=== PATIENT | female | born 1965 | race Caucasian/White ===

== ENCOUNTER 2016-07-10 08:43 | Outpatient (CLI) | payer MEDICARE, MEDICAID ==
[~2016-07-10] VITALS: Ht 162.6 cm; Wt 149.7 kg
[~2016-07-10 08:43] MED LIST: ALB.5NB20 HHN; ATEN100T45 PO; BACL20TA PO; CYCL10TA9 PO; DULO60CA6 PO; EST.625T PO; ESTR1TAB24 PO; FLT11013 IH; FRSM40T PO; FURO20TA4 PO; HYDR12.570 GT; LIRA0.6P SQ; LISI10TA PO; LISI1TAB6 PO; LPRM1B120 PO; MECL-124 PO; MTF500T PO; NAPR-248 PO; NITR-65 PO; OMEG1CAP51 PO; ONDAN4ODT PO; OXYC-197 PO; PNT40TEC PO; POTA10TA10 PO; PRAV40TA2 PO; PREG200C PO; PREG225C PO; PRV20T PO; SCOP1PAT TD; TRAM50TA2 PO
[2016-07-10 09:02] VITALS: BP 125/76
[2016-07-10] MEDS ORDERED: LIDOCAINE 2% 20 ML (XYLOCAINE) VIAL ONE (09:03)
[2016-07-10 09:47] VITALS: BP 149/79
--- NOTE | 2016-07-10 13:25 | Pain Medicine-Procedure ---
Procedure Pre-Op/Post-Op Diagnosis Diagnosis: spondylosis without myelopathy, lumbar Indications for Operation Low back pain Attending Surgeon Enedelia Procedure Date of Service: Jul 10, 2016 PROCEDURE: Radiofrequency Ablation (RFA) of left L3, L4, L5 and sacral ala (S1 ) Medial Branches NOTE: After obtaining written informed consent patient was taken to the procedure room. Pre-procedure blood pressure and pulse were stable and recorded in patients clinic chart. Patient was placed in a prone position and left lumbar area was prepped with chloraprep and draped in the usual sterile fashion. The skin over the sacral ala on the left was injected with 2% Lidocaine for local anesthesia. A 20-gauge RFA 100 mm needle with 10 mm active was inserted and advanced until it was touching the sacral ala in the area of the medial branch from S1. Next, in the oblique view, the left L3,L4 and L5 levels were identified. The skin over L3, L4 and L5 was then injected with 1% Lidocaine for local anesthesia. Next a 20-gauge RFA 100 mm needle with 10 mm active tip was inserted and advanced until it was touching the L3, L4 and L5 levels in the distrubution of the medial branches at each level making sure to not enter the neuroforamina. Following the placement of the needles sensory stimulation at 50 Hz and motor stimulation at 2 Hz was carried out. After confirming reproduction of the pain/sensation in the area of symptoms and the patient denying any motor movement, 0.5 mL's of 2% preservative free Lidocaine was injected at each level after negative aspiration. The RFA was then carried out in lesion mode. The settings were 80 C, and 90 seconds for lesion mode at each level. During the procedure no pain was reported in the extremities by the patient. After the procedure the needles were removed. Skin was cleaned and a sterile dressing was applied. Following the procedure the patient's vital signs were stable. The patient was discharged. RFA DATA: In chart Complications None MAURA AGUILERA MD Jul 10, 2016 1:25 pm
== END 2016-07-10 09:48 | disposition home or self-care (01) ==
LOC: CARD 08:43
PROVIDERS: ATTEND Pain Medicine Pain Medicine
DX: M47.816 Spondylosis without myelopathy or radiculopathy, lumbar region (principal)
CPT/HCPCS: 64635; 64636

== ENCOUNTER 2016-12-16 10:39 | Outpatient (CLI) | payer MEDICARE, MEDICAID ==
[~2016-12-16] VITALS: Ht 162.6 cm; Wt 143.8 kg
[2016-12-16 10:47] VITALS: BP 132/72
[2016-12-16] MEDS ORDERED: TRAM50TA2 PO (10:59)
[2016-12-16] MEDS ORDERED: DULA0.75 SQ (10:59)
[2016-12-16 12:02] LABS: ANION GAP 12 MMOL/L (5-14); BLOOD UREA NITROGEN 10 MG/DL (7-18); BUN/CREATININE RATIO 14 (0-20); CALCIUM 9.2 MG/DL (8.5-10.1); CARBON DIOXIDE 27 MMOL/L (21-32); CHLORIDE 103 MMOL/L (98-107); GFR ESTIMATED > 60; GLUCOSE 131 MG/DL (70-105); HEMOLYSIS 7 (0-29); ICTERUS 0.3 (0-1.9); LIPEMIA -1 (0-49); POTASSIUM 3.9 MMOL/L (3.6-5.0); SODIUM 142 MMOL/L (135-145)
== END 2016-12-16 11:07 | disposition home or self-care (01) ==
LOC: PREOP 10:39
PROVIDERS: ATTEND Orthopaedic Surgery
DX: Z01.812 Encounter for preprocedural laboratory examination (principal); Z11.2 Encounter for screening for other bacterial diseases; M77.11 Lateral epicondylitis, right elbow
CPT/HCPCS: 36415; 80048; 87081

== ENCOUNTER 2016-12-23 09:32 | Day surgery (SDC) | payer MEDICARE, MEDICAID ==
--- NOTE | 2016-12-15 13:03 | HISTORY AND PHYSICAL ---
DATE OF SERVICE: PROCEDURE: Right elbow lateral epicondyle debridement and repair. HISTORY: The patient is a 51-year-old right hand dominant female with complaints of right elbow pain radiating laterally. She reports pain with lifting activities. She reports that this has been progressive in nature. She denies paresthesias. She reports difficulty with any lifting away from her body. Due to functional impairment, the patient has elected to proceed with surgical intervention. REVIEW OF SYSTEMS: No chest pain. No shortness of breath. No dysuria. PAST MEDICAL HISTORY: Diabetes, spinal stenosis, lumbar arthropathy, peripheral neuropathy, edema, hypertension, hyperlipidemia, asthma, reflux, nephrolithiasis, depression, cervical cancer. PAST SURGICAL HISTORY: Right shoulder, colonoscopy, right knee arthroscopy, cataract excision, hysterectomy. FAMILY HISTORY: Alzheimer's, diabetes. PRIMARY CARE PROVIDER: [facility]. MEDICATIONS: Albuterol, lisinopril, transderm, estradiol, pravastatin, potassium, Lyrica, Lasix, Cymbalta, Flovent, triamcinolone, metformin, cyclobenzaprine, meclizine, tramadol, Proventil, Naprosyn, atenolol, pantoprazole, baclofen, Percocet. ALLERGIES: KEFLEX, MORPHINE, TRAVATAN. SOCIAL HISTORY: The patient denies alcohol and tobacco use. PHYSICAL EXAMINATION: GENERAL: The patient is well-developed, well-nourished, in no acute distress. HEENT: Normocephalic, atraumatic. Pupils are equal, round and reactive to light. Oropharynx is clear. NECK: Supple with no lymphadenopathy. LUNGS: Clear to auscultation bilaterally. HEART: Regular rate and rhythm. ABDOMEN: Soft, nontender, nondistended. EXTREMITIES: The right upper limb demonstrates marked tenderness in her lateral epicondyle. She has pain with resistant wrist extension and finger extension. Sensation is intact in her radial, ulnar and median distribution. She is nontender over her radial tunnel. She has full elbow flexion and extension and full pronation and supination of the forearm. IMPRESSION: Right elbow lateral epicondylitis, unresponsive to conservative treatment. PLAN: Right elbow lateral epicondyle debridement and repair. The risks, benefits, options, ramifications and recovery have been discussed at length with the patient and she understands and wishes to proceed. Job ID: [id number] DocumentID: [id number] Dictated Date: 12/15/2016 09:30:17 Sales Agent [employer] Date: 12/15/2016 11:41:57 Dictated By: ARELI MOYA MD
[~2016-12-23] VITALS: Ht 162.6 cm; Wt 143.8 kg
[2016-12-23 09:30] VITALS: BP 134/72
[~2016-12-23 09:32] MED LIST changes: +DULA0.75 SQ
--- NOTE | 2016-12-23 09:33 | Progress Note-Pre Operative ---
Pre-Operative Progress Note H&P Reviewed The H&P was reviewed, patient examined and no changes noted. Date Seen by Provider: Dec 23, 2016 Time Seen by Provider: :33 Date H&P Reviewed: Dec 23, 2016 Time H&P Reviewed: :33 Pre-Operative Diagnosis: right elbow lateral epicondylitis ARELI MOYA MD Dec 23, 2016 09:33
--- NOTE | 2016-12-23 09:35 | Progress Note-Post Operative ---
Post-Operative Progess Note Surgeon (s)/Sales And Service Engineer (s) Surgeon ARELI MOYA MD Sales And Service Engineer: [employer] Pre-Operative Diagnosis right elbow lateral epicondylitis Post-Operative Diagnosis right elbow lateral epicondylitis Procedure & Operative Findings Date of Procedure 12/23/16 Procedure Performed/Findings right elbow lateral epicondyle debridement and repair Anesthesia Type GETA Estimated Blood Loss Estimated blood loss (mL): minimal Specimens/Packing Specimens Removed none Packing: none ARELI MOYA MD Dec 23, 2016 09:34
[2016-12-23] MEDS ORDERED: HYDROcodone/APAP 7.5 MG/325 MG (LORTAB, LORCET PLUS) TABLET PO PRN (09:45)
[2016-12-23] MEDS ORDERED: BUPIVACAINE 0.5% 30 ML (SENSORCAINE) VIAL ONE (09:47)
[2016-12-23] MEDS ORDERED: ceFAZolin 1,000 MG (ANCEF) VIAL ONE (09:50)
[2016-12-23] MEDS ORDERED: NS (IVPB) 0 ML ONE (09:50)
[2016-12-23] MEDS: LACTATED RINGERS 1,000 ML IV PRN ×2 (09:55→10:47)
[2016-12-23] MEDS ORDERED: FAMOTIDINE 20MG/2ML IV (PEPCID) ONE (10:07)
[2016-12-23] MEDS ORDERED: LIDOCAINE PF 2% 5 ML (XYLOCAINE) VIAL ONE (10:09)
[2016-12-23] MEDS ORDERED: DEXAMETHASONE PF 10 MG/ML (DECADRON) VIAL ONE (10:09)
[2016-12-23] MEDS ORDERED: proPOfol 200 MG/20 ML (DIPRIVAN) VIAL IV ONE (10:09)
[2016-12-23] MEDS ORDERED: CLINDAMYCIN 600 MG/4ML (CLEOCIN) VIAL ONE (10:09)
[2016-12-23] MEDS ORDERED: NS (IVPB) 50 ML ONE (10:09)
[2016-12-23] MEDS ORDERED: ONDANSETRON 4 MG/2 ML (SDV) Z0FRAN ONE (10:09)
[2016-12-23] MEDS ORDERED: fentaNYL INJECTION 100 MCG/2 ML AMP ONE (10:10)
[2016-12-23] MEDS ORDERED: MIDAZOLAM 2 MG/2 ML (VERSED) VIAL ONE (10:10)
[2016-12-23] MEDS ORDERED: FAMOTIDINE 20MG/2ML IV (PEPCID) IV ONE (10:15)
[2016-12-23] MEDS ORDERED: CLINDAMYCIN INJECTION 600 MG in NS (IVPB) 50 ML IV ONE (10:30)
[2016-12-23] MEDS ORDERED: PHENYLEPHRINE 100 MCG/ML 10 ML (ANESTHESIA) SYR ONE (10:53)
[2016-12-23] MEDS ORDERED: LACTATED RINGERS 2,000 ML IV ONE (10:53)
[2016-12-23] MEDS ORDERED: SEVOFLURANE (ULTANE) 15 ML INHAL SOLN ONE (10:53)
[2016-12-23] MEDS ORDERED: KETOROLAC 30 MG/ML VIAL ONE (11:23)
[2016-12-23] MEDS ORDERED: ONDANSETRON 4 MG/2 ML (SDV) Z0FRAN IVP PRN (11:30)
[2016-12-23] MEDS ORDERED: morphine INJ 10 MG/ML 1ML (SYR OR VIAL) IVP PRN (11:30)
[2016-12-23] MEDS ORDERED: KETOROLAC 30 MG/ML VIAL IVP ONE (11:30)
[2016-12-23 12:07] VITALS: BP 101/58
[2016-12-23 12:40] VITALS: BP 114/62
[2016-12-23 13:30] VITALS: BP 114/60
[2016-12-23] MEDS ORDERED: HYDR-3816 PO (13:41)
[2016-12-23 14:00] VITALS: BP 114/60
--- NOTE | 2016-12-23 15:03 | OPERATIVE REPORT ---
DATE OF SERVICE: 12/23/2016 PREOPERATIVE DIAGNOSIS: Right elbow lateral epicondylitis. POSTOPERATIVE DIAGNOSIS: Right elbow lateral epicondylitis. PROCEDURE: Right elbow lateral epicondyle debridement and repair. SURGEON: Tigre Frausto MD HEALTH CARE CONSULTANT: JONAS Pacheco, who assisted throughout the procedure and closed the incision. ANESTHESIA: General endotracheal by Honorio Stokes CRNA. TOURNIQUET TIME: 13 minutes at 250 mmHg. ESTIMATED BLOOD LOSS: Minimal. DRAINS: None. COMPLICATIONS: None. POSTOPERATIVE PLAN: Protected activities for 4-6 weeks. The patient was transported to the recovery room, awake and in stable condition. STATEMENT OF MEDICAL NECESSITY: The patient is a 51-year-old right-hand dominant female with complaints of right elbow lateral pain worse with lifting and repetitive activities. She is markedly tender along her lateral epicondyle and had pain with resistant MCP extension. Due to functional impairment and failure to improve with conservative measures, the patient elected to proceed with surgical intervention. DESCRIPTION OF PROCEDURE: After risks and benefits of procedure were discussed and questions were answered, an informed consent was signed, placed on chart. The operative site was confirmed in the preoperative holding area and initialed by the surgeon. The patient was then transported to the operating room. After adequate levels of general endotracheal anesthetic were obtained, a timeout was called confirming the operative site. The upper extremity was prepped and draped in the usual sterile fashion. A longitudinal incision was made from the lateral epicondyle extending distally with extensor/supinator mass. The underlying soft tissues were carefully dissected. A portion of the tendon was excised being careful to not to zahra the lateral collateral ligament. A portion of the lateral epicondyle was debrided with a rongeur. The tendon edges were then trephinated and closed with a 4-0 Vicryl in a running fashion. The wound was copiously irrigated after deflating the tourniquet. Pressure was used for hemostasis. Skin was closed with 4-0 nylon in a running alternating horizontal mattress fashion. A soft dressing was applied after infiltrating the incision with plain Marcaine, and the patient was transported to the recovery room, awake and in stable condition. Job ID: [id number] DocumentID: [id number] Dictated Date: 12/23/2016 11:05:59 Electric Needle Specialist Date: 12/23/2016 14:21:23 Dictated By: TIGRE FRAUSTO MD
--- OUTSIDE RECORDS SUMMARY | 2016-12-24 18:19 | XMS REPORT ---
Author Author ELIZA GO Organization [employer] Address Unknown Phone Unavailable Care Team Providers Care Ballpoint Pen Assembly Machine Operator Name Role Phone ELIZA GO CP Unavailable Allergies No Known Allergies Problems Problem Type Condition ICD-9 Code Onset Dates Condition Status Problem Herpes simplex without mention of complication 054.9 Active Problem Morbid obesity 278.01 Active Problem Lumbago 724.2 Active Problem Diabetes 250.00 Active Problem Asthma, unspecified, unspecified status 493.90 Active Problem Abnormal mammogram of left breast 793.80 Active Problem Pain in joint, shoulder region 719.41 Active Problem Depressive disorder, not elsewhere classified 311 Active Problem Actinic keratosis 702.0 Active Problem Other and unspecified noninfectious gastroenteritis and colitis 558.9 Active Problem Benign paroxysmal positional vertigo 386.11 Active Problem Unspecified hemorrhoids without mention of complication 455.6 Active Problem Sciatica 724.3 Active Problem Unspecified abnormal mammogram 793.80 Active Medications Medication Code System Code Instructions Start Date End Date Status Dosage Lyrica [facility] 98176503634 225 Appt needed for additional reflls TAKE ONE CAPSULE BY MOUTH TWICE A DAY Results No Known Results Summary Purpose [employer]Clinical[employer] Submission
--- OUTSIDE RECORDS SUMMARY | 2016-12-24 18:19 | XMS REPORT ---
Author Author ELIZA GO Organization [employer] Address Unknown Phone Unavailable Care Team Providers Care Management Development Specialist Name Role Phone ELIZA GO CP Unavailable Allergies No Known Allergies Problems Problem Type Condition Code Onset Dates Condition Status Problem Lumbago 724.2 Active Problem Depressive disorder, not elsewhere classified 311 Active Problem Morbid obesity 278.01 Active Problem Benign paroxysmal positional vertigo 386.11 Active Problem Sciatica 724.3 Active Problem Hyperlipidemia 272.4 Active Problem Abnormal mammogram of left breast 793.80 Active Problem Hypertension 401.9 Active Problem Actinic keratosis 702.0 Active Problem Pain in joint, shoulder region 719.41 Active Problem Diabetes 250.00 Active Problem Asthma, unspecified, unspecified status 493.90 Active Medications Medication Code System Code Instructions Start Date End Date Status Dosage Tramadol HCl [facility] [address]-07 50 MG Orally 2 times a day prn Mar 29, 2015 1 tablet as needed Results No Known Results Summary Purpose [employer] Submission
--- OUTSIDE RECORDS SUMMARY | 2016-12-24 18:19 | XMS REPORT ---
Author Author ELIZA GO [facility] e[employer] Address Unknown Phone Unavailable Care Team Providers Care Administrator Health Care Facility Name Role Phone ELIZA GO CP Unavailable Allergies No Known Allergies Problems Problem Type Condition ICD-9 Code Onset Dates Condition Status Problem Morbid obesity 278.01 Active Problem Pain in joint, shoulder region 719.41 Active Problem Depressive disorder, not elsewhere classified 311 Active Problem Hyperlipidemia 272.4 Active Problem Abnormal mammogram of left breast 793.80 Active Problem Hypertension 401.9 Active Problem Actinic keratosis 702.0 Active Problem Other and unspecified noninfectious gastroenteritis and colitis 558.9 Active Problem Diabetes 250.00 Active Problem Asthma, unspecified, unspecified status 493.90 Active Problem Sciatica 724.3 Active Problem Unspecified abnormal mammogram 793.80 Active Problem Benign paroxysmal positional vertigo 386.11 Active Problem Herpes simplex without mention of complication 054.9 Active Problem Unspecified hemorrhoids without mention of complication 455.6 Active Problem Lumbago 724.2 Active Medications Medication Code System Code Instructions Start Date End Date Status Dosage Fish Oil [facility] [address]-25 1000 MG Orally Once a day 1 capsule Results No Known Results Summary Purpose [employer]ClinicalWorks Submission
--- OUTSIDE RECORDS SUMMARY | 2016-12-24 18:19 | XMS REPORT ---
Author Author ELIZA GO Organization [employer] Address Unknown Phone Unavailable Care Team Providers Care Agriculture Sales Account Manager Name Role Phone ELIZA GO CP Unavailable Allergies No Known Allergies Problems Problem Type Condition Code Onset Dates Condition Status Problem Mixed hyperlipidemia E78.2 Active Problem Essential hypertension I10 Active Problem Chronic pain G89.29 Active Problem Mild intermittent asthma without complication J45.20 Active Problem GERD (gastroesophageal reflux disease) K21.9 Active Problem Moderate episode of recurrent major depressive disorder F33.1 Active Problem Hereditary and idiopathic neuropathy, unspecified G60.9 Active Problem Restless leg syndrome G25.81 Active Problem Type 2 diabetes mellitus without complication E11.9 Active Problem Low back pain M54.5 Active Problem Primary insomnia F51.01 Active Problem Abnormal drug screen R89.2 Active Medications No Known Medications Results No Known Results Summary Purpose [employer]Clinical[employer] Submission
--- OUTSIDE RECORDS SUMMARY | 2016-12-24 18:19 | XMS REPORT ---
Author Author ELIZA GO [facility] e[employer] Address Unknown Phone Unavailable Care Team Providers Care Medical Director Of Hospice Name Role Phone ELIZA GO CP Unavailable Allergies, Adverse Reactions, Alerts Substance Reaction Event Type Travatan Info Not Available Drug Allergy Morphine Sulfate Info Not Available Drug Allergy Keflex Info Not Available Drug Allergy Problems Problem Type Condition Code Onset Dates Condition Status Problem Chronic pain G89.29 Active Problem Low back pain M54.5 Active Problem Essential hypertension I10 Active Problem Restless leg syndrome G25.81 Active Assessment Post menopausal syndrome N95.1 Active Problem Moderate episode of recurrent major depressive disorder F33.1 Active Assessment Right foot ulcer, with unspecified severity L97.519 Active Problem Post menopausal syndrome N95.1 Active Problem Abnormal drug screen R89.2 Active Problem Type 2 diabetes mellitus without complication E11.9 Active Problem Hereditary and idiopathic neuropathy, unspecified G60.9 Active Problem Primary insomnia F51.01 Active Assessment Hereditary and idiopathic neuropathy, unspecified G60.9 Active Assessment Restless leg syndrome G25.81 Active Assessment Mixed hyperlipidemia E78.2 Active Assessment Essential hypertension I10 Active Assessment Primary insomnia F51.01 Active Problem Mild intermittent asthma without complication J45.20 Active Assessment Type 2 diabetes mellitus without complication E11.9 Active Problem GERD (gastroesophageal reflux disease) K21.9 Active Assessment Encounter for immunization Z23 Active Problem Mixed hyperlipidemia E78.2 Active Medications Medication Code System Code Instructions Start Date End Date Status Dosage Naproxen [facility] 16281204125 500 orally bid 1 tablet Cymbalta [facility] 69491139536 60 orally daily 1 capsule Protonix [facility] 78907404104 40 TAKE ONE TABLET BY MOUTH DAILY Latanoprost [facility] [address]-06 0.005 % Ophthalmic Once a day 1 drop into affected eye in the evening Estradiol [facility] [address]-48 1 MG Orally Once a day 1 tablet Flovent HFA [facility] [address]-83 44 mcg/actuation inhale 2 puffs by Inhalation route 2 times per day Scopolamine Base NDC 0 1.5 mg apply 1 patch by Transdermal route to the hairless area behind 1 ear at least 4 hr before effect is required ; reapply every 3 days as needed PRN Trulicity [facility] [address]-53 0.75 MG/0.5ML Subcutaneous Once weekly 0.5 ml Lyrica [facility] 07982680668 225 Orally Twice a day 1 capsule Tramadol HCl [facility] [address]-60 50 mg Orally 2 times a day 1 tablet as needed Proventil HFA [facility] [address]-88 90 mcg/actuation 1-2 puffs by Inhalation route every 4 hours Lasix [facility] 76378462787 20 TAKE ONE TABLET BY MOUTH DAILY NEEDED Baclofen [facility] 80507218905 20 TAKE ONE TABLET BY MOUTH EVERY NIGHT AT BEDTIME DIRECTED Belsomra [facility] [address]-58 10 mg Orally Once a day 1 tablet at bedtime as needed meclizine [facility] 0 25 mg take 1 tablet by Oral route 1 hour before exposure to motion 4 times per day PRN or vertigo Atenolol [facility] 60977788819 100 TAKE ONE TABLET BY MOUTH DAILY Potassium Chloride ER [facility] 12019967662 10 TAKE ONE TABLET BY MOUTH DAILY WITH FOOD NEEDED Fish Oil [facility] [address]-68 1000 MG Orally Once a day 1 capsule Metformin HCl [facility] [address]-88 500 Orally Twice a day 2 Lisinopril-Hydrochlorothiazide [facility] 38480633069 10-12.5 Orally Once a day 1 tablet Albuterol Sulfate [facility] [address]-03 2.5 mg /3 mL (0.083 %) 1 Each by Inhalation route every 4 hours for cough and wheeze PRN for wheezing or cough Pravastatin Sodium [facility] 60881317931 40 TAKE ONE TABLET BY MOUTH EVERY NIGHT AT BEDTIME. AVOID GRAPEFRUIT Procedures Procedure Coding System Code Date MICROALBUMIN, SEMIQUANT CPT-4 07271 May 21, 2016 [facility]-4 NOBLL May 21, 2016 GLYCATED HEMOGLOBIN TEST CPT-4 14189 May 21, 2016 IMMUNIZATION ADMIN, EACH ADD (please include units) CPT-4 72501 May 21, 2016 SINGLE IMMUNIZATION ADMIN CPT-4 64345 May 21, 2016 VENIPUNCT, ROUTINE* CPT-4 18509 May 21, 2016 Office Visit, Est Pt., Level 5 CPT-4 03296 May 21, 2016 [facility] VISIT ESTABLISHED PATIENT CPT-4 G0467 May 21, 2016 PCV 13 CPT-4 40661 May 21, 2016 FLUARIX QUAD P-FREE 3 AND UP .50 2015 CPT-4 46645 May 21, 2016 Vital Signs Date/Time: May 21, 2016 Cardiac Monitoring Heart Rate 84 bpm Weight 325.8 lbs Height 63 in BMI 57.71 Index Blood Pressure Diastolic 84 mmHg Blood Pressure Systolic 112 mmHg Results Name Result Date Reference Range Unit Abnormality Flag MICROALBUMIN, URINE (IN HOUSE) ----Exp date 20160521 ----Clarity clear 20160521 ----Color yellow 20160521 ----ALB 80 mg/L 20160521 ----CRE 300 mg/dL 20160521 ----A:C (IN HOUSE) 30-300 mg/g 20160521 ----MICROALBUMIN Abnormal 20160521 ----Lot # [id number] VITAMIN B12 ----Vitamin B12 225 20160521 211-946 pg/mL ROUTINE VENIPUNCTURE A1C (IN HOUSE) ----Exp date 20160521 ----Previous A1c 7.1 20160521 ----Lot [id number] 20160521 ----A1C IN HOUSE 6.6 80846307 4.3 - 5.6 % CMP ----BUN/Creatinine Ratio 16 20160521 9-23 ----eGFR If Africn Am 87 [id number] >59 mL/min/1.73 ----eGFR If NonAfricn Am 75 [id number] >59 mL/min/1.73 ----Creatinine, Serum 0.89 26255908 0.57-1.00 mg/dL ----Chloride, Serum 97 44347299 97-106 mmol/L ----Potassium, Serum 4.1 66248500 3.5-5.2 mmol/L ----Sodium, Serum 143 68429117 136-144 mmol/L ----Protein, Total, Serum 6.8 68622948 6.0-8.5 g/dL ----Albumin, Serum 4.3 42156744 3.5-5.5 g/dL ----Globulin, Total 2.5 20160521 1.5-4.5 g/dL ----A/G Ratio 1.7 20160521 1.1-2.5 ----BUN 14 20160521 6-24 mg/dL ----Glucose, Serum 173 20160521 65-99 mg/dL H ----Carbon Dioxide, Total 28 20160521 18-29 mmol/L ----Calcium, Serum 9.5 20160521 8.7-10.2 mg/dL ----AST (SGOT) 13 20160521 0-40 IU/L ----ALT (SGPT) 13 20160521 0-32 IU/L ----Bilirubin, Total 0.4 20160521 0.0-1.2 mg/dL ----Alkaline Phosphatase, S 67 20160521 39-117 IU/L TSH ----TSH 2.100 20160521 0.450-4.500 uIU/mL MICROALBUMIN/CREATININE RATIO, URINE ----Microalb/Creat Ratio 7.1 20160521 0.0-30.0 mg/g creat ----Microalbumin, Urine 15.2 20160521 Not Estab. ug/mL ----Creatinine, Urine 213.1 20160521 Not Estab. mg/dL Immunizations Vaccine Administration Date FLUARIX QUAD P-FREE 3 AND UP .50 2015May 21, 2016 PCV 13 May 21, 2016 Summary Purpose eClinicalWorks Submission
--- OUTSIDE RECORDS SUMMARY | 2016-12-24 18:25 | XMS REPORT | Continuity of Care Document ---
Author Author [facility] Address Unknown Phone Unavailable Allergies Active Description Code Type Severity Reaction Onset Reported/Identified Relationship to Patient Clinical Status Yes Keflex Drug Allergy N/A N/A 08/13/2008 Yes Keflex Drug Allergy 08/13/2008 Yes Travatan Drug Allergy N/A N/A 06/03/2010 Yes Travatan Drug Allergy 06/03/2010 Yes cephalexin [id number] Drug Allergy Severe SWELLING, RASH 08/31/2010 Yes morphine 15 mg tablet Drug Allergy N/A N/A 08/14/2013 Yes benzalkonium chloride [id number] Drug Allergy Unknown eye irritation 04/25/2015 Yes morphine [id number] Drug Allergy Unknown vomiting 04/25/2015 Yes travoprost [id number] Drug Allergy Unknown eye irritation 04/25/2015 Yes morphine [id number] Drug Allergy Mild vomiting 05/01/2015 Medications Problems Date Dx Coded Attending Type Code Diagnosis Diagnosed By 06/03/1599 SHEKHAR MCGUIRE APRN Ot E11.621 TYPE 2 DIABETES MELLITUS WITH FOOT ULCER 06/03/1599 SHEKHAR MCGUIRE APRN Ot L97.411 NON-PRS CHR ULCER OF RIGHT HEEL AND MIDF 04/24/2008 NATI GOODE APRN 250.60 DIABETES MELLITUS DIABETIC PERIPHERAL NEUROPATHY 04/24/2008 NATI GOODE APRN 681.02 Onychia And Paronychia Of Finger 04/24/2008 CASPER RYAN DO 250.60 DIABETES MELLITUS DIABETIC PERIPHERAL NEUROPATHY 04/24/2008 CASPER RYAN DO 681.02 Onychia And Paronychia Of Finger 04/24/2008 CASPER RYAN DO 250.60 DIABETES MELLITUS DIABETIC PERIPHERAL NEUROPATHY 04/24/2008 CASPER RYAN DO 681.02 Onychia And Paronychia Of Finger 04/24/2008 250.60 DIABETES MELLITUS DIABETIC PERIPHERAL NEUROPATHY 04/24/2008 681.02 Onychia And Paronychia Of Finger 04/24/2008 CONNOR TORREZ CASPER K 250.60 DIABETES MELLITUS DIABETIC PERIPHERAL NEUROPATHY 04/24/2008 RYAN DO CASPER K 681.02 Onychia And Paronychia Of Finger 04/24/2008 250.60 DIABETES MELLITUS DIABETIC PERIPHERAL NEUROPATHY 04/24/2008 681.02 Onychia And Paronychia Of Finger 04/24/2008 250.60 DIABETES MELLITUS DIABETIC PERIPHERAL NEUROPATHY 04/24/2008 681.02 Onychia And Paronychia Of Finger 04/24/2008 CONNOR DO CASPER K 250.60 DIABETES MELLITUS DIABETIC PERIPHERAL NEUROPATHY 04/24/2008 RYAN DO CASPER K 681.02 Onychia And Paronychia Of Finger 04/24/2008 RYAN DO CASPER K 250.60 DIABETES MELLITUS DIABETIC PERIPHERAL NEUROPATHY 04/24/2008 RYAN DO CASPER K 681.02 Onychia And Paronychia Of Finger 04/24/2008 CONNOR TORREZ CASPER K 250.60 DIABETES MELLITUS DIABETIC PERIPHERAL NEUROPATHY 04/24/2008 CONNOR TORREZ CASPER K 681.02 Onychia And Paronychia Of Finger 04/24/2008 MARILU KUMAR APRN A 250.60 DIABETES MELLITUS DIABETIC PERIPHERAL NEUROPATHY 04/24/2008 STACY GILLETTE MARILU A 681.02 Onychia And Paronychia Of Finger 04/24/2008 CONNOR TORREZ CASPER K 250.60 DIABETES MELLITUS DIABETIC PERIPHERAL NEUROPATHY 04/24/2008 CONNOR TORREZ CASPER K 681.02 Onychia And Paronychia Of Finger 04/24/2008 CONNOR TORREZ CASPER K 250.60 DIABETES MELLITUS DIABETIC PERIPHERAL NEUROPATHY 04/24/2008 CONNOR TORREZ CASPER K 681.02 Onychia And Paronychia Of Finger 04/24/2008 MAURA CHANDLER DDS 250.60 DIABETES MELLITUS DIABETIC PERIPHERAL NEUROPATHY 04/24/2008 MAURA CHANDLER DDS 681.02 Onychia And Paronychia Of Finger 04/24/2008 MAURA CHANDLER DDS 250.60 DIABETES MELLITUS DIABETIC PERIPHERAL NEUROPATHY 04/24/2008 MAURA CHANDLER DDS 681.02 Onychia And Paronychia Of Finger 04/24/2008 CICI JACKSON APRN 250.60 DIABETES MELLITUS DIABETIC PERIPHERAL NEUROPATHY 04/24/2008 CICI JACKSON APRN 681.02 Onychia And Paronychia Of Finger 04/24/2008 WHITE DDS, EVELINA J 250.60 DIABETES MELLITUS DIABETIC PERIPHERAL NEUROPATHY 04/24/2008 WHITE DDS, EVELINA J 681.02 Onychia And Paronychia Of Finger 04/24/2008 MADPat GILLETTE, ELIZA L 250.60 DIABETES MELLITUS DIABETIC PERIPHERAL NEUROPATHY 04/24/2008 MADL BAR ROLLER, ELIZA L 681.02 Onychia And Paronychia Of Finger 04/24/2008 CONNOR TORREZ CASPER K 250.60 DIABETES MELLITUS DIABETIC PERIPHERAL NEUROPATHY 04/24/2008 CONNOR TORREZ CASPER K 681.02 Onychia And Paronychia Of Finger 04/24/2008 ABBI BAR ROLLER, ELIZA L 250.60 DIABETES MELLITUS DIABETIC PERIPHERAL NEUROPATHY 04/24/2008 MADL BAR ROLLER, ELIZA L 681.02 Onychia And Paronychia Of Finger 04/24/2008 CONNOR TORREZ CASPER K 250.60 DIABETES MELLITUS DIABETIC PERIPHERAL NEUROPATHY 04/24/2008 CONNOR TORREZ CASPER K 681.02 Onychia And Paronychia Of Finger 04/24/2008 MADPat BAR ROLLER, ELIZA L 250.60 DIABETES MELLITUS DIABETIC PERIPHERAL NEUROPATHY 04/24/2008 MADPat BAR ROLLER, ELIZA L 681.02 Onychia And Paronychia Of Finger 04/24/2008 CONNOR TORREZ CASPER K 250.60 DIABETES MELLITUS DIABETIC PERIPHERAL NEUROPATHY 04/24/2008 CONNOR TORREZ CASPER K 681.02 Onychia And Paronychia Of Finger 04/24/2008 MADPat BAR ROLLER, ELIZA L 250.60 DIABETES MELLITUS DIABETIC PERIPHERAL NEUROPATHY 04/24/2008 MADL BAR ROLLER, ELIZA L 681.02 Onychia And Paronychia Of Finger 04/24/2008 ABBI BAR ROLLER, ELIZA L 250.60 DIABETES MELLITUS DIABETIC PERIPHERAL NEUROPATHY 04/24/2008 MADL BAR ROLLER, ELIZA L 681.02 Onychia And Paronychia Of Finger 04/24/2008 BRISEIDA HUMPHREYS MD N 250.60 DIABETES MELLITUS DIABETIC PERIPHERAL NEUROPATHY 04/24/2008 BRISEIDA HUMPHREYS MD 681.02 Onychia And Paronychia Of Finger 04/24/2008 RYAN DO, CASPER K 250.60 DIABETES MELLITUS DIABETIC PERIPHERAL NEUROPATHY 04/24/2008 RYAN DO, CASPER K 681.02 Onychia And Paronychia Of Finger 04/24/2008 KATIE BAR ROLLER, TYRESE R 250.60 DIABETES MELLITUS DIABETIC PERIPHERAL NEUROPATHY 04/24/2008 KATIE BAR ROLLER, TYRESE R 681.02 Onychia And Paronychia Of Finger 04/24/2008 MADL BAR ROLLER, ELIZA L 250.60 DIABETES MELLITUS DIABETIC PERIPHERAL NEUROPATHY 04/24/2008 MADL BAR ROLLER, ELIZA L 681.02 Onychia And Paronychia Of Finger 04/24/2008 MADL BAR ROLLER, ELIZA L 250.60 DIABETES MELLITUS DIABETIC PERIPHERAL NEUROPATHY 04/24/2008 MADL BAR ROLLER, ELIZA L 681.02 Onychia And Paronychia Of Finger 04/24/2008 MADL BAR ROLLER, ELIZA L 250.60 DIABETES MELLITUS DIABETIC PERIPHERAL NEUROPATHY 04/24/2008 MADL BAR ROLLER, ELIZA L 681.02 Onychia And Paronychia Of Finger 04/24/2008 RYAN DO, CASPER K 250.60 DIABETES MELLITUS DIABETIC PERIPHERAL NEUROPATHY 04/24/2008 RYAN DO, CASPER K 681.02 Onychia And Paronychia Of Finger 04/24/2008 MADL BAR ROLLER, ELIZA L 250.60 DIABETES MELLITUS DIABETIC PERIPHERAL NEUROPATHY 04/24/2008 MADL BAR ROLLER, ELIZA L 681.02 Onychia And Paronychia Of Finger 04/24/2008 CONNOR DO CASPER K 250.60 DIABETES MELLITUS DIABETIC PERIPHERAL NEUROPATHY 04/24/2008 RYAN DO, CASPER K 681.02 Onychia And Paronychia Of Finger 08/13/2008 NATI GOODE APRN 250.00 DIABETES MELLITUS TYPE 2 08/13/2008 NATI GOODE APRN 250.62 DIABETIC PERIPHERAL NEUROPATHY TYPE II UNCONTROLLED 08/13/2008 CONNOR TORREZ CASPER K 250.00 DIABETES MELLITUS TYPE 2 08/13/2008 CONNOR TORREZ CASPER K 250.62 DIABETIC PERIPHERAL NEUROPATHY TYPE II UNCONTROLLED 08/13/2008 CONNOR TORREZ CASPER K 250.00 DIABETES MELLITUS TYPE 2 08/13/2008 RYAN DO, CASPER K 250.62 DIABETIC PERIPHERAL NEUROPATHY TYPE II UNCONTROLLED 08/13/2008 250.00 DIABETES MELLITUS TYPE 2 08/13/2008 250.62 DIABETIC PERIPHERAL NEUROPATHY TYPE II UNCONTROLLED 08/13/2008 RYAN DO, CASPER K 250.00 DIABETES MELLITUS TYPE 2 08/13/2008 RYAN DO, CASPER K 250.62 DIABETIC PERIPHERAL NEUROPATHY TYPE II UNCONTROLLED 08/13/2008 250.00 DIABETES MELLITUS TYPE 2 08/13/2008 250.62 DIABETIC PERIPHERAL NEUROPATHY TYPE II UNCONTROLLED 08/13/2008 250.00 DIABETES MELLITUS TYPE 2 08/13/2008 250.62 DIABETIC PERIPHERAL NEUROPATHY TYPE II UNCONTROLLED 08/13/2008 RYAN DO, CASPER K 250.00 DIABETES MELLITUS TYPE 2 08/13/2008 RYAN DO, CASPER K 250.62 DIABETIC PERIPHERAL NEUROPATHY TYPE II UNCONTROLLED 08/13/2008 RYAN DO, CASPER K 250.00 DIABETES MELLITUS TYPE 2 08/13/2008 RYAN DO, CASPER K 250.62 DIABETIC PERIPHERAL NEUROPATHY TYPE II UNCONTROLLED 08/13/2008 RYAN DO, CASPER K 250.00 DIABETES MELLITUS TYPE 2 08/13/2008 RYAN DO, CASPER K 250.62 DIABETIC PERIPHERAL NEUROPATHY TYPE II UNCONTROLLED 08/13/2008 STACY GILLETTE MARILU A 250.00 DIABETES MELLITUS TYPE 2 08/13/2008 STACY GILLETTE MARILU A 250.62 DIABETIC PERIPHERAL NEUROPATHY TYPE II UNCONTROLLED 08/13/2008 RYAN DO, CASPER K 250.00 DIABETES MELLITUS TYPE 2 08/13/2008 RYAN DO, CASPER K 250.62 DIABETIC PERIPHERAL NEUROPATHY TYPE II UNCONTROLLED 08/13/2008 RYAN DO, CASPER K 250.00 DIABETES MELLITUS TYPE 2 08/13/2008 RYAN DO, CASPER K 250.62 DIABETIC PERIPHERAL NEUROPATHY TYPE II UNCONTROLLED 08/13/2008 MAURA CHANDLER DDS 250.00 DIABETES MELLITUS TYPE 2 08/13/2008 MAURA CHANDLER DDS 250.62 DIABETIC PERIPHERAL NEUROPATHY TYPE II UNCONTROLLED 08/13/2008 MAURA CHANDLER DDS 250.00 DIABETES MELLITUS TYPE 2 08/13/2008 MAURA CHANDLER DDS 250.62 DIABETIC PERIPHERAL NEUROPATHY TYPE II UNCONTROLLED 08/13/2008 CICI JACKSON APRN 250.00 DIABETES MELLITUS TYPE 2 08/13/2008 CICI JACKSON APRN 250.62 DIABETIC PERIPHERAL NEUROPATHY TYPE II UNCONTROLLED 08/13/2008 WHITE DDS, EVELINA J 250.00 DIABETES MELLITUS TYPE 2 08/13/2008 WHITE DDS, EVELINA J 250.62 DIABETIC PERIPHERAL NEUROPATHY TYPE II UNCONTROLLED 08/13/2008 MADL BAR ROLLER, ELIZA L 250.00 DIABETES MELLITUS TYPE 2 08/13/2008 MADL BAR ROLLER, ELIZA L 250.62 DIABETIC PERIPHERAL NEUROPATHY TYPE II UNCONTROLLED 08/13/2008 RYAN DO, CASPER K 250.00 DIABETES MELLITUS TYPE 2 08/13/2008 RYAN DO, CASPER K 250.62 DIABETIC PERIPHERAL NEUROPATHY TYPE II UNCONTROLLED 08/13/2008 MADL BAR ROLLER, ELIZA L 250.00 DIABETES MELLITUS TYPE 2 08/13/2008 MADL BAR ROLLER, ELIZA L 250.62 DIABETIC PERIPHERAL NEUROPATHY TYPE II UNCONTROLLED 08/13/2008 RYAN DO, CASPER K 250.00 DIABETES MELLITUS TYPE 2 08/13/2008 RYAN DO, CASPER K 250.62 DIABETIC PERIPHERAL NEUROPATHY TYPE II UNCONTROLLED 08/13/2008 MADL BAR ROLLER, ELIZA L 250.00 DIABETES MELLITUS TYPE 2 08/13/2008 TEREZAL BAR ROLLER, ELIZA L 250.62 DIABETIC PERIPHERAL NEUROPATHY TYPE II UNCONTROLLED 08/13/2008 RYAN DO, CASPER K 250.00 DIABETES MELLITUS TYPE 2 08/13/2008 RYAN DO, CASPER K 250.62 DIABETIC PERIPHERAL NEUROPATHY TYPE II UNCONTROLLED 08/13/2008 MADL BAR ROLLER, ELIZA L 250.00 DIABETES MELLITUS TYPE 2 08/13/2008 MADL BAR ROLLER, ELIZA L 250.62 DIABETIC PERIPHERAL NEUROPATHY TYPE II UNCONTROLLED 08/13/2008 MADL BAR ROLLER, ELIZA L 250.00 DIABETES MELLITUS TYPE 2 08/13/2008 TEREZAL BAR ROLLER, ELIZA L 250.62 DIABETIC PERIPHERAL NEUROPATHY TYPE II UNCONTROLLED 08/13/2008 BRISEIDA HUMPHREYS MD 250.00 DIABETES MELLITUS TYPE 2 08/13/2008 BRISEIDA HUMPHREYS MD N 250.62 DIABETIC PERIPHERAL NEUROPATHY TYPE II UNCONTROLLED 08/13/2008 RYAN DO, CASPER K 250.00 DIABETES MELLITUS TYPE 2 08/13/2008 RYAN DO, CASPER K 250.62 DIABETIC PERIPHERAL NEUROPATHY TYPE II UNCONTROLLED 08/13/2008 KATIE GILLETTE, TYRESE R 250.00 DIABETES MELLITUS TYPE 2 08/13/2008 KATIE GILLETTE TYRESE R 250.62 DIABETIC PERIPHERAL NEUROPATHY TYPE II UNCONTROLLED 08/13/2008 MADL BAR ROLLER, ELIZA L 250.00 DIABETES MELLITUS TYPE 2 08/13/2008 MADL BAR ROLLER, ELIZA L 250.62 DIABETIC PERIPHERAL NEUROPATHY TYPE II UNCONTROLLED 08/13/2008 MADL BAR ROLLER, ELIZA L 250.00 DIABETES MELLITUS TYPE 2 08/13/2008 MADL BAR ROLLER, ELIZA L 250.62 DIABETIC PERIPHERAL NEUROPATHY TYPE II UNCONTROLLED 08/13/2008 MADL BAR ROLLER, ELIZA L 250.00 DIABETES MELLITUS TYPE 2 08/13/2008 MADL BAR ROLLER, ELIZA L 250.62 DIABETIC PERIPHERAL NEUROPATHY TYPE II UNCONTROLLED 08/13/2008 RYAN DO, CASPER K 250.00 DIABETES MELLITUS TYPE 2 08/13/2008 RYAN DO, CASPER K 250.62 DIABETIC PERIPHERAL NEUROPATHY TYPE II UNCONTROLLED 08/13/2008 MADL BAR ROLLER, ELIZA L 250.00 DIABETES MELLITUS TYPE 2 08/13/2008 MADL BAR ROLLER, ELIZA L 250.62 DIABETIC PERIPHERAL NEUROPATHY TYPE II UNCONTROLLED 08/13/2008 RYAN DO, CASPER K 250.00 DIABETES MELLITUS TYPE 2 08/13/2008 RYAN DO, CASPER K 250.62 DIABETIC PERIPHERAL NEUROPATHY TYPE II UNCONTROLLED 10/10/2008 NATI GOODE APRN 466.0 Acute Bronchitis 10/10/2008 RYAN DO, CASPER K 466.0 Acute Bronchitis 10/10/2008 RYAN DO, CASPER K 466.0 Acute Bronchitis 10/10/2008 466.0 Acute Bronchitis 10/10/2008 RYAN DO, CASPER K 466.0 Acute Bronchitis 10/10/2008 466.0 Acute Bronchitis 10/10/2008 466.0 Acute Bronchitis 10/10/2008 RYAN DO, CASPER K 466.0 Acute Bronchitis 10/10/2008 RYAN DO, CASPER K 466.0 Acute Bronchitis 10/10/2008 RYAN DO, CASPER K 466.0 Acute Bronchitis 10/10/2008 MARILU KUMAR APRN 466.0 Acute Bronchitis 10/10/2008 RYAN DO, CASPER K 466.0 Acute Bronchitis 10/10/2008 RYAN DO, CASPER K 466.0 Acute Bronchitis 10/10/2008 CHANDLER DDSMAURA 466.0 Acute Bronchitis 10/10/2008 CHANDLER DDS, MAURA 466.0 Acute Bronchitis 10/10/2008 CICI JACKSON APRN 466.0 Acute Bronchitis 10/10/2008 WHITE DDS, EVELINA J 466.0 Acute Bronchitis 10/10/2008 MADL BAR ROLLER, ELIZA L 466.0 Acute Bronchitis 10/10/2008 RYAN DO, CASPER K 466.0 Acute Bronchitis 10/10/2008 MADL BAR ROLLER, ELIZA L 466.0 Acute Bronchitis 10/10/2008 RYAN DO, CASPER K 466.0 Acute Bronchitis 10/10/2008 MADL BAR ROLLER, ELIZA L 466.0 Acute Bronchitis 10/10/2008 RYAN DO, CASPER K 466.0 Acute Bronchitis 10/10/2008 MADL BAR ROLLER, ELIZA L 466.0 Acute Bronchitis 10/10/2008 MADL BAR ROLLER, ELIZA L 466.0 Acute Bronchitis 10/10/2008 BRISEIDA HUMPHREYS MD 466.0 Acute Bronchitis 10/10/2008 RYAN DO, CASPER K 466.0 Acute Bronchitis 10/10/2008 KATIE BAR ROLLER, TYRESE R 466.0 Acute Bronchitis 10/10/2008 MADL BAR ROLLER, ELIZA L 466.0 Acute Bronchitis 10/10/2008 MADL BAR ROLLER, ELIZA L 466.0 Acute Bronchitis 10/10/2008 MADL BAR ROLLER, ELIZA L 466.0 Acute Bronchitis 10/10/2008 RYAN DO, CASPER K 466.0 Acute Bronchitis 10/10/2008 MADL BAR ROLLER, ELIZA L 466.0 Acute Bronchitis 10/10/2008 RYAN DO, CASPER K 466.0 Acute Bronchitis 01/28/2009 NATI GOODE APRN 681.10 Unspecified Cellulitis And Abscess Of Toe 01/28/2009 RYAN DO, CASPER K 681.10 Unspecified Cellulitis And Abscess Of Toe 01/28/2009 RAYN DO, CASPER K 681.10 Unspecified Cellulitis And Abscess Of Toe 01/28/2009 681.10 Unspecified Cellulitis And Abscess Of Toe 01/28/2009 RYAN DO, CASPER K 681.10 Unspecified Cellulitis And Abscess Of Toe 01/28/2009 681.10 Unspecified Cellulitis And Abscess Of Toe 01/28/2009 681.10 Unspecified Cellulitis And Abscess Of Toe 01/28/2009 RYAN DO, CASPER K 681.10 Unspecified Cellulitis And Abscess Of Toe 01/28/2009 RYAN DO, CASPER K 681.10 Unspecified Cellulitis And Abscess Of Toe 01/28/2009 MONO RYAN DOA K 681.10 Unspecified Cellulitis And Abscess Of Toe 01/28/2009 MARILU KUMAR APRN 681.10 Unspecified Cellulitis And Abscess Of Toe 01/28/2009 CASPER RYAN DO K 681.10 Unspecified Cellulitis And Abscess Of Toe 01/28/2009 CASPER RYAN DO K 681.10 Unspecified Cellulitis And Abscess Of Toe 01/28/2009 GERALDINE JOELSMAURA 681.10 Unspecified Cellulitis And Abscess Of Toe 01/28/2009 GERALDINE JOELS, MAURA 681.10 Unspecified Cellulitis And Abscess Of Toe 01/28/2009 CICI JACKSON APRN 681.10 Unspecified Cellulitis And Abscess Of Toe 01/28/2009 WILLY HENRIQUEZ, EVELINA Torres 681.10 Unspecified Cellulitis And Abscess Of Toe 01/28/2009 ELIZA GO APRN L 681.10 Unspecified Cellulitis And Abscess Of Toe 01/28/2009 CASPER RYAN DO K 681.10 Unspecified Cellulitis And Abscess Of Toe 01/28/2009 ABBI GILLETTE, ELIZA L 681.10 Unspecified Cellulitis And Abscess Of Toe 01/28/2009 CASPER RYAN DO K 681.10 Unspecified Cellulitis And Abscess Of Toe 01/28/2009 ABBI GILLETTE, ELIZA L 681.10 Unspecified Cellulitis And Abscess Of Toe 01/28/2009 CASPER RYAN DO K 681.10 Unspecified Cellulitis And Abscess Of Toe 01/28/2009 ABBI GILLETTE, ELIZA L 681.10 Unspecified Cellulitis And Abscess Of Toe 01/28/2009 ABBI GILLETTE, ELIZA L 681.10 Unspecified Cellulitis And Abscess Of Toe 01/28/2009 BRISEIDA HUMPHREYS MD 681.10 Unspecified Cellulitis And Abscess Of Toe 01/28/2009 MONO RYAN DOA K 681.10 Unspecified Cellulitis And Abscess Of Toe 01/28/2009 TYRESE WILSON APRN 681.10 Unspecified Cellulitis And Abscess Of Toe 01/28/2009 ABBI GILLETTE ELIZA L 681.10 Unspecified Cellulitis And Abscess Of Toe 01/28/2009 MADL BAR ROLLER, ELIZA L 681.10 Unspecified Cellulitis And Abscess Of Toe 01/28/2009 MADL BAR ROLLER, ELIZA L 681.10 Unspecified Cellulitis And Abscess Of Toe 01/28/2009 RYAN DO CASPER K 681.10 Unspecified Cellulitis And Abscess Of Toe 01/28/2009 MADL BAR ROLLER, ELIZA L 681.10 Unspecified Cellulitis And Abscess Of Toe 01/28/2009 RYAN DO CASPER K 681.10 Unspecified Cellulitis And Abscess Of Toe 02/27/2009 NATI GOODE APRN 716.90 ARTHRITIS 02/27/2009 RYAN DO CASPER K 716.90 ARTHRITIS 02/27/2009 RYAN DO, CASPER K 716.90 ARTHRITIS 02/27/2009 716.90 ARTHRITIS 02/27/2009 RYAN DO, CASPER K 716.90 ARTHRITIS 02/27/2009 716.90 ARTHRITIS 02/27/2009 716.90 ARTHRITIS 02/27/2009 RYAN DO, CASPER K 716.90 ARTHRITIS 02/27/2009 RYAN DO, CASPER K 716.90 ARTHRITIS 02/27/2009 RYAN DO, CASPER K 716.90 ARTHRITIS 02/27/2009 MARILU KUMAR APRN 716.90 ARTHRITIS 02/27/2009 RYAN DO, CASPER K 716.90 ARTHRITIS 02/27/2009 RYAN DO, CASPER K 716.90 ARTHRITIS 02/27/2009 MAURA CHANDLER DDS 716.90 ARTHRITIS 02/27/2009 MAURA CHANDLER DDS 716.90 ARTHRITIS 02/27/2009 CICI JACKSON APRN 716.90 ARTHRITIS 02/27/2009 EVELINA AGUILERA DDS 716.90 ARTHRITIS 02/27/2009 MADPat BAR ROLLER, ELIZA L 716.90 ARTHRITIS 02/27/2009 RYAN DO CASPER K 716.90 ARTHRITIS 02/27/2009 MADL BAR ROLLER, ELIZA L 716.90 ARTHRITIS 02/27/2009 RYAN DO CASPER K 716.90 ARTHRITIS 02/27/2009 MADL BAR ROLLER, ELIZA L 716.90 ARTHRITIS 02/27/2009 RYAN DO, CASPER K 716.90 ARTHRITIS 02/27/2009 MADL BAR ROLLER, ELIZA L 716.90 ARTHRITIS 02/27/2009 MADL BAR ROLLER, ELIZA L 716.90 ARTHRITIS 02/27/2009 BRISEIDA HUMPHREYS MD 716.90 ARTHRITIS 02/27/2009 RYAN DO, CASPER K 716.90 ARTHRITIS 02/27/2009 KATIE BAR ROLLER, TYRESE R 716.90 ARTHRITIS 02/27/2009 MADL BAR ROLLER, ELIZA L 716.90 ARTHRITIS 02/27/2009 MADL BAR ROLLER, ELIZA L 716.90 ARTHRITIS 02/27/2009 MADL BAR ROLLER, ELIZA L 716.90 ARTHRITIS 02/27/2009 RYAN DO, CASPER K 716.90 ARTHRITIS 02/27/2009 MADL BAR ROLLER, ELIZA L 716.90 ARTHRITIS 02/27/2009 RYAN DO, CASPER K 716.90 ARTHRITIS 03/13/2009 NATI GOODE APRN 729.5 Foot Pain (soft Tissue) 03/13/2009 NATI GOODE APRN 780.4 Dizziness 03/13/2009 RYAN DO, CASPER K 729.5 Foot Pain (soft Tissue) 03/13/2009 RYAN DO, CASPER K 780.4 Dizziness 03/13/2009 RYAN DO, CASPER K 729.5 Foot Pain (soft Tissue) 03/13/2009 RYAN DO, CASPER K 780.4 Dizziness 03/13/2009 729.5 Foot Pain (soft Tissue) 03/13/2009 780.4 Dizziness 03/13/2009 RYAN DO, CASPER K 729.5 Foot Pain (soft Tissue) 03/13/2009 RYAN DO, CASPER K 780.4 Dizziness 03/13/2009 729.5 Foot Pain (soft Tissue) 03/13/2009 780.4 Dizziness 03/13/2009 729.5 Foot Pain (soft Tissue) 03/13/2009 780.4 Dizziness 03/13/2009 RYAN DO, CASPER K 729.5 Foot Pain (soft Tissue) 03/13/2009 RYAN DO, CASPER K 780.4 Dizziness 03/13/2009 RYAN DO, CASPER K 729.5 Foot Pain (soft Tissue) 03/13/2009 RYAN DO, CASPER K 780.4 Dizziness 03/13/2009 RYAN DO, CASPER K 729.5 Foot Pain (soft Tissue) 03/13/2009 RYAN DO, CASEPR K 780.4 Dizziness 03/13/2009 STACY BAR ROLLER, MARILU A 729.5 Foot Pain (soft Tissue) 03/13/2009 STACY BAR ROLLER, MARILU A 780.4 Dizziness 03/13/2009 RYAN DO, CASPER K 729.5 Foot Pain (soft Tissue) 03/13/2009 RYAN DO, CASPER K 780.4 Dizziness 03/13/2009 RYAN DO, CASPRE K 729.5 Foot Pain (soft Tissue) 03/13/2009 RYAN DO, CASPER K 780.4 Dizziness 03/13/2009 CHANDLER DDS, MAURA 729.5 Foot Pain (soft Tissue) 03/13/2009 CHANDLER DDS, MAURA 780.4 Dizziness 03/13/2009 CHANDLER DDS, MAURA 729.5 Foot Pain (soft Tissue) 03/13/2009 CHANDLER MARYCRUZSMAURA 780.4 Dizziness 03/13/2009 CICI JACKSON APRN 729.5 Foot Pain (soft Tissue) 03/13/2009 CICI JACKSON APRN 780.4 Dizziness 03/13/2009 WHITE MARYCRUZSEVELINA 729.5 Foot Pain (soft Tissue) 03/13/2009 WHITE DDS, EVELINA J 780.4 Dizziness 03/13/2009 MADL BAR ROLLER, ELIZA L 729.5 Foot Pain (soft Tissue) 03/13/2009 MADL BAR ROLLER, ELIZA L 780.4 Dizziness 03/13/2009 RYAN DO, CASPER K 729.5 Foot Pain (soft Tissue) 03/13/2009 RYAN DO, CASPER K 780.4 Dizziness 03/13/2009 MADL BAR ROLLER, ELIZA L 729.5 Foot Pain (soft Tissue) 03/13/2009 MADL BAR ROLLER, ELIZA L 780.4 Dizziness 03/13/2009 RYAN DO, CASPER K 729.5 Foot Pain (soft Tissue) 03/13/2009 RYAN DO, CASPER K 780.4 Dizziness 03/13/2009 MADL BAR ROLLER, ELIZA L 729.5 Foot Pain (soft Tissue) 03/13/2009 MADL BAR ROLLER, ELIZA L 780.4 Dizziness 03/13/2009 RYAN DO, CASPER K 729.5 Foot Pain (soft Tissue) 03/13/2009 RYAN DO, CASPER K 780.4 Dizziness 03/13/2009 MADL BAR ROLLER, ELIZA L 729.5 Foot Pain (soft Tissue) 03/13/2009 MADL BAR ROLLER, ELIZA L 780.4 Dizziness 03/13/2009 MADL BAR ROLLER, ELIZA L 729.5 Foot Pain (soft Tissue) 03/13/2009 MADL BAR ROLLER, ELIZA L 780.4 Dizziness 03/13/2009 BRISEIDA HUMPHREYS MD 729.5 Foot Pain (soft Tissue) 03/13/2009 BRISEIDA HUMPHREYS MD 780.4 Dizziness 03/13/2009 RYAN DO, CASPER K 729.5 Foot Pain (soft Tissue) 03/13/2009 RYAN DO, CASPER K 780.4 Dizziness 03/13/2009 KATIE BAR ROLLER, TYRESE R 729.5 Foot Pain (soft Tissue) 03/13/2009 KATIE BAR ROLLER, TYRESE R 780.4 Dizziness 03/13/2009 MADL BAR ROLLER, ELIZA L 729.5 Foot Pain (soft Tissue) 03/13/2009 MADL BAR ROLLER, ELIZA L 780.4 Dizziness 03/13/2009 MADL BAR ROLLER, ELIZA L 729.5 Foot Pain (soft Tissue) 03/13/2009 MADL BAR ROLLER, ELIZA L 780.4 Dizziness 03/13/2009 MADL BAR ROLLER, ELIZA L 729.5 Foot Pain (soft Tissue) 03/13/2009 MADL BAR ROLLER, ELIZA L 780.4 Dizziness 03/13/2009 RYAN DO, CASPER K 729.5 Foot Pain (soft Tissue) 03/13/2009 RYAN DO, CASPER K 780.4 Dizziness 03/13/2009 MADL BAR ROLLER, ELIZA L 729.5 Foot Pain (soft Tissue) 03/13/2009 MADL BAR ROLLER, ELIZA L 780.4 Dizziness 03/13/2009 RYAN DO, CASPER K 729.5 Foot Pain (soft Tissue) 03/13/2009 RYAN DO, CASPER K 780.4 Dizziness 04/01/2009 NATI GOODE APRN 401.1 ESSENTIAL HYPERTENSION BENIGN 04/01/2009 NATI GOODE APRN 578.1 Red Blood In Bowel Movement (hematochezia ) 04/01/2009 NATI GOODE APRN V72.31 Pelvic Exam (internal) 04/01/2009 RYAN DO CASPER K 401.1 ESSENTIAL HYPERTENSION BENIGN 04/01/2009 RYAN DO, CASPER K 578.1 Red Blood In Bowel Movement (hematochezia) 04/01/2009 RYAN DO, CASPER K V72.31 Pelvic Exam (internal) 04/01/2009 RYAN DO, CASPER K 401.1 ESSENTIAL HYPERTENSION BENIGN 04/01/2009 RYAN DO, CASPER K 578.1 Red Blood In Bowel Movement (hematochezia) 04/01/2009 RYAN DO, CASPER K V72.31 Pelvic Exam (internal) 04/01/2009 401.1 ESSENTIAL HYPERTENSION BENIGN 04/01/2009 578.1 Red Blood In Bowel Movement (hematochezia) 04/01/2009 V72.31 Pelvic Exam (internal) 04/01/2009 RYAN DO, CASPER K 401.1 ESSENTIAL HYPERTENSION BENIGN 04/01/2009 RYAN DO, CASPER K 578.1 Red Blood In Bowel Movement (hematochezia) 04/01/2009 RYAN DO, CASPER K V72.31 Pelvic Exam (internal) 04/01/2009 401.1 ESSENTIAL HYPERTENSION BENIGN 04/01/2009 578.1 Red Blood In Bowel Movement (hematochezia) 04/01/2009 V72.31 Pelvic Exam (internal) 04/01/2009 401.1 ESSENTIAL HYPERTENSION BENIGN 04/01/2009 578.1 Red Blood In Bowel Movement (hematochezia) 04/01/2009 V72.31 Pelvic Exam (internal) 04/01/2009 RYAN DO, CASPER K 401.1 ESSENTIAL HYPERTENSION BENIGN 04/01/2009 RYAN DO, CASPER K 578.1 Red Blood In Bowel Movement (hematochezia) 04/01/2009 RYAN DO, CASPER K V72.31 Pelvic Exam (internal) 04/01/2009 RYAN DO, CASPER K 401.1 ESSENTIAL HYPERTENSION BENIGN 04/01/2009 RYAN DO, CASPER K 578.1 Red Blood In Bowel Movement (hematochezia) 04/01/2009 RYAN DO CASPER K V72.31 Pelvic Exam (internal) 04/01/2009 RYAN DO CASPER K 401.1 ESSENTIAL HYPERTENSION BENIGN 04/01/2009 RYAN DO, CASPER K 578.1 Red Blood In Bowel Movement (hematochezia) 04/01/2009 RYAN DO, CASPER K V72.31 Pelvic Exam (internal) 04/01/2009 MARILU KUMAR APRN A 401.1 ESSENTIAL HYPERTENSION BENIGN 04/01/2009 STACY BAR ROLLER, MARILU A 578.1 Red Blood In Bowel Movement (hematochezia ) 04/01/2009 STACY BAR ROLLER, MARILU A V72.31 Pelvic Exam (internal) 04/01/2009 RYAN DO CASPER K 401.1 ESSENTIAL HYPERTENSION BENIGN 04/01/2009 RYAN DO, CASPER K 578.1 Red Blood In Bowel Movement (hematochezia) 04/01/2009 RYAN DO CASPER K V72.31 Pelvic Exam (internal) 04/01/2009 RYAN DO CASPER K 401.1 ESSENTIAL HYPERTENSION BENIGN 04/01/2009 RYAN DO CASPER K 578.1 Red Blood In Bowel Movement (hematochezia) 04/01/2009 RYAN DO CASPER K V72.31 Pelvic Exam (internal) 04/01/2009 MAURA CHANDLER DDS 401.1 ESSENTIAL HYPERTENSION BENIGN 04/01/2009 CHANDLER DDSMAURA 578.1 Red Blood In Bowel Movement (hematochezia ) 04/01/2009 CHANDLERMAURA AN DDS V72.31 Pelvic Exam (internal) 04/01/2009 CHANDLERNATALIYA JOELSMAURA 401.1 ESSENTIAL HYPERTENSION BENIGN 04/01/2009 CHANDLER MARYCRUZSMAURA 578.1 Red Blood In Bowel Movement (hematochezia ) 04/01/2009 CHANDLERMAURA AN DDS V72.31 Pelvic Exam (internal) 04/01/2009 CICI JACKSON APRN 401.1 ESSENTIAL HYPERTENSION BENIGN 04/01/2009 CICI JACKSON APRN 578.1 Red Blood In Bowel Movement (hematochezia ) 04/01/2009 CICI JACKSON APRN V72.31 Pelvic Exam (internal) 04/01/2009 WHITE DDS, EVELINA J 401.1 ESSENTIAL HYPERTENSION BENIGN 04/01/2009 WHITE DDS, EVELINA J 578.1 Red Blood In Bowel Movement (hematochezia ) 04/01/2009 WHITE DDS, EVELINA J V72.31 Pelvic Exam (internal) 04/01/2009 MADL BAR ROLLER, ELIZA L 401.1 ESSENTIAL HYPERTENSION BENIGN 04/01/2009 MADL BAR ROLLER, ELIZA L 578.1 Red Blood In Bowel Movement (hematochezia) 04/01/2009 MADL BAR ROLLER, ELIZA L V72.31 Pelvic Exam (internal) 04/01/2009 RYAN DO, CASPER K 401.1 ESSENTIAL HYPERTENSION BENIGN 04/01/2009 RYAN DO, CASPER K 578.1 Red Blood In Bowel Movement (hematochezia) 04/01/2009 RYAN DO, CASPER K V72.31 Pelvic Exam (internal) 04/01/2009 MADL BAR ROLLER, ELIZA L 401.1 ESSENTIAL HYPERTENSION BENIGN 04/01/2009 MADL BAR ROLLER, ELIZA L 578.1 Red Blood In Bowel Movement (hematochezia) 04/01/2009 MADL BAR ROLLER, ELIZA L V72.31 Pelvic Exam (internal) 04/01/2009 RYAN DO, CASPER K 401.1 ESSENTIAL HYPERTENSION BENIGN 04/01/2009 RYAN DO, CASPER K 578.1 Red Blood In Bowel Movement (hematochezia) 04/01/2009 RYAN DO, CASPER K V72.31 Pelvic Exam (internal) 04/01/2009 MADL BAR ROLLER, ELIZA L 401.1 ESSENTIAL HYPERTENSION BENIGN 04/01/2009 MADL BAR ROLLER, ELIZA L 578.1 Red Blood In Bowel Movement (hematochezia) 04/01/2009 MADL BAR ROLLER, ELIZA L V72.31 Pelvic Exam (internal) 04/01/2009 RYAN DO, CASPER K 401.1 ESSENTIAL HYPERTENSION BENIGN 04/01/2009 RYAN DO, CASPER K 578.1 Red Blood In Bowel Movement (hematochezia) 04/01/2009 RYAN DO, CASPER K V72.31 Pelvic Exam (internal) 04/01/2009 MADL BAR ROLLER, ELIZA L 401.1 ESSENTIAL HYPERTENSION BENIGN 04/01/2009 MADL BAR ROLLER, ELIZA L 578.1 Red Blood In Bowel Movement (hematochezia) 04/01/2009 MADL BAR ROLLER, ELIZA L V72.31 Pelvic Exam (internal) 04/01/2009 MADL BAR ROLLER, ELIZA L 401.1 ESSENTIAL HYPERTENSION BENIGN 04/01/2009 MADL BAR ROLLER, ELIZA L 578.1 Red Blood In Bowel Movement (hematochezia) 04/01/2009 MADL BAR ROLLER, ELIZA L V72.31 Pelvic Exam (internal) 04/01/2009 BRISEIDA HUMPHREYS MD N 401.1 ESSENTIAL HYPERTENSION BENIGN 04/01/2009 BRISEIDA HUMPHREYS MD N 578.1 Red Blood In Bowel Movement (hematochezia) 04/01/2009 BRISEIDA HUMPHREYS MD N V72.31 Pelvic Exam (internal) 04/01/2009 RYAN DO, CASPER K 401.1 ESSENTIAL HYPERTENSION BENIGN 04/01/2009 RYAN DO, CASPER K 578.1 Red Blood In Bowel Movement (hematochezia) 04/01/2009 RYAN DO, CASPER K V72.31 Pelvic Exam (internal) 04/01/2009 KATIE BAR ROLLER, TYRESE R 401.1 ESSENTIAL HYPERTENSION BENIGN 04/01/2009 KATIE BAR ROLLER, TYRESE R 578.1 Red Blood In Bowel Movement (hematochezia ) 04/01/2009 KATIE BAR ROLLER, TYRESE R V72.31 Pelvic Exam (internal) 04/01/2009 MADL BAR ROLLER, ELIZA L 401.1 ESSENTIAL HYPERTENSION BENIGN 04/01/2009 MADL BAR ROLLER, ELIZA L 578.1 Red Blood In Bowel Movement (hematochezia) 04/01/2009 MADL BAR ROLLER, ELIZA L V72.31 Pelvic Exam (internal) 04/01/2009 MADL BAR ROLLER, ELIZA L 401.1 ESSENTIAL HYPERTENSION BENIGN 04/01/2009 MADL BAR ROLLER, ELIZA L 578.1 Red Blood In Bowel Movement (hematochezia) 04/01/2009 MADL BAR ROLLER, ELIZA L V72.31 Pelvic Exam (internal) 04/01/2009 MADL BAR ROLLER, ELIZA L 401.1 ESSENTIAL HYPERTENSION BENIGN 04/01/2009 MADL BAR ROLLER, ELIZA L 578.1 Red Blood In Bowel Movement (hematochezia) 04/01/2009 MADL BAR ROLLER, ELIZA L V72.31 Pelvic Exam (internal) 04/01/2009 RYAN DO, CASPER K 401.1 ESSENTIAL HYPERTENSION BENIGN 04/01/2009 RYAN DO, CASPER K 578.1 Red Blood In Bowel Movement (hematochezia) 04/01/2009 RYAN DO, CASPER K V72.31 Pelvic Exam (internal) 04/01/2009 MADL BAR ROLLER, ELIZA L 401.1 ESSENTIAL HYPERTENSION BENIGN 04/01/2009 MADL BAR ROLLER, ELIZA L 578.1 Red Blood In Bowel Movement (hematochezia) 04/01/2009 MADL BAR ROLLER, ELIZA L V72.31 Pelvic Exam (internal) 04/01/2009 RYAN DO, CASPER K 401.1 ESSENTIAL HYPERTENSION BENIGN 04/01/2009 RYAN DO, CASPER K 578.1 Red Blood In Bowel Movement (hematochezia) 04/01/2009 RYAN DO, CASPER K V72.31 Pelvic Exam (internal) 04/05/2009 NATI GOODE APRN 733.99 Sesamoiditis 04/05/2009 NATI GOODE APRN 826.0 Fx Toe(s) 04/05/2009 RYAN DO, CASPER K 733.99 Sesamoiditis 04/05/2009 RYAN DO, CASPER K 826.0 Fx Toe(s) 04/05/2009 RYAN DO, CASPER K 733.99 Sesamoiditis 04/05/2009 RYAN DO, CASPER K 826.0 Fx Toe(s) 04/05/2009 733.99 Sesamoiditis 04/05/2009 826.0 Fx Toe(s) 04/05/2009 RYAN DO, CASPER K 733.99 Sesamoiditis 04/05/2009 RYAN DO, CASPER K 826.0 Fx Toe(s) 04/05/2009 733.99 Sesamoiditis 04/05/2009 826.0 Fx Toe(s) 04/05/2009 733.99 Sesamoiditis 04/05/2009 826.0 Fx Toe(s) 04/05/2009 RYAN DO, CASPER K 733.99 Sesamoiditis 04/05/2009 RYAN DO, CASPER K 826.0 Fx Toe(s) 04/05/2009 RYAN DO, CASPER K 733.99 Sesamoiditis 04/05/2009 RYAN DO, CASPER K 826.0 Fx Toe(s) 04/05/2009 RYAN DO, CASPER K 733.99 Sesamoiditis 04/05/2009 RYAN DO, CASPER K 826.0 Fx Toe(s) 04/05/2009 STACY BAR ROLLER, MARILU A 733.99 Sesamoiditis 04/05/2009 STACY BAR ROLLER, MARILU A 826.0 Fx Toe(s) 04/05/2009 RYAN DO, CASPER K 733.99 Sesamoiditis 04/05/2009 RYNA DO, CASPER K 826.0 Fx Toe(s) 04/05/2009 RYAN DO, CASPER K 733.99 Sesamoiditis 04/05/2009 RYAN DO, CASPER K 826.0 Fx Toe(s) 04/05/2009 CHANDLER DDS, MAURA 733.99 Sesamoiditis 04/05/2009 CHANDLER DDS, MAURA 826.0 Fx Toe(s) 04/05/2009 CHANDLER DDS, MAURA 733.99 Sesamoiditis 04/05/2009 CHANDLER DDS, MAURA 826.0 Fx Toe(s) 04/05/2009 CICI JACKSON APRN 733.99 Sesamoiditis 04/05/2009 CICI JACKSON APRN 826.0 Fx Toe(s) 04/05/2009 WHITE DDS, EVELINA J 733.99 Sesamoiditis 04/05/2009 WHITE DDS, EVELINA J 826.0 Fx Toe(s) 04/05/2009 MADL BAR ROLLER, ELIZA L 733.99 Sesamoiditis 04/05/2009 MADL BAR ROLLER, ELIZA L 826.0 Fx Toe(s) 04/05/2009 RYAN DO, CASPER K 733.99 Sesamoiditis 04/05/2009 RYAN DO, CASPER K 826.0 Fx Toe(s) 04/05/2009 MADL BAR ROLLER, ELIZA L 733.99 Sesamoiditis 04/05/2009 MADL BAR ROLLER, ELIZA L 826.0 Fx Toe(s) 04/05/2009 RYAN DO, CASPER K 733.99 Sesamoiditis 04/05/2009 RYAN DO, CASPER K 826.0 Fx Toe(s) 04/05/2009 MADL BAR ROLLER, ELIZA L 733.99 Sesamoiditis 04/05/2009 MADL BAR ROLLER, ELIZA L 826.0 Fx Toe(s) 04/05/2009 RYAN DO, CASPER K 733.99 Sesamoiditis 04/05/2009 RYAN DO, CASPER K 826.0 Fx Toe(s) 04/05/2009 MADL BAR ROLLER, ELIZA L 733.99 Sesamoiditis 04/05/2009 MADL BAR ROLLER, ELIZA L 826.0 Fx Toe(s) 04/05/2009 MADL BAR ROLLER, ELIZA L 733.99 Sesamoiditis 04/05/2009 MADL BAR ROLLER, ELIZA L 826.0 Fx Toe(s) 04/05/2009 BRISEIDA HUMPHREYS MD N 733.99 Sesamoiditis 04/05/2009 BRISEIDA HUMPHREYS MD N 826.0 Fx Toe(s) 04/05/2009 RYAN DO, CASPER K 733.99 Sesamoiditis 04/05/2009 RYAN DO, CASPER K 826.0 Fx Toe(s) 04/05/2009 KATIE BAR ROLLER, TYRESE R 733.99 Sesamoiditis 04/05/2009 KATIE BAR ROLLER, TYRESE R 826.0 Fx Toe(s) 04/05/2009 MADL BAR ROLLER, ELIZA L 733.99 Sesamoiditis 04/05/2009 MADL BAR ROLLER, ELIZA L 826.0 Fx Toe(s) 04/05/2009 MADL BAR ROLLER, ELIZA L 733.99 Sesamoiditis 04/05/2009 MADL BAR ROLLER, ELIZA L 826.0 Fx Toe(s) 04/05/2009 MADL BAR ROLLER, ELIZA L 733.99 Sesamoiditis 04/05/2009 MADL BAR ROLLER, ELIZA L 826.0 Fx Toe(s) 04/05/2009 RYAN DO, CASPER K 733.99 Sesamoiditis 04/05/2009 RYAN DO, CASPER K 826.0 Fx Toe(s) 04/05/2009 MADL BAR ROLLER, ELIZA L 733.99 Sesamoiditis 04/05/2009 MADL BAR ROLLER, ELIZA L 826.0 Fx Toe(s) 04/05/2009 RYAN DO, CASPER K 733.99 Sesamoiditis 04/05/2009 RYAN DO, CASPER K 826.0 Fx Toe(s) 04/26/2009 NATI GOODE APRN 703.8 Onychocryptosis 04/26/2009 RYAN DO, CASPER K 703.8 Onychocryptosis 04/26/2009 RYAN DO, CASPER K 703.8 Onychocryptosis 04/26/2009 703.8 Onychocryptosis 04/26/2009 RYAN DO, CASPER K 703.8 Onychocryptosis 04/26/2009 703.8 Onychocryptosis 04/26/2009 703.8 Onychocryptosis 04/26/2009 RYAN DO, CASPER K 703.8 Onychocryptosis 04/26/2009 RYAN DO, CASPER K 703.8 Onychocryptosis 04/26/2009 RYAN DO, CASPER K 703.8 Onychocryptosis 04/26/2009 MARILU KUMAR APRN 703.8 Onychocryptosis 04/26/2009 RYAN DO, CASPER K 703.8 Onychocryptosis 04/26/2009 RYAN DO, CASPER K 703.8 Onychocryptosis 04/26/2009 MAURA CHANDLER DDS 703.8 Onychocryptosis 04/26/2009 MAURA CHANDLER DDS 703.8 Onychocryptosis 04/26/2009 CICI JACKSON APRN 703.8 Onychocryptosis 04/26/2009 WILLY HENRIQUEZ, EVELINA Torres 703.8 Onychocryptosis 04/26/2009 ELIZA GO APRN L 703.8 Onychocryptosis 04/26/2009 RYAN DO, CASPER K 703.8 Onychocryptosis 04/26/2009 MADL BAR ROLLER, ELIZA L 703.8 Onychocryptosis 04/26/2009 RYAN DO, CASPER K 703.8 Onychocryptosis 04/26/2009 MADL BAR ROLLER, ELIZA L 703.8 Onychocryptosis 04/26/2009 RYAN DO, CASPER K 703.8 Onychocryptosis 04/26/2009 MADL BAR ROLLER, ELIZA L 703.8 Onychocryptosis 04/26/2009 MADL BAR ROLLER, ELIZA L 703.8 Onychocryptosis 04/26/2009 JULIANN JOHN, BRISEIDA N 703.8 Onychocryptosis 04/26/2009 RYAN DO, CASPER K 703.8 Onychocryptosis 04/26/2009 KATIE BAR ROLLER, TYRESE R 703.8 Onychocryptosis 04/26/2009 MADL BAR ROLLER, ELIZA L 703.8 Onychocryptosis 04/26/2009 MADL BAR ROLLER, ELIZA L 703.8 Onychocryptosis 04/26/2009 MADL BAR ROLLER, ELIZA L 703.8 Onychocryptosis 04/26/2009 RYAN DO, CASPER K 703.8 Onychocryptosis 04/26/2009 MADL BAR ROLLER, ELIZA L 703.8 Onychocryptosis 04/26/2009 RYAN DO, CASPER K 703.8 Onychocryptosis 06/07/2009 NATI GOODE APRN 250.6 DIABETES w/ NEURO 06/07/2009 RYAN DO, CASPER K 250.6 DIABETES w/ NEURO 06/07/2009 RYAN DO, CASPER K 250.6 DIABETES w/ NEURO 06/07/2009 250.6 DIABETES w/ NEURO 06/07/2009 RYAN DO, CASPER K 250.6 DIABETES w/ NEURO 06/07/2009 250.6 DIABETES w/ NEURO 06/07/2009 250.6 DIABETES w/ NEURO 06/07/2009 RYAN DO, CASPER K 250.6 DIABETES w/ NEURO 06/07/2009 RYAN DO, CASPER K 250.6 DIABETES w/ NEURO 06/07/2009 RYAN DO, CASPER K 250.6 DIABETES w/ NEURO 06/07/2009 STACY BAR ROLLER, MARILU A 250.6 DIABETES w/ NEURO 06/07/2009 RYAN DO, CASPER K 250.6 DIABETES w/ NEURO 06/07/2009 RYAN DO, CASPER K 250.6 DIABETES w/ NEURO 06/07/2009 CHANDLER DDS, MAURA 250.6 DIABETES w/ NEURO 06/07/2009 CHANDLER DDS, MAURA 250.6 DIABETES w/ NEURO 06/07/2009 MANUEL BAR ROLLER, CICI Bueno 250.6 DIABETES w/ NEURO 06/07/2009 WILLY DDS, EVELINA J 250.6 DIABETES w/ NEURO 06/07/2009 MADL BAR ROLLER, ELIZA L 250.6 DIABETES w/ NEURO 06/07/2009 RYAN DO, CASPER K 250.6 DIABETES w/ NEURO 06/07/2009 MADL BAR ROLLER, ELIZA L 250.6 DIABETES w/ NEURO 06/07/2009 RYAN DO CASPER K 250.6 DIABETES w/ NEURO 06/07/2009 MADL BAR ROLLER, ELIZA L 250.6 DIABETES w/ NEURO 06/07/2009 RYAN DO CASPER K 250.6 DIABETES W/ NEURO 06/07/2009 MADL BAR ROLLER, ELIZA L 250.6 DIABETES W/ NEURO 06/07/2009 MADL BAR ROLLER, ELIZA L 250.6 DIABETES W/ NEURO 06/07/2009 BRISEIDA HUMPHREYS MD 250.6 DIABETES W/ NEURO 06/07/2009 RYAN DO CASPER K 250.6 DIABETES W/ NEURO 06/07/2009 TYRESE WILSON APRN R 250.6 DIABETES W/ NEURO 06/07/2009 MADL BAR ROLLER, ELIZA L 250.6 DIABETES W/ NEURO 06/07/2009 MADL BAR ROLLER, ELIZA L 250.6 DIABETES W/ NEURO 06/07/2009 MADL BAR ROLLER, ELIZA L 250.6 DIABETES W/ NEURO 06/07/2009 RYAN DO, CASPER K 250.6 DIABETES W/ NEURO 06/07/2009 MADL BAR ROLLER, ELIZA L 250.6 DIABETES W/ NEURO 06/07/2009 RYAN DO CASPER K 250.6 DIABETES w/ NEURO 08/16/2009 NATI GOODE APRN 726.90 Capsulitis 08/16/2009 RYAN DO, CASPER K 726.90 Capsulitis 08/16/2009 RYAN DO, CASPER K 726.90 Capsulitis 08/16/2009 726.90 Capsulitis 08/16/2009 RYAN DO, CASPER K 726.90 Capsulitis 08/16/2009 726.90 Capsulitis 08/16/2009 726.90 Capsulitis 08/16/2009 RYAN DO, CASPER K 726.90 Capsulitis 08/16/2009 RYAN DO, CASPER K 726.90 Capsulitis 08/16/2009 RYAN DO, CASPER K 726.90 Capsulitis 08/16/2009 MARILU KUMAR APRN 726.90 Capsulitis 08/16/2009 RYAN DO, CASPER K 726.90 Capsulitis 08/16/2009 RYAN DO, CASPER K 726.90 Capsulitis 08/16/2009 GERALDINE JOELS, MAURA 726.90 Capsulitis 08/16/2009 GERALDINE JOELS, MAURA 726.90 Capsulitis 08/16/2009 CICI JACKSON APRN 726.90 Capsulitis 08/16/2009 EVELINA AGUILERA DDS 726.90 Capsulitis 08/16/2009 ABBI BAR ROLLER, ELIZA L 726.90 Capsulitis 08/16/2009 RYAN DOMONOA K 726.90 Capsulitis 08/16/2009 ABBI BAR ROLLER, ELIZA L 726.90 Capsulitis 08/16/2009 RYAN DOMONOA K 726.90 Capsulitis 08/16/2009 TEREZAL BAR ROLLER, ELIZA L 726.90 Capsulitis 08/16/2009 RYAN DO, CASPER K 726.90 Capsulitis 08/16/2009 MADL BAR ROLLER, ELIZA L 726.90 Capsulitis 08/16/2009 TEREZAL BAR ROLLER, ELIZA L 726.90 Capsulitis 08/16/2009 JULIANN JOHN, BRISEIDA Jimenez 726.90 Capsulitis 08/16/2009 RYAN DO, CASPER K 726.90 Capsulitis 08/16/2009 TYRESE WILSON APRN 726.90 Capsulitis 08/16/2009 MADL BAR ROLLER, ELIZA L 726.90 Capsulitis 08/16/2009 MADL BAR ROLLER, ELIZA L 726.90 Capsulitis 08/16/2009 MADL BAR ROLLER, ELIZA L 726.90 Capsulitis 08/16/2009 RYAN DO, CASPER K 726.90 Capsulitis 08/16/2009 MADL BAR ROLLER, ELIZA L 726.90 Capsulitis 08/16/2009 RYAN DO, CASPER K 726.90 Capsulitis 09/23/2009 RUPA MACKNNATI M 272.4 DYSLIPIDEMIA 09/23/2009 RUPA MACKNNATI M 278.00 OBESITY 09/23/2009 RYAN DO, CASPER K 272.4 DYSLIPIDEMIA 09/23/2009 RYAN DO, CASPER K 278.00 OBESITY 09/23/2009 RYAN DO, CASPER K 272.4 DYSLIPIDEMIA 09/23/2009 RYAN DO, CASPER K 278.00 OBESITY 09/23/2009 272.4 DYSLIPIDEMIA 09/23/2009 278.00 OBESITY 09/23/2009 RYAN DO, CASPER K 272.4 DYSLIPIDEMIA 09/23/2009 RYAN DO, CASPER K 278.00 OBESITY 09/23/2009 272.4 DYSLIPIDEMIA 09/23/2009 278.00 OBESITY 09/23/2009 272.4 DYSLIPIDEMIA 09/23/2009 278.00 OBESITY 09/23/2009 RYAN DO, CASPER K 272.4 DYSLIPIDEMIA 09/23/2009 RYAN DO, CASPER K 278.00 OBESITY 09/23/2009 RYAN DO, CASPER K 272.4 DYSLIPIDEMIA 09/23/2009 RYAN DO, CASPER K 278.00 OBESITY 09/23/2009 RYAN DO, CASPER K 272.4 DYSLIPIDEMIA 09/23/2009 RYAN DO, CASPER K 278.00 OBESITY 09/23/2009 STACY BAR ROLLER, MARILU A 272.4 DYSLIPIDEMIA 09/23/2009 STACY BAR ROLLER, MARILU A 278.00 OBESITY 09/23/2009 RYAN DO, CASPER K 272.4 DYSLIPIDEMIA 09/23/2009 RYAN DO, CASPER K 278.00 OBESITY 09/23/2009 RYAN DO, CASPER K 272.4 DYSLIPIDEMIA 09/23/2009 RYAN DO, CASPER K 278.00 OBESITY 09/23/2009 CHANDLER DDS, MAURA 272.4 DYSLIPIDEMIA 09/23/2009 CHANDLER DDS, MAURA 278.00 OBESITY 09/23/2009 CHANDLER DDS, MAURA 272.4 DYSLIPIDEMIA 09/23/2009 CHANDLER DDS, MAURA 278.00 OBESITY 09/23/2009 MANUEL BAR ROLLER, CICI T 272.4 DYSLIPIDEMIA 09/23/2009 MANUEL BAR ROLLER, CICI T 278.00 OBESITY 09/23/2009 WHITE DDS, EVELINA J 272.4 DYSLIPIDEMIA 09/23/2009 WHITE DDS, EVELINA J 278.00 OBESITY 09/23/2009 MADL BAR ROLLER, ELIZA L 272.4 DYSLIPIDEMIA 09/23/2009 MADL BAR ROLLER, ELIZA L 278.00 OBESITY 09/23/2009 RYAN DO, CASPER K 272.4 DYSLIPIDEMIA 09/23/2009 RYAN DO, CASPER K 278.00 OBESITY 09/23/2009 MADL BAR ROLLER, ELIZA L 272.4 DYSLIPIDEMIA 09/23/2009 MADL BAR ROLLER, ELIZA L 278.00 OBESITY 09/23/2009 RYAN DO, CASPER K 272.4 DYSLIPIDEMIA 09/23/2009 RYAN DO, CASPER K 278.00 OBESITY 09/23/2009 MADL BAR ROLLER, ELIZA L 272.4 DYSLIPIDEMIA 09/23/2009 MADL BAR ROLLER, ELIZA L 278.00 OBESITY 09/23/2009 RYAN DO, CASPER K 272.4 DYSLIPIDEMIA 09/23/2009 RYAN DO, CASPER K 278.00 OBESITY 09/23/2009 MADL BAR ROLLER, ELIZA L 272.4 DYSLIPIDEMIA 09/23/2009 MADL BAR ROLLER, ELIZA L 278.00 OBESITY 09/23/2009 MADL BAR ROLLER, ELIZA L 272.4 DYSLIPIDEMIA 09/23/2009 MADL BAR ROLLER, ELIZA L 278.00 OBESITY 09/23/2009 BRISEIDA HUMPHREYS MD N 272.4 DYSLIPIDEMIA 09/23/2009 BRISEIDA HUMPHREYS MD N 278.00 OBESITY 09/23/2009 RYAN DO, CASPER K 272.4 DYSLIPIDEMIA 09/23/2009 RYAN DO, CASPER K 278.00 OBESITY 09/23/2009 KATIE BAR ROLLER, TYRESE R 272.4 DYSLIPIDEMIA 09/23/2009 KATIE BAR ROLLER, TYRESE R 278.00 OBESITY 09/23/2009 MADL BAR ROLLER, ELIZA L 272.4 DYSLIPIDEMIA 09/23/2009 MADL BAR ROLLER, ELIZA L 278.00 OBESITY 09/23/2009 MADL BAR ROLLER, ELIZA L 272.4 DYSLIPIDEMIA 09/23/2009 MADL BAR ROLLER, ELIZA L 278.00 OBESITY 09/23/2009 MADL BAR ROLLER, ELIZA L 272.4 DYSLIPIDEMIA 09/23/2009 MADL BAR ROLLER, ELIZA L 278.00 OBESITY 09/23/2009 RYAN DO, CASPER K 272.4 DYSLIPIDEMIA 09/23/2009 RYAN DO, CASPER K 278.00 OBESITY 09/23/2009 MADL BAR ROLLER, ELIZA L 272.4 DYSLIPIDEMIA 09/23/2009 MADL BAR ROLLER, ELIZA L 278.00 OBESITY 09/23/2009 RYAN DO, CASPER K 272.4 DYSLIPIDEMIA 09/23/2009 RYAN DO, CASPER K 278.00 OBESITY 04/24/2010 NATI GOODE APRN V76.10 Visit For: Screening Exam Malignant Neoplasm Breast 04/24/2010 RYAN DO CASPER K V76.10 Visit For: Screening Exam Malignant Neoplasm Breast 04/24/2010 RYAN DO CASPER K V76.10 Visit For: Screening Exam Malignant Neoplasm Breast 04/24/2010 V76.10 Visit For: Screening Exam Malignant Neoplasm Breast 04/24/2010 RYAN DO CASPER K V76.10 Visit For: Screening Exam Malignant Neoplasm Breast 04/24/2010 V76.10 Visit For: Screening Exam Malignant Neoplasm Breast 04/24/2010 V76.10 Visit For: Screening Exam Malignant Neoplasm Breast 04/24/2010 RYAN DO CASPER K V76.10 Visit For: Screening Exam Malignant Neoplasm Breast 04/24/2010 CONNOR TORREZ CASPER K V76.10 Visit For: Screening Exam Malignant Neoplasm Breast 04/24/2010 RYAN DO, CASPER K V76.10 Visit For: Screening Exam Malignant Neoplasm Breast 04/24/2010 MARILU KUMAR APRN V76.10 Visit For: Screening Exam Malignant Neoplasm Breast 04/24/2010 RYAN DO CASPER K V76.10 Visit For: Screening Exam Malignant Neoplasm Breast 04/24/2010 RYAN DO CASPER K V76.10 Visit For: Screening Exam Malignant Neoplasm Breast 04/24/2010 MAURA CHANDLER DDS V76.10 Visit For: Screening Exam Malignant Neoplasm Breast 04/24/2010 MAURA CHANDLER DDS V76.10 Visit For: Screening Exam Malignant Neoplasm Breast 04/24/2010 CICI JACKSON APRN V76.10 Visit For: Screening Exam Malignant Neoplasm Breast 04/24/2010 EVELINA AGUILERA DDS V76.10 Visit For: Screening Exam Malignant Neoplasm Breast 04/24/2010 MAD BAR ROLLER, ELIZA L V76.10 Visit For: Screening Exam Malignant Neoplasm Breast 04/24/2010 CASPER RYAN DO K V76.10 Visit For: Screening Exam Malignant Neoplasm Breast 04/24/2010 ABBI BAR ROLLER, ELIZA L V76.10 Visit For: Screening Exam Malignant Neoplasm Breast 04/24/2010 RYAN DO CASPER K V76.10 Visit For: Screening Exam Malignant Neoplasm Breast 04/24/2010 ABBI BAR ROLLER, ELIZA L V76.10 Visit For: Screening Exam Malignant Neoplasm Breast 04/24/2010 CONNOR TORREZ CASPER K V76.10 Visit For: Screening Exam Malignant Neoplasm Breast 04/24/2010 [facility] BAR ROLLER, ELIZA L V76.10 Visit For: Screening Exam Malignant Neoplasm Breast 04/24/2010 TEREZA BAR ROLLER, ELIZA L V76.10 Visit For: Screening Exam Malignant Neoplasm Breast 04/24/2010 JULIANN JOHN, BRISEIDA Jimenez V76.10 Visit For: Screening Exam Malignant Neoplasm Breast 04/24/2010 MONO RYAN DOA K V76.10 Visit For: Screening Exam Malignant Neoplasm Breast 04/24/2010 TYRESE WILSON APRN V76.10 Visit For: Screening Exam Malignant Neoplasm Breast 04/24/2010 [facility] BAR ROLLER, ELIZA L V76.10 Visit For: Screening Exam Malignant Neoplasm Breast 04/24/2010 TEREZA BAR ROLLER, ELIZA L V76.10 Visit For: Screening Exam Malignant Neoplasm Breast 04/24/2010 ABBI BAR ROLLER, ELIZA L V76.10 Visit For: Screening Exam Malignant Neoplasm Breast 04/24/2010 MONO RYAN DOA K V76.10 Visit For: Screening Exam Malignant Neoplasm Breast 04/24/2010 ABBI BAR ROLLER, ELIZA L V76.10 Visit For: Screening Exam Malignant Neoplasm Breast 04/24/2010 MONO RYAN DOA K V76.10 Visit For: Screening Exam Malignant Neoplasm Breast 06/02/2010 RUPA GILLETTE NATI M 466.0 Bronchitis, Acute 06/02/2010 RYAN DO, CASPER K 466.0 Bronchitis, Acute 06/02/2010 RYAN DO, CASPER K 466.0 Bronchitis, Acute 06/02/2010 466.0 Bronchitis, Acute 06/02/2010 RYAN DO, CASPER K 466.0 Bronchitis, Acute 06/02/2010 466.0 Bronchitis, Acute 06/02/2010 466.0 Bronchitis, Acute 06/02/2010 RYAN DO, CASPER K 466.0 Bronchitis, Acute 06/02/2010 RYAN DO, CASPER K 466.0 Bronchitis, Acute 06/02/2010 RYAN DO, CASPER K 466.0 Bronchitis, Acute 06/02/2010 STACY MACKN, MARILU A 466.0 Bronchitis, Acute 06/02/2010 RYAN DO, CASPER K 466.0 Bronchitis, Acute 06/02/2010 RYAN DO, CASPER K 466.0 Bronchitis, Acute 06/02/2010 CHANDLER DDS, MAURA 466.0 Bronchitis, Acute 06/02/2010 CHANDLER DDS, MAURA 466.0 Bronchitis, Acute 06/02/2010 MANUEL BAR ROLLERCICI 466.0 Bronchitis, Acute 06/02/2010 WILLY DDS, EVELINA J 466.0 Bronchitis, Acute 06/02/2010 MADL BAR ROLLER, ELIZA L 466.0 Bronchitis, Acute 06/02/2010 RYAN DO, CASPER K 466.0 Bronchitis, Acute 06/02/2010 MADL BAR ROLLER, ELIZA L 466.0 Bronchitis, Acute 06/02/2010 RYAN DO, CASPER K 466.0 Bronchitis, Acute 06/02/2010 MADL BAR ROLLER, ELIZA L 466.0 Bronchitis, Acute 06/02/2010 RYAN DO, CASPER K 466.0 Bronchitis, Acute 06/02/2010 MADL BAR ROLLER, ELIZA L 466.0 Bronchitis, Acute 06/02/2010 MADL BAR ROLLER, ELIZA L 466.0 Bronchitis, Acute 06/02/2010 BRISEIDA HUMPHREYS MD 466.0 Bronchitis, Acute 06/02/2010 RYAN DO, CASPER K 466.0 Bronchitis, Acute 06/02/2010 KATIE MACKN, TYRESE R 466.0 Bronchitis, Acute 06/02/2010 MADL BAR ROLLER, ELIZA L 466.0 Bronchitis, Acute 06/02/2010 MADL BAR ROLLER, ELIZA L 466.0 Bronchitis, Acute 06/02/2010 MADL BAR ROLLER, ELIZA L 466.0 Bronchitis, Acute 06/02/2010 RYAN DO, CASPER K 466.0 Bronchitis, Acute 06/02/2010 MADL BAR ROLLER, ELIZA L 466.0 Bronchitis, Acute 06/02/2010 RYAN DO, CASPER K 466.0 Bronchitis, Acute 08/31/2010 Ot 300.00 08/31/2010 Ot 599.0 08/31/2010 Ot 780.4 09/04/2010 NATI GOODE APRN 386.11 Benign Paroxysmal Positional Vertigo 09/04/2010 RYAN DO, CASPER K 386.11 Benign Paroxysmal Positional Vertigo 09/04/2010 RYAN DO, CASPER K 386.11 Benign Paroxysmal Positional Vertigo 09/04/2010 386.11 Benign Paroxysmal Positional Vertigo 09/04/2010 RYAN DO, CASPER K 386.11 Benign Paroxysmal Positional Vertigo 09/04/2010 386.11 Benign Paroxysmal Positional Vertigo 09/04/2010 386.11 Benign Paroxysmal Positional Vertigo 09/04/2010 RYAN DO, CASPER K 386.11 Benign Paroxysmal Positional Vertigo 09/04/2010 RYAN DO, CASPER K 386.11 Benign Paroxysmal Positional Vertigo 09/04/2010 RYAN DO, CASPER K 386.11 Benign Paroxysmal Positional Vertigo 09/04/2010 MARILU KUMAR APRN 386.11 Benign Paroxysmal Positional Vertigo 09/04/2010 RYAN DO, CASPER K 386.11 Benign Paroxysmal Positional Vertigo 09/04/2010 RYAN DO, CASPER K 386.11 Benign Paroxysmal Positional Vertigo 09/04/2010 CHANDLER DDS, MAURA 386.11 Benign Paroxysmal Positional Vertigo 09/04/2010 CHANDLER DDS, MAURA 386.11 Benign Paroxysmal Positional Vertigo 09/04/2010 CICI JACKSON APRN 386.11 Benign Paroxysmal Positional Vertigo 09/04/2010 WILLY HENRIQUEZ, EVELINA Torres 386.11 Benign Paroxysmal Positional Vertigo 09/04/2010 ABBI BAR ROLLER, ELIZA L 386.11 Benign Paroxysmal Positional Vertigo 09/04/2010 RYAN DO CASPER K 386.11 Benign Paroxysmal Positional Vertigo 09/04/2010 MADL BAR ROLLER, ELIZA L 386.11 Benign Paroxysmal Positional Vertigo 09/04/2010 RYAN DO, CASPER K 386.11 Benign Paroxysmal Positional Vertigo 09/04/2010 MADL BAR ROLLER, ELIZA L 386.11 Benign Paroxysmal Positional Vertigo 09/04/2010 RYAN DO, CASPER K 386.11 Benign Paroxysmal Positional Vertigo 09/04/2010 MADL BAR ROLLER, ELIZA L 386.11 Benign Paroxysmal Positional Vertigo 09/04/2010 MADL BAR ROLLER, ELIZA L 386.11 Benign Paroxysmal Positional Vertigo 09/04/2010 BRISEIDA HUMPHREYS MD 386.11 Benign Paroxysmal Positional Vertigo 09/04/2010 RYAN DO, CASPER K 386.11 Benign Paroxysmal Positional Vertigo 09/04/2010 KATIE MACKN, TYRESE R 386.11 Benign Paroxysmal Positional Vertigo 09/04/2010 MADL BAR ROLLER, ELIZA L 386.11 Benign Paroxysmal Positional Vertigo 09/04/2010 MADL BAR ROLLER, ELIZA L 386.11 Benign Paroxysmal Positional Vertigo 09/04/2010 MADL BAR ROLLER, ELIZA L 386.11 Benign Paroxysmal Positional Vertigo 09/04/2010 RYAN DO, CASPER K 386.11 Benign Paroxysmal Positional Vertigo 09/04/2010 MADL BAR ROLLER, ELIZA L 386.11 Benign Paroxysmal Positional Vertigo 09/04/2010 RYAN DO, CASPER K 386.11 Benign Paroxysmal Positional Vertigo 10/06/2010 NATI GOODE APRN 356.9 PERIPHERAL NEUROPATHY 10/06/2010 RYAN DO, CASPER K 356.9 PERIPHERAL NEUROPATHY 10/06/2010 RYAN DO, CASPER K 356.9 PERIPHERAL NEUROPATHY 10/06/2010 356.9 PERIPHERAL NEUROPATHY 10/06/2010 RYAN DO, CASPER K 356.9 PERIPHERAL NEUROPATHY 10/06/2010 356.9 PERIPHERAL NEUROPATHY 10/06/2010 356.9 PERIPHERAL NEUROPATHY 10/06/2010 RYAN DO, CASPER K 356.9 PERIPHERAL NEUROPATHY 10/06/2010 RYAN DO, CASPER K 356.9 PERIPHERAL NEUROPATHY 10/06/2010 RYAN DO, CASPER K 356.9 PERIPHERAL NEUROPATHY 10/06/2010 MARILU KUMAR APRN 356.9 PERIPHERAL NEUROPATHY 10/06/2010 RYAN DO, CASPER K 356.9 PERIPHERAL NEUROPATHY 10/06/2010 RYAN DO, CASPER K 356.9 PERIPHERAL NEUROPATHY 10/06/2010 CHANDLER DDS, MAURA 356.9 PERIPHERAL NEUROPATHY 10/06/2010 CHANDLER DDS, MAURA 356.9 PERIPHERAL NEUROPATHY 10/06/2010 MANUEL BAR ROLLER, CICI Bueno 356.9 PERIPHERAL NEUROPATHY 10/06/2010 WILLY DDS, EVELINA Torres 356.9 PERIPHERAL NEUROPATHY 10/06/2010 MADL BAR ROLLER, ELIZA L 356.9 PERIPHERAL NEUROPATHY 10/06/2010 RYAN DO, CASPER K 356.9 PERIPHERAL NEUROPATHY 10/06/2010 MADL BAR ROLLER, ELIZA L 356.9 PERIPHERAL NEUROPATHY 10/06/2010 RYAN DO, CASPER K 356.9 PERIPHERAL NEUROPATHY 10/06/2010 MADL BAR ROLLER, ELIZA L 356.9 PERIPHERAL NEUROPATHY 10/06/2010 RYAN DO, CASPER K 356.9 PERIPHERAL NEUROPATHY 10/06/2010 MADL BAR ROLLER, ELIZA L 356.9 PERIPHERAL NEUROPATHY 10/06/2010 MADL BAR ROLLER, ELIZA L 356.9 PERIPHERAL NEUROPATHY 10/06/2010 JULIANN JOHN, BRISEIDA Jimenez 356.9 PERIPHERAL NEUROPATHY 10/06/2010 RYAN DO, CASPER K 356.9 PERIPHERAL NEUROPATHY 10/06/2010 KATIE BAR ROLLER, TYRESE R 356.9 PERIPHERAL NEUROPATHY 10/06/2010 MADL BAR ROLLER, ELIZA L 356.9 PERIPHERAL NEUROPATHY 10/06/2010 MADL BAR ROLLER, ELIZA L 356.9 PERIPHERAL NEUROPATHY 10/06/2010 MADL BAR ROLLER, ELIZA L 356.9 PERIPHERAL NEUROPATHY 10/06/2010 RYAN DO, CASPER K 356.9 PERIPHERAL NEUROPATHY 10/06/2010 MADL BAR ROLLER, ELIZA L 356.9 PERIPHERAL NEUROPATHY 10/06/2010 RYAN DO, CASPER K 356.9 PERIPHERAL NEUROPATHY 11/01/2010 NATI GOODE APRN 682.6 Cellulitis And Abscess Of Leg Except Foot 11/01/2010 NATI GOODE APRN 709.9 Skin Lesions 11/01/2010 RYAN DO, CASPER K 682.6 Cellulitis And Abscess Of Leg Except Foot 11/01/2010 RYAN DO, CASPER K 709.9 Skin Lesions 11/01/2010 RYAN DO, CASPER K 682.6 Cellulitis And Abscess Of Leg Except Foot 11/01/2010 RYAN DO, CASPER K 709.9 Skin Lesions 11/01/2010 682.6 Cellulitis And Abscess Of Leg Except Foot 11/01/2010 709.9 Skin Lesions 11/01/2010 RYAN DO, CASPER K 682.6 Cellulitis And Abscess Of Leg Except Foot 11/01/2010 RYAN DO, CASPER K 709.9 Skin Lesions 11/01/2010 682.6 Cellulitis And Abscess Of Leg Except Foot 11/01/2010 709.9 Skin Lesions 11/01/2010 682.6 Cellulitis And Abscess Of Leg Except Foot 11/01/2010 709.9 Skin Lesions 11/01/2010 RYAN DO, CASPER K 682.6 Cellulitis And Abscess Of Leg Except Foot 11/01/2010 RYAN DO, CASPER K 709.9 Skin Lesions 11/01/2010 RYAN DO, CASPER K 682.6 Cellulitis And Abscess Of Leg Except Foot 11/01/2010 RYAN DO, CASPER K 709.9 Skin Lesions 11/01/2010 RYAN DO, CASPER K 682.6 Cellulitis And Abscess Of Leg Except Foot 11/01/2010 RYAN DO, CASPER K 709.9 Skin Lesions 11/01/2010 STACY BAR ROLLER, MARILU A 682.6 Cellulitis And Abscess Of Leg Except Foot 11/01/2010 STACY BAR ROLLER, MARILU A 709.9 Skin Lesions 11/01/2010 RYAN DO, CASPER K 682.6 Cellulitis And Abscess Of Leg Except Foot 11/01/2010 RYAN DO, CASPER K 709.9 Skin Lesions 11/01/2010 RYAN DO, CASPER K 682.6 Cellulitis And Abscess Of Leg Except Foot 11/01/2010 RYAN DO, CASPER K 709.9 Skin Lesions 11/01/2010 CHANDLER DDS, MAURA 682.6 Cellulitis And Abscess Of Leg Except Foot 11/01/2010 CHANDLER DDS, MAURA 709.9 Skin Lesions 11/01/2010 CHANDLER DDS, MAURA 682.6 Cellulitis And Abscess Of Leg Except Foot 11/01/2010 CHANDLER DDS, MAURA 709.9 Skin Lesions 11/01/2010 CICI JACKSON APRN 682.6 Cellulitis And Abscess Of Leg Except Foot 11/01/2010 CICI JACKSON APRN 709.9 Skin Lesions 11/01/2010 WHITE DDS, EVELINA J 682.6 Cellulitis And Abscess Of Leg Except Foot 11/01/2010 WHITE DDS, EVELINA J 709.9 Skin Lesions 11/01/2010 MADL BAR ROLLER, ELIZA L 682.6 Cellulitis And Abscess Of Leg Except Foot 11/01/2010 MADL BAR ROLLER, ELIZA L 709.9 Skin Lesions 11/01/2010 RYAN DO, CASPER K 682.6 Cellulitis And Abscess Of Leg Except Foot 11/01/2010 RYAN DO, CASPER K 709.9 Skin Lesions 11/01/2010 MADL BAR ROLLER, ELIZA L 682.6 Cellulitis And Abscess Of Leg Except Foot 11/01/2010 MADL BAR ROLLER, ELIZA L 709.9 Skin Lesions 11/01/2010 RYAN DO, CASPER K 682.6 Cellulitis And Abscess Of Leg Except Foot 11/01/2010 RYAN DO, CASPER K 709.9 Skin Lesions 11/01/2010 MADL BAR ROLLER, ELIZA L 682.6 Cellulitis And Abscess Of Leg Except Foot 11/01/2010 MADL BAR ROLLER, ELIZA L 709.9 Skin Lesions 11/01/2010 RYAN DO, CASPER K 682.6 Cellulitis And Abscess Of Leg Except Foot 11/01/2010 RYAN DO, CASPER K 709.9 Skin Lesions 11/01/2010 MADL BAR ROLLER, ELIZA L 682.6 Cellulitis And Abscess Of Leg Except Foot 11/01/2010 MADL BAR ROLLER, ELIZA L 709.9 Skin Lesions 11/01/2010 MADL BAR ROLLER, ELIZA L 682.6 Cellulitis And Abscess Of Leg Except Foot 11/01/2010 MADL BAR ROLLER, ELIZA L 709.9 Skin Lesions 11/01/2010 BRISEIDA HUMPHREYS MD 682.6 Cellulitis And Abscess Of Leg Except Foot 11/01/2010 BRISEIDA HUMPHREYS MD 709.9 Skin Lesions 11/01/2010 RYAN DO, CASPER K 682.6 Cellulitis And Abscess Of Leg Except Foot 11/01/2010 RYAN DO CASPER K 709.9 Skin Lesions 11/01/2010 KATIE BAR ROLLER, TYRESE R 682.6 Cellulitis And Abscess Of Leg Except Foot 11/01/2010 KATIE BAR ROLLER, TYRESE R 709.9 Skin Lesions 11/01/2010 MADL BAR ROLLER, ELIZA L 682.6 Cellulitis And Abscess Of Leg Except Foot 11/01/2010 MADL BAR ROLLER, ELIZA L 709.9 Skin Lesions 11/01/2010 MADL BAR ROLLER, ELIZA L 682.6 Cellulitis And Abscess Of Leg Except Foot 11/01/2010 MADL BAR ROLLER, ELIZA L 709.9 Skin Lesions 11/01/2010 MADL BAR ROLLER, ELIZA L 682.6 Cellulitis And Abscess Of Leg Except Foot 11/01/2010 MADL BAR ROLLER, ELIZA L 709.9 Skin Lesions 11/01/2010 RYAN DO, CASPER K 682.6 Cellulitis And Abscess Of Leg Except Foot 11/01/2010 RYAN DO, CASPER K 709.9 Skin Lesions 11/01/2010 MADL BAR ROLLER, ELIZA L 682.6 Cellulitis And Abscess Of Leg Except Foot 11/01/2010 MADL BAR ROLLER, ELIZA L 709.9 Skin Lesions 11/01/2010 RYAN DO, CASPER K 682.6 Cellulitis And Abscess Of Leg Except Foot 11/01/2010 RYAN DO, CASPER K 709.9 Skin Lesions 11/03/2010 NATI GOODE APRN 682.5 Cellulitis Of The Right Buttock 11/03/2010 RYAN DO, CASPER K 682.5 Cellulitis Of The Right Buttock 11/03/2010 RYAN DO, CASPER K 682.5 Cellulitis Of The Right Buttock 11/03/2010 682.5 Cellulitis Of The Right Buttock 11/03/2010 RYAN DO, CASPER K 682.5 Cellulitis Of The Right Buttock 11/03/2010 682.5 Cellulitis Of The Right Buttock 11/03/2010 682.5 Cellulitis Of The Right Buttock 11/03/2010 RYAN DO, CASPER K 682.5 Cellulitis Of The Right Buttock 11/03/2010 RYAN DO, CASPER K 682.5 Cellulitis Of The Right Buttock 11/03/2010 RYAN DO, CASPER K 682.5 Cellulitis Of The Right Buttock 11/03/2010 STACY BAR ROLLER, MARILU A 682.5 Cellulitis Of The Right Buttock 11/03/2010 RYAN DO, CASPER K 682.5 Cellulitis Of The Right Buttock 11/03/2010 RYAN DO, CASPER K 682.5 Cellulitis Of The Right Buttock 11/03/2010 CHANDLER DDS, MAURA 682.5 Cellulitis Of The Right Buttock 11/03/2010 CHANDLER DDS, MAURA 682.5 Cellulitis Of The Right Buttock 11/03/2010 MANUEL BAR ROLLER, CICI Bueno 682.5 Cellulitis Of The Right Buttock 11/03/2010 WILLY DDS, EVELINA Torres 682.5 Cellulitis Of The Right Buttock 11/03/2010 MADL BAR ROLLER, ELIZA L 682.5 Cellulitis Of The Right Buttock 11/03/2010 RYAN DO, CASPER K 682.5 Cellulitis Of The Right Buttock 11/03/2010 MADL BAR ROLLER, ELIZA L 682.5 Cellulitis Of The Right Buttock 11/03/2010 RYAN DO, CASPER K 682.5 Cellulitis Of The Right Buttock 11/03/2010 MADL BAR ROLLER, ELIZA L 682.5 Cellulitis Of The Right Buttock 11/03/2010 RYAN DO, CASPER K 682.5 Cellulitis Of The Right Buttock 11/03/2010 MADL BAR ROLLER, ELIZA L 682.5 Cellulitis Of The Right Buttock 11/03/2010 MADL BAR ROLLER, ELIZA L 682.5 Cellulitis Of The Right Buttock 11/03/2010 JULIANN JOHN, BRISEIDA Jimenez 682.5 Cellulitis Of The Right Buttock 11/03/2010 RYAN DO, CASPER K 682.5 Cellulitis Of The Right Buttock 11/03/2010 KATIE MACKN, TYRESE James 682.5 Cellulitis Of The Right Buttock 11/03/2010 MADL BAR ROLLER, ELIZA L 682.5 Cellulitis Of The Right Buttock 11/03/2010 MADL BAR ROLLER, ELIZA L 682.5 Cellulitis Of The Right Buttock 11/03/2010 MADL BAR ROLLER, ELIZA L 682.5 Cellulitis Of The Right Buttock 11/03/2010 RYAN DO, CASPER K 682.5 Cellulitis Of The Right Buttock 11/03/2010 MADL BAR ROLLER, ELIZA L 682.5 Cellulitis Of The Right Buttock 11/03/2010 RYAN DO, CASPER K 682.5 Cellulitis Of The Right Buttock 01/03/2011 NATI GOODE APRN 599.0 Urinary Tract Infection Site Not Specified 01/03/2011 RYAN DO, CASPER K 599.0 Urinary Tract Infection Site Not Specified 01/03/2011 RYAN DO, CASPER K 599.0 Urinary Tract Infection Site Not Specified 01/03/2011 599.0 Urinary Tract Infection Site Not Specified 01/03/2011 RYAN DO, CASPER K 599.0 Urinary Tract Infection Site Not Specified 01/03/2011 599.0 Urinary Tract Infection Site Not Specified 01/03/2011 599.0 Urinary Tract Infection Site Not Specified 01/03/2011 RYAN DO, CASPER K 599.0 Urinary Tract Infection Site Not Specified 01/03/2011 RYAN DO, CASPER K 599.0 Urinary Tract Infection Site Not Specified 01/03/2011 RYAN DO, CASPER K 599.0 Urinary Tract Infection Site Not Specified 01/03/2011 MARILU KUMAR APRN 599.0 Urinary Tract Infection Site Not Specified 01/03/2011 RYAN DO, CASPER K 599.0 Urinary Tract Infection Site Not Specified 01/03/2011 RYAN DO, CASPER K 599.0 Urinary Tract Infection Site Not Specified 01/03/2011 GERALDINE JOELSMAURA 599.0 Urinary Tract Infection Site Not Specified 01/03/2011 GERALDINE DDSMAURA 599.0 Urinary Tract Infection Site Not Specified 01/03/2011 CICI JACKSON APRN 599.0 Urinary Tract Infection Site Not Specified 01/03/2011 EVELINA AGUILERA DDS 599.0 Urinary Tract Infection Site Not Specified 01/03/2011 ABBI BAR ROLLER, ELIZA L 599.0 Urinary Tract Infection Site Not Specified 01/03/2011 RYAN DO, CASPER K 599.0 Urinary Tract Infection Site Not Specified 01/03/2011 ABBI BAR ROLLER, ELIZA L 599.0 Urinary Tract Infection Site Not Specified 01/03/2011 RYAN DO, CASPER K 599.0 Urinary Tract Infection Site Not Specified 01/03/2011 MADL BAR ROLLER, ELIZA L 599.0 Urinary Tract Infection Site Not Specified 01/03/2011 RYAN DO, CASPER K 599.0 Urinary Tract Infection Site Not Specified 01/03/2011 MADL BAR ROLLER, ELIZA L 599.0 Urinary Tract Infection Site Not Specified 01/03/2011 MADL BAR ROLLER, ELIZA L 599.0 Urinary Tract Infection Site Not Specified 01/03/2011 JULIANN JOHN, BRISEIDA N 599.0 Urinary Tract Infection Site Not Specified 01/03/2011 RYAN DO, CASPER K 599.0 Urinary Tract Infection Site Not Specified 01/03/2011 KATIE BAR ROLLER, TYRESE R 599.0 Urinary Tract Infection Site Not Specified 01/03/2011 MADL BAR ROLLER, ELIZA L 599.0 Urinary Tract Infection Site Not Specified 01/03/2011 MADL BAR ROLLER, ELIZA L 599.0 Urinary Tract Infection Site Not Specified 01/03/2011 MADL BAR ROLLER, ELIZA L 599.0 Urinary Tract Infection Site Not Specified 01/03/2011 RYAN DO, CASPER K 599.0 Urinary Tract Infection Site Not Specified 01/03/2011 MADL BAR ROLLER, ELIZA L 599.0 Urinary Tract Infection Site Not Specified 01/03/2011 RYAN DO, CASPER K 599.0 Urinary Tract Infection Site Not Specified 03/24/2011 NATI GOODE APRN 719.45 joint pain, localized in the hip 03/24/2011 RYAN DO, CASPER K 719.45 joint pain, localized in the hip 03/24/2011 RYAN DO, CASPER K 719.45 joint pain, localized in the hip 03/24/2011 719.45 joint pain, localized in the hip 03/24/2011 RYAN DO, CASPER K 719.45 joint pain, localized in the hip 03/24/2011 719.45 joint pain, localized in the hip 03/24/2011 719.45 joint pain, localized in the hip 03/24/2011 RYAN DO, CASPER K 719.45 joint pain, localized in the hip 03/24/2011 RYAN DO, CASPER K 719.45 joint pain, localized in the hip 03/24/2011 RYAN DO, CASPER K 719.45 joint pain, localized in the hip 03/24/2011 STACY BAR ROLLER, MARILU A 719.45 joint pain, localized in the hip 03/24/2011 RYAN DO, CASPER K 719.45 joint pain, localized in the hip 03/24/2011 RYAN DO, CASPER K 719.45 joint pain, localized in the hip 03/24/2011 CHANDLER DDS, MAURA 719.45 joint pain, localized in the hip 03/24/2011 CHANDLER DDS, MAURA 719.45 joint pain, localized in the hip 03/24/2011 MANUEL BAR ROLLERCICI 719.45 joint pain, localized in the hip 03/24/2011 WILLY DDS, EVELINA Torres 719.45 joint pain, localized in the hip 03/24/2011 MADL BAR ROLLER, ELIZA L 719.45 joint pain, localized in the hip 03/24/2011 RYAN DO, CASPER K 719.45 joint pain, localized in the hip 03/24/2011 MADL BAR ROLLER, ELIZA L 719.45 joint pain, localized in the hip 03/24/2011 RYAN DO, CASPER K 719.45 joint pain, localized in the hip 03/24/2011 MADL BAR ROLLER, ELIZA L 719.45 joint pain, localized in the hip 03/24/2011 RYAN DO, CASPER K 719.45 joint pain, localized in the hip 03/24/2011 MADL BAR ROLLER, ELIZA L 719.45 joint pain, localized in the hip 03/24/2011 MADL BAR ROLLER, ELIZA L 719.45 joint pain, localized in the hip 03/24/2011 JULIANN JOHN, BRISEIDA Jimenez 719.45 joint pain, localized in the hip 03/24/2011 RYAN DO, CASPER K 719.45 joint pain, localized in the hip 03/24/2011 TYRESE WILSON APRN 719.45 joint pain, localized in the hip 03/24/2011 MADL BAR ROLLER, ELIZA L 719.45 joint pain, localized in the hip 03/24/2011 MADL BAR ROLLER, ELIZA L 719.45 joint pain, localized in the hip 03/24/2011 MADL BAR ROLLER, ELIZA L 719.45 joint pain, localized in the hip 03/24/2011 RYAN DO CASPER K 719.45 joint pain, localized in the hip 03/24/2011 MADL BAR ROLLER, ELIZA L 719.45 joint pain, localized in the hip 03/24/2011 RYAN DO CASPER K 719.45 joint pain, localized in the hip 04/28/2011 NATI GOODE APRN 386.11 Benign Paroxysmal Positional Vertigo 04/28/2011 NATI GOODE APRN V73.81 Visit For: Screening Exam For Human Papillomavirus (hpv) 04/28/2011 NATI GOODE APRN V76.10 Visit For: Screening Exam Malignant Neoplasm Breast 04/28/2011 NATI GOODE APRN V76.2 Cervical Pap Smear 04/28/2011 RYAN DO CASPER K 386.11 Benign Paroxysmal Positional Vertigo 04/28/2011 CONNOR TORREZ CASPER K V73.81 Visit For: Screening Exam For Human Papillomavirus (hpv) 04/28/2011 CONNOR TORREZ CASPER K V76.10 Visit For: Screening Exam Malignant Neoplasm Breast 04/28/2011 CONNOR TORREZ CASPER K V76.2 Cervical Pap Smear 04/28/2011 CONNOR TORREZ CASPER K 386.11 Benign Paroxysmal Positional Vertigo 04/28/2011 RYAN DO CASPER K V73.81 Visit For: Screening Exam For Human Papillomavirus (hpv) 04/28/2011 CONNOR TORREZ CASPER K V76.10 Visit For: Screening Exam Malignant Neoplasm Breast 04/28/2011 CONNOR TORREZ CASPER K V76.2 Cervical Pap Smear 04/28/2011 386.11 Benign Paroxysmal Positional Vertigo 04/28/2011 V73.81 Visit For: Screening Exam For Human Papillomavirus (hpv) 04/28/2011 V76.10 Visit For: Screening Exam Malignant Neoplasm Breast 04/28/2011 V76.2 Cervical Pap Smear 04/28/2011 CONNOR TORREZ CASPER K 386.11 Benign Paroxysmal Positional Vertigo 04/28/2011 RYAN DO CASPER K V73.81 Visit For: Screening Exam For Human Papillomavirus (hpv) 04/28/2011 CONNOR TORREZ CASPER K V76.10 Visit For: Screening Exam Malignant Neoplasm Breast 04/28/2011 RYAN MONO TORREZA K V76.2 Cervical Pap Smear 04/28/2011 386.11 Benign Paroxysmal Positional Vertigo 04/28/2011 V73.81 Visit For: Screening Exam For Human Papillomavirus (hpv) 04/28/2011 V76.10 Visit For: Screening Exam Malignant Neoplasm Breast 04/28/2011 V76.2 Cervical Pap Smear 04/28/2011 386.11 Benign Paroxysmal Positional Vertigo 04/28/2011 V73.81 Visit For: Screening Exam For Human Papillomavirus (hpv) 04/28/2011 V76.10 Visit For: Screening Exam Malignant Neoplasm Breast 04/28/2011 V76.2 Cervical Pap Smear 04/28/2011 CASPER RYAN DO K 386.11 Benign Paroxysmal Positional Vertigo 04/28/2011 MONO RYAN DOA K V73.81 Visit For: Screening Exam For Human Papillomavirus (hpv) 04/28/2011 CASPER RYAN DO V76.10 Visit For: Screening Exam Malignant Neoplasm Breast 04/28/2011 CASPER RYAN DO V76.2 Cervical Pap Smear 04/28/2011 CASPER RYAN DO K 386.11 Benign Paroxysmal Positional Vertigo 04/28/2011 MONO RYAN DOA K V73.81 Visit For: Screening Exam For Human Papillomavirus (hpv) 04/28/2011 CASPER RYAN DO K V76.10 Visit For: Screening Exam Malignant Neoplasm Breast 04/28/2011 CASPER RYAN DO K V76.2 Cervical Pap Smear 04/28/2011 CASPER RYAN DO K 386.11 Benign Paroxysmal Positional Vertigo 04/28/2011 MONO RYAN DOA K V73.81 Visit For: Screening Exam For Human Papillomavirus (hpv) 04/28/2011 MONO RYAN DOA K V76.10 Visit For: Screening Exam Malignant Neoplasm Breast 04/28/2011 MONO RYAN DOA K V76.2 Cervical Pap Smear 04/28/2011 STACY BAR ROLLER, MARILU A 386.11 Benign Paroxysmal Positional Vertigo 04/28/2011 STACY BAR ROLLER, MARILU A V73.81 Visit For: Screening Exam For Human Papillomavirus (hpv) 04/28/2011 STACY BAR ROLLER, MARILU A V76.10 Visit For: Screening Exam Malignant Neoplasm Breast 04/28/2011 STACY BAR ROLLER, MARILU A V76.2 Cervical Pap Smear 04/28/2011 RYAN DOMONOA K 386.11 Benign Paroxysmal Positional Vertigo 04/28/2011 RYAN MONOA K V73.81 Visit For: Screening Exam For Human Papillomavirus (hpv) 04/28/2011 CONNOR TORREZ CASPER K V76.10 Visit For: Screening Exam Malignant Neoplasm Breast 04/28/2011 RYAN DO CASPER K V76.2 Cervical Pap Smear 04/28/2011 CONNOR TORREZMONOA K 386.11 Benign Paroxysmal Positional Vertigo 04/28/2011 CONNOR TORREZMONOA K V73.81 Visit For: Screening Exam For Human Papillomavirus (hpv) 04/28/2011 RYAN MONO TORREZA K V76.10 Visit For: Screening Exam Malignant Neoplasm Breast 04/28/2011 RYAN MONO TORREZA K V76.2 Cervical Pap Smear 04/28/2011 CHANDLER DDSMAURA 386.11 Benign Paroxysmal Positional Vertigo 04/28/2011 CHANDLER DDSMAURA V73.81 Visit For: Screening Exam For Human Papillomavirus (hpv) 04/28/2011 CHANDLER DDSMAURA V76.10 Visit For: Screening Exam Malignant Neoplasm Breast 04/28/2011 CHANDLER DDSMAURA V76.2 Cervical Pap Smear 04/28/2011 GERALDINE JOELSMAURA 386.11 Benign Paroxysmal Positional Vertigo 04/28/2011 CHANDLER DDSMAURA V73.81 Visit For: Screening Exam For Human Papillomavirus (hpv) 04/28/2011 CHANDLER DDSMAURA V76.10 Visit For: Screening Exam Malignant Neoplasm Breast 04/28/2011 CHANDLER DDSMAURA V76.2 Cervical Pap Smear 04/28/2011 CICI JACKSON APRN 386.11 Benign Paroxysmal Positional Vertigo 04/28/2011 CICI JACKSON APRN V73.81 Visit For: Screening Exam For Human Papillomavirus (hpv) 04/28/2011 CICI JACKSON APRN V76.10 Visit For: Screening Exam Malignant Neoplasm Breast 04/28/2011 CICI JACKSON APRN V76.2 Cervical Pap Smear 04/28/2011 WHITE DDSEVELINA 386.11 Benign Paroxysmal Positional Vertigo 04/28/2011 WILLY JOELSEVELINA V73.81 Visit For: Screening Exam For Human Papillomavirus (hpv) 04/28/2011 WHITE DDS, EVELINA J V76.10 Visit For: Screening Exam Malignant Neoplasm Breast 04/28/2011 WHITE DDS, EVELINA J V76.2 Cervical Pap Smear 04/28/2011 MADL BAR ROLLER, ELIZA L 386.11 Benign Paroxysmal Positional Vertigo 04/28/2011 MADL BAR ROLLER, ELIZA L V73.81 Visit For: Screening Exam For Human Papillomavirus (hpv) 04/28/2011 MADL BAR ROLLER, ELIZA L V76.10 Visit For: Screening Exam Malignant Neoplasm Breast 04/28/2011 MADL BAR ROLLER, ELIZA L V76.2 Cervical Pap Smear 04/28/2011 RYAN DO CASPER K 386.11 Benign Paroxysmal Positional Vertigo 04/28/2011 RYAN DO CASPER K V73.81 Visit For: Screening Exam For Human Papillomavirus (hpv) 04/28/2011 CONNOR DO CASPER K V76.10 Visit For: Screening Exam Malignant Neoplasm Breast 04/28/2011 CONNOR DO CASPER K V76.2 Cervical Pap Smear 04/28/2011 MADL BAR ROLLER, ELIZA L 386.11 Benign Paroxysmal Positional Vertigo 04/28/2011 MADL BAR ROLLER, ELIZA L V73.81 Visit For: Screening Exam For Human Papillomavirus (hpv) 04/28/2011 MADL BAR ROLLER, ELIZA L V76.10 Visit For: Screening Exam Malignant Neoplasm Breast 04/28/2011 MADL BAR ROLLER, ELIZA L V76.2 Cervical Pap Smear 04/28/2011 CONNOR TORREZ CASPER K 386.11 Benign Paroxysmal Positional Vertigo 04/28/2011 RYAN DO CASPER K V73.81 Visit For: Screening Exam For Human Papillomavirus (hpv) 04/28/2011 RYAN DO CASPER K V76.10 Visit For: Screening Exam Malignant Neoplasm Breast 04/28/2011 RYAN DO CASPER K V76.2 Cervical Pap Smear 04/28/2011 MADL BAR ROLLER, ELIZA L 386.11 Benign Paroxysmal Positional Vertigo 04/28/2011 MADL BAR ROLLER, ELIZA L V73.81 Visit For: Screening Exam For Human Papillomavirus (hpv) 04/28/2011 MADL BAR ROLLER, ELIZA L V76.10 Visit For: Screening Exam Malignant Neoplasm Breast 04/28/2011 MADL BAR ROLLER, ELIZA L V76.2 Cervical Pap Smear 04/28/2011 RYAN DO, CASPER K 386.11 Benign Paroxysmal Positional Vertigo 04/28/2011 RYAN DO, CASPER K V73.81 Visit For: Screening Exam For Human Papillomavirus (hpv) 04/28/2011 RYAN DO CASPER K V76.10 Visit For: Screening Exam Malignant Neoplasm Breast 04/28/2011 RYAN DO, CASPER K V76.2 Cervical Pap Smear 04/28/2011 MADL BAR ROLLER, ELIZA L 386.11 Benign Paroxysmal Positional Vertigo 04/28/2011 MADL BAR ROLLER, ELIZA L V73.81 Visit For: Screening Exam For Human Papillomavirus (hpv) 04/28/2011 MADL BAR ROLLER, ELIZA L V76.10 Visit For: Screening Exam Malignant Neoplasm Breast 04/28/2011 MADL BAR ROLLER, ELIZA L V76.2 Cervical Pap Smear 04/28/2011 MADL BAR ROLLER, ELIZA L 386.11 Benign Paroxysmal Positional Vertigo 04/28/2011 MADL BAR ROLLER, ELIZA L V73.81 Visit For: Screening Exam For Human Papillomavirus (hpv) 04/28/2011 MADL BAR ROLLER, ELIZA L V76.10 Visit For: Screening Exam Malignant Neoplasm Breast 04/28/2011 MADL BAR ROLLER, ELIZA L V76.2 Cervical Pap Smear 04/28/2011 BRISEIDA HUMPHREYS MD N 386.11 Benign Paroxysmal Positional Vertigo 04/28/2011 BRISEIDA HUMPHREYS MD V73.81 Visit For: Screening Exam For Human Papillomavirus (hpv) 04/28/2011 BRISEIDA HUMPHREYS MD V76.10 Visit For: Screening Exam Malignant Neoplasm Breast 04/28/2011 BRISEIDA HUMPHREYS MD V76.2 Cervical Pap Smear 04/28/2011 CONNOR TORREZ CASPER K 386.11 Benign Paroxysmal Positional Vertigo 04/28/2011 RYAN DO CASPER K V73.81 Visit For: Screening Exam For Human Papillomavirus (hpv) 04/28/2011 CONNOR TORREZ CASPER K V76.10 Visit For: Screening Exam Malignant Neoplasm Breast 04/28/2011 CONNOR TORREZ CASPER K V76.2 Cervical Pap Smear 04/28/2011 KATIE BAR ROLLER, TYRESE R 386.11 Benign Paroxysmal Positional Vertigo 04/28/2011 KATIE BAR ROLLER, TYRESE R V73.81 Visit For: Screening Exam For Human Papillomavirus (hpv) 04/28/2011 KATIE BAR ROLLER, TYRESE R V76.10 Visit For: Screening Exam Malignant Neoplasm Breast 04/28/2011 KATIE BAR ROLLER, TYRESE R V76.2 Cervical Pap Smear 04/28/2011 MADL BAR ROLLER, ELIZA L 386.11 Benign Paroxysmal Positional Vertigo 04/28/2011 MADL BAR ROLLER, ELIZA L V73.81 Visit For: Screening Exam For Human Papillomavirus (hpv) 04/28/2011 MADL BAR ROLLER, ELIZA L V76.10 Visit For: Screening Exam Malignant Neoplasm Breast 04/28/2011 MADL BAR ROLLER, ELIZA L V76.2 Cervical Pap Smear 04/28/2011 MADL BAR ROLLER, ELIZA L 386.11 Benign Paroxysmal Positional Vertigo 04/28/2011 MADL BAR ROLLER, ELIZA L V73.81 Visit For: Screening Exam For Human Papillomavirus (hpv) 04/28/2011 MADL BAR ROLLER, ELIZA L V76.10 Visit For: Screening Exam Malignant Neoplasm Breast 04/28/2011 MADL BAR ROLLER, ELIZA L V76.2 Cervical Pap Smear 04/28/2011 MADL BAR ROLLER, ELIZA L 386.11 Benign Paroxysmal Positional Vertigo 04/28/2011 MADL BAR ROLLER, ELIZA L V73.81 Visit For: Screening Exam For Human Papillomavirus (hpv) 04/28/2011 MADL BAR ROLLER, ELIZA L V76.10 Visit For: Screening Exam Malignant Neoplasm Breast 04/28/2011 MADL BAR ROLLER, ELIZA L V76.2 Cervical Pap Smear 04/28/2011 RYAN DO, CASPER K 386.11 Benign Paroxysmal Positional Vertigo 04/28/2011 RYAN DO, CASPER K V73.81 Visit For: Screening Exam For Human Papillomavirus (hpv) 04/28/2011 RYAN DO, CASPER K V76.10 Visit For: Screening Exam Malignant Neoplasm Breast 04/28/2011 RYAN DO, CASPER K V76.2 Cervical Pap Smear 04/28/2011 MADL BAR ROLLER, ELIZA L 386.11 Benign Paroxysmal Positional Vertigo 04/28/2011 MADL BAR ROLLER, ELIZA L V73.81 Visit For: Screening Exam For Human Papillomavirus (hpv) 04/28/2011 MADL BAR ROLLER, ELIZA L V76.10 Visit For: Screening Exam Malignant Neoplasm Breast 04/28/2011 MADL BAR ROLLER, ELIZA L V76.2 Cervical Pap Smear 04/28/2011 RYAN DOMONOA K 386.11 Benign Paroxysmal Positional Vertigo 04/28/2011 RYAN DO CAS[place] K V73.81 Visit For: Screening Exam For Human Papillomavirus (hpv) 04/28/2011 RYAN DO CASPER K V76.10 Visit For: Screening Exam Malignant Neoplasm Breast 04/28/2011 RYAN DO CAS[place] K V76.2 Cervical Pap Smear 08/19/2011 NATI GOODE APRN 054.9 HERPES SIMPLEX 08/19/2011 RYAN DO CAS[place] K 054.9 HERPES SIMPLEX 08/19/2011 RYAN DO CASPER K 054.9 HERPES SIMPLEX 08/19/2011 054.9 HERPES SIMPLEX 08/19/2011 RYAN DO, CASPER K 054.9 HERPES SIMPLEX 08/19/2011 054.9 HERPES SIMPLEX 08/19/2011 054.9 HERPES SIMPLEX 08/19/2011 RYAN DO, CASPER K 054.9 HERPES SIMPLEX 08/19/2011 RYAN DO, CASPER K 054.9 HERPES SIMPLEX 08/19/2011 RYAN DO, CASPER K 054.9 HERPES SIMPLEX 08/19/2011 MARILU KUMAR APRN 054.9 HERPES SIMPLEX 08/19/2011 RYAN DO [place] K 054.9 HERPES SIMPLEX 08/19/2011 RYAN DO, CASPER K 054.9 HERPES SIMPLEX 08/19/2011 CHANDLER DDS, MAURA 054.9 HERPES SIMPLEX 08/19/2011 CHANDLER DDS, MAURA 054.9 HERPES SIMPLEX 08/19/2011 CICI JACKSON APRN 054.9 HERPES SIMPLEX 08/19/2011 WILLY DDSEVELINA 054.9 HERPES SIMPLEX 08/19/2011 ABBI BAR ROLLER, ELIZA Stewart 054.9 HERPES SIMPLEX 08/19/2011 RYAN DOMONOA K 054.9 HERPES SIMPLEX 08/19/2011 MADL BAR ROLLER, ELIZA L 054.9 HERPES SIMPLEX 08/19/2011 RYAN DO, CASPER K 054.9 HERPES SIMPLEX 08/19/2011 MADL BAR ROLLER, ELIZA L 054.9 HERPES SIMPLEX 08/19/2011 RYAN DO, CASPER K 054.9 HERPES SIMPLEX 08/19/2011 MADL BAR ROLLER, ELIZA L 054.9 HERPES SIMPLEX 08/19/2011 MADL BAR ROLLER, ELIZA L 054.9 HERPES SIMPLEX 08/19/2011 JULIANN JOHN, BRISEIDA N 054.9 HERPES SIMPLEX 08/19/2011 RYAN DO, CASPER K 054.9 HERPES SIMPLEX 08/19/2011 KATIE BAR ROLLER, TYRESE R 054.9 HERPES SIMPLEX 08/19/2011 MADL BAR ROLLER, ELIZA L 054.9 HERPES SIMPLEX 08/19/2011 MADL BAR ROLLER, ELIZA L 054.9 HERPES SIMPLEX 08/19/2011 MADL BAR ROLLER, ELIZA L 054.9 HERPES SIMPLEX 08/19/2011 RYAN DO, CASPER K 054.9 HERPES SIMPLEX 08/19/2011 MADL BAR ROLLER, ELIZA L 054.9 HERPES SIMPLEX 08/19/2011 RYAN DO, CASPER K 054.9 HERPES SIMPLEX 08/28/2011 NATI GOODE APRN 461.9 Sinusitis Acute 08/28/2011 RYAN DO, CASPER K 461.9 Sinusitis Acute 08/28/2011 RYAN DO, CASPER K 461.9 Sinusitis Acute 08/28/2011 461.9 Sinusitis Acute 08/28/2011 RYAN DO, CASPER K 461.9 Sinusitis Acute 08/28/2011 461.9 Sinusitis Acute 08/28/2011 461.9 Sinusitis Acute 08/28/2011 RYAN DO, CASPER K 461.9 Sinusitis Acute 08/28/2011 RYAN DO, CASPER K 461.9 Sinusitis Acute 08/28/2011 RYAN DO, CASPER K 461.9 Sinusitis Acute 08/28/2011 MARILU KUMAR APRN 461.9 Sinusitis Acute 08/28/2011 RYAN DO CAS[place] K 461.9 Sinusitis Acute 08/28/2011 RYAN DO, CASPER K 461.9 Sinusitis Acute 08/28/2011 CHANDLER DDS, MAURA 461.9 Sinusitis Acute 08/28/2011 CHANDLER DDS, MAURA 461.9 Sinusitis Acute 08/28/2011 CICI JACKSON APRN 461.9 Sinusitis Acute 08/28/2011 WILLY DDS, EVELINA Torres 461.9 Sinusitis Acute 08/28/2011 MADL BAR ROLLER, ELIZA L 461.9 Sinusitis Acute 08/28/2011 RYAN DOMONOA K 461.9 Sinusitis Acute 08/28/2011 MADL BAR ROLLER, ELIZA L 461.9 Sinusitis Acute 08/28/2011 RYAN DO CAS[place] K 461.9 Sinusitis Acute 08/28/2011 MADL BAR ROLLER, ELIZA L 461.9 Sinusitis Acute 08/28/2011 RYAN DO CAS[place] K 461.9 Sinusitis Acute 08/28/2011 MADPat BAR ROLLER, ELIZA L 461.9 Sinusitis Acute 08/28/2011 MADL BAR ROLLER, ELIZA L 461.9 Sinusitis Acute 08/28/2011 BRISEIDA HUMPHREYS MD 461.9 Sinusitis Acute 08/28/2011 RYAN DOMONOA K 461.9 Sinusitis Acute 08/28/2011 TYRESE WILSON APRN 461.9 Sinusitis Acute 08/28/2011 MADL BAR ROLLER, ELIZA L 461.9 Sinusitis Acute 08/28/2011 MADL BAR ROLLER, ELIZA L 461.9 Sinusitis Acute 08/28/2011 [facility] ELIZA L 461.9 Sinusitis Acute 08/28/2011 RYAN DOMONOA K 461.9 Sinusitis Acute 08/28/2011 MADL BAR ROLLER, ELIZA L 461.9 Sinusitis Acute 08/28/2011 RYAN MONO TORREZA K 461.9 Sinusitis Acute 10/20/2011 NATI GOODE APRN 724.3 SCIATICA 10/20/2011 CASPER RYAN DO K 724.3 SCIATICA 10/20/2011 CASPER RYAN DO K 724.3 SCIATICA 10/20/2011 724.3 SCIATICA 10/20/2011 RYAN DO, CASPER K 724.3 SCIATICA 10/20/2011 724.3 SCIATICA 10/20/2011 724.3 SCIATICA 10/20/2011 RYAN DO, CASPER K 724.3 SCIATICA 10/20/2011 RYAN DO, CASPER K 724.3 SCIATICA 10/20/2011 RYAN DO, CASPER K 724.3 SCIATICA 10/20/2011 STACY GILLETTE, MARILU A 724.3 SCIATICA 10/20/2011 RYAN DO, CASPER K 724.3 SCIATICA 10/20/2011 RYAN DO, CASPER K 724.3 SCIATICA 10/20/2011 CHANDLER DDS, MAURA 724.3 SCIATICA 10/20/2011 CHANDLER DDS, MAURA 724.3 SCIATICA 10/20/2011 MANUEL BAR ROLLER, CICI Bueno 724.3 SCIATICA 10/20/2011 WILLY DDS, EVELINA Torres 724.3 SCIATICA 10/20/2011 MADL BAR ROLLER, ELIZA L 724.3 SCIATICA 10/20/2011 RYAN DO, CASPER K 724.3 SCIATICA 10/20/2011 MADL BAR ROLLER, ELIZA L 724.3 SCIATICA 10/20/2011 RYAN DO, CASPER K 724.3 SCIATICA 10/20/2011 MADL BAR ROLLER, ELIZA L 724.3 SCIATICA 10/20/2011 RYAN DO, CASPER K 724.3 SCIATICA 10/20/2011 MADL BAR ROLLER, ELIZA L 724.3 SCIATICA 10/20/2011 MADL BAR ROLLER, ELIZA L 724.3 SCIATICA 10/20/2011 BRISEIDA HUMPHREYS MD 724.3 SCIATICA 10/20/2011 RYAN DO, CASPER K 724.3 SCIATICA 10/20/2011 TYRESE WILSON APRN 724.3 SCIATICA 10/20/2011 MADL BAR ROLLER, ELIZA L 724.3 SCIATICA 10/20/2011 MADL BAR ROLLER, ELIZA L 724.3 SCIATICA 10/20/2011 MADL BAR ROLLER, ELIZA L 724.3 SCIATICA 10/20/2011 RYAN DO, CASPER K 724.3 SCIATICA 10/20/2011 MADL BAR ROLLER, ELIZA L 724.3 SCIATICA 10/20/2011 RYAN DO, CASPER K 724.3 SCIATICA 11/17/2011 NATI GOODE APRN V58.69 MEDICATION HIGH RISK 11/17/2011 RYAN DO, CASPER K V58.69 MEDICATION HIGH RISK 11/17/2011 RYAN DO, CASPER K V58.69 MEDICATION HIGH RISK 11/17/2011 V58.69 MEDICATION HIGH RISK 11/17/2011 RYAN DO, CASPER K V58.69 MEDICATION HIGH RISK 11/17/2011 V58.69 MEDICATION HIGH RISK 11/17/2011 V58.69 MEDICATION HIGH RISK 11/17/2011 RYAN DO, CASPER K V58.69 MEDICATION HIGH RISK 11/17/2011 RYAN DO, CASPER K V58.69 MEDICATION HIGH RISK 11/17/2011 RYAN DO, CASPER K V58.69 MEDICATION HIGH RISK 11/17/2011 MARILU KUMAR APRN V58.69 MEDICATION HIGH RISK 11/17/2011 RYAN DO, CAS[place] K V58.69 MEDICATION HIGH RISK 11/17/2011 RYAN DO, CASPER K V58.69 MEDICATION HIGH RISK 11/17/2011 CHANDLER DDS, MAURA V58.69 MEDICATION HIGH RISK 11/17/2011 CHANDLER DDS, MAURA V58.69 MEDICATION HIGH RISK 11/17/2011 CICI JACKSON APRN V58.69 MEDICATION HIGH RISK 11/17/2011 WILLY DDS, EVELINA Torres V58.69 MEDICATION HIGH RISK 11/17/2011 MADL BAR ROLLER, ELIZA L V58.69 MEDICATION HIGH RISK 11/17/2011 RYAN DO, CASPER K V58.69 MEDICATION HIGH RISK 11/17/2011 MADL BAR ROLLER, ELIZA L V58.69 MEDICATION HIGH RISK 11/17/2011 RYAN DO, CASPER K V58.69 MEDICATION HIGH RISK 11/17/2011 MADL BAR ROLLER, ELIZA L V58.69 MEDICATION HIGH RISK 11/17/2011 RYAN DO, CASPER K V58.69 MEDICATION HIGH RISK 11/17/2011 MADL BAR ROLLER, ELIZA L V58.69 MEDICATION HIGH RISK 11/17/2011 MADL BAR ROLLER, ELIZA L V58.69 MEDICATION HIGH RISK 11/17/2011 JULIANN JOHN, BRISEIDA Jimenez V58.69 MEDICATION HIGH RISK 11/17/2011 RYAN DO, CASPER K V58.69 MEDICATION HIGH RISK 11/17/2011 KATIE BAR ROLLER TYRESE R V58.69 MEDICATION HIGH RISK 11/17/2011 MADL BAR ROLLER, ELIZA L V58.69 MEDICATION HIGH RISK 11/17/2011 MADL BAR ROLLER, ELIZA L V58.69 MEDICATION HIGH RISK 11/17/2011 MADL BAR ROLLER, ELIZA L V58.69 MEDICATION HIGH RISK 11/17/2011 RYAN DO, CASPER K V58.69 MEDICATION HIGH RISK 11/17/2011 MADL BAR ROLLER, ELIZA L V58.69 MEDICATION HIGH RISK 11/17/2011 RYAN DO, CASPER K V58.69 MEDICATION HIGH RISK 01/13/2012 NATI GOODE APRN 278.01 OBESITY, MORBID (BMI >40) 01/13/2012 NATI GOODE APRN 724.2 BACK PAIN, LOWER 01/13/2012 RYAN DO, CASPER K 278.01 OBESITY, MORBID (BMI >40) 01/13/2012 RYAN DO, CASPER K 724.2 BACK PAIN, LOWER 01/13/2012 RYAN DO, CASPER K 278.01 OBESITY, MORBID (BMI >40) 01/13/2012 RYAN DO, CASPER K 724.2 BACK PAIN, LOWER 01/13/2012 278.01 OBESITY, MORBID (BMI >40) 01/13/2012 724.2 BACK PAIN, LOWER 01/13/2012 RYAN DO, CASPER K 278.01 OBESITY, MORBID (BMI >40) 01/13/2012 RYAN DO, CASPER K 724.2 BACK PAIN, LOWER 01/13/2012 278.01 OBESITY, MORBID (BMI >40) 01/13/2012 724.2 BACK PAIN, LOWER 01/13/2012 278.01 OBESITY, MORBID (BMI >40) 01/13/2012 724.2 BACK PAIN, LOWER 01/13/2012 RYAN DO, CASPER K 278.01 OBESITY, MORBID (BMI >40) 01/13/2012 RYAN DO, CASPER K 724.2 BACK PAIN, LOWER 01/13/2012 RYAN DO, CASPER K 278.01 OBESITY, MORBID (BMI >40) 01/13/2012 RYAN DO, CASPER K 724.2 BACK PAIN, LOWER 01/13/2012 RYAN DO, CASPER K 278.01 OBESITY, MORBID (BMI >40) 01/13/2012 RYAN DO, CASPER K 724.2 BACK PAIN, LOWER 01/13/2012 STACY BAR ROLLER MARILU A 278.01 OBESITY, MORBID (BMI >40) 01/13/2012 STACY BAR ROLLER, MARILU A 724.2 BACK PAIN, LOWER 01/13/2012 RYAN DO, CASPER K 278.01 OBESITY, MORBID (BMI >40) 01/13/2012 RYAN DO, CASPER K 724.2 BACK PAIN, LOWER 01/13/2012 RYAN DO, CASPER K 278.01 OBESITY, MORBID (BMI >40) 01/13/2012 RYAN DO, CASPER K 724.2 BACK PAIN, LOWER 01/13/2012 CHANDLER DDS, MAURA 278.01 OBESITY, MORBID (BMI >40) 01/13/2012 CHANDLER DDS, MAURA 724.2 BACK PAIN, LOWER 01/13/2012 CHANDLER DDS, MAURA 278.01 OBESITY, MORBID (BMI >40) 01/13/2012 CHANDLER DDS, MAURA 724.2 BACK PAIN, LOWER 01/13/2012 CICI JACKSON APRN 278.01 OBESITY, MORBID (BMI >40) 01/13/2012 CICI JACKSON APRN 724.2 BACK PAIN, LOWER 01/13/2012 WILLY DDSEVELINA 278.01 OBESITY, MORBID (BMI >40) 01/13/2012 WHITE DDSEVELINA 724.2 BACK PAIN, LOWER 01/13/2012 MADL BAR ROLLERJHONNYA L 278.01 OBESITY, MORBID (BMI >40) 01/13/2012 MADL BAR ROLLER, ELIZA L 724.2 BACK PAIN, LOWER 01/13/2012 RYAN DO, CASPER K 278.01 OBESITY, MORBID (BMI >40) 01/13/2012 RYAN DO, CASPER K 724.2 BACK PAIN, LOWER 01/13/2012 MADL BAR ROLLER, ELIZA L 278.01 OBESITY, MORBID (BMI >40) 01/13/2012 MADL BAR ROLLER, ELIZA L 724.2 BACK PAIN, LOWER 01/13/2012 RYAN DO, CASPER K 278.01 OBESITY, MORBID (BMI >40) 01/13/2012 RYAN DO, CASPER K 724.2 BACK PAIN, LOWER 01/13/2012 MADL BAR ROLLER, ELIZA L 278.01 OBESITY, MORBID (BMI >40) 01/13/2012 MADL BAR ROLLER, ELIZA L 724.2 BACK PAIN, LOWER 01/13/2012 RYAN DO, CASPER K 278.01 OBESITY, MORBID (BMI >40) 01/13/2012 RYAN DO, CASPER K 724.2 BACK PAIN, LOWER 01/13/2012 MADL BAR ROLLER, ELIZA L 278.01 OBESITY, MORBID (BMI >40) 01/13/2012 MADL BAR ROLLER, ELIZA L 724.2 BACK PAIN, LOWER 01/13/2012 MADL BAR ROLLER, ELIZA L 278.01 OBESITY, MORBID (BMI >40) 01/13/2012 MADL BAR ROLLER, ELIZA L 724.2 BACK PAIN, LOWER 01/13/2012 JULIANN JOHN, BRISEIDA N 278.01 OBESITY, MORBID (BMI >40) 01/13/2012 BRISEIDA HUMPHREYS MD N 724.2 BACK PAIN, LOWER 01/13/2012 RYAN DO, CASPER K 278.01 OBESITY, MORBID (BMI >40) 01/13/2012 RYAN DO, CASPER K 724.2 BACK PAIN, LOWER 01/13/2012 KATIE BAR ROLLER, TYRESE R 278.01 OBESITY, MORBID (BMI >40) 01/13/2012 KATIE BAR ROLLER, TYRESE R 724.2 BACK PAIN, LOWER 01/13/2012 MADL BAR ROLLER, ELIZA L 278.01 OBESITY, MORBID (BMI >40) 01/13/2012 MADL BAR ROLLER, ELIZA L 724.2 BACK PAIN, LOWER 01/13/2012 MADL BAR ROLLER, ELIZA L 278.01 OBESITY, MORBID (BMI >40) 01/13/2012 MADL BAR ROLLER, ELIZA L 724.2 BACK PAIN, LOWER 01/13/2012 MADL BAR ROLLER, ELIZA L 278.01 OBESITY, MORBID (BMI >40) 01/13/2012 MADL BAR ROLLER, ELIZA L 724.2 BACK PAIN, LOWER 01/13/2012 RYAN MONO TORREZA K 278.01 OBESITY, MORBID (BMI >40) 01/13/2012 CONNOR TORREZMONOA K 724.2 BACK PAIN, LOWER 01/13/2012 ELIZA GO APRN L 278.01 OBESITY, MORBID (BMI >40) 01/13/2012 JHONNY GO APRNA L 724.2 BACK PAIN, LOWER 01/13/2012 CONNOR TORREZ CASPER K 278.01 OBESITY, MORBID (BMI >40) 01/13/2012 CONNOR TORREZ CASPER K 724.2 BACK PAIN, LOWER 03/31/2012 Ot 250.00 DIAB [place] WO COMPL, TYPE II OR UNSPEC TY 03/31/2012 Ot 272.4 HYPERLIPIDEMIA NEC/NOS 03/31/2012 Ot 311 DEPRESSIVE DISORDER NEC 03/31/2012 Ot 401.9 HYPERTENSION NOS 03/31/2012 Ot 558.9 NONINF GASTROENTERIT NEC 03/31/2012 Ot 722.6 DISC DEGENERATION NOS 03/31/2012 Ot 724.5 BACKACHE NOS 03/31/2012 Ot V10.41 HX-CERVICAL MALIGNANCY 03/31/2012 Ot V45.77 ACQRD ABSENCE OF GENITAL ORGANS 04/07/2012 NATI GOODE APRN 558.9 GASTROENTERITIS NONINFECTIOUS 04/07/2012 CASPER RYAN DO K 558.9 GASTROENTERITIS NONINFECTIOUS 04/07/2012 CAS[place] RYAN DO K 558.9 GASTROENTERITIS NONINFECTIOUS 04/07/2012 558.9 GASTROENTERITIS NONINFECTIOUS 04/07/2012 CAS[place] RYAN DO K 558.9 Gastroenteritis Noninfectious 04/07/2012 558.9 Gastroenteritis Noninfectious 04/07/2012 558.9 Gastroenteritis Noninfectious 04/07/2012 MONO RYAN DOA K 558.9 Gastroenteritis Noninfectious 04/07/2012 RYAN MONO TORREZA K 558.9 Gastroenteritis Noninfectious 04/07/2012 MONO RYAN DOA K 558.9 Gastroenteritis Noninfectious 04/07/2012 MARILU KUMAR APRN 558.9 Gastroenteritis Noninfectious 04/07/2012 RYAN MONO TORREZA K 558.9 Gastroenteritis Noninfectious 04/07/2012 MONO RYAN DOA K 558.9 Gastroenteritis Noninfectious 04/07/2012 GERALDINE HENRIQUEZ, MAURA 558.9 Gastroenteritis Noninfectious 04/07/2012 GERALDINE DDS, MAURA 558.9 Gastroenteritis Noninfectious 04/07/2012 CICI JACKSON APRN 558.9 Gastroenteritis Noninfectious 04/07/2012 WILLY JOELS, EVELINA Torres 558.9 Gastroenteritis Noninfectious 04/07/2012 MADL BAR ROLLER, ELIZA L 558.9 Gastroenteritis Noninfectious 04/07/2012 RYAN DO CAS[place] K 558.9 Gastroenteritis Noninfectious 04/07/2012 MADL BAR ROLLER, ELIZA L 558.9 Gastroenteritis Noninfectious 04/07/2012 RYAN DO, CASPER K 558.9 Gastroenteritis Noninfectious 04/07/2012 MADL BAR ROLLER, ELIZA L 558.9 Gastroenteritis Noninfectious 04/07/2012 RYAN DO CAS[place] K 558.9 Gastroenteritis Noninfectious 04/07/2012 MADL BAR ROLLER, ELIZA L 558.9 Gastroenteritis Noninfectious 04/07/2012 MADL BAR ROLLER, ELIZA L 558.9 Gastroenteritis Noninfectious 04/07/2012 JULIANN JOHN, BRISEIDA Jimenez 558.9 Gastroenteritis Noninfectious 04/07/2012 RYAN DO CAS[place] K 558.9 Gastroenteritis Noninfectious 04/07/2012 TYRESE WILSON APRN 558.9 Gastroenteritis Noninfectious 04/07/2012 MADL BAR ROLLER, ELIZA L 558.9 Gastroenteritis Noninfectious 04/07/2012 MADL BAR ROLLER, ELIZA L 558.9 Gastroenteritis Noninfectious 04/07/2012 MADL BAR ROLLER, ELIZA L 558.9 Gastroenteritis Noninfectious 04/07/2012 RYAN DO, CASPER K 558.9 Gastroenteritis Noninfectious 04/07/2012 MADL BAR ROLLER, ELIZA L 558.9 Gastroenteritis Noninfectious 04/07/2012 RYAN DO, CASPER K 558.9 GASTROENTERITIS NONINFECTIOUS 04/11/2012 NATI GOODE APRN 311 DEPRESSION 04/11/2012 CAS[place] RYAN DO K 311 DEPRESSION 04/11/2012 CAS[place] RYAN DO K 311 DEPRESSION 04/11/2012 311 DEPRESSION 04/11/2012 RYAN DOMONOA K 311 DEPRESSION 04/11/2012 311 DEPRESSION 04/11/2012 311 DEPRESSION 04/11/2012 RYAN DO, CASPER K 311 DEPRESSION 04/11/2012 RYAN DO, CASPER K 311 DEPRESSION 04/11/2012 RYAN DO, CASPER K 311 DEPRESSION 04/11/2012 STACY BAR ROLLER, MARILU A 311 DEPRESSION 04/11/2012 RYAN DO, CASPER K 311 DEPRESSION 04/11/2012 RYAN DO, CASPER K 311 DEPRESSION 04/11/2012 CHANDLER DDS, MAURA 311 DEPRESSION 04/11/2012 CHANDLER DDS, MAURA 311 DEPRESSION 04/11/2012 MANUEL BAR ROLLERCICI Myles 311 DEPRESSION 04/11/2012 WHITE DDS, EVELINA J 311 DEPRESSION 04/11/2012 MADL BAR ROLLER, ELIZA L 311 DEPRESSION 04/11/2012 RYAN DO, CASPER K 311 DEPRESSION 04/11/2012 MADL BAR ROLLER, ELIZA L 311 DEPRESSION 04/11/2012 RYAN DO, CASPER K 311 DEPRESSION 04/11/2012 MADL BAR ROLLER, ELIZA L 311 DEPRESSION 04/11/2012 RYAN DO, CASPER K 311 DEPRESSION 04/11/2012 MADL BAR ROLLER, ELIZA L 311 DEPRESSION 04/11/2012 MADL BAR ROLLER, ELIZA L 311 DEPRESSION 04/11/2012 BRISEIDA HUMPHREYS MD 311 DEPRESSION 04/11/2012 RYAN DO, CASPER K 311 DEPRESSION 04/11/2012 KATIE BAR ROLLERSAMIRATYRESE R 311 DEPRESSION 04/11/2012 MADL BAR ROLLER, ELIZA L 311 DEPRESSION 04/11/2012 MADL BAR ROLLER, ELIZA L 311 DEPRESSION 04/11/2012 MADL BAR ROLLER, ELIZA L 311 DEPRESSION 04/11/2012 RYAN DO, CASPER K 311 DEPRESSION 04/11/2012 MADL BAR ROLLER, ELIZA L 311 DEPRESSION 04/11/2012 RYAN DO, CASPER K 311 DEPRESSION 05/02/2012 NATI GOODE APRN 465.9 UPPER RESPIRATORY INFECTION 05/02/2012 NATI GOODE APRN 682.7 CELLULITIS - FOOT 05/02/2012 NATI GOODE APRN 786.2 COUGH 05/02/2012 NATI GOODE APRN V76.10 BREAST CANCER SCREENING 05/02/2012 RYAN DO, CASPER K 465.9 UPPER RESPIRATORY INFECTION 05/02/2012 RYAN DO, CASPER K 682.7 CELLULITIS - FOOT 05/02/2012 YRAN DO, CASPER K 786.2 COUGH 05/02/2012 RYAN DO, CASPER K V76.10 BREAST CANCER SCREENING 05/02/2012 RYAN DO, CASPER K 465.9 UPPER RESPIRATORY INFECTION 05/02/2012 RYAN DO, CASPER K 682.7 CELLULITIS - FOOT 05/02/2012 RYAN DO, CASPER K 786.2 COUGH 05/02/2012 RYAN DO, CASPER K V76.10 BREAST CANCER SCREENING 05/02/2012 465.9 UPPER RESPIRATORY INFECTION 05/02/2012 682.7 CELLULITIS - FOOT 05/02/2012 786.2 COUGH 05/02/2012 V76.10 BREAST CANCER SCREENING 05/02/2012 RYAN DO CASPER K 465.9 Upper Respiratory Infection 05/02/2012 RYAN DO, CASPER K 682.7 Cellulitis - Foot 05/02/2012 RYAN DO CASPER K 786.2 Cough 05/02/2012 RYAN DO CASPER K V76.10 Breast Cancer Screening 05/02/2012 465.9 Upper Respiratory Infection 05/02/2012 682.7 Cellulitis - Foot 05/02/2012 786.2 Cough 05/02/2012 V76.10 Breast Cancer Screening 05/02/2012 465.9 Upper Respiratory Infection 05/02/2012 682.7 Cellulitis - Foot 05/02/2012 786.2 Cough 05/02/2012 V76.10 Breast Cancer Screening 05/02/2012 RYAN DO CASPER K 465.9 Upper Respiratory Infection 05/02/2012 RYAN DO, CASPER K 682.7 Cellulitis - Foot 05/02/2012 RYAN DO, CASPER K 786.2 Cough 05/02/2012 RYAN DO, CASPER K V76.10 Breast Cancer Screening 05/02/2012 RYAN DO, CASPER K 465.9 Upper Respiratory Infection 05/02/2012 RYAN DO, CASPER K 682.7 Cellulitis - Foot 05/02/2012 RYAN DO, CASPER K 786.2 Cough 05/02/2012 RYAN DO CASPER K V76.10 Breast Cancer Screening 05/02/2012 RYAN DO CASPRE K 465.9 Upper Respiratory Infection 05/02/2012 RYAN DO CASPER K 682.7 Cellulitis - Foot 05/02/2012 RYAN DO, CASPER K 786.2 Cough 05/02/2012 RYAN DO, CASPER K V76.10 Breast Cancer Screening 05/02/2012 STACY BAR ROLLER, MARILU A 465.9 Upper Respiratory Infection 05/02/2012 STACY BAR ROLLER, MARILU A 682.7 Cellulitis - Foot 05/02/2012 STACY BAR ROLLER, MARILU A 786.2 Cough 05/02/2012 STACY BAR ROLLER, MARILU A V76.10 Breast Cancer Screening 05/02/2012 RYAN DO, CASPER K 465.9 Upper Respiratory Infection 05/02/2012 RYAN DO, CASPER K 682.7 Cellulitis - Foot 05/02/2012 RYAN DO, CASPER K 786.2 Cough 05/02/2012 RYAN DO, CASPER K V76.10 Breast Cancer Screening 05/02/2012 RYAN DO, CASPER K 465.9 Upper Respiratory Infection 05/02/2012 RYAN DO, CASPER K 682.7 Cellulitis - Foot 05/02/2012 RYAN DO, CASPER K 786.2 Cough 05/02/2012 RYAN DO, CASPER K V76.10 Breast Cancer Screening 05/02/2012 CHANDLER DDS, MAURA 465.9 Upper Respiratory Infection 05/02/2012 CHANDLER DDS, MAURA 682.7 Cellulitis - Foot 05/02/2012 CHANDLER DDS, MAURA 786.2 Cough 05/02/2012 CHANDLER DDS, MAURA V76.10 Breast Cancer Screening 05/02/2012 CHANDLER DDS, MAURA 465.9 Upper Respiratory Infection 05/02/2012 CHANDLER DDS, MAURA 682.7 Cellulitis - Foot 05/02/2012 CHANDLER DDS, MAURA 786.2 Cough 05/02/2012 CHANDLER DDS, MAURA V76.10 Breast Cancer Screening 05/02/2012 CICI JACKSON APRN 465.9 Upper Respiratory Infection 05/02/2012 CICI JACKSON APRN 682.7 Cellulitis - Foot 05/02/2012 CICI JACKSON APRN 786.2 Cough 05/02/2012 CICI JACKSON APRN V76.10 Breast Cancer Screening 05/02/2012 WHITE DDS, EVELINA J 465.9 Upper Respiratory Infection 05/02/2012 WHITE DDS, EVELINA J 682.7 Cellulitis - Foot 05/02/2012 WHITE DDS, EVELINA J 786.2 Cough 05/02/2012 WHITE DDS, EVELINA J V76.10 Breast Cancer Screening 05/02/2012 MADL BAR ROLLER, ELIZA L 465.9 Upper Respiratory Infection 05/02/2012 MADL BAR ROLLER, ELIZA L 682.7 Cellulitis - Foot 05/02/2012 MADL BAR ROLLER, ELIZA L 786.2 Cough 05/02/2012 MADL BAR ROLLER, ELIZA L V76.10 Breast Cancer Screening 05/02/2012 RYAN DO, CASPER K 465.9 Upper Respiratory Infection 05/02/2012 RYAN DO, CASPER K 682.7 Cellulitis - Foot 05/02/2012 RYAN DO, CASPER K 786.2 Cough 05/02/2012 RYAN DO, CASPER K V76.10 Breast Cancer Screening 05/02/2012 MADL BAR ROLLER, ELIZA L 465.9 Upper Respiratory Infection 05/02/2012 MADL BAR ROLLER, ELIZA L 682.7 Cellulitis - Foot 05/02/2012 MADL BAR ROLLER, ELIZA L 786.2 Cough 05/02/2012 MADL BAR ROLLER, ELIZA L V76.10 Breast Cancer Screening 05/02/2012 RYAN DO, CASPER K 465.9 Upper Respiratory Infection 05/02/2012 RYAN DO, CASPER K 682.7 Cellulitis - Foot 05/02/2012 RYAN DO, CASPER K 786.2 Cough 05/02/2012 RYAN DO, CASPER K V76.10 Breast Cancer Screening 05/02/2012 MADL BAR ROLLER, ELIZA L 465.9 Upper Respiratory Infection 05/02/2012 MADL BAR ROLLER, ELIZA L 682.7 Cellulitis - Foot 05/02/2012 MADL BAR ROLLER, ELIZA L 786.2 Cough 05/02/2012 MADL BAR ROLLER, ELIZA L V76.10 Breast Cancer Screening 05/02/2012 RYAN DO, CASPER K 465.9 Upper Respiratory Infection 05/02/2012 RYAN DO, CASPER K 682.7 Cellulitis - Foot 05/02/2012 RYAN DO, CASPER K 786.2 Cough 05/02/2012 RYAN DO, CASPER K V76.10 Breast Cancer Screening 05/02/2012 MADL BAR ROLLER, ELIZA L 465.9 Upper Respiratory Infection 05/02/2012 MADL BAR ROLLER, ELIZA L 682.7 Cellulitis - Foot 05/02/2012 MADL BAR ROLLER, ELIZA L 786.2 Cough 05/02/2012 MADL BAR ROLLER, ELIZA L V76.10 Breast Cancer Screening 05/02/2012 MADL BAR ROLLER, ELIZA L 465.9 Upper Respiratory Infection 05/02/2012 MADL BAR ROLLER, ELIZA L 682.7 Cellulitis - Foot 05/02/2012 MADL BAR ROLLER, ELIZA L 786.2 Cough 05/02/2012 MADL BAR ROLLER, ELIZA L V76.10 Breast Cancer Screening 05/02/2012 BRISEIDA HUMPHREYS MD N 465.9 Upper Respiratory Infection 05/02/2012 BRISEIDA HUMPHREYS MD N 682.7 Cellulitis - Foot 05/02/2012 JULIANN JOHN BRISEIDA N 786.2 Cough 05/02/2012 BRISEIDA HUMPHREYS MD N V76.10 Breast Cancer Screening 05/02/2012 RYAN DO, CASPER K 465.9 Upper Respiratory Infection 05/02/2012 RYAN DO, CASPER K 682.7 Cellulitis - Foot 05/02/2012 RYAN DO, CASPER K 786.2 Cough 05/02/2012 RYAN DO, CASPER K V76.10 Breast Cancer Screening 05/02/2012 KATIE BAR ROLLER, TYRESE R 465.9 Upper Respiratory Infection 05/02/2012 KATIE BAR ROLLER, TYRESE R 682.7 Cellulitis - Foot 05/02/2012 KATIE BAR ROLLER, TYRESE R 786.2 Cough 05/02/2012 KATIE BAR ROLLER, TYRESE R V76.10 Breast Cancer Screening 05/02/2012 MADL BAR ROLLER, ELIZA L 465.9 Upper Respiratory Infection 05/02/2012 MADL BAR ROLLER, ELIZA L 682.7 Cellulitis - Foot 05/02/2012 MADL BAR ROLLER, ELIZA L 786.2 Cough 05/02/2012 MADL BAR ROLLER, ELIZA L V76.10 Breast Cancer Screening 05/02/2012 MADL BAR ROLLER, ELIZA L 465.9 Upper Respiratory Infection 05/02/2012 MADL BAR ROLLER, ELIZA L 682.7 Cellulitis - Foot 05/02/2012 MADL BAR ROLLER, ELIZA L 786.2 Cough 05/02/2012 MADL BAR ROLLER, ELIZA L V76.10 Breast Cancer Screening 05/02/2012 MADL BAR ROLLER, ELIZA L 465.9 Upper Respiratory Infection 05/02/2012 MADL BAR ROLLER, ELIZA L 682.7 Cellulitis - Foot 05/02/2012 MADL BAR ROLLER, ELIZA L 786.2 Cough 05/02/2012 MADL BAR ROLLER, ELIZA L V76.10 Breast Cancer Screening 05/02/2012 RYAN DO, CASPER K 465.9 Upper Respiratory Infection 05/02/2012 RYAN DO, CASPER K 682.7 Cellulitis - Foot 05/02/2012 RYAN DO, CASPER K 786.2 Cough 05/02/2012 RYAN DO, CASPER K V76.10 Breast Cancer Screening 05/02/2012 MADL BAR ROLLER, ELIZA L 465.9 Upper Respiratory Infection 05/02/2012 MADL BAR ROLLER, ELIZA L 682.7 Cellulitis - Foot 05/02/2012 MADL BAR ROLLER, ELIZA L 786.2 Cough 05/02/2012 MADL BAR ROLLER, ELIZA L V76.10 Breast Cancer Screening 05/02/2012 RYAN DO, CASPER K 465.9 UPPER RESPIRATORY INFECTION 05/02/2012 RYAN DO, CASPER K 682.7 CELLULITIS - FOOT 05/02/2012 RYAN DO, CASPER K 786.2 COUGH 05/02/2012 RYAN DO, CASPER K V76.10 BREAST CANCER SCREENING 06/08/2012 NATI GOODE APRN 787.91 DIARRHEA 06/08/2012 YRAN DO, CASPER K 787.91 DIARRHEA 06/08/2012 RYAN DO, CASPER K 787.91 DIARRHEA 06/08/2012 787.91 DIARRHEA 06/08/2012 RYAN DO, CASPER K 787.91 DIARRHEA 06/08/2012 787.91 DIARRHEA 06/08/2012 787.91 DIARRHEA 06/08/2012 RYAN DO, CASPER K 787.91 DIARRHEA 06/08/2012 RYAN DO, CASPER K 787.91 DIARRHEA 06/08/2012 RYAN DO, CASPER K 787.91 DIARRHEA 06/08/2012 STACY BAR ROLLER MARILU A 787.91 DIARRHEA 06/08/2012 RYAN DO, CASPER K 787.91 DIARRHEA 06/08/2012 RYAN DO, CASPER K 787.91 DIARRHEA 06/08/2012 CHANDLER DDS, MAURA 787.91 DIARRHEA 06/08/2012 CHANDLER DDS, MAURA 787.91 DIARRHEA 06/08/2012 MANUEL BAR ROLLERCICI 787.91 DIARRHEA 06/08/2012 WILLY DDS, EVELINA Torres 787.91 DIARRHEA 06/08/2012 MADL BAR ROLLER, ELIZA L 787.91 DIARRHEA 06/08/2012 RYAN DO, CASPER K 787.91 DIARRHEA 06/08/2012 MADL BAR ROLLER, ELIZA L 787.91 DIARRHEA 06/08/2012 RYAN DO, CASPER K 787.91 DIARRHEA 06/08/2012 MADL BAR ROLLER, ELIZA L 787.91 DIARRHEA 06/08/2012 RYAN DO, CASPER K 787.91 DIARRHEA 06/08/2012 MADL BAR ROLLER, ELIZA L 787.91 DIARRHEA 06/08/2012 MADL BAR ROLLER, ELIZA L 787.91 DIARRHEA 06/08/2012 BRISEIDA HUMPHREYS MD 787.91 DIARRHEA 06/08/2012 RYAN DO, CASPER K 787.91 DIARRHEA 06/08/2012 KATIE GILLETTE TYRESE R 787.91 DIARRHEA 06/08/2012 MADL BAR ROLLER, ELIZA L 787.91 DIARRHEA 06/08/2012 MADL BAR ROLLER, ELIZA L 787.91 DIARRHEA 06/08/2012 MADL BAR ROLLER, ELIZA L 787.91 DIARRHEA 06/08/2012 RYAN DO, CASPER K 787.91 DIARRHEA 06/08/2012 MADL BAR ROLLER, ELIZA L 787.91 DIARRHEA 06/08/2012 RYAN DO, CASPER K 787.91 DIARRHEA 06/22/2012 RYAN DO, CASPER K 455.6 HEMORRHOIDS NOS 06/22/2012 RYAN DO, CASPER K 455.6 HEMORRHOIDS NOS 06/22/2012 455.6 HEMORRHOIDS NOS 06/22/2012 RYAN DO, CASPER K 455.6 HEMORRHOIDS NOS 06/22/2012 455.6 HEMORRHOIDS NOS 06/22/2012 455.6 HEMORRHOIDS NOS 06/22/2012 RYAN DO, CASPER K 455.6 HEMORRHOIDS NOS 06/22/2012 RYAN DO, CASPER K 455.6 HEMORRHOIDS NOS 06/22/2012 RYAN DO, CASPER K 455.6 HEMORRHOIDS NOS 06/22/2012 MARILU KUMAR APRN 455.6 HEMORRHOIDS NOS 06/22/2012 RYAN DO, CASPER K 455.6 HEMORRHOIDS NOS 06/22/2012 RYAN DO, CASPER K 455.6 HEMORRHOIDS NOS 06/22/2012 CHANDLER DDS, MAURA 455.6 HEMORRHOIDS NOS 06/22/2012 CHANDLER DDS, MAURA 455.6 HEMORRHOIDS NOS 06/22/2012 CICI JACKSON APRN 455.6 HEMORRHOIDS NOS 06/22/2012 EVELINA AGUILERA DDS 455.6 HEMORRHOIDS NOS 06/22/2012 MADL BAR ROLLER, ELIZA L 455.6 HEMORRHOIDS NOS 06/22/2012 RYAN DO, CASPER K 455.6 HEMORRHOIDS NOS 06/22/2012 MADL BAR ROLLER, ELIZA L 455.6 HEMORRHOIDS NOS 06/22/2012 RYAN DO, CASPER K 455.6 HEMORRHOIDS NOS 06/22/2012 MADL BAR ROLLER, ELIZA L 455.6 HEMORRHOIDS NOS 06/22/2012 RYAN DO, CASPER K 455.6 HEMORRHOIDS NOS 06/22/2012 MADL BAR ROLLER, ELIZA L 455.6 HEMORRHOIDS NOS 06/22/2012 MADL BAR ROLLER, ELIZA L 455.6 HEMORRHOIDS NOS 06/22/2012 BRISEIDA HUMPHREYS MD 455.6 HEMORRHOIDS NOS 06/22/2012 RYAN DO, CASPER K 455.6 HEMORRHOIDS NOS 06/22/2012 TYRESE WILSON APRN 455.6 HEMORRHOIDS NOS 06/22/2012 MADL BAR ROLLER, ELIZA L 455.6 HEMORRHOIDS NOS 06/22/2012 MADL BAR ROLLER, ELIZA L 455.6 HEMORRHOIDS NOS 06/22/2012 MADL BAR ROLLER, ELIZA L 455.6 HEMORRHOIDS NOS 06/22/2012 RYAN DO, CASPER K 455.6 HEMORRHOIDS NOS 06/22/2012 MADL BAR ROLLER, ELIZA L 455.6 HEMORRHOIDS NOS 07/18/2012 RYAN DO, CASPER K 569.3 RECTAL BLEEDING 07/18/2012 569.3 RECTAL BLEEDING 07/18/2012 RYAN DO, CASPER K 569.3 Rectal Bleeding 07/18/2012 569.3 Rectal Bleeding 07/18/2012 569.3 Rectal Bleeding 07/18/2012 RYAN DO, CASPER K 569.3 Rectal Bleeding 07/18/2012 RYAN DO, CASPER K 569.3 Rectal Bleeding 07/18/2012 RYAN DO, CASPER K 569.3 Rectal Bleeding 07/18/2012 MARILU KUMAR APRN 569.3 Rectal Bleeding 07/18/2012 RYAN DO, CASPER K 569.3 Rectal Bleeding 07/18/2012 RYAN DO, CASPER K 569.3 Rectal Bleeding 07/18/2012 CHANDLER DDS, MAURA 569.3 Rectal Bleeding 07/18/2012 CHANDLER DDS, MAURA 569.3 Rectal Bleeding 07/18/2012 CICI JACKSON APRN 569.3 Rectal Bleeding 07/18/2012 WILLY JOELS, EVELINA Torres 569.3 Rectal Bleeding 07/18/2012 MADL BAR ROLLER, ELIZA L 569.3 Rectal Bleeding 07/18/2012 RYAN DO, CASPER K 569.3 Rectal Bleeding 07/18/2012 MADL BAR ROLLER, ELIZA L 569.3 Rectal Bleeding 07/18/2012 RYAN DO, CASPER K 569.3 Rectal Bleeding 07/18/2012 MADL BAR ROLLER, ELIZA L 569.3 Rectal Bleeding 07/18/2012 RYAN DO, CASPER K 569.3 Rectal Bleeding 07/18/2012 MADL BAR ROLLER, ELIZA L 569.3 Rectal Bleeding 07/18/2012 MADL BAR ROLLER, ELIZA L 569.3 Rectal Bleeding 07/18/2012 BRISEIDA HUMPHREYS MD 569.3 Rectal Bleeding 07/18/2012 RYAN DO, CASPER K 569.3 Rectal Bleeding 07/18/2012 TYRESE WILSON APRN 569.3 Rectal Bleeding 07/18/2012 MADL BAR ROLLER, ELIZA L 569.3 Rectal Bleeding 07/18/2012 MADL BAR ROLLER, ELIZA L 569.3 Rectal Bleeding 07/18/2012 MADL BAR ROLLER, ELIZA L 569.3 Rectal Bleeding 07/18/2012 RYAN DO, CASPER K 569.3 Rectal Bleeding 07/18/2012 MADL BAR ROLLER, ELIZA L 569.3 Rectal Bleeding 08/22/2012 Ot 455.3 EXT HEMORRHOID W/O COMPL 08/22/2012 Ot 569.3 RECTAL ANAL HEMORRHAGE 08/22/2012 Ot V18.51 FAMILY HISTORY, COLONIC POLYPS 10/05/2012 RYAN DO, CASPER K 493.90 ASTHMA UNSPECIFIED 10/05/2012 RYAN DO, CASPER K 702.0 ACTINIC KERATOSIS 10/05/2012 493.90 ASTHMA UNSPECIFIED 10/05/2012 702.0 ACTINIC KERATOSIS 10/05/2012 493.90 ASTHMA UNSPECIFIED 10/05/2012 702.0 ACTINIC KERATOSIS 10/05/2012 RYAN DO, CASPER K 493.90 ASTHMA UNSPECIFIED 10/05/2012 RYAN DO, CASPER K 702.0 ACTINIC KERATOSIS 10/05/2012 RYAN DO, CASPER K 493.90 ASTHMA UNSPECIFIED 10/05/2012 RYAN DO, CASPER K 702.0 ACTINIC KERATOSIS 10/05/2012 RYAN DO, CASPER K 493.90 ASTHMA UNSPECIFIED 10/05/2012 RYAN DO, CASPER K 702.0 ACTINIC KERATOSIS 10/05/2012 STACY BAR ROLLER, MARILU A 493.90 ASTHMA UNSPECIFIED 10/05/2012 STACY BAR ROLLER, MARILU A 702.0 ACTINIC KERATOSIS 10/05/2012 RYAN DO, CASPER K 493.90 ASTHMA UNSPECIFIED 10/05/2012 RYAN DO, CASPER K 702.0 ACTINIC KERATOSIS 10/05/2012 RYAN DO, CASPER K 493.90 ASTHMA UNSPECIFIED 10/05/2012 RYAN DO, CASPER K 702.0 ACTINIC KERATOSIS 10/05/2012 CHANDLER DDS, MAURA 493.90 ASTHMA UNSPECIFIED 10/05/2012 CHANDLER DDS, MAURA 702.0 ACTINIC KERATOSIS 10/05/2012 CHANDLER DDS, MAURA 493.90 ASTHMA UNSPECIFIED 10/05/2012 CHANDLER DDS, MAURA 702.0 ACTINIC KERATOSIS 10/05/2012 MANUEL BAR ROLLER, CICI T 493.90 ASTHMA UNSPECIFIED 10/05/2012 MANUEL BAR ROLLER, CICI T 702.0 ACTINIC KERATOSIS 10/05/2012 WHITE DDS, EVELINA J 493.90 ASTHMA UNSPECIFIED 10/05/2012 WHITE DDS, EVELINA J 702.0 ACTINIC KERATOSIS 10/05/2012 MADL BAR ROLLER, ELIZA L 493.90 ASTHMA UNSPECIFIED 10/05/2012 MADL BAR ROLLER, ELIZA L 702.0 ACTINIC KERATOSIS 10/05/2012 RYAN DO, CASPER K 493.90 ASTHMA UNSPECIFIED 10/05/2012 RYAN DO, CASPER K 702.0 ACTINIC KERATOSIS 10/05/2012 MADL BAR ROLLER, ELIZA L 493.90 ASTHMA UNSPECIFIED 10/05/2012 MADL BAR ROLLER, ELIZA L 702.0 ACTINIC KERATOSIS 10/05/2012 RYAN DO, CASPER K 493.90 ASTHMA UNSPECIFIED 10/05/2012 RYAN DO, CASPER K 702.0 ACTINIC KERATOSIS 10/05/2012 MADL BAR ROLLER, ELIZA L 493.90 ASTHMA UNSPECIFIED 10/05/2012 MADL BAR ROLLER, ELIZA L 702.0 ACTINIC KERATOSIS 10/05/2012 RYAN DO, CASPER K 493.90 ASTHMA UNSPECIFIED 10/05/2012 RYAN DO, CASPER K 702.0 ACTINIC KERATOSIS 10/05/2012 MADL BAR ROLLER, ELIZA L 493.90 ASTHMA UNSPECIFIED 10/05/2012 MADL BAR ROLLER, ELIZA L 702.0 ACTINIC KERATOSIS 10/05/2012 MADL BAR ROLLER, ELIZA L 493.90 ASTHMA UNSPECIFIED 10/05/2012 MADL BAR ROLLER, ELIZA L 702.0 ACTINIC KERATOSIS 10/05/2012 BRISEIDA HUMPHREYS MD 493.90 ASTHMA UNSPECIFIED 10/05/2012 BRISEIDA HUMPHREYS MD 702.0 ACTINIC KERATOSIS 10/05/2012 RYAN DO, CASPER K 493.90 ASTHMA UNSPECIFIED 10/05/2012 RYAN DO, CASPER K 702.0 ACTINIC KERATOSIS 10/05/2012 KATIE BAR ROLLER, TYRESE R 493.90 ASTHMA UNSPECIFIED 10/05/2012 KATIE BAR ROLLER, TYRESE R 702.0 ACTINIC KERATOSIS 10/05/2012 MADL BAR ROLLER, ELIZA L 493.90 ASTHMA UNSPECIFIED 10/05/2012 MADL BAR ROLLER, ELIZA L 702.0 ACTINIC KERATOSIS 10/05/2012 MADL BAR ROLLER, ELIZA L 493.90 ASTHMA UNSPECIFIED 10/05/2012 MADL BAR ROLLER, ELIZA L 702.0 ACTINIC KERATOSIS 10/05/2012 MADL BAR ROLLER, ELIZA L 493.90 ASTHMA UNSPECIFIED 10/05/2012 MADL BAR ROLLER, ELIZA L 702.0 ACTINIC KERATOSIS 10/05/2012 RYAN DO, CASPER K 493.90 ASTHMA UNSPECIFIED 10/05/2012 RYAN DO, CASPER K 702.0 ACTINIC KERATOSIS 10/05/2012 MADL BAR ROLLER, ELIZA L 493.90 ASTHMA UNSPECIFIED 10/05/2012 MADL BAR ROLLER, ELIZA L 702.0 ACTINIC KERATOSIS 03/17/2013 RYAN DO, CASPER K 338.19 ACUTE PAIN 03/17/2013 RYAN DO, CASPER K 338.19 ACUTE PAIN 03/17/2013 RYAN DO, CASPER K 338.19 ACUTE PAIN 03/17/2013 MARILU KUMAR APRN 338.19 ACUTE PAIN 03/17/2013 RYAN DO, CASPER K 338.19 ACUTE PAIN 03/17/2013 RYAN DO, CASPER K 338.19 ACUTE PAIN 03/17/2013 MAURA CHANDLER DDS 338.19 ACUTE PAIN 03/17/2013 CHANDLER DDS, MAURA 338.19 ACUTE PAIN 03/17/2013 CICI JACKSON APRN 338.19 ACUTE PAIN 03/17/2013 EVELINA AGUILERA DDS 338.19 ACUTE PAIN 03/17/2013 MADL BAR ROLLER, ELIZA L 338.19 ACUTE PAIN 03/17/2013 RYAN DO CASPER K 338.19 ACUTE PAIN 03/17/2013 MADL BAR ROLLER, ELIZA L 338.19 ACUTE PAIN 03/17/2013 RYAN DO, CASPER K 338.19 ACUTE PAIN 03/17/2013 MADL BAR ROLLER, ELIZA L 338.19 ACUTE PAIN 03/17/2013 RYAN DO, CASPER K 338.19 ACUTE PAIN 03/17/2013 MADL BAR ROLLER, ELIZA L 338.19 ACUTE PAIN 03/17/2013 MADL BAR ROLLER, ELIZA L 338.19 ACUTE PAIN 03/17/2013 JULIANN JOHN, BRISEIDA N 338.19 ACUTE PAIN 03/17/2013 RYAN DO, CASPER K 338.19 ACUTE PAIN 03/17/2013 KATIE BAR ROLLER, TYRESE R 338.19 ACUTE PAIN 03/17/2013 MADL BAR ROLLER, ELIZA L 338.19 ACUTE PAIN 03/17/2013 MADL BAR ROLLER, ELIZA L 338.19 ACUTE PAIN 03/17/2013 MADL BAR ROLLER, ELIZA L 338.19 ACUTE PAIN 03/17/2013 RYAN DO, CASPER K 338.19 ACUTE PAIN 03/17/2013 MADL BAR ROLLER, ELIZA L 338.19 ACUTE PAIN 04/26/2013 RYAN DOCASPER K V04.81 FLU SHOT 04/26/2013 RYAN DOMONOA K V04.81 FLU SHOT 04/26/2013 MARILU KUMAR APRN A V04.81 FLU SHOT 04/26/2013 RYAN CASPER TORREZ K V04.81 FLU SHOT 04/26/2013 RYAN DOMONOA K V04.81 FLU SHOT 04/26/2013 GERALDINE JOELS, MAURA V04.81 FLU SHOT 04/26/2013 CHANDLER DDS, MAURA V04.81 FLU SHOT 04/26/2013 CICI JACKSON APRN V04.81 FLU SHOT 04/26/2013 WILLY DDS, EVELINA Torres V04.81 FLU SHOT 04/26/2013 MADL BAR ROLLER, ELIZA L V04.81 FLU SHOT 04/26/2013 RYAN DO, CASPER K V04.81 FLU SHOT 04/26/2013 MADL BAR ROLLER, ELIZA L V04.81 FLU SHOT 04/26/2013 RYAN DOMONOA K V04.81 FLU SHOT 04/26/2013 MADL BAR ROLLER, ELIZA L V04.81 FLU SHOT 04/26/2013 RYAN DO CASPER K V04.81 FLU SHOT 04/26/2013 MADL BAR ROLLER, ELIZA L V04.81 FLU SHOT 04/26/2013 MADL BAR ROLLER, ELIZA L V04.81 FLU SHOT 04/26/2013 BRISEIDA HUMPHREYS MD V04.81 FLU SHOT 04/26/2013 RYAN CASPER TORREZ V04.81 FLU SHOT 04/26/2013 TYRESE WILSON APRN R V04.81 FLU SHOT 04/26/2013 MADL BAR ROLLER, ELIZA L V04.81 FLU SHOT 04/26/2013 MADL BAR ROLLER, ELIZA L V04.81 FLU SHOT 04/26/2013 MADL BAR ROLLER, ELIZA L V04.81 FLU SHOT 04/26/2013 RYAN DOCASPER K V04.81 FLU SHOT 04/26/2013 MADL BAR ROLLER, ELIZA L V04.81 FLU SHOT 06/05/2013 MARILU KUMAR APRN V76.47 VAGINAL PAP SMEAR SCREENING 06/05/2013 CASPER RYAN DO V76.47 VAGINAL PAP SMEAR SCREENING 06/05/2013 CASPER RYAN DO V76.47 VAGINAL PAP SMEAR SCREENING 06/05/2013 MAURA CHANDLER DDS V76.47 VAGINAL PAP SMEAR SCREENING 06/05/2013 MAURA CHANDLER DDS V76.47 VAGINAL PAP SMEAR SCREENING 06/05/2013 CICI JACKSON APRN V76.47 VAGINAL PAP SMEAR SCREENING 06/05/2013 EVELINA AGUILERA DDS V76.47 VAGINAL PAP SMEAR SCREENING 06/05/2013 MADL BAR ROLLER, ELIZA L V76.47 VAGINAL PAP SMEAR SCREENING 06/05/2013 CASPER RYAN DO V76.47 VAGINAL PAP SMEAR SCREENING 06/05/2013 MADL BAR ROLLER, ELIZA L V76.47 VAGINAL PAP SMEAR SCREENING 06/05/2013 CASPER RYAN DO K V76.47 VAGINAL PAP SMEAR SCREENING 06/05/2013 MADL BAR ROLLER, ELIZA L V76.47 VAGINAL PAP SMEAR SCREENING 06/05/2013 CASPER RYAN DO K V76.47 VAGINAL PAP SMEAR SCREENING 06/05/2013 MADL BAR ROLLER, ELIZA L V76.47 VAGINAL PAP SMEAR SCREENING 06/05/2013 MADL BAR ROLLER, ELIZA L V76.47 VAGINAL PAP SMEAR SCREENING 06/05/2013 BRISEIDA HUMPHREYS MD V76.47 VAGINAL PAP SMEAR SCREENING 06/05/2013 RYAN DO, CASPER K V76.47 VAGINAL PAP SMEAR SCREENING 06/05/2013 KATIE BAR ROLLER, TYRESE R V76.47 VAGINAL PAP SMEAR SCREENING 06/05/2013 MADL BAR ROLLER, ELIZA L V76.47 VAGINAL PAP SMEAR SCREENING 06/05/2013 MADL BAR ROLLER, ELIZA L V76.47 VAGINAL PAP SMEAR SCREENING 06/05/2013 MADL BAR ROLLER, ELIZA L V76.47 VAGINAL PAP SMEAR SCREENING 06/05/2013 RYAN DO, CASPER K V76.47 VAGINAL PAP SMEAR SCREENING 06/05/2013 MADL BAR ROLLER, ELIZA L V76.47 VAGINAL PAP SMEAR SCREENING 10/13/2013 CICI JACKSON APRN 465.9 UPPER RESPIRATORY INFECTION 10/13/2013 EVELINA AGUILERA DDS 465.9 UPPER RESPIRATORY INFECTION 10/13/2013 MADL BAR ROLLER, ELIZA L 465.9 UPPER RESPIRATORY INFECTION 10/13/2013 RYAN DO, CASPER K 465.9 UPPER RESPIRATORY INFECTION 10/13/2013 MADL BAR ROLLER, ELIZA L 465.9 UPPER RESPIRATORY INFECTION 10/13/2013 RYAN DO, CASPER K 465.9 UPPER RESPIRATORY INFECTION 10/13/2013 MADL BAR ROLLER, ELIZA L 465.9 UPPER RESPIRATORY INFECTION 10/13/2013 RYAN DO, CASPER K 465.9 UPPER RESPIRATORY INFECTION 10/13/2013 MADL BAR ROLLER, ELIZA L 465.9 UPPER RESPIRATORY INFECTION 10/13/2013 MADL BAR ROLLER, ELIZA L 465.9 UPPER RESPIRATORY INFECTION 10/13/2013 BRISEIDA HUMPHREYS MD 465.9 UPPER RESPIRATORY INFECTION 10/13/2013 RYAN DO, CASPER K 465.9 UPPER RESPIRATORY INFECTION 10/13/2013 KATIE BAR ROLLER, TYRESE R 465.9 UPPER RESPIRATORY INFECTION 10/13/2013 MADL BAR ROLLER, ELIZA L 465.9 UPPER RESPIRATORY INFECTION 10/13/2013 MADL BAR ROLLER, ELIZA L 465.9 UPPER RESPIRATORY INFECTION 10/13/2013 MADL BAR ROLLER, ELIZA L 465.9 UPPER RESPIRATORY INFECTION 10/13/2013 RYAN DO, CASPER K 465.9 UPPER RESPIRATORY INFECTION 10/13/2013 MADL BAR ROLLER, ELIZA L 465.9 UPPER RESPIRATORY INFECTION 01/29/2014 MADL BAR ROLLER, ELIZA L 959.7 OTHER AND UNSPECIFIED INJURY TO KNEE LEG ANKLE AND FOOT 01/29/2014 RYAN DO CASPER K 959.7 OTHER AND UNSPECIFIED INJURY TO KNEE LEG ANKLE AND FOOT 01/29/2014 MADL BAR ROLLER, ELIZA L 959.7 OTHER AND UNSPECIFIED INJURY TO KNEE LEG ANKLE AND FOOT 01/29/2014 RYAN DO CASPER K 959.7 OTHER AND UNSPECIFIED INJURY TO KNEE LEG ANKLE AND FOOT 01/29/2014 MADL BAR ROLLER, ELIZA L 959.7 OTHER AND UNSPECIFIED INJURY TO KNEE LEG ANKLE AND FOOT 01/29/2014 RYAN DO CASPER K 959.7 OTHER AND UNSPECIFIED INJURY TO KNEE LEG ANKLE AND FOOT 01/29/2014 MADL BAR ROLLER, ELIZA L 959.7 OTHER AND UNSPECIFIED INJURY TO KNEE LEG ANKLE AND FOOT 01/29/2014 MADL BAR ROLLER, ELIZA L 959.7 OTHER AND UNSPECIFIED INJURY TO KNEE LEG ANKLE AND FOOT 01/29/2014 JULIANN JOHN, BRISEIDA Jimenez 959.7 OTHER AND UNSPECIFIED INJURY TO KNEE LEG ANKLE AND FOOT 01/29/2014 RYAN DO CASPER K 959.7 OTHER AND UNSPECIFIED INJURY TO KNEE LEG ANKLE AND FOOT 01/29/2014 SAMIRA WILSON APRNINA R 959.7 OTHER AND UNSPECIFIED INJURY TO KNEE LEG ANKLE AND FOOT 01/29/2014 MADL BAR ROLLER, ELIZA L 959.7 OTHER AND UNSPECIFIED INJURY TO KNEE LEG ANKLE AND FOOT 01/29/2014 MADL BAR ROLLER, ELIZA L 959.7 OTHER AND UNSPECIFIED INJURY TO KNEE LEG ANKLE AND FOOT 01/29/2014 MADL BAR ROLLER, ELIZA L 959.7 OTHER AND UNSPECIFIED INJURY TO KNEE LEG ANKLE AND FOOT 01/29/2014 RYAN DO CASPER K 959.7 OTHER AND UNSPECIFIED INJURY TO KNEE LEG ANKLE AND FOOT 01/29/2014 MADL BAR ROLLER, ELIZA L 959.7 OTHER AND UNSPECIFIED INJURY TO KNEE LEG ANKLE AND FOOT 02/08/2014 MADL BAR ROLLER, ELIZA L 110.1 DERMATOPHYTOSIS OF NAIL 02/08/2014 MADL BAR ROLLER, ELIZA L 719.41 PAIN IN JOINT INVOLVING SHOULDER REGION 02/08/2014 MONO RYAN DOA K 110.1 DERMATOPHYTOSIS OF NAIL 02/08/2014 RYAN DO CASPER K 719.41 PAIN IN JOINT INVOLVING SHOULDER REGION 02/08/2014 MADL BAR ROLLER, ELIZA L 110.1 DERMATOPHYTOSIS OF NAIL 02/08/2014 MADL BAR ROLLER, ELIZA L 719.41 PAIN IN JOINT INVOLVING SHOULDER REGION 02/08/2014 MONO RYAN DOA K 110.1 DERMATOPHYTOSIS OF NAIL 02/08/2014 RYAN DOMONOA K 719.41 PAIN IN JOINT INVOLVING SHOULDER REGION 02/08/2014 MADL BAR ROLLER ELIZA L 110.1 DERMATOPHYTOSIS OF NAIL 02/08/2014 MADL BAR ROLLER, ELIZA L 719.41 PAIN IN JOINT INVOLVING SHOULDER REGION 02/08/2014 MADL BAR ROLLERJENNIFER JimenezELIZA L 110.1 DERMATOPHYTOSIS OF NAIL 02/08/2014 MADL BAR ROLLER, ELIZA L 719.41 PAIN IN JOINT INVOLVING SHOULDER REGION 02/08/2014 BRISEIDA HUMPHREYS MD N 110.1 DERMATOPHYTOSIS OF NAIL 02/08/2014 BRISEIDA HUMPHREYS MD N 719.41 PAIN IN JOINT INVOLVING SHOULDER REGION 02/08/2014 CASPER RYAN DO K 110.1 DERMATOPHYTOSIS OF NAIL 02/08/2014 MONO RYAN DOA K 719.41 PAIN IN JOINT INVOLVING SHOULDER REGION 02/08/2014 SAMIRA WILSON APRNINA R 110.1 DERMATOPHYTOSIS OF NAIL 02/08/2014 KATIE GILLETTE TYRESE R 719.41 PAIN IN JOINT INVOLVING SHOULDER REGION 02/08/2014 MADL BAR ROLLER, ELIZA L 110.1 DERMATOPHYTOSIS OF NAIL 02/08/2014 MADL BAR ROLLER ELIZA L 719.41 PAIN IN JOINT INVOLVING SHOULDER REGION 02/08/2014 MADL BAR ROLLER, ELIZA L 110.1 DERMATOPHYTOSIS OF NAIL 02/08/2014 MADL BAR ROLLER ELIZA L 719.41 PAIN IN JOINT INVOLVING SHOULDER REGION 02/08/2014 MADL BAR ROLLER, ELIZA L 110.1 DERMATOPHYTOSIS OF NAIL 02/08/2014 MADL BAR ROLLER, ELIZA L 719.41 PAIN IN JOINT INVOLVING SHOULDER REGION 02/08/2014 RYAN DO CASPER K 110.1 DERMATOPHYTOSIS OF NAIL 02/08/2014 RYAN DO, CASPER K 719.41 PAIN IN JOINT INVOLVING SHOULDER REGION 02/08/2014 MADL BAR ROLLER, ELIZA L 110.1 DERMATOPHYTOSIS OF NAIL 02/08/2014 MADL BAR ROLLER, ELIZA L 719.41 PAIN IN JOINT INVOLVING SHOULDER REGION 05/17/2014 MADL BAR ROLLER, ELIZA L 466.0 BRONCHITIS, ACUTE 05/17/2014 MADL BAR ROLLER, ELIZA L 466.0 BRONCHITIS, ACUTE 05/17/2014 JULIANN JOHN, BRISEIDA N 466.0 BRONCHITIS, ACUTE 05/17/2014 RYAN DOMONOA K 466.0 BRONCHITIS, ACUTE 05/17/2014 KATIE GILLETTE TYRESE R 466.0 BRONCHITIS, ACUTE 05/17/2014 MADL BAR ROLLER, ELIZA L 466.0 BRONCHITIS, ACUTE 05/17/2014 MADL BAR ROLLER, ELIZA L 466.0 BRONCHITIS, ACUTE 05/17/2014 MADL BAR ROLLER, ELIZA L 466.0 BRONCHITIS, ACUTE 05/17/2014 RYAN DO CASPER K 466.0 BRONCHITIS, ACUTE 05/17/2014 MADL BAR ROLLER, ELIZA L 466.0 BRONCHITIS, ACUTE 06/08/2014 RYAN DO CASPER K V03.82 PPV23 (PNEUMOVAX) DX 06/08/2014 SAMIRA WILSON APRNINA R V03.82 PPV23 (PNEUMOVAX) DX 06/08/2014 MADL BAR ROLLER, ELIZA L V03.82 PPV23 (PNEUMOVAX) DX 06/08/2014 MADL BAR ROLLER, ELIZA L V03.82 PPV23 (PNEUMOVAX) DX 06/08/2014 MADL BAR ROLLER, ELIZA L V03.82 PPV23 (PNEUMOVAX) DX 06/08/2014 RYAN DO CASPER K V03.82 PPV23 (PNEUMOVAX) DX 06/08/2014 MADL BAR ROLLER, ELIZA L V03.82 PPV23 (PNEUMOVAX) DX 06/26/2014 KATIE BAR ROLLER, TYRESE R 786.2 COUGH 06/26/2014 MADL BAR ROLLER, ELIZA L 786.2 COUGH 06/26/2014 MADL BAR ROLLER, ELIZA L 786.2 COUGH 06/26/2014 MADL BAR ROLLER, ELIZA L 786.2 COUGH 06/26/2014 RYAN DO, CASPER K 786.2 COUGH 06/26/2014 MADL BAR ROLLER, ELIZA L 786.2 COUGH 07/20/2014 MADL BAR ROLLER, ELIZA L 703.0 INGROWING NAIL 07/20/2014 MADL BAR ROLLER, ELIZA L 703.0 INGROWING NAIL 07/20/2014 MADL BAR ROLLER, ELIZA L 703.0 INGROWING NAIL 07/20/2014 CASPER RYAN DO K 703.0 INGROWING NAIL 07/20/2014 MADL BAR ROLLER, ELIZA L 703.0 INGROWING NAIL 07/31/2014 MADL BAR ROLLER, ELIZA L V76.10 BREAST CANCER SCREENING 07/31/2014 MADL BAR ROLLER, ELIZA L V76.10 BREAST CANCER SCREENING 07/31/2014 CASPER RYAN DO K V76.10 BREAST CANCER SCREENING 07/31/2014 MADL BAR ROLLER, ELIZA L V76.10 BREAST CANCER SCREENING 08/09/2014 MADL BAR ROLLER, ELIZA L 780.79 OTHER MALAISE AND FATIGUE 08/09/2014 MADL BAR ROLLER, ELIZA L 780.79 OTHER MALAISE AND FATIGUE 08/09/2014 MONO RYAN DOA K 780.79 OTHER MALAISE AND FATIGUE 08/09/2014 MADL BAR ROLLER, ELIZA L 780.79 OTHER MALAISE AND FATIGUE 08/15/2014 Ot V76.12 08/15/2014 Ot V76.12 08/15/2014 Ot V76.12 08/15/2014 Ot 724.3 08/15/2014 Ot V76.12 08/15/2014 Ot V72.84 08/20/2014 MADL BAR ROLLER, ELIZA L 793.80 ABNORMAL MAMMOGRAM 08/20/2014 CASPER RYAN DO K 793.80 ABNORMAL MAMMOGRAM 08/20/2014 MADL BAR ROLLER, ELIZA L 793.80 ABNORMAL MAMMOGRAM 08/23/2014 ABBI GILLETTE, ELIZA L 386.11 BENIGN PAROXYSMAL POSITIONAL VERTIGO 08/23/2014 RYAN CASPER TORREZ 386.11 BENIGN PAROXYSMAL POSITIONAL VERTIGO 08/23/2014 ABBI GILLETTE, ELIZA L 386.11 BENIGN PAROXYSMAL POSITIONAL VERTIGO 10/02/2014 Ot 793.89 10/22/2014 MAD BAR ROLLER, ELIZA L 724.02 SPINAL STENOSIS OF LUMBAR REGION WITHOUT NEUROGENIC CLAUDICATION 04/03/2015 MARILU KUMAR BAR ROLLER Ot 793.80 04/17/2015 MARILU KUMAR BAR ROLLER Ot 793.80 05/01/2015 ARELI MOYA MD Ot E11.9 TYPE 2 DIABETES MELLITUS WITHOUT COMPLIC 05/01/2015 ARELI MOYA MD Ot I10 ESSENTIAL (PRIMARY) HYPERTENSION 05/01/2015 ARELI MOYA MD Ot M75.102 UNSP ROTATR-CUFF TEAR/RUPTR OF LEFT SHOU 05/01/2015 ARELI MOYA MD Ot S43.432A SUPERIOR GLENOID LABRUM LESION OF LEFT S 05/01/2015 ARELI MOYA MD Ot Z79.899 OTHER LONGTERM (CURRENT) DRUG THERAPY 05/02/2015 NITA JOHN, ARELI Landaverde Ot M75.102 05/02/2015 NITA JOHN, ARELI Landaverde Ot Z01.812 05/02/2015 NITA JOHN, ARELI Landaverde Ot Z11.2 05/21/2015 NITA JOHN, ARELI P Ot M75.102 05/21/2015 NITA JOHN, ARELI Landaverde Ot Z01.812 05/21/2015 NITA JOHN, ARELI Landaverde Ot Z11.2 05/28/2015 NITA JOHN, ARELI Landaverde Ot M75.102 05/28/2015 NITA JOHN, ARELI Landaverde Ot Z01.812 05/28/2015 NITA JOHN, ARELI Landaverde Ot Z11.2 08/05/2015 MAURA AGUILERA MD Ot M47.816 08/05/2015 MAURA AGUILERA MD Ot M51.16 08/05/2015 MAURA AGUILERA MD Ot Z79.899 08/16/2015 MAURA AGUILERA MD, Ot M47.816 08/16/2015 MAURA AGUILERA MD, Ot M51.16 08/16/2015 MAURA AGUILERA MD, Ot Z79.899 09/09/2015 MAURA AGUILERA MD, Ot M47.816 SPONDYLOSIS W/O MYELOPATHY OR RADICULOPA 09/09/2015 MAURA AGUILERA MD, Ot M51.16 INTERVERTEBRAL DISC DISORDERS W RADICULO 09/09/2015 MAURA AGUILERA MD, Ot Z79.899 OTHER RIGGING UP MAN (CURRENT) DRUG THERAPY 09/20/2015 MAURA AGUILERA MD, Ot M47.816 09/20/2015 MAURA AGUILERA MD, Ot M51.16 09/20/2015 MAURA AGUILERA MD, Ot Z79.899 10/20/2015 JANNY MAZARIEGOS APRN Ot K52.9 NONINFECTIVE GASTROENTERITIS AND COLITIS 10/22/2015 JANNY MAZARIEGOS BAR ROLLER Ot K52.9 NONINFECTIVE GASTROENTERITIS AND COLITIS 11/05/2015 JANNY MAZARIEGOS BAR ROLLER Ot K52.9 NONINFECTIVE GASTROENTERITIS AND COLITIS 01/27/2016 MAURA AGUILERA MD Ot E66.01 MORBID (SEVERE) OBESITY DUE TO EXCESS CA 01/27/2016 MAURA AGUILERA MD, Ot G89.4 CHRONIC PAIN SYNDROME 01/27/2016 MAURA AGUILERA MD, Ot M47.816 SPONDYLOSIS W/O MYELOPATHY OR RADICULOPA 01/27/2016 MAURA AGUILERA MD, Ot M51.16 INTERVERTEBRAL DISC DISORDERS W RADICULO 01/27/2016 MAURA AGUILERA MD, Ot M53.3 SACROCOCCYGEAL DISORDERS, NOT ELSEWHERE 01/27/2016 MAURA AGUILERA MD Ot Z68.43 BODY MASS INDEX (BMI) 50-59.9 , ADULT 02/11/2016 MAURA AGUILERA MD Ot E66.01 MORBID (SEVERE) OBESITY DUE TO EXCESS CA 02/11/2016 MAURA AGUILERA MD Ot G89.4 CHRONIC PAIN SYNDROME 02/11/2016 MAURA AGUILERA MD, Ot M47.816 SPONDYLOSIS W/O MYELOPATHY OR RADICULOPA 02/11/2016 MAURA AGUILREA MD, Ot M51.16 INTERVERTEBRAL DISC DISORDERS W RADICULO 02/11/2016 WHITE MD, MAURA J Ot M53.3 SACROCOCCYGEAL DISORDERS, NOT ELSEWHERE 02/11/2016 MAURA AGUILERA MD Ot Z68.43 BODY MASS INDEX (BMI) 50-59.9 , ADULT 04/06/2016 Ot V76.12 OTH SCREEN MAMMO-MALIGN NEOPLASM OF ERNESTO 04/06/2016 Ot 724.3 SCIATICA 04/06/2016 Ot V76.12 OTH SCREEN MAMMO-MALIGN NEOPLASM OF ERNESTO 04/06/2016 Ot V72.84 EXAM PRE-OPERATIVE NOS 04/06/2016 MARILU KUMAR BAR ROLLER Ot V76.12 OTH SCREEN MAMMO-MALIGN NEOPLASM OF ERNESTO 04/06/2016 Ot 793.89 OTH (ABN) FINDINGS ON RADIOLOGICAL EXAMI 04/06/2016 Ot 724.2 LUMBAGO 04/06/2016 ELIZA GO DARKLIGHT INSPECTOR Ot 724.2 LUMBAGO 04/06/2016 MARILU KUMAR BAR ROLLER Ot 793.80 UNSPEC ABNORMAL MAMMOGRAM 04/06/2016 ARELI MOYA MD Ot M75.102 UNSP ROTATR-CUFF TEAR/RUPTR OF LEFT SHOU 04/06/2016 ARELI MOYA MD Ot Z01.812 ENCOUNTER FOR PREPROCEDURAL LABORATORY E 04/06/2016 ARELI MOYA MD Ot Z11.2 ENCOUNTER FOR SCREENING FOR OTHER BACTER 04/06/2016 MAURA AGUILERA MD Ot M47.816 SPONDYLOSIS W/O MYELOPATHY OR RADICULOPA 04/06/2016 MAURA AGUILERA MD, Ot M51.16 INTERVERTEBRAL DISC DISORDERS W RADICULO 04/06/2016 MAURA AGUILERA MD Ot Z79.899 OTHER LONGTERM (CURRENT) DRUG THERAPY 04/07/2016 MAURA AGUILERA MD, Ot M47.816 SPONDYLOSIS W/O MYELOPATHY OR RADICULOPA 04/30/2016 MAURA AGUILERA MD Ot E66.01 MORBID (SEVERE) OBESITY DUE TO EXCESS CA 04/30/2016 MAURA AGUILERA MD Ot G89.4 CHRONIC PAIN SYNDROME 04/30/2016 MAURA AGUILERA MD, Ot M47.816 SPONDYLOSIS W/O MYELOPATHY OR RADICULOPA 04/30/2016 MAURA AGUILERA MD, Ot M51.16 INTERVERTEBRAL DISC DISORDERS W RADICULO 04/30/2016 MAURA AGUILERA MD, Ot M53.3 SACROCOCCYGEAL DISORDERS, NOT ELSEWHERE 04/30/2016 MAURA AGUILERA MD, Ot Z68.43 BODY MASS INDEX (BMI) 50-59.9 , ADULT 04/30/2016 MAURA AGUILERA MD, Ot Z79.899 OTHER LONGTERM (CURRENT) DRUG THERAPY 05/08/2016 MADLELIZA DARKLIGHT INSPECTOR Ot Z12.31 ENCNTR SCREEN MAMMOGRAM FOR MALIGNANT NE 05/08/2016 MADL, ELIZA L DARKLIGHT INSPECTOR Ot Z12.31 ENCNTR SCREEN MAMMOGRAM FOR MALIGNANT NE 05/18/2016 MADLELIZA DARKLIGHT INSPECTOR Ot Z12.31 ENCNTR SCREEN MAMMOGRAM FOR MALIGNANT NE 05/19/2016 MAURA AGUILERA MD Ot E66.01 MORBID (SEVERE) OBESITY DUE TO EXCESS CA 05/19/2016 MAURA AGUILERA MD, Ot G89.4 CHRONIC PAIN SYNDROME 05/19/2016 MAURA AGUILERA MD, Ot M47.816 SPONDYLOSIS W/O MYELOPATHY OR RADICULOPA 05/19/2016 MAURA AGUILERA MD, Ot M51.16 INTERVERTEBRAL DISC DISORDERS W RADICULO 05/19/2016 MAURA AGUILERA MD, Ot M53.3 SACROCOCCYGEAL DISORDERS, NOT ELSEWHERE 05/19/2016 MAURA AGUILERA MD, Ot Z68.43 BODY MASS INDEX (BMI) 50-59.9 , ADULT 05/19/2016 MAURA AGUILERA MD, Ot Z79.899 OTHER RIGGING UP MAN (CURRENT) DRUG THERAPY 06/01/2016 MAURA AGUILERA MD Ot E66.01 MORBID (SEVERE) OBESITY DUE TO EXCESS CA 06/01/2016 MAURA AGUILERA MD, Ot G89.4 CHRONIC PAIN SYNDROME 06/01/2016 MAURA AGUILERA MD, Ot M47.816 SPONDYLOSIS W/O MYELOPATHY OR RADICULOPA 06/01/2016 MAURA AGUILERA MD, Ot M51.16 INTERVERTEBRAL DISC DISORDERS W RADICULO 06/01/2016 MAURA AGUILERA MD, Ot M53.3 SACROCOCCYGEAL DISORDERS, NOT ELSEWHERE 06/01/2016 MAURA AGUILERA MD, Ot Z68.43 BODY MASS INDEX (BMI) 50-59.9 , ADULT 06/01/2016 MAURA AGUILERA MD, Ot Z79.899 OTHER RIGGING UP MAN (CURRENT) DRUG THERAPY 06/05/2016 SHEKHAR MCGUIRE APRN Ot E11.621 TYPE 2 DIABETES MELLITUS WITH FOOT ULCER 06/05/2016 SHEKHAR MCGUIRE APRN Ot L97.411 NON-PRS CHR ULCER OF RIGHT HEEL AND MIDF 07/03/2016 MAURA AGUILERA MD, Ot E11.9 TYPE 2 DIABETES MELLITUS WITHOUT COMPLIC 07/03/2016 MAURA AGUILERA MD, Ot M47.816 SPONDYLOSIS W/O MYELOPATHY OR RADICULOPA 07/03/2016 MAURA AGUILERA MD, Ot Z79.84 RIGGING UP MAN (CURRENT) USE OF ORAL HYPOGLYC 07/08/2016 MAURA AGUILERA MD, Ot E11.9 TYPE 2 DIABETES MELLITUS WITHOUT COMPLIC 07/08/2016 MAURA AGUILERA MD, Ot M47.816 SPONDYLOSIS W/O MYELOPATHY OR RADICULOPA 07/08/2016 MAURA AGUILERA MD, Ot Z79.84 LONGTERM (CURRENT) USE OF ORAL HYPOGLYC 07/10/2016 MAURA AGUILERA MD, Ot M47.816 SPONDYLOSIS W/O MYELOPATHY OR RADICULOPA 07/10/2016 ELIZA GO Ot Z12.31 ENCNTR SCREEN MAMMOGRAM FOR MALIGNANT NE 07/15/2016 MAURA AGUILERA MD, Ot M47.816 SPONDYLOSIS W/O MYELOPATHY OR RADICULOPA Procedures Code [place] [address] HEMOCCULT 2011 41195 HEMOCCULT 2011 74911 FATS/LIPIDS FECES, QUAL 06/09/2012 23520 STOOL FOR O & P 06/09/2012 90637 CLOSTRIDIUM (C-DIFF) 06/09/2012 99288 STOOL FOR POLYS & LEUKOCYTES 06/09/2012 LANI FELIZ 06/22/2012 G0121 COLONOSCOPY, SCREENING 08/22/2012 39682 ROUTINE VENIPUNCTURE 10/05/2012 91480 MICRO ALBUMIN-IN HOUSE 10/05/2012 67410 A1C (IN-HOUSE) 01462 CMP 10/05/2012 71463 LIPID PANEL 10/05 [id number] GFR CALC (RESULT ONLY) 10/05/2012 23625 MICROALBUMIN 10/2012 62317 LESION DESTRUCTION 1-14 (BENIGN) 10/06/2012 54134 MICRO ALBUMIN-IN HOUSE 04/26/2013 10280 A1C (IN-HOUSE) 38644 MAMMOGRAM, SCREENING 06/05/2013 47539 PAP SMEAR 2012 Q0091 PAP SMEAR OBTAIN SMEAR 06/05/2013 33913 MICRO ALBUMIN-IN HOUSE 08/14/2013 51650 A1C (IN-HOUSE) 61495 XRAY FOOT RIGHT 2 VIEWS 01/29/2014 96124 ROUTINE VENIPUNCTURE 02/06/2014 69494 A1C (IN-HOUSE) 17208 MICRO ALBUMIN-IN HOUSE 02/06/2014 6624423 GFR CALC (RESULT ONLY) 02/06/2014 94390 CMP 02/06/2014 66560 LIPID PANEL 02/06 56760 XRAY SHOULDER LEFT COMP 2 VIEWS 02/08/2014 80079 ROUTINE VENIPUNCTURE 03/12/2014 22256 CMP 03/12/2014 55797 ROUTINE VENIPUNCTURE 05/17/2014 02796 A1C (IN-HOUSE) 38886 CBC 05/17/2014 90287 MYCOPLASMA ANTIBODY 05/18/2014 03058 OXIMETRY 2013 51840 ROUTINE VENIPUNCTURE 05/23/2014 89812 OXIMETRY 2013 64313 CBC 05/23/2014 44091 OXIMETRY 2013 71889 ROUTINE VENIPUNCTURE 08/09/2014 83286 OXIMETRY 2014 26997 CBC 08/09/2014 7753289 GFR CALC (RESULT ONLY) 08/09/2014 60729 CMP 08/09/2014 69117 TSH 08/09/2014 94003 OXIMETRY 2014 14791 [employer]OX 2014 Results Test Result Range Capillary blood glucose measurement by glucometer (mass/volume) - 04/06/16 13: 33 Capillary blood glucose measurement by glucometer (mass/volume) 102 mg/dL 70-110 Capillary blood glucose measurement by glucometer (mass/volume) - 07/03/16 09: 22 Capillary blood glucose measurement by glucometer (mass/volume) 145 mg/dL 70-110 Methicillin resistant Staphylococcus aureus (MRSA) screening culture - 11:01 Methicillin resistant Staphylococcus aureus (MRSA) screening culture NEG NRG Whole blood basic metabolic panel - 12/16/16 11:03 Serum or plasma sodium measurement (moles/volume) 142 mmol/ L 135-145 Serum or plasma potassium measurement (moles/volume) 3.9 mmol/L 3.6-5.0 Serum or plasma chloride measurement (moles/volume) 103 mmol /L 98-107 Carbon dioxide 27 mmol/L 21-32 Serum or plasma anion gap determination (moles/volume) 12 mmol/L 5-14 Serum or plasma urea nitrogen measurement (mass/volume) 10 mg/dL 7-18 Serum or plasma creatinine measurement (mass/volume) 0.70 mg /dL 0.60-1.30 Serum or plasma urea nitrogen/creatinine mass ratio 14 0-20 Serum or plasma creatinine measurement with calculation of estimated glomerular filtration rate > NRG Serum or plasma glucose measurement (mass/volume) 131 mg/dL 70-105 Serum or plasma calcium measurement (mass/volume) 9.2 mg/dL 8.5-10.1 Capillary blood glucose measurement by glucometer (mass/volume) - 12/23/16 09: 44 Capillary blood glucose measurement by glucometer (mass/volume) 123 mg/dL 70-110 Encounters ACCT No. Visit Date/Time Discharge Status Pt. Type Provider Facility Loc./Unit Complaint [id number] 10/22/2014 12:20:00 10/22/2014 23: 59:59 CLS Outpatient ELIZA GO APRN [id number] 10/15/2014 09:28:00 10/15/2014 23: 59:59 CLS Outpatient CASPER RYAN DO Shraddha [id number] 09/20/2014 08:30:00 09/20/2014 23: 59:59 CLS Outpatient ELIZA GO APRN [id number] 08/09/2014 09:53:00 08/09/2014 23: 59:59 CLS Outpatient ELIZA GO APRN L [id number] 07/20/2014 13:39:00 07/20/2014 23: 59:59 CLS Outpatient ELIZA GO APRN L [id number] 06/26/2014 17:44:00 06/26/2014 23: 59:59 CLS Outpatient TYRESE WILSON APRN [id number] 05/23/2014 14:50:00 05/23/2014 23: 59:59 CLS Outpatient ELIZA GO APRN [id number] 05/23/2014 14:15:00 05/23/2014 23: 59:59 CLS Outpatient JULIANN BRISEIDA JOHN Tony [id number] 05/17/2014 11:01:00 05/17/2014 23: 59:59 CLS Outpatient MADL BAR ROLLERELIZA [id number] 05/17/2014 11:01:00 05/17/2014 23: 59:59 CLS Outpatient RYAN DOCASPER [id number] 03/12/2014 10:27:00 03/12/2014 23: 59:59 CLS Outpatient RYAN DO CASPER Llanes [id number] 02/08/2014 08:37:00 02/08/2014 23: 59:59 CLS Outpatient MADL BAR ROLLERELIZA Pat [id number] 02/08/2014 08:37:00 02/08/2014 23: 59:59 CLS Outpatient MADL BAR ROLLERELIZA L [id number] 02/06/2014 08:16:00 02/06/2014 23: 59:59 CLS Outpatient RYAN DOCASPER [id number] 01/29/2014 10:49:00 01/29/2014 23: 59:59 CLS Outpatient MADL BAR ROLLERELIZA Pat [id number] 01/29/2014 10:49:00 01/29/2014 23: 59:59 CLS Outpatient RYAN DO CASPER Llanes [id number] 11/20/2013 13:50:00 11/20/2013 23: 59:59 CLS Outpatient WILLY DDSEVELINA [id number] 10/13/2013 16:27:00 10/13/2013 23: 59:59 CLS Outpatient MANUEL BAR ROLLERCICI Jimenez [id number] 09/27/2013 00:00:00 09/27/2013 23: 59:59 CLS Outpatient CHANDLER DDSMAURA [id number] 09/25/2013 08:54:00 09/25/2013 23: 59:59 CLS Outpatient CHANDLER DDSMAURA [id number] 08/14/2013 10:10:00 08/14/2013 23: 59:59 CLS Outpatient RYAN DOCASPER [id number] 08/14/2013 10:10:00 08/14/2013 23: 59:59 CLS Outpatient RYAN DOCASPER [id number] 06/05/2013 09:43:00 06/05/2013 23: 59:59 CLS Outpatient MARILU KUMAR APRN [id number] 04/26/2013 10:27:00 04/26/2013 23: 59:59 CLS Outpatient CASPER RYAN DO Shraddha [id number] 04/26/2013 10:27:00 04/26/2013 23: 59:59 CLS Outpatient MONO RYAN DOGeorge Llanes [id number] 03/17/2013 15:51:00 03/17/2013 23: 59:59 CLS Outpatient CONNOR TORREZ CASPER [place] [id number] 10/05/2012 09:54:00 10/05/2012 23: 59:59 CLS Outpatient CONNOR TORREZ [place]PER [place] [id number] 10/03/2012 07:27:00 10/03/2012 23: 59:59 CLS Outpatient [id number] 07/18/2012 15:34:00 07/18/2012 23: 59:59 CLS Outpatient MONO RYAN DOGeorge Llanes [id number] 06/22/2012 08:56:00 06/22/2012 23: 59:59 CLS Outpatient CONNOR TORREZ CASPER [place] [id number] 06/09/2012 16:01:00 06/09/2012 23: 59:59 CLS Outpatient NATI GOODE APRN [id number] 05/02/2012 10:09:00 05/02/2012 23:59: 59 CLS Outpatient CONNOR TORREZ [place] [id number] 01/09/2013 08:47:00 Document Registration [id number] 10/05/2012 09:54:00 Document Registration
--- OUTSIDE RECORDS SUMMARY | 2016-12-24 18:26 | XMS REPORT ---
Author Author ELIZA GO [facility] eClinicalWorks Address Unknown Phone Unavailable Care Team Providers Care Meat Curer Name Role Phone ELIZA GO CP Unavailable Allergies, Adverse Reactions, Alerts Substance Reaction Event Type Travatan Info Not Available Drug Allergy Morphine Sulfate Info Not Available Drug Allergy Keflex Info Not Available Drug Allergy Problems Problem Type Condition Code Onset Dates Condition Status Problem Mixed hyperlipidemia E78.2 Active Problem Essential hypertension I10 Active Problem Chronic pain G89.29 Active Problem Moderate episode of recurrent major depressive disorder F33.1 Active Problem Hereditary and idiopathic neuropathy, unspecified G60.9 Active Problem Restless leg syndrome G25.81 Active Problem Type 2 diabetes mellitus without complication E11.9 Active Problem Low back pain M54.5 Active Problem Primary insomnia F51.01 Active Problem Abnormal drug screen R89.2 Active Assessment Restless leg syndrome G25.81 Active Assessment Primary insomnia F51.01 Active Problem Mild intermittent asthma without complication J45.20 Active Assessment Upper respiratory tract infection, unspecified type J06.9 Active Problem GERD (gastroesophageal reflux disease) K21.9 Active Medications Medication Code System Code Instructions Start Date End Date Status Dosage Protonix [facility] 23214906924 40 TAKE ONE TABLET BY MOUTH DAILY Flovent HFA [facility] [address]-71 44 mcg/actuation inhale 2 puffs by Inhalation route 2 times per day meclizine ND 0 25 mg take 1 tablet by Oral route 1 hour before exposure to motion 4 times per day PRN or vertigo Estradiol [facility] [address]-82 1 MG Orally Once a day 1 tablet Atenolol [facility] 99184829811 100 Orally Once a day 1 tablet Cymbalta [facility] 61063161324 60 Orally Once a day 1 capsule Naproxen [facility] 67162490762 500 Orally 2 times a day 1 tablet Latanoprost [facility] [address]-63 0.005 % Ophthalmic Once a day 1 drop into affected eye in the evening Azithromycin [facility] [address]-39 250 MG Orally Once a day January 15, 2016 January 20, 2016 2 tablets on the first day, then 1 tablet daily for 4 days Belsomra [facility] [address]-46 10 mg Orally Once a day January 02, 2016 1 tablet at bedtime as needed Lyrica [facility] 18951419692 225 Orally Twice a day 1 capsule Lisinopril-Hydrochlorothiazide [facility] 53426062385 10-12.5 Orally Once a day 1 tablet Metformin HCl [facility] [address]-54 500 Orally Twice a day 2 Trulicity [facility] [address]-19 0.75 MG/0.5ML Subcutaneous Once weekly December 0.5 ml Tramadol HCl [facility] [address]-70 50 mg Orally 2 times a day 1 tablet as needed Triamcinolone Acetonide [facility] [address]-50 0.1 % January 29, 2014 apply a thin layer to the affected area(s) by Topical route 3 times per day dispense 60 gram tube Baclofen [facility] 57187247170 20 Orally as directed daily at hs 1 tablet PredniSONE [facility] [address]-81 10 mg Orally twice a day January 15, 2016 January 20, 2016 1 tablet Scopolamine Base [facility] 0 1.5 mg apply 1 patch by Transdermal route to the hairless area behind 1 ear at least 4 hr before effect is required ; reapply every 3 days as needed PRN Albuterol Sulfate [facility] [address]-67 2.5 mg /3 mL (0.083 %) 1 Each by Inhalation route every 4 hours for cough and wheeze PRN for wheezing or cough Fish Oil [facility] [address]-16 1000 MG Orally Once a day 1 capsule Lasix [facility] 33899200318 20 Orally Once a day prn 1 tablet Pravastatin Sodium [facility] 83473909212 40 Orally Once a day 1 tablet Proventil HFA [facility] [address]-92 90 mcg/actuation 1-2 puffs by Inhalation route every 4 hours Potassium Chloride ER [facility] 40019821151 10 Orally Once a day prn 1 tablet with food Procedures Procedure Coding System Code Date Office Visit, Est Pt., Level 4 CPT-4 20162 January 15, 2016 [facility] VISIT ESTABLISHED PATIENT CPT-4 G0467 January 15, 2016 Vital Signs Date/Time: January 15, 2016 Cardiac Monitoring Heart Rate 88 bpm Weight 336.4 lbs Height 63 in Blood Pressure Diastolic 82 mmHg Blood Pressure Systolic 135 mmHg Results No Known Results Summary Purpose eClinicalWorks Submission
--- OUTSIDE RECORDS SUMMARY | 2016-12-24 18:26 | XMS REPORT ---
Author Author ELIZA GO [facility] eClinicalWorks Address Unknown Phone Unavailable Care Team Providers Care Staff Trainer Name Role Phone ELIZA GO CP Unavailable [...] Instructions Start Date End Date Status Dosage Estradiol [facility] [address]-93 1 MG Orally Once a day 1 tablet Scopolamine Base ND 0 1.5 mg apply 1 patch by Transdermal route to the hairless area behind 1 ear at least 4 hr before effect is required ; reapply every 3 days as needed PRN Albuterol Sulfate [facility] [address]-00 2.5 mg /3 mL (0.083 %) 1 Each by Inhalation route every 4 hours for cough and wheeze PRN for wheezing or cough Protonix [facility] 69597366072 40 TAKE ONE TABLET BY MOUTH DAILY Proventil HFA [facility] [address]-43 90 mcg/actuation 1-2 puffs by Inhalation route every 4 hours Lyrica [facility] 83135941434 225 Orally Twice a day 1 capsule Belsomra [facility] [address]-82 10 mg Orally Once a day 1 tablet at bedtime as needed Potassium Chloride ER [facility] 67555865677 10 Orally Once a day prn 1 tablet with food Triamcinolone Acetonide [facility] [address]-99 0.1 % January 29, 2014 apply a thin layer to the affected area(s) by Topical route 3 times per day dispense 60 gram tube Flovent HFA [facility] [address]-25 44 mcg/actuation inhale 2 puffs by Inhalation route 2 times per day Trulicity [facility] [address]-47 0.75 MG/0.5ML Subcutaneous Once weekly December 0.5 ml Fish Oil [facility] [address]-53 1000 MG Orally Once a day 1 capsule Metformin HCl [facility] 21475846414 500 TAKE TWO TABLETS BY MOUTH TWICE A DAY Pravastatin Sodium [facility] 34270165601 40 TAKE ONE TABLET BY MOUTH EVERY NIGHT AT BEDTIME. AVOID GRAPEFRUIT. Baclofen [facility] 76726995268 20 Orally as directed daily at hs 1 tablet Naproxen [facility] 88308427895 500 Orally 2 times a day 1 tablet Tramadol HCl [facility] [address]-95 50 mg Orally 2 times a day 1 tablet as needed Latanoprost [facility] [address]-96 0.005 % Ophthalmic Once a day 1 drop into affected eye in the evening Lasix [facility] 32178815925 20 Orally Once a day prn 1 tablet Estradiol [facility] 58573481685 1 Orally Once a day 1 tablet Lisinopril-Hydrochlorothiazide [facility] 03725203983 10-12.5 Orally Once a day 1 tablet meclizine [facility] 0 25 mg take 1 tablet by Oral route 1 hour before exposure to motion 4 times per day PRN or vertigo Atenolol [facility] 14306778124 100 Orally Once a day 1 tablet Cymbalta [facility] 67254838268 60 Orally Once a day 1 capsule Procedures Procedure Coding System Code Date Office Visit, Est Pt., Level 3 CPT-4 26594 Feb 13, 2016 [facility] VISIT ESTABLISHED PATIENT CPT-4 G0467 Feb 13, 2016 Vital Signs Date/Time: Feb 13, 2016 Cardiac Monitoring Heart Rate 86 bpm Weight 333.0 lbs Height 63 in BMI 58.98 Index Blood Pressure Diastolic 68 mmHg Blood Pressure Systolic 138 mmHg Results No Known Results Summary Purpose eClinicalWorks Submission
--- OUTSIDE RECORDS SUMMARY | 2016-12-24 18:26 | XMS REPORT ---
Author Author ELIZA GO [facility] eClinicalWorks Address Unknown Phone Unavailable Care Team Providers Care Student Life Dean Name Role Phone ELIZA GO CP Unavailable Allergies No Known Allergies Problems Problem Type Condition Code Onset Dates Condition Status Problem Chronic pain G89.29 Active Problem Low back pain M54.5 Active Problem Essential hypertension I10 Active Problem Restless leg syndrome G25.81 Active Problem Moderate episode of recurrent major depressive disorder F33.1 Active Problem Post menopausal syndrome N95.1 Active Problem Abnormal drug screen R89.2 Active Problem Type 2 diabetes mellitus without complication E11.9 Active Problem Hereditary and idiopathic neuropathy, unspecified G60.9 Active Problem Primary insomnia F51.01 Active Problem Mild intermittent asthma without complication J45.20 Active Problem GERD (gastroesophageal reflux disease) K21.9 Active Problem Mixed hyperlipidemia E78.2 Active Medications No Known Medications Results No Known Results Summary Purpose eClinicalWorks Submission
--- OUTSIDE RECORDS SUMMARY | 2016-12-24 18:26 | XMS REPORT ---
Author Author ELIZA GO Organization [employer]Clinical[employer] Address Unknown Phone Unavailable Care Team Providers Care Latexer Name Role Phone ELIZA GO CP Unavailable [...] Problem Abnormal drug screen R89.2 Active Medications Medication Code System Code Instructions Start Date End Date Status Dosage Lyrica [facility] 84762886912 225 Orally Twice a day 1 capsule Results No Known Results Summary Purpose eClinicalWorks Submission
--- OUTSIDE RECORDS SUMMARY | 2016-12-24 18:26 | XMS REPORT ---
Author Author TIFFANY FOWLER Organization eClinicalWorks Address Unknown Phone Unavailable Care Team Providers Care Testing Tech Name Role Phone TIFFANY FOWLER CP Unavailable Allergies, Adverse Reactions, Alerts Substance Reaction Event Type Travatan Info Not Available Drug Allergy Morphine Sulfate Info Not Available Drug Allergy Keflex Info Not Available Drug Allergy Problems Problem Type Condition Code Onset Dates Condition Status Assessment Dental examination Z01.20 Active Assessment Encounter for dental examination Z01.20 Active Problem Low back pain M54.5 Active Problem Essential hypertension I10 Active Problem Type 2 diabetes mellitus without complication E11.9 Active Problem GERD (gastroesophageal reflux disease) K21.9 Active Problem Mild intermittent asthma without complication J45.20 Active Problem Chronic pain G89.29 Active Problem Mixed hyperlipidemia E78.2 Active Medications Medication Code System Code Instructions Start Date End Date Status Dosage Naprosyn [facility] 62302040043 500 TAKE ONE TABLET BY MOUTH TWICE A DAY WITH FOOD Protonix [facility] 66071637988 40 TAKE ONE TABLET BY MOUTH DAILY Lasix [facility] 74483582882 20 Orally Once a day PRN 1 tablet Flovent HFA [facility] [address]-62 44 mcg/actuation September 05, 2014 inhale 2 puffs by Inhalation route 2 times per day Pravastatin Sodium [facility] 23419944815 40 Orally Once a day TAKE ONE TABLET BY MOUTH EVERY NIGHT AT BEDTIME. AVOID GRAPEFRUIT Triamcinolone Acetonide [facility] [address]-98 0.1 % January 29, 2014 apply a thin layer to the affected area(s) by Topical route 3 times per day dispense 60 gram tube Lisinopril-Hydrochlorothiazide [facility] 79349188062 10-12.5 TAKE ONE TABLET BY MOUTH DAILY Atenolol [facility] 40302558030 100 TAKE ONE TABLET BY MOUTH DAILY Azithromycin [facility] [address]-24 250 MG Orally Once a day Jun 12, 2015 Jun 17, 2015 2 tablets on the first day, then 1 tablet daily for 4 days Cymbalta [facility] 73247069419 60 Orally Once a day TAKE ONE CAPSULE BY MOUTH DAILY Scopolamine Base NDC 0 1.5 mg Mar 12, 2014 apply 1 patch by Transdermal route to the hairless area behind 1 ear at least 4 hr before effect is required; reapply every 3 days as needed PRN meclizine NDC 0 25 mg Aug 23, 2014 take 1 tablet by Oral route 1 hour before exposure to motion 4 times per day PRN or vertigo Metformin HCl [facility] 84975258705 500 TAKE TWO TABLETS BY MOUTH TWICE A DAY Albuterol Sulfate [facility] [address]-87 2.5 mg /3 mL (0.083 %) May 17, 2014 1 Each by Inhalation route every 4 hours for cough and wheeze PRN for wheezing or cough Baclofen [facility] [address]-88 20 TAKE ONE TABLET BY MOUTH AT BEDTIME NEEDED Potassium Chloride ER [facility] 01973997162 10 Orally Once a day 1 tablet Oxycodone HCl [facility] [address]-55 5 MG Orally every 4-6 hrs 1 tablet Estradiol [facility] [address]-96 1 MG Orally Once a day 1 tablet Fish Oil [facility] [address]-52 1000 MG Orally Once a day 1 capsule Lyrica [facility] 02321266447 225 Orally Twice a day 1 capsule Proventil HFA [facility] [address]-16 90 mcg/actuation Aug 09, 2014 1-2 puffs by Inhalation route every 4 hours Procedures Procedure Coding System Code Date LTD ORAL EVALUATION - PROBLEM FOCUS CPT-4 D0140 Jun 12, 2015 Vital Signs Date/Time: Jun 12, 2015 Blood Pressure Diastolic 83 mmHg Blood Pressure Systolic 132 mmHg Height 63 in Results No Known Results Summary Purpose eClinicalWorks Submission
--- OUTSIDE RECORDS SUMMARY | 2016-12-24 18:27 | XMS REPORT ---
Author Author ELIZA GO [facility] eClinicalWorks Address Unknown Phone Unavailable Care Team Providers Care Hatchery Employee Name Role Phone ELIZA GO CP Unavailable Allergies, Adverse Reactions, Alerts Substance Reaction Event Type Travatan Info Not Available Drug Allergy Morphine Sulfate Info Not Available Drug Allergy Keflex Info Not Available Drug Allergy Problems Problem Type Condition Code Onset Dates Condition Status Assessment Chronic pain G89.29 Active Problem Mild intermittent asthma without complication J45.20 Active Assessment Low back pain M54.5 Active Assessment Abnormal drug screen R89.2 Active Problem Type 2 diabetes mellitus without complication E11.9 Active Problem Low back pain M54.5 Active Problem Abnormal drug screen R89.2 Active Problem Mixed hyperlipidemia E78.2 Active Problem GERD (gastroesophageal reflux disease) K21.9 Active Problem Essential hypertension I10 Active Problem Chronic pain G89.29 Active Medications Medication Code System Code Instructions Start Date End Date Status Dosage Tramadol HCl [facility] [address]-74 50 MG Orally 2 times a day prn Mar 29, 2015 1 tablet as needed Atenolol [facility] 60578670319 100 TAKE ONE TABLET BY MOUTH DAILY Pravastatin Sodium [facility] 44297896810 40 Orally Once a day TAKE ONE TABLET BY MOUTH EVERY NIGHT AT BEDTIME. AVOID GRAPEFRUIT Potassium Chloride ER [facility] 23560751718 10 Orally Once a day 1 tablet meclizine ND 0 25 mg Aug 23, 2014 take 1 tablet by Oral route 1 hour before exposure to motion 4 times per day PRN or vertigo Metformin HCl [facility] 96852993074 500 TAKE TWO TABLETS BY MOUTH TWICE A DAY Lasix [facility] 03144847460 20 Orally Once a day PRN 1 tablet Triamcinolone Acetonide [facility] [address]-51 0.1 % January 29, 2014 apply a thin layer to the affected area(s) by Topical route 3 times per day dispense 60 gram tube Baclofen [facility] [address]-73 20 TAKE ONE TABLET BY MOUTH AT BEDTIME NEEDED Estradiol [facility] [address]-02 1 MG Orally Once a day 1 tablet Scopolamine Base [facility] 0 1.5 mg Mar 12, 2014 apply 1 patch by Transdermal route to the hairless area behind 1 ear at least 4 hr before effect is required; reapply every 3 days as needed PRN Lyrica [facility] 07164621266 225 Orally Twice a day 1 capsule Cymbalta [facility] 36011425459 60 Orally Once a day TAKE ONE CAPSULE BY MOUTH DAILY Naprosyn [facility] 50000445239 500 TAKE ONE TABLET BY MOUTH TWICE A DAY WITH FOOD Protonix [facility] 85511278786 40 TAKE ONE TABLET BY MOUTH DAILY Albuterol Sulfate [facility] [address]-71 2.5 mg /3 mL (0.083 %) May 17, 2014 1 Each by Inhalation route every 4 hours for cough and wheeze PRN for wheezing or cough Lisinopril-Hydrochlorothiazide [facility] 78337694439 10-12.5 TAKE ONE TABLET BY MOUTH DAILY Flovent HFA [facility] [address]-22 44 mcg/actuation September 05, 2014 inhale 2 puffs by Inhalation route 2 times per day Fish Oil [facility] [address]-84 1000 MG Orally Once a day 1 capsule Proventil HFA [facility] [address]-76 90 mcg/actuation Aug 09, 2014 1-2 puffs by Inhalation route every 4 hours Procedures Procedure Coding System Code Date Office Visit, Est Pt., Level 3 CPT-4 04214 Jun 18, 2015 [facility] VISIT ESTABLISHED PATIENT CPT-4 G0467 Jun 18, 2015 Vital Signs Date/Time: Jun 18, 2015 Temperature 97.3 F Weight 341.3 lbs Height 63 in BMI 60.45 Index Blood Pressure Diastolic 80 mmHg Blood Pressure Systolic 142 mmHg Cardiac Monitoring Heart Rate 84 bpm Results No Known Results Summary Purpose eClinicalWorks Submission
--- OUTSIDE RECORDS SUMMARY | 2016-12-24 18:27 | XMS REPORT ---
Author Author ELIZA GO Organization eClinical[employer] Address Unknown Phone Unavailable Care Team Providers Care Extender Name Role Phone ELIZA GO CP Unavailable [...] Instructions Start Date End Date Status Dosage Baclofen [facility] [id number] 20 TAKE ONE TABLET BY MOUTH EVERY NIGHT AT BEDTIME DIRECTED Results No Known Results Summary Purpose eClinicalWorks Submission
--- OUTSIDE RECORDS SUMMARY | 2016-12-24 18:27 | XMS REPORT ---
Author Author MARILU KUMAR Organization eClinicalWorks Address Unknown Phone Unavailable Care Team Providers Care A Operator Name Role Phone MARILU KUMAR CP Unavailable Allergies, Adverse Reactions, Alerts Substance Reaction Event Type Travatan Info Not Available Drug Allergy Morphine Sulfate Info Not Available Drug Allergy Keflex Info Not Available Drug Allergy Problems Problem Type Condition ICD-9 Code Onset [...] complication 455.6 Active Problem Sciatica 724.3 Active Assessment Abnormal mammogram of left breast 793.80 Active Problem Unspecified abnormal mammogram 793.80 Active Medications Medication Code System Code Instructions Start Date End Date Status Dosage Atenolol [facility] 75262603955 100 TAKE ONE TABLET BY MOUTH DAILY Pravastatin Sodium [facility] 02488933674 40 TAKE ONE TABLET BY MOUTH EVERY NIGHT AT BEDTIME. AVOID GRAPEFRUIT meclizine ND 0 25 mg Aug 23, 2014 take 1 tablet by Oral route 1 hour before exposure to motion 4 times per day PRN or vertigo Estradiol [facility] [address]-58 1 MG Orally Once a day 1 tablet Proventil HFA [facility] [address]-24 90 mcg/actuation Aug 09, 2014 1-2 puffs by Inhalation route every 4 hours Metformin HCl [facility] [address]-37 500 MG Orally Twice a day 1 tablet with meals Lisinopril-Hydrochlorothiazide [facility] [address]-65 10-12.5 MG Orally Once a day 1 tablet Flovent HFA [facility] [address]-28 44 mcg/actuation September 05, 2014 inhale 2 puffs by Inhalation route 2 times per day Triamcinolone Acetonide [facility] [address]-59 0.1 % January 29, 2014 apply a thin layer to the affected area(s) by Topical route 3 times per day dispense 60 gram tube Cymbalta [facility] [address]-61 60 mg 1 ECC orally once a day September 25, 2014 take 1 capsule (60 mg) by oral route once daily Lasix [facility] [address]-89 20 MG Orally Once a day PRN Jul 02, 2014 1 tablet Lyrica [facility] 13878330463 225 Appt needed in FEBRUARY. TAKE ONE CAPSULE BY MOUTH TWICE A DAY Albuterol Sulfate [facility] [address]-27 2.5 mg /3 mL (0.083 %) May 17, 2014 1 Each by Inhalation route every 4 hours for cough and wheeze PRN for wheezing or cough Potassium Chloride ER [facility] 02551660803 10 Orally Once a day 1 tablet Naprosyn [facility] 56696816738 500 TAKE ONE TABLET BY MOUTH TWICE A DAY WITH FOOD Scopolamine Base [facility] 0 1.5 mg Mar 12, 2014 apply 1 patch by Transdermal route to the hairless area behind 1 ear at least 4 hr before effect is required; reapply every 3 days as needed PRN Procedures Procedure Coding System Code Date Office Visit, Est Pt., Level 3 CPT-4 95442 Feb 25, 2015 [facility] VISIT ESTABLISHED PATIENT CPT-4 G0467 Feb 25, 2015 Vital Signs Date/Time: Feb 25, 2015 Temperature 98.3 F Weight 345.2 lbs Height 63 in BMI 61.14 Index Blood Pressure Diastolic 78 mmHg Blood Pressure Systolic 132 mmHg Cardiac Monitoring Heart Rate 80 bpm Results No Known Results Summary Purpose eClinicalWorks Submission
--- OUTSIDE RECORDS SUMMARY | 2016-12-24 18:27 | XMS REPORT ---
Author Author ELIZA GO [facility] eClinicalWorks Address Unknown Phone Unavailable Care Team Providers Care Home Specialist Name Role Phone ELIZA GO CP [...]
--- OUTSIDE RECORDS SUMMARY | 2016-12-24 18:27 | XMS REPORT ---
Author Author ELIZA GO [facility] eClinicalWorks Address Unknown Phone Unavailable Care Team Providers Care Environmental Marketer Name Role Phone ELIZA GO CP Unavailable Allergies, Adverse Reactions, Alerts Substance Reaction Event Type Travatan Info Not Available Drug Allergy Morphine Sulfate Info Not Available Drug Allergy Keflex Info Not Available Drug Allergy Problems Problem Type Condition Code Onset Dates Condition Status Assessment Essential hypertension I10 Active Assessment Type 2 diabetes mellitus without complication E11.9 Active Assessment Encounter for immunization Z23 Active Problem Low back pain M54.5 Active Problem Essential hypertension I10 Active Problem Type 2 diabetes mellitus without complication E11.9 Active Problem GERD (gastroesophageal reflux disease) K21.9 Active Problem Mild intermittent asthma without complication J45.20 Active Problem Chronic pain G89.29 Active Problem Mixed hyperlipidemia E78.2 Active Assessment GERD (gastroesophageal reflux disease) K21.9 Active Assessment Mixed hyperlipidemia E78.2 Active Assessment Depression F32.9 Active Assessment Chronic pain G89.29 Active Assessment Mild intermittent asthma without complication J45.20 Active Assessment Low back pain M54.5 Active Medications Medication Code System Code Instructions Start Date End Date Status Dosage Triamcinolone Acetonide [facility] [address]-22 0.1 % January 29, 2014 apply a thin layer to the affected area(s) by Topical route 3 times per day dispense 60 gram tube Pravastatin Sodium [facility] 67506497877 40 Orally Once a day TAKE ONE TABLET BY MOUTH EVERY NIGHT AT BEDTIME. AVOID GRAPEFRUIT Atenolol [facility] 67409328407 100 TAKE ONE TABLET BY MOUTH DAILY Protonix ND 76543056518 40 TAKE ONE TABLET BY MOUTH DAILY Cymbalta ND 47172061488 60 Orally Once a day TAKE ONE CAPSULE BY MOUTH DAILY Lasix [facility] 30204426934 20 Orally Once a day PRN 1 tablet Lisinopril-Hydrochlorothiazide [facility] 60086639467 10-12.5 TAKE ONE TABLET BY MOUTH DAILY Proventil HFA [facility] [address]-00 90 mcg/actuation Aug 09, 2014 1-2 puffs by Inhalation route every 4 hours Lyrica [facility] 81222107576 225 Orally Twice a day 1 capsule Tramadol HCl [facility] [address]-66 50 MG Orally 2 times a day prn Mar 29, 2015 1 tablet as needed Baclofen [facility] 0 20 TAKE ONE TABLET BY MOUTH AT BEDTIME NEEDED Scopolamine Base [facility] 0 1.5 mg Mar 12, 2014 apply 1 patch by Transdermal route to the hairless area behind 1 ear at least 4 hr before effect is required; reapply every 3 days as needed PRN Estradiol [facility] [address]-75 1 MG Orally Once a day 1 tablet Fish Oil [facility] [address]-83 1000 MG Orally Once a day 1 capsule Metformin HCl [facility] [address]-62 500 Orally Twice a day 2 Albuterol Sulfate [facility] [address]-52 2.5 mg /3 mL (0.083 %) May 17, 2014 1 Each by Inhalation route every 4 hours for cough and wheeze PRN for wheezing or cough Flovent HFA [facility] [address]-11 44 mcg/actuation September 05, 2014 inhale 2 puffs by Inhalation route 2 times per day Naprosyn [facility] 70222903562 500 TAKE ONE TABLET BY MOUTH TWICE A DAY WITH FOOD meclizine ND 0 25 mg Aug 23, 2014 take 1 tablet by Oral route 1 hour before exposure to motion 4 times per day PRN or vertigo Potassium Chloride ER [facility] 92615329764 10 Orally Once a day 1 tablet Oxycodone HCl [facility] [address]-65 5 MG Orally every 4-6 hrs 1 tablet Procedures Procedure Coding System Code Date GLYCATED HEMOGLOBIN TEST CPT-4 13575 Jun 05, 2015 [facility] NOBLL Jun 05, 2015 MICROALBUMIN, SEMIQUANT CPT-4 03718 Jun 05, 2015 VENIPUNCT, ROUTINE* CPT-4 57562 Jun 05, 2015 SINGLE IMMUNIZATION ADMIN CPT-4 42548 Jun 05, 2015 [facility] VISIT ESTABLISHED PATIENT CPT-4 G0467 Jun 05, 2015 No Charge CPT-4 54474 Jun 05, 2015 FLUARIX QUAD (3 & UP)--2014 CPT-4 34499 Jun 05, 2015 Office Visit, Est Pt., Level 4 CPT-4 80549 Jun 05, 2015 Vital Signs Date/Time: Jun 05, 2015 Temperature 98.4 F Weight 343.0 lbs Height 63 in BMI 60.75 Index Blood Pressure Diastolic 82 mmHg Blood Pressure Systolic 130 mmHg Cardiac Monitoring Heart Rate 80 bpm Results No Known Results Immunizations Vaccine Administration Date FLUARIX QUAD (3 & UP)-GSK-2014Jun 05, 2015 Summary Purpose eClinicalWorks Submission
--- OUTSIDE RECORDS SUMMARY | 2016-12-24 18:28 | XMS REPORT ---
Author Author TIFFANY FOWLER Organization eClinicalWorks Address Unknown Phone Unavailable Care Team Providers Care Truck Caterer Name Role Phone TIFFANY FOWLER CP Unavailable Allergies, Adverse Reactions, Alerts Substance Reaction Event Type Travatan Info Not Available Drug Allergy Morphine Sulfate Info Not Available Drug Allergy Keflex Info Not Available Drug Allergy Problems Problem Type Condition Code Onset Dates Condition Status Assessment Dental caries K02.9 Active Assessment Encounter for dental examination Z01.20 Active Assessment Dental examination Z01.20 Active Problem Low back pain M54.5 Active Problem Essential hypertension I10 Active Problem Type 2 diabetes mellitus without complication E11.9 Active Problem GERD (gastroesophageal reflux disease) K21.9 Active Problem Mild intermittent asthma without complication J45.20 Active Problem Chronic pain G89.29 Active Problem Mixed hyperlipidemia E78.2 Active Medications Medication Code System Code Instructions Start Date End Date Status Dosage Atenolol [facility] 74446116513 100 TAKE ONE TABLET BY MOUTH DAILY Protonix ND 32600284366 40 TAKE ONE TABLET BY MOUTH DAILY Flovent HFA [facility] [address]-89 44 mcg/actuation September 05, 2014 inhale 2 puffs by Inhalation route 2 times per day Pravastatin Sodium [facility] 30568685203 40 Orally Once a day TAKE ONE TABLET BY MOUTH EVERY NIGHT AT BEDTIME. AVOID GRAPEFRUIT meclizine ND 0 25 mg Aug 23, 2014 take 1 tablet by Oral route 1 hour before exposure to motion 4 times per day PRN or vertigo Proventil HFA [facility] [address]-32 90 mcg/actuation Aug 09, 2014 1-2 puffs by Inhalation route every 4 hours Naprosyn [facility] 07709041500 500 TAKE ONE TABLET BY MOUTH TWICE A DAY WITH FOOD Triamcinolone Acetonide [facility] [address]-36 0.1 % January 29, 2014 apply a thin layer to the affected area(s) by Topical route 3 times per day dispense 60 gram tube Baclofen [facility] [address]-05 20 TAKE ONE TABLET BY MOUTH AT BEDTIME NEEDED Lisinopril-Hydrochlorothiazide [facility] 14183277241 10-12.5 TAKE ONE TABLET BY MOUTH DAILY Scopolamine Base [facility] 0 1.5 mg Mar 12, 2014 apply 1 patch by Transdermal route to the hairless area behind 1 ear at least 4 hr before effect is required; reapply every 3 days as needed PRN Cymbalta [facility] 20663256644 60 Orally Once a day TAKE ONE CAPSULE BY MOUTH DAILY Metformin HCl [facility] 34676384412 500 TAKE TWO TABLETS BY MOUTH TWICE A DAY Potassium Chloride ER [facility] 92503081415 10 Orally Once a day 1 tablet Lasix [facility] 80615260173 20 Orally Once a day PRN 1 tablet Albuterol Sulfate [facility] [address]-42 2.5 mg /3 mL (0.083 %) May 17, 2014 1 Each by Inhalation route every 4 hours for cough and wheeze PRN for wheezing or cough Estradiol [facility] [address]-04 1 MG Orally Once a day 1 tablet Fish Oil [facility] [address]-68 1000 MG Orally Once a day 1 capsule Lyrica [facility] 22696700482 225 Orally Twice a day 1 capsule Oxycodone HCl [facility] [address]-16 5 MG Orally every 4-6 hrs 1 tablet Procedures Procedure Coding System Code Date INTRAORL-PERIAPICAL 1 FILM 04593 CPT-4 D0220 Jun 11, 2015 BITEWING - SINGLE FILM CPT-4 D0270 Jun 11, 2015 LTD ORAL EVALUATION - PROBLEM FOCUS CPT-4 D0140 Jun 11, 2015 EXTRAC ERUPTED TOOTH/EXPOSED ROOT CPT-4 D7140 Jun 11, 2015 Vital Signs Date/Time: Jun 11, 2015 Blood Pressure Diastolic 78 mmHg Blood Pressure Systolic 133 mmHg Height 63 in Results No Known Results Summary Purpose eClinicalWorks Submission
--- OUTSIDE RECORDS SUMMARY | 2016-12-24 18:28 | XMS REPORT ---
Author Author ELIZA GO [facility] Address [address] [place] [address] Care Team Providers Care Skiver Hand Name Role Phone ELIZA GO Unavailable PROBLEMS Type Condition ICD9-CM Code KGL49-LO Code Onset Dates Condition Status SNOMED Code Problem Chronic pain G89.29 Active 00336419 Problem Low back pain M54.5 Active 177356291 Problem Essential hypertension I10 Active 59318984 Assessment Screening breast examination Z12.39 Mar, Active 608739981 Problem Mild intermittent asthma without complication J45.20 Active 660425947 Problem GERD (gastroesophageal reflux disease) K21.9 Active 217273674 Problem Mixed hyperlipidemia E78.2 Active 258800227 Problem Restless leg syndrome G25.81 Active 26364933 Problem Moderate episode of recurrent major depressive disorder F33.1 Active 572711118 Problem Abnormal drug screen R89.2 Active 825578592 Problem Type 2 diabetes mellitus without complication E11.9 Active 25495620 Problem Hereditary and idiopathic neuropathy, unspecified G60.9 Active 832041006 Problem Primary insomnia F51.01 Active 6768323 ALLERGIES Substance Reaction Event Type Date Status Travatan Unknown Drug Allergy Mar, Active Morphine Sulfate Unknown Drug Allergy Mar, Active Keflex Unknown Drug Allergy Mar, Active SOCIAL HISTORY No smoking Hx information available PLAN OF CARE VITAL SIGNS Height 63 in 2016-03-25 Weight 325.6 lbs 2016-03-25 Heart Rate 88 bpm 2016-03-25 Respiratory Rate 20 2016-03-25 BMI 57.67 kg/m2 2016-03-25 Blood pressure systolic 118 mmHg 2016-03-25 Blood pressure diastolic 82 mmHg 2016-03-25 MEDICATIONS Medication Instructions Dosage Frequency Start Date End Date Duration Status Tramadol HCl 50 mg Orally 2 times a day 1 tablet as needed 12h Active Estradiol 1 MG Orally Once a day 1 tablet 24h Active Belsomra 10 mg Orally Once a day 1 tablet at bedtime as needed 24h 30 days Active Trulicity 0.75 MG/0.5ML Subcutaneous Once weekly 0.5 ml Active Lisinopril-Hydrochlorothiazide 10-12.5 Orally Once a day 1 tablet 24h 30 Active Cymbalta 60 Orally Once a day 1 capsule 24h 90 Active Flovent HFA 44 mcg/actuation inhale 2 puffs by Inhalation route 2 times per day Active Lasix 20 TAKE ONE TABLET BY MOUTH DAILY NEEDED 30 Active Atenolol 100 TAKE ONE TABLET BY MOUTH DAILY 30 Active Metformin HCl 500 Orally Twice a day 2 12h 90 days Active Naproxen 500 Orally 2 times a day 1 tablet 12h 30 Active Pravastatin Sodium 40 TAKE ONE TABLET BY MOUTH EVERY NIGHT AT BEDTIME. AVOID GRAPEFRUIT. 30 Active Albuterol Sulfate 2.5 mg /3 mL (0.083 %) 1 Each by Inhalation route every 4 hours for cough and wheeze PRN for wheezing or cough Active Baclofen 20 TAKE ONE TABLET BY MOUTH EVERY NIGHT AT BEDTIME DIRECTED 30 Active Proventil HFA 90 mcg/actuation 1-2 puffs by Inhalation route every 4 hours Active Latanoprost 0.005 % Ophthalmic Once a day 1 drop into affected eye in the evening 24h Active Potassium Chloride ER 10 TAKE ONE TABLET BY MOUTH DAILY WITH FOOD NEEDED 30 Active meclizine 25 mg take 1 tablet by Oral route 1 hour before exposure to motion 4 times per day PRN or vertigo Active Protonix 40 TAKE ONE TABLET BY MOUTH DAILY 30 Active Lyrica 225 Orally Twice a day 1 capsule 12h Active RESULTS Name Result Date Reference Range Mammogram, Bilateral Screening 2016-04-02 PROCEDURES Procedure Date Ordered Related Diagnosis Body Site [facility] VISIT ESTABLISHED PATIENT Mar 25, 2016 Office Visit, Est Pt., Level 4 Mar 25, 2016 IMMUNIZATIONS No Known Immunizations
--- OUTSIDE RECORDS SUMMARY | 2016-12-24 18:28 | XMS REPORT ---
Author Author ELIZA GO [facility] eClinicalWorks Address Unknown Phone Unavailable Care Team Providers Care Black Top Roller Name Role Phone ELIZA GO CP Unavailable Allergies, Adverse Reactions, Alerts Substance Reaction Event Type Travatan Info Not Available Drug Allergy Morphine Sulfate Info Not Available Drug Allergy Keflex Info Not Available Drug Allergy Problems Problem Type Condition Code Onset Dates Condition Status Problem Mild intermittent asthma without complication J45.20 Active Assessment Diarrhea R19.7 Active Problem Type 2 diabetes mellitus without complication E11.9 Active Problem Low back pain M54.5 Active Problem Abnormal drug screen R89.2 Active Problem Mixed hyperlipidemia E78.2 Active Problem GERD (gastroesophageal reflux disease) K21.9 Active Problem Essential hypertension I10 Active Problem Chronic pain G89.29 Active Medications Medication Code System Code Instructions Start Date End Date Status Dosage Naprosyn [facility] 70869987888 500 TAKE ONE TABLET BY MOUTH TWICE A DAY Lasix [facility] [id number] 20 TAKE ONE TABLET BY MOUTH DAILY NEEDED Potassium Chloride ER [facility] 72954352442 10 TAKE ONE TABLET BY MOUTH DAILY Lisinopril-Hydrochlorothiazide [facility] 91177779036 10-12.5 TAKE ONE TABLET BY MOUTH DAILY meclizine ND 0 25 mg take 1 tablet by Oral route 1 hour before exposure to motion 4 times per day PRN or vertigo Triamcinolone Acetonide [facility] [address]-75 0.1 % January 29, 2014 apply a thin layer to the affected area(s) by Topical route 3 times per day dispense 60 gram tube Tramadol HCl [facility] [address]-50 50 mg Orally 2 times a day 1 tablet as needed Cymbalta [facility] 06493036287 60 TAKE ONE CAPSULE BY MOUTH DAILY Flagyl [facility] [address]-61 500 MG Orally every 8 hrs October 24, 2015 November 03, 2015 1 tablet Albuterol Sulfate [facility] [address]-68 2.5 mg /3 mL (0.083 %) May 17, 2014 1 Each by Inhalation route every 4 hours for cough and wheeze PRN for wheezing or cough Metformin HCl [facility] [id number] 500 TAKE TWO TABLETS BY MOUTH TWICE A DAY Protonix [facility] 83936415402 40 TAKE ONE TABLET BY MOUTH DAILY Lyrica [facility] 09667759116 225 Orally Twice a day 1 capsule Phenergan [facility] [address]-03 25 MG Orally every 6 hours as needed October 24, 2015 October 29, 2015 1 tablet as needed Pravastatin Sodium [facility] 74950846959 40 TAKE ONE TABLET BY MOUTH EVERY NIGHT AT BEDTIME. AVOID GRAPEFRUIT Latanoprost [facility] 2001 [address]-30 0.005 % Ophthalmic Once a day 1 drop into affected eye in the evening Dicyclomine HCl [facility] [address]-46 10 mg Orally 3 times a day October 24, 2015 November 03, 2015 1 capsule Zofran [facility] [address]-89 8 MG Orally Once a day prn 1 tablet Metformin HCl [facility] [address]-49 500 Orally Twice a day 2 Flovent HFA [facility] [address]-50 44 mcg/actuation September 05, 2014 inhale 2 puffs by Inhalation route 2 times per day Baclofen [facility] 10852506976 20 TAKE ONE TABLET BY MOUTH EVERY NIGHT AT BEDTIME Atenolol [facility] 38946296442 100 TAKE ONE TABLET BY MOUTH DAILY Scopolamine Base ND 0 1.5 mg apply 1 patch by Transdermal route to the hairless area behind 1 ear at least 4 hr before effect is required ; reapply every 3 days as needed PRN Fish Oil [facility] [address]-72 1000 MG Orally Once a day 1 capsule Estradiol [facility] [address]-85 1 MG Orally Once a day 1 tablet Proventil HFA [facility] [address]-65 90 mcg/actuation Aug 09, 2014 1-2 puffs by Inhalation route every 4 hours Procedures Procedure Coding System Code Date Office Visit, Est Pt., Level 4 CPT-4 69639 October 24, 2015 VENMARITA, ROUTINE* CPT-4 79098 October 24, 2015 [facility] VISIT ESTABLISHED PATIENT CPT-4 G0467 October 24, 2015 [facility] NOBLL October 24, 2015 Vital Signs Date/Time: October 24, 2015 Temperature 98.5 F Weight 348.2 lbs Height 63 in BMI 61.67 Index Blood Pressure Diastolic 80 mmHg Blood Pressure Systolic 137 mmHg Cardiac Monitoring Heart Rate 88 bpm Results Name Result Date Reference Range Unit Abnormality Flag ROUTINE VENIPUNCTURE Summary Purpose eClinicalWorks Submission
--- OUTSIDE RECORDS SUMMARY | 2016-12-24 18:28 | XMS REPORT ---
Author Author ELIZA GO [facility] eClinicalWorks Address Unknown Phone Unavailable Care Team Providers Care Staff Registered Nurse Name Role Phone ELIZA GO CP Unavailable [...] classified 311 Active Problem Hyperlipidemia 272.4 Active Assessment Edema 782.3 Active Problem Abnormal mammogram of left breast 793.80 Active Assessment Hypertension 401.9 Active Assessment Left shoulder pain 719.41 Active Problem Hypertension 401.9 Active Problem Actinic keratosis 702.0 Active Problem Other and unspecified noninfectious gastroenteritis and colitis 558.9 Active Problem Diabetes 250.00 Active Problem Asthma, unspecified, unspecified status 493.90 Active Assessment Spinal stenosis at L4-L5 level 724.02 Active Assessment Diabetes 250.00 Active Assessment Neuropathy, peripheral 356.9 Active Assessment Lumbar arthropathy 721.3 Active Problem Sciatica 724.3 Active Problem Unspecified abnormal mammogram 793.80 Active Problem Benign paroxysmal positional vertigo 386.11 Active Problem Herpes simplex without mention of complication 054.9 Active Assessment Hyperlipidemia 272.4 Active Problem Unspecified hemorrhoids without mention of complication 455.6 Active Problem Lumbago 724.2 Active Medications Medication Code System Code Instructions Start Date End Date Status Dosage Atenolol [facility] 42477554723 100 Orally Once a day 1 tablet Cyclobenzaprine HCl [facility] [address]-54 5 MG Orally Three times a day 1 tablet Tramadol HCl [facility] [address]-94 50 MG Orally 2 times a day prn Mar 29, 2015 1 tablet as needed Cymbalta [facility] [address]-75 60 mg 1 ECC orally once a day take 1 capsule (60 mg) by oral route once daily Scopolamine Base [facility] 0 1.5 mg Mar 12, 2014 apply 1 patch by Transdermal route to the hairless area behind 1 ear at least 4 hr before effect is required; reapply every 3 days as needed PRN Naprosyn [facility] 90920877840 500 TAKE ONE TABLET BY MOUTH TWICE A DAY WITH FOOD Naprosyn [facility] 87665390934 500 TAKE ONE TABLET BY MOUTH TWICE A DAY WITH FOOD Proventil HFA [facility] [address]-40 90 mcg/actuation Aug 09, 2014 1-2 puffs by Inhalation route every 4 hours Albuterol Sulfate [facility] [address]-52 2.5 mg /3 mL (0.083 %) May 17, 2014 1 Each by Inhalation route every 4 hours for cough and wheeze PRN for wheezing or cough Lyrica [facility] 96882089468 225 Orally Twice a day 1 capsule Lisinopril-Hydrochlorothiazide [facility] [address]-03 10-12.5 MG Orally Once a day 1 tablet Estradiol [facility] [address]-11 1 MG Orally Once a day 1 tablet Potassium Chloride ER [facility] [address]-78 10 MEQ Orally Once a day 1 tablet Lasix [facility] [address]-75 20 MG Orally Once a day PRN 1 tablet meclizine [facility] 0 25 mg Aug 23, 2014 take 1 tablet by Oral route 1 hour before exposure to motion 4 times per day PRN or vertigo Metformin HCl [facility] [address]-38 500 Orally Twice a day 2 Pravastatin Sodium [facility] 25268345669 40 TAKE ONE TABLET BY MOUTH EVERY NIGHT AT BEDTIME. AVOID GRAPEFRUIT Potassium Chloride ER [facility] 61101903459 10 Orally Once a day 1 tablet Lyrica [facility] 50365304747 225 Appt needed for additional reflls TAKE ONE CAPSULE BY MOUTH TWICE A DAY Procedures Procedure Coding System Code Date LAB NOT BILLED BY [facility] CPT-4 NOBLL Feb 27, 2015 [facility] VISIT ESTABLISHED PATIENT CPT-4 G0467 Feb 27, 2015 GLYCATED HEMOGLOBIN TEST CPT-4 29802 Feb 27, 2015 Office Visit, Est Pt., Level 4 CPT-4 23867 Feb 27, 2015 Vital Signs Date/Time: Feb 27, 2015 Temperature 97.3 F Weight 344.2 lbs Height 63 in BMI 60.97 Index Blood Pressure Diastolic 80 mmHg Blood Pressure Systolic 134 mmHg Cardiac Monitoring Heart Rate 80 bpm Results Name Result Date Reference Range Unit Abnormality Flag A1C (IN HOUSE) LIPID PANEL Summary Purpose eClinicalWorks Submission
--- OUTSIDE RECORDS SUMMARY | 2016-12-24 18:28 | XMS REPORT ---
Author Author ELIZA GO [facility] Address [address] [place] [address] Care Team Providers Care Cushion Maker Name Role Phone ELIZA GO Unavailable PROBLEMS Type Condition ICD9-CM Code [id number] Code Onset Dates Condition Status SNOMED Code Problem Chronic pain G89.29 Active 93457666 Problem Low back pain M54.5 Active 994118180 Problem Essential hypertension I10 Active 75545914 Assessment Vertigo R42 Mar, Active 684939169 Problem Mild intermittent asthma without complication J45.20 Active 889266163 Problem GERD (gastroesophageal reflux disease) K21.9 Active 942064434 Problem Mixed hyperlipidemia E78.2 Active 339433158 Problem Restless leg syndrome G25.81 Active 55546942 Problem Moderate episode of recurrent major depressive disorder F33.1 Active 436697811 Problem Abnormal drug screen R89.2 Active 087441605 Problem Type 2 diabetes mellitus without complication E11.9 Active 58231618 Problem Hereditary and idiopathic neuropathy, unspecified G60.9 Active 997872033 Problem Primary insomnia F51.01 Active 6029766 ALLERGIES Substance Reaction Event Type Date Status Travatan Unknown Drug Allergy Mar, Active Morphine Sulfate Unknown Drug Allergy Mar, Active Keflex Unknown Drug Allergy Mar, Active SOCIAL HISTORY No smoking Hx information available PLAN OF CARE VITAL SIGNS Height 63 in 2016-03-26 Heart Rate 67 bpm 2016-03-26 Respiratory Rate 24 2016-03-26 Blood pressure systolic 83 mmHg 2016-03-26 Blood pressure diastolic 48 mmHg 2016-03-26 MEDICATIONS Medication Instructions Dosage Frequency Start Date End Date Duration Status Potassium Chloride ER 10 TAKE ONE TABLET BY MOUTH DAILY WITH FOOD NEEDED 30 Active Cymbalta 60 Orally Once a day 1 capsule 24h 90 Active Estradiol 1 MG Orally Once a day 1 tablet 24h Active Belsomra 10 mg Orally Once a day 1 tablet at bedtime as needed 24h 30 days Active Atenolol 100 TAKE ONE TABLET BY MOUTH DAILY 30 Active Baclofen 20 TAKE ONE TABLET BY MOUTH EVERY NIGHT AT BEDTIME DIRECTED 30 Active Lisinopril-Hydrochlorothiazide 10-12.5 Orally Once a day 1 tablet 24h 30 Active Flovent HFA 44 mcg/actuation inhale 2 puffs by Inhalation route 2 times per day Active Proventil HFA 90 mcg/actuation 1-2 puffs by Inhalation route every 4 hours Active Metformin HCl 500 Orally Twice a day 2 12h 90 days Active meclizine 25 mg take 1 tablet by Oral route 1 hour before exposure to motion 4 times per day PRN or vertigo Active Tramadol HCl 50 mg Orally 2 times a day 1 tablet as needed 12h Active Pravastatin Sodium 40 TAKE ONE TABLET BY MOUTH EVERY NIGHT AT BEDTIME. AVOID GRAPEFRUIT. 30 Active Latanoprost 0.005 % Ophthalmic Once a day 1 drop into affected eye in the evening 24h Active Trulicity 0.75 MG/0.5ML Subcutaneous Once weekly 0.5 ml Active Lasix 20 TAKE ONE TABLET BY MOUTH DAILY NEEDED 30 Active Albuterol Sulfate 2.5 mg /3 mL (0.083 %) 1 Each by Inhalation route every 4 hours for cough and wheeze PRN for wheezing or cough Active Naproxen 500 Orally 2 times a day 1 tablet 12h 30 Active Lyrica 225 Orally Twice a day 1 capsule 12h Active Protonix 40 TAKE ONE TABLET BY MOUTH DAILY 30 Active RESULTS No Results PROCEDURES Procedure Date Ordered Related Diagnosis Body Site ZOFRAN (IV) 2 MG/ML (PER 1 MG) 40 MG/20 ML Mar 26, 2016 THER/PROPH/DIAG INJ, IV PUSH Mar 26, 2016 Office Visit, Est Pt., Level 3 Mar 26, 2016 [facility] VISIT ESTABLISHED PATIENT Mar 26, 2016 IMMUNIZATIONS Vaccine Route Administration Date Status ZOFRAN (IV) 2 MG/ML (PER 1 MG) 40 MG/20 ML IM Intramuscular Mar 26, 2016 Administered
== END 2016-12-23 14:00 | disposition home or self-care (01) ==
LOC: SDC 09:32
PROVIDERS: ATTEND Orthopaedic Surgery
DX: M77.11 Lateral epicondylitis, right elbow (principal); E11.9 Type 2 diabetes mellitus without complications; I10 Essential (primary) hypertension; E78.5 Hyperlipidemia, unspecified; J45.909 Unspecified asthma, uncomplicated; F32.9 Major depressive disorder, single episode, unspecified; Z79.899 Other long term (current) drug therapy; E66.01 Morbid (severe) obesity due to excess calories; K21.9 Gastro-esophageal reflux disease without esophagitis; Z87.891 Personal history of nicotine dependence; Z68.43 Body mass index [BMI] 50.0-59.9, adult
CPT/HCPCS: 82962

== ENCOUNTER 2017-03-18 05:41 | Outpatient (CLI) | payer MEDICARE, MEDICAID ==
[~2017-03-18] VITALS: Ht 162.6 cm; Wt 136.1 kg
[~2017-03-18 05:41] MED LIST changes: +HYDR-3816 PO
[2017-03-18] MEDS ORDERED: ATEN100T PO (10:44)
[2017-03-18] MEDS ORDERED: LISI1TAB6 PO (10:44)
[2017-03-18] MEDS ORDERED: PANT40TA3 PO (10:44)
[2017-03-18] MEDS ORDERED: NAPR500T8 PO (10:44)
[2017-03-18] MEDS ORDERED: METF500T4 PO (10:44)
[2017-03-18] MEDS ORDERED: DULO60CA58 PO (10:44)
[2017-03-18] MEDS ORDERED: MECL-106 PO (10:44)
== END 2017-03-18 10:45 ==
LOC: PREOP 05:41
PROVIDERS: ATTEND Surgery
DX: Z01.818 Encounter for other preprocedural examination (principal); R10.13 Epigastric pain; K21.9 Gastro-esophageal reflux disease without esophagitis

== ENCOUNTER 2017-03-22 08:41 | Day surgery (SDC) | payer MEDICARE, MEDICAID ==
[~2017-03-22 08:41] MED LIST changes: +ATEN100T PO; +DULO60CA58 PO; +MECL-106 PO; +METF500T4 PO; +NAPR500T8 PO; +PANT40TA3 PO
[2017-03-22] MEDS ORDERED: NS IV 500 ML 500 ML ONE (08:44)
[2017-03-22 08:47] VITALS: BP 103/73
--- OUTSIDE RECORDS SUMMARY | 2017-03-22 08:48 | XMS REPORT ---
Author Author ELIZA GO [facility] Address [address] [place] [address] Care Team Providers Care Huc Ob Name Role Phone TEREZAPat ELIZA Unavailable PROBLEMS Type Condition ICD9-CM Code [id number] Code Onset Dates Condition Status SNOMED Code Problem Post menopausal syndrome N95.1 Active 224128844 Problem Hammertoe of right foot M20.41 Active 464152373 Problem Hammertoe of left foot M20.42 Active 664124573 Problem Epigastric abdominal pain R10.13 Active 82453364 Problem Chronic diarrhea K52.9 Active 582417757 Problem Other hammer toe(s) (acquired), right foot M20.41 Active 343048497 Problem Other hammer toe(s) (acquired), left foot M20.42 Active 94908167 Problem Dyspepsia R10.13 Active 197200700 Problem Type 2 diabetes mellitus with peripheral neuropathy E11.42 Active 6210232832640 Problem Chronic pain G89.29 Active 24536126 Problem Mixed hyperlipidemia E78.2 Active 170366306 Problem GERD (gastroesophageal reflux disease) K21.9 Active 780192734 Problem Low back pain M54.5 Active 689545449 Problem Primary insomnia F51.01 Active 1930142 Problem Moderate episode of recurrent major depressive disorder F33.1 Active 878776686 Problem Essential hypertension I10 Active 66906276 Problem Hereditary and idiopathic neuropathy, unspecified G60.9 Active 426798927 Problem Mild intermittent asthma without complication J45.20 Active 354519564 Problem Restless leg syndrome G25.81 Active 04651393 ALLERGIES Unknown Allergies SOCIAL HISTORY No smoking Hx information available PLAN OF CARE VITAL SIGNS MEDICATIONS Medication Instructions Dosage Frequency Start Date End Date Duration Status meclizine 25 mg take 1 tablet by Oral route 1 hour before exposure to motion 4 times per day PRN or vertigo Active RESULTS No Results PROCEDURES No Known procedures IMMUNIZATIONS No Known Immunizations
--- OUTSIDE RECORDS SUMMARY | 2017-03-22 08:49 | XMS REPORT ---
Author Author TIFFANY FOWLER [facility] Address Unknown Care Team Providers Care Transportation Equipment Painter Name Role Phone TIFFANY FOWLER Unavailable PROBLEMS Type Condition ICD9-CM Code [id number] Code Onset Dates Condition Status SNOMED Code Problem Hereditary and idiopathic neuropathy, unspecified G60.9 Active 724187846 Problem Restless leg syndrome G25.81 Active 09604780 Problem Moderate episode of recurrent major depressive disorder F33.1 Active 537537204 Problem Type 2 diabetes mellitus with peripheral neuropathy E11.42 Active 2305323397461 Problem Hammertoe of left foot M20.42 Active 219120476 Problem Other hammer toe(s) (acquired), left foot M20.42 Active 30978505 Problem Post menopausal syndrome N95.1 Active 611243593 Problem Hammertoe of right foot M20.41 Active 042981285 Problem Other hammer toe(s) (acquired), right foot M20.41 Active 902019175 Problem Mild intermittent asthma without complication J45.20 Active 474353893 Problem Chronic pain G89.29 Active 00684591 Problem Essential hypertension I10 Active 03993023 Problem GERD (gastroesophageal reflux disease) K21.9 Active 231339917 Problem Low back pain M54.5 Active 448547278 Problem Mixed hyperlipidemia E78.2 Active 937132939 Problem Primary insomnia F51.01 Active 5323341 ALLERGIES Substance Reaction Event Type Date Status Travatan Unknown Drug Allergy Apr, Active Morphine Sulfate Unknown Drug Allergy Apr, Active Keflex Unknown Drug Allergy Apr, Active SOCIAL HISTORY No smoking Hx information available PLAN OF CARE Activity Details Follow Up prn Reason:refer to [place] VITAL SIGNS Blood pressure systolic 132 mmHg 2016-04-30 Blood pressure diastolic 91 mmHg 2016-04-30 MEDICATIONS Medication Instructions Dosage Frequency Start Date End Date Duration Status Pravastatin Sodium 40 TAKE ONE TABLET BY MOUTH EVERY NIGHT AT BEDTIME. AVOID GRAPEFRUIT 30 Active Cymbalta 60 TAKE ONE CAPSULE BY MOUTH DAILY 90 Active meclizine 25 mg take 1 tablet by Oral route 1 hour before exposure to motion 4 times per day PRN or vertigo Active Triamcinolone Acetonide 0.1 % apply a thin layer to the affected area(s) by Topical route 3 times per day dispense 60 gram tube Jan, Active Belsomra 10 mg Orally Once a day 1 tablet at bedtime as needed 24h 30 days Active Scopolamine Base 1.5 mg apply 1 patch by Transdermal route to the hairless area behind 1 ear at least 4 hr before effect is required; reapply every 3 days as needed PRN Active Tramadol HCl 50 mg Orally 2 times a day 1 tablet as needed 12h Active Lasix 20 TAKE ONE TABLET BY MOUTH DAILY NEEDED 30 Active Protonix 40 TAKE ONE TABLET BY MOUTH DAILY 30 Active Atenolol 100 TAKE ONE TABLET BY MOUTH DAILY 30 Active Lisinopril-Hydrochlorothiazide 10-12.5 Orally Once a day 1 tablet 24h 30 Active Latanoprost 0.005 % Ophthalmic Once a day 1 drop into affected eye in the evening 24h Active Estradiol 1 Orally Once a day 1 tablet 24h 30 Active Estradiol 1 MG Orally Once a day 1 tablet 24h Active Baclofen 20 TAKE ONE TABLET BY MOUTH EVERY NIGHT AT BEDTIME DIRECTED 30 Active Proventil HFA 90 mcg/actuation 1-2 puffs by Inhalation route every 4 hours Active Fish Oil 1000 MG Orally Once a day 1 capsule 24h Active Potassium Chloride ER 10 TAKE ONE TABLET BY MOUTH DAILY WITH FOOD NEEDED 30 Active Flovent HFA 44 mcg/actuation inhale 2 puffs by Inhalation route 2 times per day Active Lyrica 225 Orally Twice a day 1 capsule 12h Active Metformin HCl 500 TAKE TWO TABLETS BY MOUTH TWICE A DAY 30 Active Trulicity 0.75 MG/0.5ML Subcutaneous Once weekly 0.5 ml Active Albuterol Sulfate 2.5 mg /3 mL (0.083 %) 1 Each by Inhalation route every 4 hours for cough and wheeze PRN for wheezing or cough Active RESULTS No Results PROCEDURES Procedure Date Ordered Related Diagnosis Body Site LTD ORAL EVALUATION - PROBLEM FOCUS Apr 30, 2016 INTRAORL-PERIAPICAL 1 FILM 65770 Apr 30, 2016 IMMUNIZATIONS No Known Immunizations
[2017-03-22] MEDS ORDERED: NS IV 500 ML 500 ML IV PRN (09:00)
--- NOTE | 2017-03-22 09:31 | History & Physicial ---
History of Present Illness History of Present Illness Reason for visit/HPI to undergo colonoscopy to investigate chronic diarrhea and upper endoscopy regarding symptoms of reflux disease Date of Admission Date Seen by Provider: Mar 22, 2017 Time Seen by Provider: 09:29 I consulted on this patient on 03/22/17 09:29 Attending Physician Lani Cole MD Admitting Physician Melodie Guadarrama DO Consult Allergies and Home Medications Allergies Coded Allergies: cephalexin (Unverified Allergy, Severe, SWELLING, RASH, 08/31/10) benzalkonium chloride (Verified Allergy, Unknown, eye irritation, 04/25/15 ) travoprost (Verified Allergy, Unknown, eye irritation, 04/25/15) morphine (Verified Adverse Reaction, Mild, vomiting, 05/01/15) Home Medications Atenolol 100 Mg Tablet, 100 MG PO DAILY, (Reported) Baclofen 20 Mg Tablet, 20 MG PO HS, (Reported) Dulaglutide 0.75 Mg/0.5 Ml Pen.injctr, 0.75 MG SQ WEEK, (Reported) Duloxetine HCl 60 Mg Capsule.dr, 60 MG PO DAILY, (Reported) Estradiol 1 Mg Tablet, 1 MG PO DAILY, (Reported) Fluticasone Propionate 1 Ea Aero, 2 PUFF IH Q4H PRN for SHORTNESS OF BREATH, ( Reported) Furosemide 20 Mg Tablet, 20 MG PO DAILY, (Reported) Lisinopril/Hydrochlorothiazide 1 Each Tablet, 1 EACH PO DAILY, (Reported) Meclizine HCl 25 Mg Tablet, 25-50 MG PO q4-6hrs PRN for DIZZINESS, (Reported) take 1-2 (25mg) tabs Metformin HCl 500 Mg Tablet, 500 MG PO BID, (Reported) Naproxen 500 Mg Tablet.dr, 500 MG PO BID, (Reported) Pantoprazole Sodium 40 Mg Tablet.dr, 40 MG PO DAILY, (Reported) Pravastatin Sodium 40 Mg Tablet, 40 MG PO HS, (Reported) Pregabalin 225 Mg Capsule, 225 MG PO BID, (Reported) Tramadol HCl 50 Mg Tablet, 50 MG PO BID, (Reported) Past Tlihjdu-Askazp-Wfavms Hx Patient Social History Employed/Student: unemployed Alcohol Use: Denies Use Recreational Drug Use: No Smoking Status: Former Smoker Former Smoker, Quit: Dec 16, 2004 Recent Foreign Travel: No Contact w/other who traveled: No Recent Hopitalizations: No Recent Infectious Disease Expo: No Immunizations Up To Date Date of Pneumonia Vaccine: Jul 05, 2013 Date of Influenza Vaccine: Apr 04, 2012 Seasonal Allergies Seasonal Allergies: Yes Surgeries Yes Hysterectomy Respiratory No Cardiovascular Yes Hypertension Neurological Yes Headaches /Migraines, Neuropathy Reproductive System : No DAIRY SPECIALIST History: Hysterectomy Genitourinary No Gastrointestinal Yes Gastroesophageal Reflux Musculoskeletal Yes Arthritis, Chronic Back Pain Endocrine History of Endocrine Disorders: Yes Endocrine Disorders: Diabetes, Non-Insulin dep HEENT History of HEENT Disorders: Yes HEENT Disorders: Cataract Cancer Yes Cervical Psychosocial History of Psychiatric Problem: Yes Behavioral Health Disorders: Depression Integumentary History of Skin or Integumenta: No Constitutional: no symptoms reported EENTM: no symptoms reported Respiratory: no symptoms reported Cardiovascular: no symptoms reported Gastrointestinal: see HPI Genitourinary: no symptoms reported Musculoskeletal: no symptoms reported Skin: no symptoms reported Psychiatric/Neurological: Anxiety Physical Exam Vital Signs Vital Sign - Last 12Hours 03/22/17 08:47 Temp 97.5 Pulse 59 Resp 18 B/P (MAP) 103/73 Pulse Ox 94 Capillary Refill : General Appearance: No Apparent Distress HEENT: Normal ENT Inspection Neck: Normal Inspection Respiratory: Lungs Clear Cardiovascular: Regular Rate, Rhythm Gastrointestinal: Non Tender, Soft Rectal: Deferred Back: Normal Inspection Extremity: Normal Inspection Neurologic/Psychiatric: Alert, Oriented x3 Assessment/Plan Assessment and Plan chronic diarrhea and symptoms of gastroesophageal reflux disease. 4 concomitant upper endoscopy and colonoscopy. Problems: LANI COEL MD Mar 22, 2017 9:31 am
--- NOTE | 2017-03-22 09:32 | Conscious Sedation/ASA ---
Conscious Sedation Pre-Proced Time Reviewed: 09:32 ASA Class: 2 Airway Mallampati Classification: ([place] appropriate class) I. II. III, IV Lungs Heart ASA score ASA 1: a normal healthy patient ASA 2: a patient with a mild systemic disease (mid diabetes, controlled hypertension, obesity ASA 3: a patient with a severe systemic disease that limits activity (angina , COPD, prior Myocardial infarction) ASA 4: a patient with an incapacitating disease that is a constant threat to life (CHF, renal failure) ASA 5: a moribund patient not expected to survive 24 hrs. (ruptured aneurysm) ASA 6: a declared brain patient whose organs are being harvested. For emergent operations, add the letter E after the classification Grade 2 Sedation Plan: Discussed options with patient/fam Note The patient is an appropriate candidate to undergo the planned procedure, sedation, and anesthesia. The patient immediately re-assessed prior to indication. LANI COLE MD Mar 22, 2017 9:32 am
[2017-03-22] MEDS ORDERED: HURRICAINE EXT TUBE (BENZOCAINE) XX ONE (09:45)
[2017-03-22] MEDS ORDERED: fentaNYL INJECTION 100 MCG/2 ML AMP ONE ×2 (10:03→10:04)
[2017-03-22] MEDS ORDERED: HURRICAINE EXT TUBE (BENZOCAINE) ONE (10:04)
[2017-03-22] MEDS ORDERED: MIDAZOLAM 2 MG/2 ML (VERSED) VIAL ONE ×6 (10:04)
[2017-03-22] MEDS: MIDAZOLAM 2 MG/2 ML (VERSED) VIAL IVP PRN ×3 (10:10→10:22)
[2017-03-22] MEDS: fentaNYL INJECTION 100 MCG/2 ML AMP IVP PRN ×4 (10:11→10:26)
--- NOTE | 2017-03-22 10:37 | Endo Procedure Record ---
Endo Procedure Report Date of Procedure Mar 22, 2017 Surgeon (s) LANI COLE MD Post Procedure/Op Diagnosis EGD: Grade 2 esophagitis. Distal gastritis colonoscopy: Sigmoid diverticulosis Procedure Performed EGD with antral biopsy Colonoscopy to cecum Description of Procedure Anesthesia Type: Conscious Sedation Specimen(s) collected/removed antral mucosa for H. pylori Description of the Procedure Indication for procedures: This lady came in for an endoscopic assessment of symptoms of reflux disease and concomitant colonoscopy to evaluate chronic diarrhea. In addition, she reported a family history of colon cancer as well. Informed consent was obtained after reviewing the procedures in detail. Description of the procedures: EGD: She was placed in left lateral decubitus position and her vital signs were monitored. Conscious sedation was achieved using Versed and fentanyl. The flexible gastroscope was introduced down the esophagus, past the stomach, into the proximal duodenum Findings: Esophagus: Hiatal hernia with grade 2 esophagitis. Stomach: Mild distal gastritis. Biopsy for H. pylori was obtained. Duodenum: Normal. She tolerated the procedure well and was turned around in preparation for colonoscopy. Impression: symptoms of gastroesophageal reflux disease. Grade 2 esophagitis. Helicobacter status pending Colonoscopy:digital rectal examination was unremarkable. The colonoscope was then introduced into the rectum and advanced all the way up to the cecum. Quality of bowel preparation was rather poor. The scope was then withdrawn slowly and the mucosa examined in a systematic fashion. Finding: Sigmoid diverticulosis. No polyps were found He tolerated the procedures well and was taken back to the nursing area in a stable condition. Impression: Chronic diarrhea. Mild sigmoid diverticulosis. Positive family history for colon cancer. Recommend screening colonoscopy in 5 years. Copies To: CASPER RYAN XAVIER M MD Mar 22, 2017 10:37 am
--- NOTE | 2017-03-22 10:42 | Discharge Inst-Simple/Standard ---
Discharge Inst-Standard Discharge Medications New, Converted or Re-Newed RX: Other Patient Instructions/Follow Up Plan of Care/Instructions/FU: to avoid nonsteroidals. To increase pantoprazole to twice a day. Screening colonoscopy in 5 years. Follow up with her primary Re: diarrhea Activity as Tolerated: Yes Discharge Diet: No Restrictions LANI COLE MD Mar 22, 2017 10:42 am
[2017-03-22 11:05] VITALS: BP 117/62
[2017-03-22 11:55] VITALS: BP 113/68
[2017-03-22 12:10] VITALS: BP 113/68
== END 2017-03-22 12:10 | disposition home or self-care (01) ==
LOC: ENDO 08:41
PROVIDERS: ATTEND Surgery
DX: K20.9 Esophagitis, unspecified (principal); K57.30 Diverticulosis of large intestine without perforation or abscess without bleeding; K29.70 Gastritis, unspecified, without bleeding; Z87.891 Personal history of nicotine dependence; I10 Essential (primary) hypertension; E11.9 Type 2 diabetes mellitus without complications; F32.9 Major depressive disorder, single episode, unspecified

== ENCOUNTER → 2017-07-06 | Outpatient (CLI) | payer MEDICARE, MEDICAID ==
--- NOTE | 2017-07-06 14:18 | Diagnostic Imaging Report ---
INDICATION: Screening. The current study was also evaluated with a Computer Aided Detection (CAD) system. COMPARISON: Comparison made with prior examinations from 05/07/2016, 03/14/2015, 08/15/2014, and 05/09/2012. FINDINGS: There is a moderate amount of residual fibroglandular tissue bilaterally. There are unchanged nodular densities in the axillary regions of both breasts. There are a few benign-type calcifications. There is no new dominant mass, spiculated lesion, or suspicious calcification identified. The skin, nipples, and axillae are unremarkable. IMPRESSION: Benign. ACR BI-RADS Category 2: Benign findings. Result letter will be mailed to the patient. Note: At least 10% of breast cancer is not imaged by mammography. Dictated by: Dictated on workstation # [id number]
== END ==
LOC: RAD 10:17
DX: Z12.31 Encounter for screening mammogram for malignant neoplasm of breast (principal)
CPT/HCPCS: 77067

== ENCOUNTER 2017-11-06 11:09 | Emergency (ER) | payer MEDICARE, MEDICAID ==
[~2017-11-06] VITALS: Ht 162.6 cm; Wt 140.2 kg
[~2017-11-06 11:09] MED LIST changes: +HYDR-34 PO; -HYDR-3816 PO; -METF500T4 PO; +METF500T5 PO
--- OUTSIDE RECORDS SUMMARY | 2017-11-06 11:16 | XMS REPORT ---
Author Author ELIZA GO [facility] Address [address] [place] [address] Care Team Providers Care Header Up Name Role Phone ELIZA GO Unavailable PROBLEMS Type Condition ICD9-CM Code [id number] Code Onset Dates Condition Status SNOMED Code Problem Low back pain M54.5 Active 001830193 Problem Mixed hyperlipidemia E78.2 Active 942244620 Problem Mild intermittent asthma without complication J45.20 Active 354620589 Problem Central stenosis of spinal canal M48.00 Active 44225336 Problem Essential hypertension I10 Active 35296523 Problem Chronic pain G89.29 Active 11427383 Problem GERD (gastroesophageal reflux disease) K21.9 Active 897549288 Problem Type 2 diabetes mellitus with diabetic polyneuropathy, without long- term current use of insulin E11.42 Active 82288298 Problem Chronic diarrhea K52.9 Active 000865365 Problem Primary insomnia F51.01 Active 3963658 Problem Moderate episode of recurrent major depressive disorder F33.1 Active 388161550 Problem Post menopausal syndrome N95.1 Active 881145542 Problem Restless leg syndrome G25.81 Active 73165300 ALLERGIES No Information ENCOUNTERS Encounter Location Date Diagnosis [facility] [id number] [place] [address] [id number] Oct, Dental caries K02.9 [facility] [id number] [place] [address] 95209- 6831 Sep, [facility] [address] [id number] Aug, Encounter for dental examination Z01.20 [facility] [id number] [place] [address] 80613- 8922 Aug, Type 2 diabetes mellitus with diabetic polyneuropathy, without long-term current use of insulin E11.42 [facility] [id number] [place] [address] 58643- 9895 14 Aug, 2017 Acute pain of left knee M25.562 ; Type 2 diabetes mellitus with diabetic polyneuropathy, without long-term current use of insulin E11.42 ; Mixed hyperlipidemia E78.2 and BMI 50.0-59.9, adult Z68.43 [facility] [address] 47832- 9906 31 Jul, 2017 Dental examination Z01.20 [place] [address] 99658- 5112 Jul, Chronic pain G89.[address] 62455- 5173 Jun, Chronic pain G89.29 [place] [address] 51031- 8854 Jun, Well woman exam (no gynecological exam) Z00.00 ; Lipoma of right thigh D17.23 ; Cracked lips K13.0 ; Sebaceous cyst L72.3 ; Lesion of skin of breast N64.9 and BMI 50.0-59.9, adult Z68.43 [facility] [id number] [place] [address] 31934 -5875 18 Jun, 2017 Rash R21 and BMI 50.0-59.9, adult Z68.43 [facility] [id number] [place] [address] 33903- 1638 05 Jun, 2017 Chronic pain G89.29 [facility] [address] 84884- 3013 May, Primary insomnia F51.[address] 08493- 3011 May, Chronic pain G89.29 [facility] [id number] [place] [address] 53516- 2638 May, Dyspepsia R10.13 ; Chronic pain G89.29 ; Chronic diarrhea K52.9 ; GERD (gastroesophageal reflux disease) K21.9 ; Epigastric abdominal pain R10.13 ; Type 2 diabetes mellitus with diabetic polyneuropathy, without long-term current use of insulin E11.42 and Mixed hyperlipidemia E78.2 [facility] [id number] [place] [address] 71134- 1428 Apr, Chronic pain G89.29 [facility] [address] 79544- 4717 Apr, Chronic pain G89.29 [facility] [address] 73435- 1880 Apr, [facility] [address] 71123- 1842 Apr, [facility] [id number] [place] [address] 55694- 3058 Apr, Dyspepsia R10.13 ; Chronic pain G89.29 ; Chronic diarrhea K52.9 ; GERD (gastroesophageal reflux disease) K21.9 ; Epigastric abdominal pain R10.13 ; Type 2 diabetes mellitus with diabetic polyneuropathy, without long-term current use of insulin E11.42 and Mixed hyperlipidemia E78.2 [facility] [id number] [place] [address] 68641- 5956 Mar, Chronic pain G89.29 [facility] [id number] [place] [address] 96822- 7509 Feb, Dyspepsia R10.13 ; Chronic diarrhea K52.9 ; GERD ( gastroesophageal reflux disease) K21.9 and Epigastric abdominal pain R10.13 [facility] [id number] [place] [address] 26993- 7624 Feb, Chronic pain G89.29 [facility] [id number] [place] [address] 59696- 8520 Jan, Chronic pain G89.29 [facility] [address] 958552- 2546 Jan, [place] [id number] [place] [address] 53714- 7885 Dec, Type 2 diabetes mellitus with peripheral neuropathy E11.42 ; Primary insomnia F51.01 ; Chronic pain G89.29 ; GERD (gastroesophageal reflux disease) K21.9 ; Essential hypertension I10 and Mixed hyperlipidemia E78.2 [facility] [id number] [place] [address] 16781- 1558 Dec, Chronic pain G89.29 [facility] [id number] [place] [address] 27044- 5604 November, Chronic pain G89.29 [facility] [id number] [place] [address] 88752- 8814 November, Chronic pain G89.29 [facility] [id number] [place] [address] 31198- 8236 November, Primary insomnia F51.01 ; Acute pain of right shoulder M25.511 ; Chronic pain G89.29 and GERD (gastroesophageal reflux disease) K21.9 [facility] [id number] [place] [address] 50751- 0902 November, Primary insomnia F51.01 [facility] [id number] [place] [address] 78158- 9597 Sep, Essential hypertension I10 ; Mixed hyperlipidemia E78.2 ; GERD (gastroesophageal reflux disease) K21.9 ; Mild intermittent asthma without complication J45.20 ; Type 2 diabetes mellitus with peripheral neuropathy E11.42 ; Restless leg syndrome G25.81 ; Primary insomnia F51.01 ; Chronic pain G89.29 and Post menopausal syndrome N95.1 [facility] [id number] [place] [address] 84741- 4377 Sep, Hereditary and idiopathic neuropathy, unspecified G60.9 [facility] [id number] [place] [address] 17632- 7189 Sep, [facility] [id number] [place] [address] 03586- 0046 Aug, Type 2 diabetes mellitus with peripheral neuropathy E11.42 [facility] [address] 83965- 7856 Aug, Benign paroxysmal positional vertigo due to bilateral vestibular disorder H81.13 [facility] [address] 78243- 0126 Jul, Hammertoe of left foot M20.42 ; Hammertoe of right foot M20.41 and DM neuro manif type II E11.[address] 64090- 5687 Jun, Primary insomnia F51.01 and Type 2 diabetes mellitus without complication E11.9 [facility] [address] 73598- 0650 Jun, Asthmatic bronchitis with acute exacerbation J45.901 [place] [address] 83935- 3176 May, [place] [address] 54803- 4047 May, [facility] [id number] [place] [address] 57235- 3233 May, [facility] [id number] [place] [address] 13160- 2672 May, Primary insomnia F51.01 ; Encounter for immunization Z23 ; Type 2 diabetes mellitus without complication E11.9 ; Restless leg syndrome G25.81 ; Hereditary and idiopathic neuropathy, unspecified G60.9 ; Essential hypertension I10 ; Mixed hyperlipidemia E78.2 ; Post menopausal syndrome N95.1 and Right foot ulcer, with unspecified severity L97.519 [facility] [id number] [place] [address] 50655- 3510 May, [facility] [address] [id number] Apr, Dental examination Z01.20 [place] [address] [address]- 1093 Mar, Vertigo R42 [facility] [id number] [place] [address] 36723- 6106 Mar, Screening breast examination Z12.39 and Type 2 diabetes mellitus without complication E11.9 [facility] [id number] [place] [address] 87824- 5773 Feb, [place] [id number] [place] [address] 52906- 0932 Feb, Primary insomnia F51.01 and Restless leg syndrome G25.81 [facility] [id number] [place] [address] 28463- 7820 Jan, Primary insomnia F51.01 ; Restless leg syndrome G25.81 and Upper respiratory tract infection, unspecified type J06.9 [facility] [id number] [place] [address] 97153- 0144 Dec, [facility] [id number] [place] [address] 34293- 4690 Dec, Moderate episode of recurrent major depressive disorder F33.1 [facility] [id number] [place] [address] 49996- 6434 Dec, Moderate episode of recurrent major depressive disorder F33.1 [facility] [id number] [place] [address] 99340- 3231 Dec, Type 2 diabetes mellitus without complication E11.9 ; Hereditary and idiopathic neuropathy, unspecified G60.9 ; Mild intermittent asthma without complication J45.20 ; Essential hypertension I10 ; Mixed hyperlipidemia E78.2 ; Low back pain M54.5 ; Moderate episode of recurrent major depressive disorder F33.1 and Primary insomnia F51.01 [place] [place] [address] [place] [address] 40395- 0335 Dec, [place] [id number] [place] [address] 04875- 1034 Dec, [place] [address] [address] Oct, Diarrhea R19.7 [facility] [id number] [place] [address] 00596- 9417 Oct, [facility] [id number] [place] [address] 72740- 7398 Sep, Type 2 diabetes mellitus without complication E11.9 ; Mild intermittent asthma without complication J45.20 ; Essential hypertension I10 ; Mixed hyperlipidemia E78.2 ; Upper respiratory infection J06.9 and Benign paroxysmal positional vertigo due to bilateral vestibular disorder H81.13 [facility] [id number] [place] [address] 02528- 8383 23 Aug, 2015 Benign paroxysmal positional vertigo due to bilateral vestibular disorder H81.13 [facility] [id number] [place] [address] 67815- 5842 Aug, Hereditary and idiopathic neuropathy, unspecified G60.9 [place] [place] [address] [place] [address] 52312- 4490 Jun, Low back pain M54.5 ; Chronic pain G89.29 and Abnormal drug screen R89.2 [facility] [id number] [place] [address] [id number] Jun, Dental examination Z01.20 and Encounter for dental examination Z01.20 [facility] [id number] [place] [address] [id number] Jun, Encounter for dental examination Z01.20 ; Dental examination Z01.20 and Dental caries K02.9 [place] [id number] [place] [address] 73883- 7510 Jun, Type 2 diabetes mellitus without complication E11.9 ; Encounter for immunization Z23 ; Essential hypertension I10 ; Low back pain M54.5 ; Chronic pain G89.29 ; Mixed hyperlipidemia E78.2 ; GERD ( gastroesophageal reflux disease) K21.9 ; Mild intermittent asthma without complication J45.20 and Depression F32.9 [facility] [id number] [address]- 5115 May, [facility] [id number] [place] [address] 03912- 5148 Feb, [facility] [id number] [place] [address] 17751- 5360 Feb, Diabetes 250.00 ; Spinal stenosis at L4-L5 level 724.02 ; Lumbar arthropathy 721.3 ; Neuropathy, peripheral 356.9 ; Edema 782.3 ; Hypertension 401.9 ; Left shoulder pain 719.41 and Hyperlipidemia 272.4 [facility] [id number] [place] [address] 29282- 9226 Feb, [facility] [id number] [place] [address] 22816- 1302 Feb, Abnormal mammogram of left breast 793.80 [facility] [id number] [place] [address] 11663- 2072 Jan, [facility] [id number] [place] [address] 99401- 5856 Dec, [facility] [id number] [place] [address] 79251- 2855 Dec, [facility] [id number] [place] [address] 21486- 6758 Dec, [facility] [id number] [place] [address] 69074- 7664 November, Diabetes 250.00 ; Spinal stenosis at L4-L5 level 724.02 ; Lumbar arthropathy 721.3 ; Neuropathy, peripheral 356.9 and Edema 782.3 [facility] [id number] [place] [address] 99704- 4119 November, [facility] [id number] [place] [address] 85012- 5371 November, [facility] [place] [facility] [address] [id number] [place] [address]- 6195 November, [facility] [place] [facility] [address] [id number] [place] [address]- 4716 November, [facility] [place] [facility] [address] [id number] [place] [address]- 7036 November, [facility] [place] [facility] [address] [id number] [place] [address]- 5439 Oct, [facility] [place] [facility] [address] [id number] [place] [address]- 1220 Oct, [facility] [place] [facility] [address] [id number] [place] [address]- 9587 Sep, [facility] [place] [facility] [address] [id number] [place] [address]- 7308 Sep, [facility] [place] [facility] [address] [id number] [place] [address]- 0350 Sep, [facility] [place] [facility] [address] [id number] [place] [address]- 6974 Sep, [facility] [place] [facility] [address] [id number] [place] [address]- 6800 Sep, [facility] [place] [facility] [address] [id number] [place] [address]- 6800 Sep, [facility] [place] [facility] [address] [id number] [place] [address]- 3906 Sep, [facility] [place] [facility] [address] [id number] [place] [address]- 4107 Sep, [facility] [place] [facility] [address] [id number] [place] [address]- 5684 Sep, [facility] [place] [facility] [address] [id number] [place] [address]- 5202 Sep, [facility] [place] [facility] [address] [id number] [place] [address]- 1873 Sep, [facility] [place] [facility] [address] [id number] [place] [address]- 8445 Sep, [facility] [place] [facility] [address] [id number] [place] [address]- 9792 Sep, [facility] [place] [facility] [address] [facility] [id number] [place] [address]- 5618 Sep, [facility] [place] [facility] [address] [facility] [id number] [place] [address]- 5217 Sep, [facility] [place] [facility] [address] [id number] [place] [address]- 6596 Sep, [facility] [place] [facility] [address] [facility] [id number] [place] [address]- 1632 Sep, [facility] [place] [facility] [address] [facility] [id number] [place] [address]- 3992 Aug, 2014 [facility] [place] [facility] [address] [facility] [id number] [place] [address]- 2410 Aug, 2014 [facility] [place] [facility] [address] [id number] [place] [address]- 0455 Aug, 2014 [facility] [place] [facility] [address] [facility] [id number] [place] [address]- 4706 Aug, 2014 [facility] [place] [facility] [address] [facility] [id number] [address]- 2512 Aug, 2014 [facility] [place] [facility] [address] [facility] [id number], [place] [address]- 3188 Aug, 2014 [facility] [place] [facility] [address] [facility] [id number] [place] [address]- 5108 Aug, 2014 [facility] [place] [facility] [address] [facility] [id number], [place] [address]- 6893 Aug, 2014 [facility] [place] [facility] [address] [facility] [id number], [place] [address]- 9003 Aug, 2014 [facility] [place] [facility] [address] [id number] [place] [address]- 2548 Aug, 2014 [facility] [place] [facility] [address] [id number] [place] [address]- 7056 Aug, 2014 [facility] [place] [facility] [address] [id number] [place] [address]- 2546 Aug, 2014 [facility] [place] [facility] [address] [id number] [place] [address]- 2542 Aug, 2014 [facility] [place] [facility] [address] [id number] [place] [address] 2542 Aug, 2014 [facility] [place] [facility] [address] [id number] [place] [address]- 7369 Aug, 2014 [facility] [place] [facility] [address] [facility] [id number] [place] [address]- 4684 Aug, 2014 [facility] [place] [facility] [address] [id number] [place] [address]- 4066 Aug, 2014 [facility] [place] [facility] [address] [id number] [place] [address]- 6141 Aug, 2014 [facility] [place] [facility] [address] [facility] [id number] [place] [address]- 1955 Aug, 2014 [facility] [place] [facility] [address] [facility] [id number] [place] [address]- 2748 Aug, 2014 [facility] [place] [facility] [address] [id number] [place] [address] 254 Aug, 2014 [facility] [place] [facility] [address] [id number] [place] [address]- 1185 Jul, [facility] [place] [facility] [address] [id number] [place] [address]- 9249 Jul, [facility] [place] [facility] [address] [facility] [id number] [place] [address]- 9480 Jul, [facility] [place] [facility] [address] [id number] [place] [address]- 7916 Jul, [facility] [address] [id number] [place] [address]- 9387 Jul, [facility] [address] [id number] [place] [address]- 4794 Jul, [facility] [address] [id number] [place] [address]- 1906 Jul, [facility] [address] [id number] [place] [address]- 6018 Jul, [facility] [address] [id number] [place] [address]- 7766 Jul, [facility] [address] [id number] [place] [address]- 3921 Jul, [facility] [address] [id number] [place] [address]- 8945 Jul, [facility] [address] [id number] [place] [address]- 6133 Jul, [facility] [address] [id number] [place] [address]- 1809 Jul, [facility] [address] [id number] [place] [address]- 6369 Jul, [facility] [address] [id number] [place] [address]- 0455 Jul, [facility] [address] [id number] [place] [address]- 9701 Jul, [facility] [place] [facility] [address] [id number] [place] [address]- 2254 Jun, [facility] [place] [facility] [address] [id number] [place] [address]- 1717 Jun, [facility] [place] [facility] [address] [id number] [place] [address]- 0836 Jun, [facility] [place] [facility] [address] [id number] [place] [address]- 1343 Jun, [facility] [place] [facility] [address] [id number] [place] [address]- 3626 Jun, [facility] [place] [facility] [address] [id number] [place]- 0728 Jun, [facility] [place] [facility] [address] [id number] [place] [address]- 7869 Jun, [facility] [place] [facility] [address] [id number] [place] [address]- 2292 Jun, [facility] [place] [facility] [address] [id number] [place] [address]- 7167 Jun, [facility] [place] [facility] [address] [id number] [place] [address]- 8116 Jun, [facility] [place] [facility] [address] [id number] [place] [address]- 0581 Jun, [facility] [place] [facility] [address] [id number] [place] [address]- 9436 Jun, [facility] [place] [facility] [address] [id number] [place] [address]- 0272 Jun, [facility] [place] [facility] [address] [id number] [place] [address]- 9071 Jun, [facility] [place] [facility] [address] [id number] [place] [address]- 3154 Jun, [facility] [place] [facility] [address] [id number] [place] [address]- 7981 Jun, [facility] [place] [facility] [address] [id number] [place] 3291 Jun, [facility] [place] [facility] [address] [id number] [place] 1760 Jun, [facility] [place] [facility] [address] [id number], [place] [address] Jun, [facility] [place] [facility] [address] [id number] [place] [address] Jun, [facility] [place] [facility] [address] [id number] [place] [address] May, [facility] [place] [facility] [address] [facility] [id number] [place] [address] May, [facility] [place] [facility] [address] [id number] [place] [address] May, [facility] [place] [facility] [address] [id number] [place] [address] May, [facility] [place] [facility] [address] [id number] [place] [address] May, [facility] [place] [facility] [address] [id number] [place] [address] May, [facility] [place] [facility] [address] [id number] [place] [address] May, [facility] [place] [facility] [address] [id number] [place] [address] May, [facility] [place] [facility] [address] [facility] [id number] [place] [address] May, [facility] [place] [facility] [address] [id number], [place] [address] May, [facility] [place] [facility] [address] [id number], [place] [address] May, [facility] [place] [facility] [address] [id number], [place] [address] May, [facility] [place] [facility] [address] [id number], [place] [address] May, [facility] [place] [facility] [address] [facility] [id number], [place] [address] May, [facility] [place] [facility] [address] [id number] [place] [address] 14 May, 2014 [facility] [place] [facility] [address] [id number] [place] [address] May, [facility] [place] [facility] [address] [id number] [place] [address] May, [facility] [place] [facility] [address] [id number] [place] [address] Apr, [facility] [place] [facility] [address] [id number] [place] [address] Apr, [facility] [place] [facility] [address] [id number] [place] [address] Apr, [facility] [place] [facility] [address] [id number] [place] [address] Apr, [facility] [place] [facility] [address] [id number] [place] [address] Apr, [facility] [place] [facility] [address] [id number] [place] [address] Apr, [facility] [place] [facility] [address] [id number] [place] [address] Apr, [facility] [place] [facility] [address] [facility] [id number] [place] [address] Apr, [facility] [place] [facility] [address] [id number] [place] [address] Mar, 2013 [facility] [place] [facility] [address] [id number] [place] [address] Mar, 2013 [facility] [place] [facility] [address] [id number] [place] [address] 08 Mar, 2013 [facility] [place] [facility] [address] [id number] [place] [address] 08 Mar, 2013 [facility] [place] [facility] [address] [id number] [place] [address] Mar, [facility] [place] [facility] [address] [id number] [place] [address] Mar, [facility] [place] [facility] [address] [id number] [place] [address] Feb, [facility] [place] [facility] [address] [id number] [place] [address] Feb, [facility] [place] [facility] [address] [id number] [place] [address] 1215 Feb, [facility] [place] [facility] [address] [id number] [place] [address] 2615 Feb, [facility] [place] [facility] [address] [id number] [place] [address] 3492 Feb, [facility] [place] [facility] [address] [id number] [place] [address] 5383 Feb, [facility] [place] [facility] [address] [id number] [place] [address] 9535 Feb, [facility] [place] [facility] [address] [id number] [place] [address]- 8186 Feb, [facility] [place] [facility] [address] [id number] [place] [address] 4499 Feb, [facility] [place] [facility] [address] [id number] [place] [address]- 5893 Feb, [facility] [place] [facility] [address] [id number] [place] [address] 9747 Jan, [facility] [place] [facility] [address] [id number] [place] [address]- 3654 Jan, [facility] [place] [facility] [address] [id number] [place] [address]- 2254 Jan, [facility] [place] [facility] [address] [id number] [place] [address]- 5074 Jan, [facility] [place] [facility] [address] [id number] [place] [address]- 1667 Jan, [facility] [place] [facility] [address] [id number] [place] [address]- 5665 Jan, [facility] [place] [facility] [address] [id number] [place] [address]- 0754 Dec, [facility] [place] [facility] [address] [id number] [place] [address]- 8551 Dec, [facility] [place] [facility] [address] [id number] [place] [address]- 3551 Dec, [facility] [place] [facility] [address] [id number] [place] [address]- 7055 Dec, [facility] [place] [facility] [address] [id number] [place] [address]- 8835 November, [facility] [place] [facility] [address] [id number] [place] [address]- 9105 November, [facility] [place] [facility] [address] [id number] [place] [address]- 1760 Oct, [facility] [place] [facility] [address] [id number] [place] [address]- 7679 Oct, [facility] [place] [facility] [address] [id number] [place] [address]- 3034 Oct, [facility] [place] [facility] [address] [id number] [place] [address]- 6845 Oct, [facility] [place] [facility] [address] [id number] [place] [address]- 3018 Oct, [facility] [place] [facility] [address] [id number] [place] [address]- 8451 Oct, [facility] [place] [facility] [address] [id number] [place] [address]- 5103 Oct, [facility] [place] [facility] [address] [id number] [place] [address]- 2402 Oct, [facility] [place] [facility] [address] [id number] [place] [address]- 6960 Sep, [facility] [place] [facility] [address] [id number] [place] [address]- 8581 Sep, [facility] [place] [facility] [address] [id number] [place] [address]- 8362 Sep, [facility] [place] [facility] [address] [id number] [place] [address]- 7648 Sep, [facility] [place] [facility] [address] [id number] [place] [address]- 3646 Sep, [facility] [place] [facility] [address] [id number] [place] [address]- 5710 Sep, [facility] [place] [facility] [address] [id number] [place] [address]- 7188 Sep, [facility] [place] [facility] [address] [id number] [place] [address]- 0651 Sep, [facility] [place] [facility] [address] [id number] [place] [address]- 4747 Aug, [facility] [place] [facility] [address] [id number] [place] [address]- 2451 Aug, [facility] [place] [facility] [address] [id number] [place] [address]- 2073 Aug, [facility] [place] [facility] [address] [id number] [place] [address]- 8566 Aug, [facility] [place] [facility] [address] [id number] [place] [address]- 2542 Aug, [facility] [place] [facility] [address] [id number] [place] [address]- 9776 Aug, [facility] [place] [facility] [address] [id number] [place] [address]- 8423 10 Aug, 2013 [facility] [place] [facility] [address] [id number] [place] [address]- 6566 10 Aug, 2013 [facility] [address] [id number] [place] [address]- 4990 Jul, [facility] [place] [facility] [address] [id number] [place] [address]- 1767 Jul, [facility] [address] [id number] [place] [address]- 3800 Jul, [facility] [place] [facility] [address] [id number] [place] [address]- 2819 Jul, [facility] [place] [facility] [address] [id number] [place] [address]- 0730 Jul, [facility] [place] [facility] [address] [id number] [place] [address]- 9998 Jul, [facility] [address] [id number] [place] [address]- 9217 Jul, [facility] [place] [facility] [address] [id number] [place] [address]- 3441 Jun, [facility] [place] [facility] [address] [id number] [place] [address]- 1060 Jun, [facility] [place] [facility] [address] [id number] [place] [address]- 1119 Jun, [facility] [place] [facility] [address] [id number] [place] [address]- 3705 Jun, [facility] [place] [facility] [address] [id number] [place] [address]- 7376 Jun, [facility] [place] [facility] [address] [id number] [place] [address]- 8332 Jun, [facility] [place] [facility] [address] [id number] [place] [address]- 1268 Jun, [facility] [place] [facility] [address] [id number] [place] [address]- 1852 Jun, [facility] [place] [facility] [address] [id number] [place] [address]- 1345 Jun, [facility] [place] [facility] [address] [id number] [place] [address]- 8735 May, [facility] [place] [facility] [address] [id number] [place] [address]- 8790 May, [facility] [place] [facility] [address] [id number] [place] [address]- 8739 May, [facility] [place] [facility] [address] [id number] [place] [address]- 5044 May, [facility] [place] [facility] [address] [id number] [place] [address]- 1920 May, [facility] [place] [facility] [address] [id number] [place] [address]- 9662 May, [facility] [place] [facility] [address] [id number] [place] [address]- 1105 May, [facility] [place] [facility] [address] [id number] [place] [address]- 0879 May, [facility] [place] [facility] [address] [id number] [place] [address]- 1020 May, [facility] [place] [facility] [address] [id number] [place] [address]- 5743 May, [facility] [place] [facility] [address] [id number], [place] [address]- 7191 Apr, [facility] [place] [facility] [address] [id number] [place] [address]- 8121 Apr, [facility] [place] [facility] [address] [id number] [place] [address]- 3188 Apr, [facility] [place] [facility] [address] [id number] [place] [address]- 7442 Apr, [facility] [place] [facility] [address] [id number] [place] [address]- 6956 14 Apr, 2013 [facility] [place] [facility] [address] [id number] [place] [address]- 3804 14 Apr, 2013 [facility] [place] [facility] [address] [id number] [place] [address]- 3058 30 Mar, 2013 [facility] [place] [facility] [address] [id number] [place] [address]- 9608 23 Mar, 2013 [facility] [place] [facility] [address] [id number] [place] [address]- 3119 13 Mar, 2013 [facility] [place] [facility] [address] [id number] [place] [address]- 7328 04 Mar, 2013 [facility] [place] [facility] [address] [id number] [place] [address]- 9563 Feb, [facility] [place] [facility] [address] [id number] [place] [address]- 4610 Feb, [facility] [place] [facility] [address] [id number] [place] [address]- 9338 Jan, [facility] [place] [facility] [address] [id number] [place] [address]- 5134 Jan, [facility] [place] [facility] [address] [id number] [place] [address]- 1979 Jan, [facility] [place] [facility] [address] [id number] [place] [address]- 3500 Jan, [facility] [place] [facility] [address] [id number] [place] [address]- 7351 Jan, [facility] [place] [facility] [address] [id number] [place] [address]- 3645 Jan, [facility] [place] [facility] [address] [id number] [place] [address]- 1870 Jan, [facility] [place] [facility] [address] [id number] [place] [address]- 8987 Jan, [facility] [place] [facility] [address] [id number] [place] [address]- 9200 28 Dec, 2012 [facility] [address] [id number] [place] [address]- 2073 24 Dec, 2012 [facility] [address] [id number] [place] [address]- 3812 14 Dec, 2012 [facility] [address] [id number] [place] [address]- 8671 10 Dec, 2012 [facility] [address] [id number] [place] [address]- 7626 05 Dec, 2012 [facility] [address] [id number] [place] [address]- 7384 Dec, [facility] [address] [id number] [place] [address]- 9432 November, [facility] [address] [id number] [place] [address]- 6578 November, [facility] [address] [id number] [place] [address]- 8734 Oct, [facility] [address] [id number] [place] [address]- 3394 Oct, [facility] [address] [id number] [place] [address]- 3503 Oct, [facility] [address] [id number] [place] [address]- 5098 Oct, [facility] [address] [id number] [place] [address]- 0046 Oct, [facility] [address] [id number] [place] [address]- 8800 Sep, [facility] [address] [id number] [place] [address]- 1514 Sep, [facility] [address] [id number] [place] [address]- 3572 Aug, [facility] [address] [id number] [place] [address]- 9703 18 Aug, 2012 [facility] [place] [facility] [address] [id number] [place] [address]- 0555 14 Aug, 2012 [facility] [address] [id number] [place] [address]- 5099 08 Aug, 2012 [facility] [address] [id number] [place] [address]- 7878 23 Jul, 2012 [facility] [address] [id number] [place] [address]- 6149 Jul, [facility] [address] [id number] [place] [address]- 8953 Jul, [facility] [address] [id number] [place] [address]- 4251 Jul, [facility] [address] [id number], [place] [address]- 5828 11 Jul, 2012 [facility] [address] [id number] [place] [address]- 3737 Jul, [facility] [address] [id number] [place] [address]- 6420 Jun, [facility] [address] [id number], [place] [address]- 7241 19 Jun, 2012 [facility] [place] [facility] [address] [id number], [place] [address]- 8770 17 Jun, 2012 [facility] [place] [facility] [address] [id number] [place] [address]- 1691 17 Jun, 2012 [facility] [place] [facility] [address] [id number], [place] [address]- 3760 11 Jun, 2012 [facility] [place] [facility] [address] [id number], [place] [address]- 4420 11 Jun, 2012 [facility] [place] [facility] [address] [id number] [place] [address]- 7258 10 Jun, 2012 [facility] [place] [facility] [address] [id number] [place] [address]- 1941 Jun, [facility] [place] [facility] [address] [id number] [place] [address]- 2656 Jun, [facility] [place] [facility] [address] [id number] [place] [address]- 4406 Jun, [facility] [place] [facility] [address] [id number] [place] [address]- 5653 05 Jun, 2012 [facility] [place] [facility] [address] [id number] [place] [address]- 1934 05 Jun, 2012 [facility] [place] [facility] [address] [id number] [place] [address]- 6990 May, [facility] [place] [facility] [address] [id number] [place] [address]- 5215 May, [facility] [place] [facility] [address] [id number] [place] [address]- 9713 May, [facility] [place] [facility] [address] [id number] [place] [address]- 0275 May, [facility] [place] [facility] [address] [facility] [id number] [place] [address]- 6460 May, [facility] [place] [facility] [address] [id number] [place] [address]- 4706 18 May, 2012 [facility] [place] [facility] [address] [id number] [place] [address]- 8473 10 May, 2012 [facility] [place] [facility] [address] [id number] [place] [address]- 2492 10 May, 2012 [facility] [place] [facility] [address] [id number] [place] [address]- 5734 May, [facility] [place] [facility] [address] [id number], [place] [address]- 6919 08 May, 2012 [facility] [place] [facility] [address] [id number] [place] [address]- 0524 May, [facility] [place] [facility] [address] [id number] [place] [address]- 5110 May, [facility] [place] [facility] [address] [id number] [place] [address]- 2666 May, [facility] [place] [facility] [address] [id number] [place] [address]- 4145 May, [facility] [place] [facility] [address] [id number] [place] [address]- 5559 May, [facility] [place] [facility] [address] [id number] [place] [address]- 7859 Apr, [facility] [place] [facility] [address] [id number] [place] [address]- 6914 Apr, [facility] [place] [facility] [address] [id number] [place] [address]- 9124 Apr, [facility] [place] [facility] [address] [id number] [place] [address]- 2086 Apr, [facility] [place] [facility] [address] [id number] [place] [address]- 8595 Apr, [facility] [place] [facility] [address] [id number] [place] [address]- 5699 Apr, [facility] [place] [facility] [address] [id number] [place] [address]- 9229 Apr, [facility] [place] [facility] [address] [id number] [place] [address]- 5391 Apr, [facility] [place] [facility] [address] [id number] [place] [address]- 1111 Apr, [facility] [place] [facility] [address] [id number] [place] [address]- 4780 Apr, [facility] [place] [facility] [address] [id number] [place] [address]- 8786 08 Apr, 2012 [facility] [place] [facility] [address] [id number] [place] [address]- 1850 04 Apr, 2012 [facility] [place] [facility] [address] [id number] [place] [address]- 8681 02 Apr, 2012 [facility] [place] [facility] [address] [id number] [place] [address]- 1321 24 Mar, 2012 [facility] [place] [facility] [address] [id number] [place] [address]- 6303 18 Mar, 2012 [facility] [place] [facility] [address] [id number] [place] [address]- 9731 17 Mar, 2012 [facility] [place] [facility] [address] [id number] [place] [address]- 0368 13 Mar, 2012 [facility] [place] [facility] [address] [id number] [place] [address]- 8846 11 Mar, 2012 [facility] [place] [facility] [address] [id number] [place] [address]- 6601 28 Feb, 2012 [facility] [place] [facility] [address] [id number] [place] [address]- 7720 Feb, [facility] [place] [facility] [address] [id number] [place] [address]- 3550 14 Feb, 2012 [facility] [place] [facility] [address] [id number] [place] [address]- 5842 Feb, [facility] [place] [facility] [address] [id number] [place] [address]- 4687 08 Feb, 2012 [facility] [place] [facility] [address] [id number] [place] [address]- 9712 Feb, [facility] [place] [facility] [address] [id number] [place] [address]- 7702 Feb, [facility] [place] [facility] [address] [id number] [place] [address]- 0969 Jan, [facility] [place] [facility] [address] [id number] [place] [address]- 7598 Jan, [facility] [address] [id number] [place] [address]- 0353 Jan, [facility] [address] [id number] [place] [address]- 1796 Jan, [facility] [address] [id number] [place] [address]- 6349 Jan, [facility] [address] [id number] [place] [address]- 0116 Dec, [facility] [address] [id number] [place] [address]- 9398 Dec, [facility] [address] [id number] [place] [address]- 9306 Dec, [facility] [address] [id number] [place] [address]- 0846 Dec, [facility] [address] [id number] [place] [address] November, [facility] [address] [id number] [place] [address] November, [facility] [address] [id number] [place] [address] November, [facility] [address] [id number] [place] [address] November, [facility] [address] [id number] [place] [address] November, [facility] [place] [facility] [address] [id number] [place] [address] November, [facility] [address] [id number] [place] [address] Oct, [facility] [address] [id number] [place] [address] Oct, [facility] [address] [id number] [place] [address] Oct, [facility] [place] [facility] [address] [id number] [place] [address] 29 Sep, 2011 [facility] [place] [facility] [address] [id number] [place] [address] Sep, [facility] [place] [facility] [address] [id number] [place] [address] Sep, [facility] [place] [facility] [address] [id number] [place] [address] Sep, [facility] [place] [facility] [address] [id number] [place] [address] 24 Aug, 2011 [facility] [place] [facility] [address] [facility] [id number] [place] [address] Aug, [facility] [place] [facility] [address] [id number] [place] [address] Aug, [facility] [place] [facility] [address] [id number] [place] [address] Aug, [facility] [place] [facility] [address] [facility] [id number] [place] [address] Aug, [facility] [place] [facility] [address] [id number] [place] [address] Aug, [facility] [place] [facility] [address] [id number] [place] [address] Aug, [facility] [place] [facility] [address] [id number] [place] [address] Jul, [facility] [place] [facility] [address] [facility] [id number] [place] [address] Jul, [facility] [place] [facility] [address] [id number] [place] [address] Jul, [facility] [place] [facility] [address] [id number] [place] [address] Jun, [facility] [address] [id number] [place] [address] Jun, [facility] [place] [facility] [address] [id number] [place] [address] 15 Jun, 2011 [facility] [address] [id number] [place] [address] Jun, [facility] [place] [facility] [address] [id number] [place] [address] May, [facility] [address] [id number] [place] [address] May, [facility] [place] [facility] [address] [id number] [place] [address] May, [facility] [address] [id number] [place] [address] May, [facility] [address] [id number] [place] [address] May, [facility] [place] [facility] [address] [id number] [place] [address] Apr, [facility] [address] [id number] [place] [address] Apr, [facility] [place] [facility] [address] [id number] [place] [address] 24 Apr, 2011 [facility] [place] [facility] [address] [id number] [place] [address] Apr, [facility] [place] [facility] [address] [id number] [place] [address] Jun, [facility] [place] [facility] [address] [id number] [place] [address] Jun, [facility] [place] [facility] [address] [id number] [place] [address] 30 May, 2010 [facility] [place] [facility] [address] [id number] [place] [address] 30 May, 2010 [facility] [place] [facility] [address] [id number] [place] [address] 29 May, 2010 [facility] [place] [facility] [address] [id number] [place] [address] 24 May, 2010 [facility] [place] [facility] [address] [id number] [place] [address] 16 May, 2010 [facility] [place] [facility] [address] [id number] [place] [address] 15 May, 2010 [facility] [place] [facility] [address] [id number] [place] [address]- [address] May, [facility] [place] [facility] [address] [id number] [place] [address] Apr, [facility] [place] [facility] [address] [id number] [place] [address] Apr, [facility] [place] [facility] [address] [id number] [place] [address] Apr, [facility] [place] [facility] [address] [id number], [place] [address] Apr, [facility] [place] [facility] [address] [id number], [place] [address] 18 Apr, 2010 [facility] [place] [facility] [address] [id number], [place] [address] 13 Apr, 2010 [facility] [place] [facility] [address] [id number], [place] [address] 11 Apr, 2010 [facility] [place] [facility] [address] [id number], [place] [address] Jan, [facility] [place] [facility] [address] [id number], [place] [address] Jun, [facility] [place] [facility] [address] [id number], [place] [address] Jun, [facility] [address] [id number] [address] Jun, [facility] [address] [id number], [place] [address] Jun, [facility] [address] [id number] [address] Jun, [facility] [address] [id number] [address] Jun, [facility] [address] [id number] [address] Apr, [facility] [id number] [address] November, [facility] [address] [id number] [address] Oct, IMMUNIZATIONS No Known Immunizations SOCIAL HISTORY Never Assessed REASON FOR VISIT Medication not covered PLAN OF CARE VITAL SIGNS MEDICATIONS Medication Instructions Dosage Frequency Start Date End Date Duration Status Meloxicam 15 mg Orally Once a day 1 tablet 24h Apr, 30 day(s) Active RESULTS No Results PROCEDURES No Known procedures INSTRUCTIONS MEDICATIONS ADMINISTERED No Known Medications MEDICAL (GENERAL) HISTORY Type Description Date Medical History type II diabetes with poly neuropathy Medical History pre-glaucoma Dr. Alyson Thomas Medical History diastolic dysfunction Medical History hypertension Medical History asthma Medical History gastroesophageal reflux disease (GERD) Medical History kidney stones Medical History hyperlipidemia Medical History bulging disc(s) Medical History restless leg syndrome Medical History herniated disc Medical History depression Medical History cervical cancer (severe dysplasia) Medical History MRSA (skin abscesses) Medical History Hx abnormal mammogram Medical History Herpes simplex without mention of complication Medical History Unspecified hemorrhoids without mention of complication Medical History Asthma, unspecified, unspecified status Medical History Hx Hammer Toes Surgical History total hysterectomy for severe dysplasia 06/2004 Surgical History orthopedic surgery Right shoulder surgery Surgical History colonoscopy-ext hemorrhoids, no polyps (Tyler) Surgical History arthroscopic knee surgery (Right) Surgical History cataract-lens implants -Left eye- Dr Castro 10/23/2014 Surgical History Left rotator cuff repair 04/2015 Surgical History Right lateral epicondilisis 12/23/2016 Surgical History ANGELICA Tyler 03/2017 Hospitalization History surgery
--- OUTSIDE RECORDS SUMMARY | 2017-11-06 11:16 | XMS REPORT ---
Author Author HARMANJESSICA VelaIN Organization [facility] [place] Address [address] [place] [address] Care Team Providers Care Sprinkler Installer Name Role Phone TESFAYE HAMMER Unavailable PROBLEMS Type Condition ICD9-CM Code [id number] Code Onset Dates Condition Status SNOMED Code Problem Post menopausal syndrome N95.1 Active 344790755 Problem Hammertoe of right foot M20.41 Active 064366249 Problem Hammertoe of left foot M20.42 Active 439728882 Problem Epigastric abdominal pain R10.13 Active 40967923 Problem Chronic diarrhea K52.9 Active 504984146 Problem Other hammer toe(s) (acquired), right foot M20.41 Active 272818595 Problem Other hammer toe(s) (acquired), left foot M20.42 Active 04229461 Problem Dyspepsia R10.13 Active 721004336 Problem Type 2 diabetes mellitus with peripheral neuropathy E11.42 Active 2731917906754 Problem Chronic pain G89.29 Active 80874317 Problem Mixed hyperlipidemia E78.2 Active 096974741 Problem GERD (gastroesophageal reflux disease) K21.9 Active 483182044 Problem Low back pain M54.5 Active 549336158 Problem Primary insomnia F51.01 Active 9139882 Problem Moderate episode of recurrent major depressive disorder F33.1 Active 156864055 Problem Essential hypertension I10 Active 53823101 Problem Hereditary and idiopathic neuropathy, unspecified G60.9 Active 561345776 Problem Mild intermittent asthma without complication J45.20 Active 082452061 Problem Restless leg syndrome G25.81 Active 22122595 ALLERGIES No Information SOCIAL HISTORY Never Assessed PLAN OF CARE Activity Details Follow Up prn Reason: VITAL SIGNS Height 63 in 2016-07-31 Blood pressure systolic 116 mmHg 2016-07-31 Blood pressure diastolic 88 mmHg 2016-07-31 MEDICATIONS Unknown Medications RESULTS No Results PROCEDURES Procedure Date Ordered Result Body Site [facility] VISIT ESTABLISHED PATIENT Jul 31, 2016 IMMUNIZATIONS No Known Immunizations MEDICAL (GENERAL) HISTORY Type Description Date Medical History type II diabetes Medical History pre-glaucoma last pressure 11/16 13 Medical History diastolic dysfunction Medical History hypertension Medical History asthma Medical History gastroesophageal reflux disease (GERD) Medical History kidney stones Medical History hyperlipidemia Medical History bulging disc(s) Medical History restless leg syndrome Medical History peripheral neuropathy Medical History herniated disc Medical History headache Medical History depression Medical History cervical cancer (severe dysplasia) Medical History MRSA (skin abscesses) Medical History PPV23 (PNEUMOVAX) DX Medical History Dermatophytosis of nail Medical History Unspecified abnormal mammogram Medical History Herpes simplex without mention of complication Medical History Unspecified hemorrhoids without mention of complication Medical History Asthma, unspecified, unspecified status Medical History Abnormal drug screen Surgical History total hysterectomy for severe dysplasia 06/2004 Surgical History orthopedic surgery Right shoulder surgery Surgical History colonoscopy-ext hemorrhoids, no polyps (Tyler) 08/2012 Surgical History arthroscopic knee surgery (Right) Surgical History cataract-lens implants -Left eye- Dr Castro 10/23/2014 Surgical History Left rotator cuff repair 04/2015 Surgical History Right lateral epicondilisis 12/23/2016 Hospitalization History surgery
--- OUTSIDE RECORDS SUMMARY | 2017-11-06 11:17 | XMS REPORT ---
Author Author ELIZA GO [facility] Address [address] [place] [address] Care Team Providers Care Student Financial Services Counselor Name Role Phone ELIZA GO Unavailable PROBLEMS Type Condition ICD9-CM Code [id number] Code Onset Dates Condition Status SNOMED Code Problem Restless leg syndrome G25.81 Active 45788746 Problem Hammertoe of left foot M20.42 Active 219527399 Problem Post menopausal syndrome N95.1 Active 767407619 Problem Type 2 diabetes mellitus with diabetic polyneuropathy, without long- term current use of insulin E11.42 Active 07487951 Problem Chronic diarrhea K52.9 Active 577636632 Problem Other hammer toe(s) (acquired), left foot M20.42 Active 83386297 Problem Hammertoe of right foot M20.41 Active 510407355 Problem Dyspepsia R10.13 Active 560869771 Problem Epigastric abdominal pain R10.13 Active 53015319 Problem Essential hypertension I10 Active 59183576 Problem Chronic pain G89.29 Active 89097101 Problem Mixed hyperlipidemia E78.2 Active 275711649 Problem Mild intermittent asthma without complication J45.20 Active 080780591 Problem GERD (gastroesophageal reflux disease) K21.9 Active 693198092 Problem Moderate episode of recurrent major depressive disorder F33.1 Active 931375015 Problem Low back pain M54.5 Active 658595370 Problem Primary insomnia F51.01 Active 4986234 ALLERGIES No Information SOCIAL HISTORY Never Assessed PLAN OF CARE VITAL SIGNS MEDICATIONS Medication Instructions Dosage Frequency Start Date End Date Duration Status Lyrica 225 Orally Twice a day 1 capsule 12h Active RESULTS No Results PROCEDURES No Known procedures IMMUNIZATIONS No Known Immunizations MEDICAL (GENERAL) HISTORY [...] unspecified status Medical History Abnormal drug screen Medical History Other hammer toe(s) (acquired), right foot Medical History Other hammer toe(s) (acquired), right foot Surgical History total hysterectomy for severe dysplasia 06/2004 Surgical History orthopedic surgery Right shoulder surgery Surgical History colonoscopy-ext hemorrhoids, no polyps (Jayson) Surgical History arthroscopic knee surgery (Right) Surgical History cataract-lens implants -Left eye- Dr Castro 10/23/2014 Surgical History Left rotator cuff repair 04/2015 Surgical History Right lateral epicondilisis 12/23/2016 Surgical History ANGELICA Tyler 03/2017 Hospitalization History surgery
--- OUTSIDE RECORDS SUMMARY | 2017-11-06 11:18 | XMS REPORT ---
Author Author ELIZA GO [facility] Address [address] [place] [address] Care Team Providers Care Vender Name Role Phone TEREZAPat ELIZA Unavailable PROBLEMS Type Condition ICD9-CM Code TVU77-OP Code Onset Dates Condition Status SNOMED Code Problem Low back pain M54.5 Active 729842048 Problem Mixed hyperlipidemia E78.2 Active 574496929 Problem Mild intermittent asthma without complication J45.20 Active 826205445 Problem Central stenosis of spinal canal M48.00 Active 51338516 Problem Essential hypertension I10 Active 33536912 Problem Chronic pain G89.29 Active 97554999 Problem GERD (gastroesophageal reflux disease) K21.9 Active 044357275 Problem Type 2 diabetes mellitus with diabetic polyneuropathy, without long- term current use of insulin E11.42 Active 65907467 Problem Chronic diarrhea K52.9 Active 254739534 Problem Primary insomnia F51.01 Active 8620487 Problem Moderate episode of recurrent major depressive disorder F33.1 Active 371061737 Problem Post menopausal syndrome N95.1 Active 740003294 Problem Restless leg syndrome G25.81 Active 33705608 ALLERGIES Substance Reaction Event Type Date Status Travatan Unknown Drug Allergy Feb, Active Morphine Sulfate Unknown Drug Allergy Feb, Active Keflex Unknown Drug Allergy Feb, Active ENCOUNTERS Encounter Location Date Diagnosis [facility] [address] [id number] Oct, Dental caries K02.9 [facility] [address], [place] [address] Sep, [facility] [address] [id number] Aug, Encounter for dental examination Z01.20 [facility] [address], [place] [address] 26 Aug, 2017 Type 2 diabetes mellitus with diabetic polyneuropathy, without long-term current use of insulin E11.42 [place] [address] [address]- 388[address] 14 Aug, 2017 Acute pain of left knee M25.562 ; Type 2 diabetes mellitus with diabetic polyneuropathy, without long-term current use of insulin E11.42 ; Mixed hyperlipidemia E78.2 and BMI 50.0-59.9, adult Z68.43 [place] [address] [address]95- 7266 31 Jul, 2017 Dental examination Z01.[address] [address]- 9017 Jul, Chronic pain G89.[address] 06297- 7101 Jun, Chronic pain G89.29 [place] [address] 74719- 5033 27 Jun, 2017 Well woman exam (no gynecological exam) Z00.00 ; Lipoma of right thigh D17.23 ; Cracked lips K13.0 ; Sebaceous cyst L72.3 ; Lesion of skin of breast N64.9 and BMI 50.0-59.9, adult Z68.43 [facility] [address] [id number] [place] [address] -[address]15 18 Jun, 2017 Rash R21 and BMI 50.0-59.9, adult Z68.43 [place] [address] 99637- 2242 05 Jun, 2017 Chronic pain G89.[address] 32008- 7409 May, Primary insomnia F51.[address] 89823- 8299 May, Chronic pain G89.29 [place] [id number] [place] [address] 70918- 1715 May, Dyspepsia R10.13 ; Chronic pain G89.29 ; Chronic diarrhea K52.9 ; GERD (gastroesophageal reflux disease) K21.9 ; Epigastric abdominal pain R10.13 ; Type 2 diabetes mellitus with diabetic polyneuropathy, without long-term current use of insulin E11.42 and Mixed hyperlipidemia E78.2 [place] [address] 63815- 9534 Apr, Chronic pain G89.[address] 63888- 3416 Apr, Chronic pain G89.29 [place] [address] 58740- 8890 Apr, [place] [address] 25588- 5441 Apr, [place] [address] 97940- 6357 Apr, Dyspepsia R10.13 ; Chronic pain G89.29 ; Chronic diarrhea K52.9 ; GERD (gastroesophageal reflux disease) K21.9 ; Epigastric abdominal pain R10.13 ; Type 2 diabetes mellitus with diabetic polyneuropathy, without long-term current use of insulin E11.42 and Mixed hyperlipidemia E78.2 [place] [address] [address] [id number] [place] [address] 44311- 9839 Mar, Chronic pain G89.29 [place] [id number] [place] [address] 27477- 9994 Feb, Dyspepsia R10.13 ; Chronic diarrhea K52.9 ; GERD ( gastroesophageal reflux disease) K21.9 and Epigastric abdominal pain R10.13 [place] [id number] [place] [address] 43396- 7902 Feb, Chronic pain G89.29 [place] [address] 44168- 6868 Jan, Chronic pain G89.29 [place] [address] [place] [id number] [place] [address] 79047- 3941 Jan, [place] [address] [place] [id number] [place] [address] 96627- 1228 Dec, Type 2 diabetes mellitus with peripheral neuropathy E11.42 ; Primary insomnia F51.01 ; Chronic pain G89.29 ; GERD (gastroesophageal reflux disease) K21.9 ; Essential hypertension I10 and Mixed hyperlipidemia E78.2 [place] [address] [address] [id number] [place] [address] 50574- 0027 Dec, Chronic pain G89.29 [place] [address] 53818- 1355 November, Chronic pain G89.29 [place] [address] [place] [id number] [place] [address] 93501- 3466 November, Chronic pain G89.29 [place] [address] [place] [id number] [place] [address] 79493- 6474 November, Primary insomnia F51.01 ; Acute pain of right shoulder M25.511 ; Chronic pain G89.29 and GERD (gastroesophageal reflux disease) K21.9 [place] [address] [place] [id number] [place] [address] 26710- 8962 November, Primary insomnia F51.01 [place] [address] [place] [id number] [place] [address] 11671- 6256 Sep, Essential hypertension I10 ; Mixed hyperlipidemia E78.2 ; GERD (gastroesophageal reflux disease) K21.9 ; Mild intermittent asthma without complication J45.20 ; Type 2 diabetes mellitus with peripheral neuropathy E11.42 ; Restless leg syndrome G25.81 ; Primary insomnia F51.01 ; Chronic pain G89.29 and Post menopausal syndrome N95.1 [place] [address] [place] [id number] [place] [address] 36491- 0365 Sep, Hereditary and idiopathic neuropathy, unspecified G60.9 [place] [address] [place] [id number] [place] [address] 36373- 4352 Sep, [place] [address] 58189- 3115 Aug, Type 2 diabetes mellitus with peripheral neuropathy E11.42 [place] [address] 88362- 9734 Aug, Benign paroxysmal positional vertigo due to bilateral vestibular disorder H81.13 [place] [address] 96882- 7177 Jul, Hammertoe of left foot M20.42 ; Hammertoe of right foot M20.41 and DM neuro manif type II E11.[address] 50586- 0270 Jun, Primary insomnia F51.01 and Type 2 diabetes mellitus without complication E11.[address] 44993- 9024 Jun, Asthmatic bronchitis with acute exacerbation J45.[address] 22525- 6393 May, [place] [address] 64241- 7576 May, [place] [id number] [place] [address] 83156- 6925 May, [address] 16817- 2323 May, Primary insomnia F51.01 ; Encounter for immunization Z23 ; Type 2 diabetes mellitus without complication E11.9 ; Restless leg syndrome G25.81 ; Hereditary and idiopathic neuropathy, unspecified G60.9 ; Essential hypertension I10 ; Mixed hyperlipidemia E78.2 ; Post menopausal syndrome N95.1 and Right foot ulcer, with unspecified severity L97.[address] 41383- 6892 May, [facility] [address] [place] [id number] [address] Apr, Dental examination Z01.20 [place] [address] [place] [id number] [place] [address] 14675- 2676 Mar, Vertigo R42 [facility] [address] [place] [id number] [place] [address] 88306- 1118 Mar, Screening breast examination Z12.39 and Type 2 diabetes mellitus without complication E11.9 [place] [address] [place] [address] 03769- 6133 Feb, [place] [address] [place] [id number] [place] [address] 03799- 8965 Feb, Primary insomnia F51.01 and Restless leg syndrome G25.81 [place] [address] [place] [id number] [place] [address] 32835- 3098 Jan, Primary insomnia F51.01 ; Restless leg syndrome G25.81 and Upper respiratory tract infection, unspecified type J06.9 [place] [address] [place] [address] 89184- 0905 Dec, [place] [address] [place] [id number] [place] [address] 05570- 3185 Dec, Moderate episode of recurrent major depressive disorder F33.1 [place] [address] [place] [address] 01467- 9345 Dec, Moderate episode of recurrent major depressive disorder F33.1 [place] [address] [place] [address] 83060- 6295 Dec, Type 2 diabetes mellitus without complication E11.9 ; Hereditary and idiopathic neuropathy, unspecified G60.9 ; Mild intermittent asthma without complication J45.20 ; Essential hypertension I10 ; Mixed hyperlipidemia E78.2 ; Low back pain M54.5 ; Moderate episode of recurrent major depressive disorder F33.1 and Primary insomnia F51.01 [facility] [address] [id number] [place] [address] 64432- 7899 Dec, [facility] [address] [place] [id number] [place] [address] 28696- 9690 Dec, [facility] [address] [place] [id number] [place] [address] 25698- 1728 Oct, Diarrhea R19.7 [facility] [address] 62521- 2293 Oct, [facility] [address] 18058- 2231 Sep, Type 2 diabetes mellitus without complication E11.9 ; Mild intermittent asthma without complication J45.20 ; Essential hypertension I10 ; Mixed hyperlipidemia E78.2 ; Upper respiratory infection J06.9 and Benign paroxysmal positional vertigo due to bilateral vestibular disorder H81.13 [place] [address] [place] [address] [id number] [place] [address] 07469- 5520 23 Aug, 2015 Benign paroxysmal positional vertigo due to bilateral vestibular disorder H81.13 [facility] [address] [place] [address] [id number] [place] [address] 10974- 2283 Aug, Hereditary and idiopathic neuropathy, unspecified G60.9 [facility] [address] [place] [id number] [place] [address] 37688- 9945 Jun, Low back pain M54.5 ; Chronic pain G89.29 and Abnormal drug screen R89.2 [facility] [address] [id number] [place] [id number] Jun, Dental examination Z01.20 and Encounter for dental examination Z01.20 [facility] [address] [place] [id number] [place] [address] [id number] Jun, Encounter for dental examination Z01.20 ; Dental examination Z01.20 and Dental caries K02.9 [facility] [address] [id number] [place] [address] 12740- 2019 Jun, Type 2 diabetes mellitus without complication E11.9 ; Encounter for immunization Z23 ; Essential hypertension I10 ; Low back pain M54.5 ; Chronic pain G89.29 ; Mixed hyperlipidemia E78.2 ; GERD ( gastroesophageal reflux disease) K21.9 ; Mild intermittent asthma without complication J45.20 and Depression F32.9 [place] [address] 09790- 3547 May, [place] [address] 51747- 0108 Feb, [place] [address] 17715- 2938 Feb, Diabetes 250.00 ; Spinal stenosis at L4-L5 level 724.02 ; Lumbar arthropathy 721.3 ; Neuropathy, peripheral 356.9 ; Edema 782.3 ; Hypertension 401.9 ; Left shoulder pain 719.41 and Hyperlipidemia 272.[address] 33996- 7765 Feb, [place] [address] 34226- 2744 Feb, Abnormal mammogram of left breast 793.[address] 91552- 8733 Jan, [place] [address] 58283- 5701 Dec, [place] [address] 44459- 6545 Dec, [place] [address] 39958- 0840 Dec, [place] [address] 61404- 4001 November, Diabetes 250.00 ; Spinal stenosis at L4-L5 level 724.02 ; Lumbar arthropathy 721.3 ; Neuropathy, peripheral 356.9 and Edema 782.3 [place] [address] 81654- 3994 November, [facility] [place] [facility] [address] [id number] [place] [address]- 7684 November, [facility] [place] [facility] [address] [id number] [place] [address]- 1108 November, [facility] [place] [facility] [address] [id number] [place] [address]- 7411 November, [facility] [place] [facility] [address] [id number] [place] [address]- 1048 November, [facility] [place] [facility] [address] [id number] [place] [address]- 2164 Oct, [facility] [place] [facility] [address] [id number] [place] [address]- 6874 Oct, [facility] [place] [facility] [address] [id number] [place] [address]- 6074 Sep, [facility] [place] [facility] [address] [id number] [place] [address]- 0510 Sep, [facility] [place] [facility] [address] [id number] [place] [address]- 9611 Sep, [facility] [place] [facility] [address] [id number] [place] [address]- 8751 Sep, [facility] [place] [facility] [address] [id number] [place] [address]- 6413 Sep, [facility] [place] [facility] [address] [id number] [place] [address]- 2639 Sep, [facility] [place] [facility] [address] [id number] [place] [address]- 0227 Sep, [facility] [place] [facility] [address] [id number] [place] [address]- 6148 Sep, [facility] [place] [facility] [address] [id number] [place] Sep, [facility] [place] [facility] [address] [id number], [place] [address]- 1255 Sep, [facility] [place] [facility] [address] [id number] [place] [address]- 6675 Sep, [facility] [place] [facility] [address] [id number] 6725 Sep, [facility] [place] [facility] [address] [facility] [id number] [place] [address]- 5621 Sep, [facility] [place] [facility] [address] [id number] [place] [address]- 6309 Sep, [facility] [place] [facility] [address] [id number] [place] [address]- 0977 Sep, [facility] [place] [facility] [address] [facility] [id number] [place] [address]- 9076 Sep, [facility] [place] [facility] [address] [facility] [id number] [place] [address]- 7056 Sep, [facility] [place] [facility] [address] [facility] [id number], [place] [address]- 1629 Aug, [facility] [place] [facility] [address] [facility] [id number], [place] [address]- 5412 Aug, [facility] [place] [facility] [address] [facility] [id number], [place] [address]- 8508 Aug, [facility] [place] [facility] [address] [facility] [id number], [place] [address]- 7043 Aug, 2014 [facility] [place] [facility] [address] [facility] [id number], [place] [address]- 0223 Aug, 2014 [facility] [place] [facility] [address] [facility] [id number], [place] [address]- 0819 Aug, 2014 [facility] [place] [facility] [address] [facility] [id number], [place] [address]- 4620 Aug, 2014 [facility] [place] [facility] [address] [facility] [id number], [place] [address]- 2651 Aug, 2014 [facility] [place] [facility] [address] [id number] [place] [address]- 9696 Aug, 2014 [facility] [place] [facility] [address] [id number] [place] [address]- 5106 Aug, 2014 [facility] [place] [facility] [address] [id number] [place] [address]- 2964 Aug, 2014 [facility] [place] [facility] [address] [id number] [place] [address]- 0024 Aug, 2014 [facility] [place] [facility] [address] [id number] [place] [address]- 3000 Aug, 2014 [facility] [place] [facility] [address] [id number] [place] [address]- 5184 Aug, 2014 [facility] [place] [facility] [address] [facility] [id number] [place] [address]- 3971 Aug, 2014 [facility] [place] [facility] [address] [id number] [place] [address]- 9302 Aug, 2014 [facility] [place] [facility] [address] [id number] [place] [address]- 6078 Aug, 2014 [facility] [place] [facility] [address] [facility] [id number] [place] [address]- 3499 Aug, 2014 [facility] [place] [facility] [address] [facility] [id number] [place] [address]- 1362 Aug, 2014 [facility] [place] [facility] [address] [id number] [place] [address]- 3296 Aug, 2014 [facility] [place] [facility] [address] [id number] [place] [address]- 5786 Aug, 2014 [facility] [place] [facility] [address] [id number] [place] [address]- 8102 Jul, [facility] [place] [facility] [address] [facility] [id number] [place] [address]- 5182 Jul, [facility] [place] [facility] [address] [id number] [place] [address]- 6717 Jul, [facility] [address] [id number] [place] [address]- 7801 Jul, [facility] [place] [facility] [address] [id number] [place] [address]- 8865 Jul, [facility] [place] [facility] [address] [id number] [place] [address]- 4950 Jul, [facility] [place] [facility] [address] [id number] [place] [address]- 3656 Jul, [facility] [place] [facility] [address] [id number] [place] [address]- 1142 Jul, [facility] [place] [facility] [address] [id number] [place] [address]- 9348 Jul, [facility] [place] [facility] [address] [id number] [place] [address]- 0905 Jul, [facility] [address] [id number] [place] [address]- 9746 Jul, [facility] [place] [facility] [address] [id number] [place] [address]- 9508 Jul, [facility] [place] [facility] [address] [id number] [place] [address]- 4699 Jul, [facility] [place] [facility] [address] [id number] [place] [address]- 0364 Jul, [facility] [place] [facility] [address] [id number] [place] [address]- 2082 Jul, [facility] [place] [facility] [address] [id number] [place] [address]- 4183 Jul, [facility] [place] [facility] [address] [id number] [place] [address]- 2775 Jun, [facility] [place] [facility] [address] [id number] [place] [address]- 6822 Jun, [facility] [place] [facility] [address] [id number] [place] [address]- 6139 Jun, [facility] [place] [facility] [address] [id number] [place] [address]- 5861 Jun, [facility] [place] [facility] [address] [id number] [place] [address]- 6743 Jun, [facility] [place] [facility] [address] [id number] [place] [address]- 2171 Jun, [facility] [place] [facility] [address] [id number] [place] [address]- 3392 Jun, [facility] [place] [facility] [address] [id number] [place] [address]- 1293 Jun, [facility] [place] [facility] [address] [id number] [place] [address]- 1543 Jun, [facility] [place] [facility] [address] [id number] [place] [address]- 3622 Jun, [facility] [place] [facility] [address] [id number] [place] [address]- 8459 Jun, [facility] [place] [facility] [address] [id number] [place] [address]- 0571 Jun, [facility] [place] [facility] [address] [id number] [place] [address]- 5295 Jun, [facility] [place] [facility] [address] [id number] [place] [address]- 3358 Jun, [facility] [place] [facility] [address] [id number] [place] [address]- 9159 Jun, [facility] [place] [facility] [address] [id number] [place] [address]- 5843 Jun, [facility] [place] [facility] [address] [id number] [place] [address]- 2589 Jun, [facility] [place] [facility] [address] [id number] [place] [address]- 8785 Jun, [facility] [place] [facility] [address] [id number] [place] [address]- 1094 Jun, [facility] [place] [facility] [address] [id number] [place] [address]- 2557 Jun, [facility] [place] [facility] [address] [id number] [place] [address]- 8069 May, [facility] [place] [facility] [address] [id number] [place] [address]- 6352 May, [facility] [place] [facility] [address] [id number] [place] [address]- 7755 May, [facility] [place] [facility] [address] [id number] [place] [address]- 7122 May, [facility] [place] [facility] [address] [id number] [place] [address]- 0424 May, [facility] [place] [facility] [address] [id number] [place] [address]- 4102 May, [facility] [place] [facility] [address] [id number] [place] [address]- 4355 May, [facility] [place] [facility] [address] [facility] [id number] [place] [address]- 4446 May, [facility] [place] [facility] [address] [id number] [place] [address]- 4436 May, [facility] [place] [facility] [address] [id number], [place] [address]- 4496 May, [facility] [place] [facility] [address] [id number] [place] [address]- 1543 May, [facility] [place] [facility] [address] [id number] [place] [address]- 5631 May, [facility] [place] [facility] [address] [id number], [place] [address]- 3396 May, [facility] [place] [facility] [address] [id number] [place] [address]- 7070 18 May, 2014 [facility] [place] [facility] [address] [id number] [place] [address]- 8694 14 May, 2014 [facility] [place] [facility] [address] [id number] [place] [address] May, [facility] [place] [facility] [address] [id number] [place] [address] May, [facility] [place] [facility] [address] [id number] [place] [address] Apr, [facility] [place] [facility] [address] [id number] [place] [address] Apr, [facility] [place] [facility] [address] [id number] [place] [address] Apr, [facility] [place] [facility] [address] [id number] [place] [address] Apr, [facility] [place] [facility] [address] [id number] [place] [address] Apr, [facility] [place] [facility] [address] [id number] [place] [address] Apr, [facility] [place] [facility] [address] [id number] [place] [address] Apr, [facility] [place] [facility] [address] [id number] [place] [address] Apr, [facility] [place] [facility] [address] [id number] [place] [address] Mar, [facility] [place] [facility] [address] [id number] [place] [address] Mar, [facility] [place] [facility] [address] [id number] [place] [address] 08 Mar, 2014 [facility] [place] [facility] [address] [id number] [place] [address] Mar, [facility] [place] [facility] [address] [id number] [place] [address] Mar, [facility] [place] [facility] [address] [id number] [place] [address] Mar, [facility] [place] [facility] [address] [id number] [place] [address] Feb, [facility] [place] [facility] [address] [id number] [place] [address] Feb, [facility] [place] [facility] [address] [id number] [place] [address] Feb, [facility] [place] [facility] [address] [id number] [place] [address] Feb, [facility] [place] [facility] [address] [id number] [place] [address] Feb, [facility] [place] [facility] [address] [id number] [place] [address] Feb, [facility] [place] [facility] [address] [id number] [place] [address] Feb, [facility] [place] [facility] [address] [id number] [place] [address] Feb, [facility] [place] [facility] [address] [id number] [place] [address] Feb, [facility] [place] [facility] [address] [id number] [place] [address] Feb, [facility] [place] [facility] [address] [id number] [place] [address] Jan, [facility] [place] [facility] [address] [id number] [place] [address] Jan, [facility] [place] [facility] [address] [id number] [place] [address] Jan, [facility] [place] [facility] [address] [id number] [place] [address] Jan, [facility] [address] [id number] [place] [address] Jan, [facility] [place] [facility] [address] [id number] [place] [address] Jan, [facility] [place] [facility] [address] [id number] [place] [address] Dec, [facility] [place] [facility] [address] [id number] [place] [address] Dec, [facility] [place] [facility] [address] [id number] [place] [address] Dec, [facility] [place] [facility] [address] [address] [id number] [place] [address] Dec, [facility] [place] [facility] [address] [id number] [place] [address] November, [facility] [place] [facility] [address] [id number] [place] [address] 7024 November, [facility] [place] [facility] [address] [id number] [place] [address] 1761 Oct, [facility] [place] [facility] [address] [id number] [place] [address] 4[address] Oct, [facility] [place] [facility] [address] [id number] [place] [address] 5526 Oct, [facility] [place] [facility] [address] [id number] [place] [address]- 9584 Oct, [facility] [place] [facility] [address] [id number] [place] [address] 4[address] Oct, [facility] [place] [facility] [address] [id number] [place] [address] 2200 Oct, [facility] [place] [facility] [address] [id number] [place] [address] 490[address] Oct, [facility] [place] [facility] [address] [id number] [place] [address]- 1214 Oct, [facility] [place] [facility] [address] [id number] [place] [address]358 Sep, [facility] [place] [facility] [address] [id number] [place] [address]- 9890 Sep, [facility] [place] [facility] [address] [id number] [place] [address]149 Sep, [facility] [place] [facility] [address] [id number] [place] [address]- 4214 Sep, [facility] [place] [facility] [address] [id number] [place] [address]- 3688 Sep, [facility] [place] [facility] [address] [id number] [place] [address]- 3710 Sep, [facility] [place] [facility] [address] [id number] [place] [address]- 4490 Sep, [facility] [place] [facility] [address] [id number] [place] [address]- 9347 Sep, [facility] [place] [facility] [address] [id number] [place] [address]- 4472 Aug, [facility] [place] [facility] [address] [id number] [place] [address]- 0387 Aug, [facility] [place] [facility] [address] [id number] [place] [address]- 9792 Aug, [facility] [place] [facility] [address] [id number] [place] [address]- 3087 Aug, [facility] [place] [facility] [address] [id number] [place] [address]- 3040 Aug, [facility] [place] [facility] [address] [id number] [place] [address]- 9890 Aug, [facility] [place] [facility] [address] [id number] [place] [address]- 7761 10 Aug, 2013 [facility] [address] [id number] [place] [address]- 5530 10 Aug, 2013 [facility] [address] [id number] [place] [address] 24[address] Jul, [facility] [address] [id number] [place] [address]- 1237 Jul, [facility] [address] [id number] [place] [address]- 0691 Jul, [facility] [address] [id number] [place] [address]- 8037 Jul, [facility] [address] [id number] [place] [address]- 9669 Jul, [facility] [address] [id number] [place] [address]- 8456 Jul, [facility] [address] [id number] [place] [address]- 7523 Jul, [facility] [address] [id number] [place] [address]- 0575 Jun, [facility] [address] [id number] [place] [address]- 4129 Jun, [facility] [address] [id number] [place] [address]- 9794 Jun, [facility] [address] [id number] [place] [address] 1600 Jun, [facility] [address] [id number] [place] [address]- 1409 Jun, [facility] [address] [id number] [place] [address]- 1127 Jun, [facility] [address] [id number] [place] [address]- 7553 Jun, [facility] [place] [facility] [address] [id number] [place] [address]- 1069 Jun, [facility] [place] [facility] [address] [id number] [place] [address]- 2161 Jun, [facility] [place] [facility] [address] [id number] [place] [address]- 6433 May, [facility] [place] [facility] [address] [id number] [place] [address]- 5571 May, [facility] [place] [facility] [address] [id number] [place] [address]- 1529 May, [facility] [place] [facility] [address] [id number] [place] [address]- 8321 May, [facility] [place] [facility] [address] [id number] [place] [address]- 5342 May, [facility] [place] [facility] [address] [id number], [place] [address]- 2081 May, [facility] [place] [facility] [address] [id number] [place] [address]- 7412 May, [facility] [place] [facility] [address] [id number], [place] [address]- 1737 May, [facility] [place] [facility] [address] [facility] [id number], [place] [address]- 5279 May, [facility] [place] [facility] [address] [id number], [place] [address]- 1867 May, [facility] [place] [facility] [address] [id number], [place] [address]- 9100 Apr, [facility] [place] [facility] [address] [id number], [place] [address]- 1379 Apr, [facility] [place] [facility] [address] [id number], [place] [address]- 2915 Apr, [facility] [place] [facility] [address] [id number], [place] [address]- 6503 Apr, [facility] [place] [facility] [address] [id number] [place] [address]- 9482 Apr, [facility] [place] [facility] [address] [id number] [place] [address]- 8272 Apr, [facility] [place] [facility] [address] [id number] [place] [address]- 8252 30 Mar, 2013 [facility] [place] [facility] [address] [id number] [place] [address]- 8192 Mar, [facility] [place] [facility] [address] [id number] [place] [address]- 1177 Mar, [facility] [place] [facility] [address] [id number] [place] [address]- 6674 Mar, [facility] [place] [facility] [address] [id number] [place] [address]- 0345 Feb, [facility] [place] [facility] [address] [id number] [place] [address]- 2635 Feb, [facility] [place] [facility] [address] [id number] [place] [address]- 9428 Jan, [facility] [place] [facility] [address] [id number] [place] [address]- 3425 Jan, [facility] [place] [facility] [address] [id number] [place] [address]- 7495 Jan, [facility] [place] [facility] [address] [id number] [place] [address]- 2713 Jan, [facility] [place] [facility] [address] [id number] [place] [address]- 5065 Jan, [facility] [place] [facility] [address] [id number] [place] [address]- 2707 Jan, [facility] [place] [facility] [address] [id number] [place] [address]- 9718 Jan, [facility] [place] [facility] [address] [id number] [place] [address]- 3127 05 Jan, 2013 [facility] [address] [id number] [place] [address]- 8756 28 Dec, 2012 [facility] [place] [facility] [address] [id number] [place] [address]- 0957 24 Dec, 2012 [facility] [address] [id number] [place] [address]- 2696 14 Dec, 2012 [facility] [place] [facility] [address] [id number] [place] [address]- 7142 Dec, [facility] [address] [id number] [place] [address]- 4136 Dec, [facility] [address] [id number] [place] [address]- 9963 Dec, [facility] [address] [id number] [place] [address]- 3356 November, [facility] [address] [id number] [place] [address]- 0647 November, [facility] [address] [id number] [place] [address]- 3465 Oct, [facility] [address] [id number] [place] [address]- 2050 Oct, [facility] [place] [facility] [address] [id number] [place] [address]- 5020 Oct, [facility] [place] [facility] [address] [id number] [place] [address]- 9810 Oct, [facility] [place] [facility] [address] [id number] [place] [address]- 8384 Oct, [facility] [place] [facility] [address] [id number] [place] [address]- 8171 Sep, [facility] [place] [facility] [address] [id number] [place] [address]- 2677 Sep, [facility] [address] [id number] [place] [address]- 2702 27 Aug, 2012 [facility] [place] [facility] [address] [id number] [place] [address]- 9590 18 Aug, 2012 [facility] [place] [facility] [address] [id number] [place] [address]- 7714 14 Aug, 2012 [facility] [place] [facility] [address] [id number] [place] [address]- 9108 08 Aug, 2012 [facility] [place] [facility] [address] [id number] [place] [address]- 9873 23 Jul, 2012 [facility] [place] [facility] [address] [id number] [place] [address]- 8251 Jul, [facility] [place] [facility] [address] [id number] [place] [address]- 0936 Jul, [facility] [place] [facility] [address] [id number] [place] [address]- 8938 14 Jul, 2012 [facility] [place] [facility] [address] [id number] [place] [address]- 5495 Jul, [facility] [place] [facility] [address] [id number] [place] [address]- 4957 Jul, [facility] [place] [facility] [address] [id number] [place] [address]- 1912 Jun, [facility] [place] [facility] [address] [id number] [place] [address]- 2748 19 Jun, 2012 [facility] [place] [facility] [address] [id number] [place] [address]- 2453 17 Jun, 2012 [facility] [place] [facility] [address] [id number] [place] [address]- 0613 17 Jun, 2012 [facility] [place] [facility] [address] [id number] [place] [address]- 4322 11 Jun, 2012 [facility] [place] [facility] [address] [id number] [place] [address]- 3600 11 Jun, 2012 [facility] [address] [id number] [place] [address]- 8693 10 Jun, 2012 [facility] [place] [facility] [address] [id number] [place] [address]- 0946 07 Jun, 2012 [facility] [address] [id number] [place] [address]- 2247 06 Jun, 2012 [facility] [place] [facility] [address] [id number] [place] [address]- 3341 Jun, [facility] [address] [id number] [place] [address]- 6951 Jun, [facility] [place] [facility] [address] [id number] [place] [address]- 0668 Jun, [facility] [address] [id number] [place] [address]- 7020 May, [facility] [place] [facility] [address] [id number] [place] [address]- 0716 May, [facility] [place] [facility] [address] [id number] [place] [address]- 4892 May, [facility] [place] [facility] [address] [facility] [id number] [place] [address]- 4755 May, [facility] [place] [facility] [address] [id number] [place] [address]- 8021 18 May, 2012 [facility] [place] [facility] [address] [id number] [place] [address]- 0554 18 May, 2012 [facility] [place] [facility] [address] [id number] [place] [address]- 1940 10 May, 2012 [facility] [place] [facility] [address] [id number] [place] [address]- 8138 10 May, 2012 [facility] [place] [facility] [address] [id number] [place] [address]- 0252 May, [facility] [place] [facility] [address] [id number] [place] [address]- 7150 08 May, 2012 [facility] [place] [facility] [address] [id number] [place] [address]- 4284 May, [facility] [place] [facility] [address] [id number] [place] [address]- 2979 May, [facility] [place] [facility] [address] [id number] [place] [address]- 2022 May, [facility] [place] [facility] [address] [id number] [place] [address]- 8633 May, [facility] [place] [facility] [address] [id number] [place] [address]- 0117 May, [facility] [place] [facility] [address] [facility] [id number] [place] [address]- 5514 Apr, [facility] [place] [facility] [address] [id number] [place] [address]- 7440 Apr, [facility] [place] [facility] [address] [id number] [place] [address]- 0330 Apr, [facility] [place] [facility] [address] [facility] [id number], [place] [address]- 3813 Apr, [facility] [place] [facility] [address] [facility] [id number], [place] [address]- 7055 Apr, [facility] [place] [facility] [address] [id number], [place] [address]- 3828 Apr, [facility] [place] [facility] [address] [id number], [place] [address]- 7855 Apr, [facility] [place] [facility] [address] [id number], [place] [address]- 1141 Apr, [facility] [place] [facility] [address] [facility] [id number], [place] [address]- 8100 Apr, [facility] [place] [facility] [address] [id number], [place] [address]- 0916 Apr, [facility] [place] [facility] [address] [id number] [place] [address]- 5033 08 Apr, 2012 [facility] [place] [facility] [address] [id number] [place] [address]- 9681 04 Apr, 2012 [facility] [place] [facility] [address] [id number] [place] [address]- 1641 Apr, [facility] [place] [facility] [address] [id number] [place] [address]- 4013 24 Mar, 2012 [facility] [place] [facility] [address] [id number] [place] [address]- 1221 18 Mar, 2012 [facility] [place] [facility] [address] [id number] [place] [address]- 6111 17 Mar, 2012 [facility] [place] [facility] [address] [id number] [place] [address]- 5513 13 Mar, 2012 [facility] [place] [facility] [address] [id number] [place] [address]- 9187 11 Mar, 2012 [facility] [place] [facility] [address] [id number] [place] [address]- 7705 28 Feb, 2012 [facility] [place] [facility] [address] [id number] [place] [address]- 4939 Feb, [facility] [place] [facility] [address] [id number] [place] [address]- 7453 14 Feb, 2012 [facility] [place] [facility] [address] [id number] [place] [address]- 0755 10 Feb, 2012 [facility] [place] [facility] [address] [id number] [place] [address]- 0045 08 Feb, 2012 [facility] [place] [facility] [address] [id number] [place] [address]- 3644 07 Feb, 2012 [facility] [place] [facility] [address] [id number] [place] [address]- 5431 03 Feb, 2012 [facility] [place] [facility] [address] [id number] [place] [address]- 9136 Jan, [facility] [address] [id number] [place] [address]- 0946 Jan, [facility] [place] [facility] [address] [id number] [place] [address] 2546 Jan, [facility] [address] [id number] [place] [address]- 6076 Jan, [facility] [place] [facility] [address] [id number] [place] [address] 2546 Jan, [facility] [place] [facility] [address] [id number] [place] [address]- 2041 Dec, [facility] [place] [facility] [address] [id number] [place] [address]- 2225 Dec, [facility] [place] [facility] [address] [id number] [place] [address]- 9694 Dec, [facility] [address] [id number] [place] [address]- 4288 Dec, [facility] [place] [facility] [address] [id number] [place] [address]- 6516 November, [facility] [address] [id number] [place] [address]- 4426 November, [facility] [place] [facility] [address] [id number] [place] [address]- 0666 November, [facility] [place] [facility] [address] [id number] [place] [address]- 6976 November, [facility] [place] [facility] [address] [id number] [place] [address]- 9446 November, [facility] [place] [facility] [address] [id number] [place] [address]- 2546 November, [facility] [place] [facility] [address] [id number] [place] [address]- 0167 Oct, [facility] [place] [facility] [address] [id number] [place] [address]- 5132 Oct, [facility] [place] [facility] [address] [id number] [place] [address]- 1906 Oct, [facility] [place] [facility] [address] [id number] [place] [address]- 6982 Sep, [facility] [place] [facility] [address] [id number] [place] [address]- 2440 Sep, [facility] [place] [facility] [address] [id number] [place] [address]- 1477 Sep, [facility] [place] [facility] [address] [id number] [place] [address]- 6732 Sep, [facility] [place] [facility] [address] [id number] [place] [address]- 5374 Aug, [facility] [place] [facility] [address] [id number] [place] [address]- 9765 Aug, [facility] [place] [facility] [address] [id number] [place] [address]- 6799 Aug, [facility] [place] [facility] [address] [id number] [place] [address]- 9835 Aug, [facility] [place] [facility] [address] [id number] [place] [address]- 2941 Aug, [facility] [place] [facility] [address] [id number] [place] [address]- 2535 Aug, [facility] [place] [facility] [address] [id number] [place] [address]- 8426 Aug, [facility] [place] [facility] [address] [facility] [id number] [place] [address]- 8627 Jul, [facility] [place] [facility] [address] [id number] [place] [address]- 2536 Jul, [facility] [place] [facility] [address] [id number] [place] [address]- 5172 Jul, [facility] [address] [id number] [place] [address]- 7238 Jun, [facility] [place] [facility] [address] [id number] [place] [address]- 0746 Jun, [facility] [address] [id number] [place] [address]- 0072 Jun, [facility] [place] [facility] [address] [id number] [place] [address]- 4313 Jun, [facility] [address] [id number] [place] [address]- 0247 May, [facility] [place] [facility] [address] [id number] [place] [address]- 2548 May, [facility] [place] [facility] [address] [id number] [place] [address]- 1033 May, [facility] [address] [id number] [place] [address]- 0429 May, [facility] [place] [facility] [address] [id number] [place] [address] May, [facility] [address] [id number] [place] [address] Apr, [facility] [place] [facility] [address] [id number] [place] [address] Apr, [facility] [place] [facility] [address] [id number] [place] [address] Apr, [facility] [place] [facility] [address] [id number] [place] [address] Apr, [facility] [place] [facility] [address] [id number] [place] [address] Jun, [facility] [place] [facility] [address] [id number] [place] [address] Jun, [facility] [place] [facility] [address] [id number] [place] [address] May, [facility] [place] [facility] [address] [id number] [place] [address] May, [facility] [place] [facility] [address] [id number] [place] [address] May, [facility] [place] [facility] [address] [id number] [place] [address] May, [facility] [place] [facility] [address] [id number] [place] [address] 16 May, 2010 [facility] [place] [facility] [address] [id number] [place] [address] 15 May, 2010 [facility] [place] [facility] [address] [id number] [place] [address] May, [facility] [place] [facility] [address] [id number] [place] [address] Apr, [facility] [place] [facility] [address] [id number] [place] [address] Apr, [facility] [place] [facility] [address] [id number] [place] [address] Apr, [facility] [place] [facility] [address] [id number], [place] [address] Apr, [facility] [place] [facility] [address] [id number], [place] [address] 18 Apr, 2010 [facility] [place] [facility] [address] [id number] [place] [address] 13 Apr, 2010 [facility] [place] [facility] [address] [id number], [place] [address] 11 Apr, 2010 [facility] [place] [facility] [address] [id number], [place] [address] 13 Jan, 2010 [facility] [place] [facility] [address] [id number], [place] [address] Jun, [facility] [id number] [place] [address] Jun, [facility] [id number], [place] [address] Jun, [facility] [id number] [address] Jun, [facility] [id number], [place] [address] Jun, [facility] [id number], [place] [address] Jun, [facility] [id number], [place] [address] Apr, [facility] [id number], [place] [address] November, [facility] [address] [id number], [place] [address] Oct, IMMUNIZATIONS No Known Immunizations SOCIAL HISTORY Never Assessed REASON FOR VISIT PT is here today for frequent diarrhia- [facility] PLAN OF CARE Activity Details Follow Up pending testing and consult Reason: VITAL SIGNS Height 63 in 2017-03-02 Weight 301.8 lbs 2017-03-02 Temperature 98.5 degrees Fahrenheit 2017-03-02 Heart Rate 68 bpm 2017-03-02 Respiratory Rate 20 2017-03-02 BMI 53.46 kg/m2 2017-03-02 Blood pressure systolic 114 mmHg 2017-03-02 Blood pressure diastolic 78 mmHg 2017-03-02 MEDICATIONS Medication Instructions Dosage Frequency Start Date End Date Duration Status Pantoprazole Sodium 40 mg Orally Once a day 1 tablet 24h Active Lisinopril-Hydrochlorothiazide 10-12.5 MG Orally Once a day 1 tablet 24h Sep, 90 day(s) Active Estradiol 1 MG Orally Once a day 1 tablet 24h Active Ranitidine HCl 150 MG Orally Once a day 1 tablet at bedtime 24h Active Trulicity 1.5 MG/0.5ML Subcutaneous once weekly 0.5 ml Dec, Mar, 30 day(s) Active Lasix 20 TAKE ONE TABLET BY MOUTH DAILY NEEDED 30 Active Naproxen 500 mg orally twice a day 1 tablet 12h 30 Active Cymbalta 60 mg orally daily 1 capsule 24h 90 Active Metformin HCl 500 mg Orally Twice a day 1 tablet 12h Active Atenolol 100 mg Orally Once a day 1 tablet 24h 90 Active Pravastatin Sodium 40 mg Orally Once a day 1 tablet 24h Sep, 90 day(s) Active Latanoprost 0.005 % Ophthalmic Once a day 1 drop into affected eye in the evening 24h Active Lyrica 225 mg Orally Twice a day 1 capsule 12h 28 Active Lunesta 2 MG Orally Once a day 1 tablet immediately before bedtime 24h 30 days Active Proventil HFA 90 mcg/actuation Inhalation every 4 hrs prn 2 puffs as needed Active Baclofen 20 mg Orally at hs 1 tablet 30 Active meclizine 25 mg take 1 tablet by Oral route 1 hour before exposure to motion 4 times per day PRN or vertigo Active Sucralfate 1 GM Orally Twice a day 1 tablet on an empty stomach 12h 29 FebMay, 30 day(s) Active RESULTS No Results PROCEDURES Procedure Date Ordered Result Body Site IMMUNOASSAY,INFECTIOUS AGENT Mar 02, 2017 [facility] VISIT ESTABLISHED PATIENT Mar 02, 2017 INSTRUCTIONS MEDICATIONS ADMINISTERED No Known Medications MEDICAL [...] History Right lateral epicondilisis 12/23/2016 Surgical History EGD Jayson 03/2017 Hospitalization History surgery
--- OUTSIDE RECORDS SUMMARY | 2017-11-06 11:19 | XMS REPORT ---
Author Author ELIZA GO [facility] Address [address] [place] [address] Care Team Providers Care Community Affairs Manager Name Role Phone ELIZA GO Unavailable PROBLEMS Type Condition ICD9-CM Code UVS75-EH Code Onset Dates Condition Status SNOMED Code Problem Low back pain M54.5 Active 486345239 Problem Mixed hyperlipidemia E78.2 Active 424565354 Problem Mild intermittent asthma without complication J45.20 Active 389195538 Problem Central stenosis of spinal canal M48.00 Active 85791192 Problem Essential hypertension I10 Active 31886814 Problem Chronic pain G89.29 Active 50824308 Problem GERD (gastroesophageal reflux disease) K21.9 Active 440850825 Problem Type 2 diabetes mellitus with diabetic polyneuropathy, without long- term current use of insulin E11.42 Active 45397107 Problem Chronic diarrhea K52.9 Active 146983252 Problem Primary insomnia F51.01 Active 7615344 Problem Moderate episode of recurrent major depressive disorder F33.1 Active 675596117 Problem Post menopausal syndrome N95.1 Active 688265219 Problem Restless leg syndrome G25.81 Active 18899586 ALLERGIES No Information ENCOUNTERS Encounter Location Date Diagnosis [facility] [id number] [place] [id number] Oct, Dental caries K02.9 [facility] [id number] [place] [address] 07894- 6407 Sep, [facility] [address] [id number] Aug, Encounter for dental examination Z01.20 [facility] [id number] [place] [address] 82768- 1898 Aug, Type 2 diabetes mellitus with diabetic polyneuropathy, without long-term current use of insulin E11.42 [place] [id number] [place] [address] 88479- 2144 14 Aug, 2017 Acute pain of left knee M25.562 ; Type 2 diabetes mellitus with diabetic polyneuropathy, without long-term current use of insulin E11.42 ; Mixed hyperlipidemia E78.2 and BMI 50.0-59.9, adult Z68.43 [place] [address] 10550- 4677 31 Jul, 2017 Dental examination Z01.20 [place] [address] 03834- 0073 Jul, Chronic pain G89.[address] 97394- 3997 Jun, Chronic pain G89.29 [place] [address] 48080- 6206 Jun, Well woman exam (no gynecological exam) Z00.00 ; Lipoma of right thigh D17.23 ; Cracked lips K13.0 ; Sebaceous cyst L72.3 ; Lesion of skin of breast N64.9 and BMI 50.0-59.9, adult Z68.43 [facility] [id number] [place] [address] 57511 -9985 18 Jun, 2017 Rash R21 and BMI 50.0-59.9, adult Z68.43 [place] [id number] [place] [address] 10781- 2932 05 Jun, 2017 Chronic pain G89.29 [place] [address] 64755- 2833 May, Primary insomnia F51.[address] 89347- 6896 May, Chronic pain G89.29 [place] [id number] [place] [address] 14443- 8045 May, Dyspepsia R10.13 ; Chronic pain G89.29 ; Chronic diarrhea K52.9 ; GERD (gastroesophageal reflux disease) K21.9 ; Epigastric abdominal pain R10.13 ; Type 2 diabetes mellitus with diabetic polyneuropathy, without long-term current use of insulin E11.42 and Mixed hyperlipidemia E78.2 [place] [id number] [place] [address] 36709- 9719 Apr, Chronic pain G89.29 [place] [address] 81838- 7292 Apr, Chronic pain G89.29 [place] [address] 98822- 2825 Apr, [place] [address] 56384- 5895 Apr, [place] [id number] [place] [address] 85645- 9839 Apr, Dyspepsia R10.13 ; Chronic pain G89.29 ; Chronic diarrhea K52.9 ; GERD (gastroesophageal reflux disease) K21.9 ; Epigastric abdominal pain R10.13 ; Type 2 diabetes mellitus with diabetic polyneuropathy, without long-term current use of insulin E11.42 and Mixed hyperlipidemia E78.2 [place] [id number] [place] [address] 71784- 9296 Mar, Chronic pain G89.29 [place] [id number] [place] [address] 02366- 6686 Feb, Dyspepsia R10.13 ; Chronic diarrhea K52.9 ; GERD ( gastroesophageal reflux disease) K21.9 and Epigastric abdominal pain R10.13 [place] [id number] [place] [address] 46735- 6880 Feb, Chronic pain G89.29 [place] [id number] [place] [address] 24609- 2929 Jan, Chronic pain G89.29 [place] [address] 107422- 2546 Jan, [place] [address] [place] [address] 30862- 5738 Dec, Type 2 diabetes mellitus with peripheral neuropathy E11.42 ; Primary insomnia F51.01 ; Chronic pain G89.29 ; GERD (gastroesophageal reflux disease) K21.9 ; Essential hypertension I10 and Mixed hyperlipidemia E78.2 [place] [id number] [place] [address] 04099- 2813 Dec, Chronic pain G89.29 [place] [id number] [place] [address] 19265- 5880 November, Chronic pain G89.29 [place] [id number] [place] [address] 76045- 1309 November, Chronic pain G89.29 [place] [id number] [place] [address] 52295- 1205 November, Primary insomnia F51.01 ; Acute pain of right shoulder M25.511 ; Chronic pain G89.29 and GERD (gastroesophageal reflux disease) K21.9 [place] [id number] [place] [address] 01656- 9029 November, Primary insomnia F51.01 [place] [id number] [place] [address] 45123- 1610 Sep, Essential hypertension I10 ; Mixed hyperlipidemia E78.2 ; GERD (gastroesophageal reflux disease) K21.9 ; Mild intermittent asthma without complication J45.20 ; Type 2 diabetes mellitus with peripheral neuropathy E11.42 ; Restless leg syndrome G25.81 ; Primary insomnia F51.01 ; Chronic pain G89.29 and Post menopausal syndrome N95.1 [place] [id number] [place] [address] 93031- 8705 Sep, Hereditary and idiopathic neuropathy, unspecified G60.9 [place] [id number] [place] [address] 08770- 0088 Sep, [place] [id number] [place] [address] 48995- 1935 Aug, Type 2 diabetes mellitus with peripheral neuropathy E11.42 [place] [address] 36316- 2773 Aug, Benign paroxysmal positional vertigo due to bilateral vestibular disorder H81.13 [place] [address] 04555- 2034 Jul, Hammertoe of left foot M20.42 ; Hammertoe of right foot M20.41 and DM neuro manif type II E11.[address] 38976- 7863 Jun, Primary insomnia F51.01 and Type 2 diabetes mellitus without complication E11.9 [place] [address] 94664- 8251 Jun, Asthmatic bronchitis with acute exacerbation J45.901 [place] [address] 45136- 6046 May, [place] [address] 06863- 8987 May, [place] [id number] [place] [address] 60173- 4844 May, [place] [id number] [place] [address] 12170- 0433 May, Encounter for immunization Z23 ; Primary insomnia F51.01 ; Type 2 diabetes mellitus without complication E11.9 ; Restless leg syndrome G25.81 ; Hereditary and idiopathic neuropathy, unspecified G60.9 ; Essential hypertension I10 ; Mixed hyperlipidemia E78.2 ; Post menopausal syndrome N95.1 and Right foot ulcer, with unspecified severity L97.519 [facility] [id number] [place] [address] 95493- 8786 May, [facility] [address] [id number] Apr, Dental examination Z01.20 [place] [address] [address]- 2219 Mar, Vertigo R42 [place] [id number] [place] [address] 52353- 8298 Mar, Screening breast examination Z12.39 and Type 2 diabetes mellitus without complication E11.9 [place] [id number] [place] [address] 37050- 5517 Feb, [place] [id number] [place] [address] 43699- 5509 Feb, Primary insomnia F51.01 and Restless leg syndrome G25.81 [place] [id number] [place] [address] 61623- 8531 Jan, Primary insomnia F51.01 ; Restless leg syndrome G25.81 and Upper respiratory tract infection, unspecified type J06.9 [place] [id number] [place] [address] 64680- 4117 Dec, [place] [id number] [place] [address] 35196- 9842 Dec, Moderate episode of recurrent major depressive disorder F33.1 [place] [id number] [place] [address] 34862- 0578 Dec, Moderate episode of recurrent major depressive disorder F33.1 [place] [id number] [place] [address] 74653- 7558 Dec, Type 2 diabetes mellitus without complication E11.9 ; Hereditary and idiopathic neuropathy, unspecified G60.9 ; Mild intermittent asthma without complication J45.20 ; Essential hypertension I10 ; Mixed hyperlipidemia E78.2 ; Low back pain M54.5 ; Moderate episode of recurrent major depressive disorder F33.1 and Primary insomnia F51.01 [place] [address] [place] [address] 03448- 1549 Dec, [place] [id number] [place] [address] [id number]- 5713 Dec, [place] [address] [address]- 3190 Oct, Diarrhea R19.7 [place] [address] [place] [address] 45391- 2246 Oct, [place] [id number] [place] [address] 70354- 3114 Sep, Type 2 diabetes mellitus without complication E11.9 ; Mild intermittent asthma without complication J45.20 ; Essential hypertension I10 ; Mixed hyperlipidemia E78.2 ; Upper respiratory infection J06.9 and Benign paroxysmal positional vertigo due to bilateral vestibular disorder H81.13 [place] [id number] [place] [address] 18920- 0799 23 Aug, 2015 Benign paroxysmal positional vertigo due to bilateral vestibular disorder H81.13 [place] [id number] [place] [address] 05156- 4910 Aug, Hereditary and idiopathic neuropathy, unspecified G60.9 [place] [address] [place] [address] 44147- 1099 Jun, Low back pain M54.5 ; Chronic pain G89.29 and Abnormal drug screen R89.2 [facility] [id number] [place] [address] [id number] Jun, Dental examination Z01.20 and Encounter for dental examination Z01.20 [facility] [id number] [place] [address] [id number] Jun, Encounter for dental examination Z01.20 ; Dental examination Z01.20 and Dental caries K02.9 [place] [id number] [place] [address] 30210- 0809 Jun, Encounter for immunization Z23 ; Type 2 diabetes mellitus without complication E11.9 ; Essential hypertension I10 ; Low back pain M54.5 ; Chronic pain G89.29 ; Mixed hyperlipidemia E78.2 ; GERD (gastroesophageal reflux disease) K21.9 ; Mild intermittent asthma without complication J45.20 and Depression F32.9 [facility] [id number] [address]- 7381 May, [facility] [id number] [place] [address] 11793- 1235 Feb, [facility] [id number] [place] [address] 60986- 5576 Feb, Diabetes 250.00 ; Spinal stenosis at L4-L5 level 724.02 ; Lumbar arthropathy 721.3 ; Neuropathy, peripheral 356.9 ; Edema 782.3 ; Hypertension 401.9 ; Left shoulder pain 719.41 and Hyperlipidemia 272.4 [facility] [id number] [place] [address] 73386- 3470 Feb, [facility] [id number] [place] [address] 68872- 9718 Feb, Abnormal mammogram of left breast 793.80 [facility] [id number] [place] [address] 31196- 9156 Jan, [facility] [id number] [place] [address] 83346- 0180 Dec, [facility] [id number] [place] [address] 44154- 7102 Dec, [facility] [id number] [place] [address] 25764- 8050 Dec, [facility] [id number] [place] [address] 53601- 5143 November, Diabetes 250.00 ; Spinal stenosis at L4-L5 level 724.02 ; Lumbar arthropathy 721.3 ; Neuropathy, peripheral 356.9 and Edema 782.3 [facility] [id number] [place] [address] 01281- 0903 November, [facility] [id number] [place] [address] 84955- 4698 November, [facility] [place] [facility] [address] [id number] [place] [address]- 1272 November, [facility] [place] [facility] [address] [id number] [place] [address]- 3129 November, [facility] [place] [facility] [address] [id number] [place] [address]- 8008 November, [facility] [place] [facility] [address] [id number] [place] [address]- 7935 Oct, [facility] [place] [facility] [address] [id number] [place] [address]- 3392 Oct, [facility] [place] [facility] [address] [id number] [place] [address]- 7898 Sep, [facility] [place] [facility] [address] [id number] [place] [address]- 3194 Sep, [facility] [place] [facility] [address] [id number] [place] [address]- 3228 Sep, [facility] [place] [facility] [address] [id number] [place] [address]- 6729 Sep, [facility] [place] [facility] [address] [id number] [place] [address]- 2302 Sep, [facility] [place] [facility] [address] [id number] [place] [address]- 1963 Sep, [facility] [place] [facility] [address] [id number] [place] [address]- 5116 Sep, [facility] [place] [facility] [address] [id number] [place] [address]- 5924 Sep, [facility] [place] [facility] [address] [id number] [place] [address]- 0382 Sep, [facility] [place] [facility] [address] [id number] [place] [address]- 8999 Sep, [facility] [place] [facility] [address] [id number] [place] [address]- 7105 Sep, [facility] [place] [facility] [address] [id number] [place] [address]- 3167 Sep, [facility] [place] [facility] [address] [id number] [place] [address]- 9046 Sep, [facility] [place] [facility] [address] [facility] [id number] [place] [address]- 7621 Sep, [facility] [place] [facility] [address] [facility] [id number] [place] [address]- 9811 Sep, [facility] [place] [facility] [address] [id number] [place] [address]- 9316 Sep, [facility] [place] [facility] [address] [facility] [id number] [place] [address]- 8454 Sep, [facility] [place] [facility] [address] [facility] [id number] [place] [address]- 5028 Aug, 2014 [facility] [place] [facility] [address] [facility] [id number] [place] [address]- 7058 Aug, 2014 [facility] [place] [facility] [address] [id number] [place] [address]- 9826 Aug, 2014 [facility] [place] [facility] [address] [facility] [id number] [place] [address]- 6560 Aug, 2014 [facility] [place] [facility] [address] [facility] [id number] [address]- 6568 Aug, 2014 [facility] [place] [facility] [address] [facility] [id number] [address]- 6918 Aug, 2014 [facility] [place] [facility] [address] [facility] [id number] [place] [address]- 7190 Aug, 2014 [facility] [place] [facility] [address] [facility] [id number] [address]- 2985 Aug, 2014 [facility] [place] [facility] [address] [facility] [id number] [address]- 7538 Aug, 2014 [facility] [place] [facility] [address] [id number] [place] [address]- 2543 Aug, 2014 [facility] [place] [facility] [address] [id number] [place] [address]- 7996 Aug, 2014 [facility] [place] [facility] [address] [id number] [place] [address]- 2546 Aug, 2014 [facility] [place] [facility] [address] [id number] [place] [address]- 2545 Aug, 2014 [facility] [place] [facility] [address] [id number] [place] [address] 2542 Aug, 2014 [facility] [place] [facility] [address] [id number] [place] [address]- 1472 Aug, 2014 [facility] [place] [facility] [address] [facility] [id number] [place] [address]- 5704 Aug, 2014 [facility] [place] [facility] [address] [id number] [place] [address]- 1746 Aug, 2014 [facility] [place] [facility] [address] [id number] [place] [address]- 5368 Aug, 2014 [facility] [place] [facility] [address] [facility] [id number] [place] [address]- 3136 Aug, 2014 [facility] [place] [facility] [address] [facility] [id number] [place] [address]- 5502 Aug, 2014 [facility] [place] [facility] [address] [id number] [place] [address] 2542 Aug, 2014 [facility] [place] [facility] [address] [id number] [place] [address]- 4815 Jul, [facility] [place] [facility] [address] [id number] [place] [address]- 1515 Jul, [facility] [place] [facility] [address] [facility] [id number] [place] [address]- 6538 Jul, [facility] [place] [facility] [address] [id number] [place] [address]- 8461 Jul, [facility] [address] [id number] [place] [address]- 8995 Jul, [facility] [address] [id number] [place] [address]- 3604 Jul, [facility] [address] [id number] [place] [address]- 9565 Jul, [facility] [address] [id number] [place] [address]- 6054 Jul, [facility] [address] [id number] [place] [address]- 3616 Jul, [facility] [address] [id number] [place] [address]- 2785 Jul, [facility] [address] [id number] [place] [address]- 8862 Jul, [facility] [address] [id number] [place] [address]- 5012 Jul, [facility] [address] [id number] [place] [address]- 6335 Jul, [facility] [address] [id number] [place] [address]- 0384 Jul, [facility] [address] [id number] [place] [address]- 0261 Jul, [facility] [address] [id number] [place] [address]- 8639 Jul, [facility] [place] [facility] [address] [id number] [place] [address]- 1891 Jun, [facility] [place] [facility] [address] [id number] [place] [address]- 3141 Jun, [facility] [place] [facility] [address] [id number] [place] [address]- 6178 Jun, [facility] [place] [facility] [address] [id number] [place] [address]- 0759 Jun, [facility] [place] [facility] [address] [id number] [place] [address]- 9723 Jun, [facility] [place] [facility] [address] [id number] [place] 6861 Jun, [facility] [place] [facility] [address] [id number] [place] [address]- 5532 Jun, [facility] [place] [facility] [address] [id number] [place] [address]- 3746 Jun, [facility] [place] [facility] [address] [id number] [place] [address]- 9464 Jun, [facility] [place] [facility] [address] [id number] [place] [address]- 4499 Jun, [facility] [place] [facility] [address] [id number] [place] [address]- 4604 Jun, [facility] [place] [facility] [address] [id number] [place] [address]- 5987 Jun, [facility] [place] [facility] [address] [id number] [place] [address]- 4598 Jun, [facility] [place] [facility] [address] [id number] [place] [address]- 6649 Jun, [facility] [place] [facility] [address] [id number] [place] [address]- 4164 Jun, [facility] [place] [facility] [address] [id number] [place] [address]- 3746 Jun, [facility] [place] [facility] [address] [id number] [place] 5869 Jun, [facility] [place] [facility] [address] [id number] [place] 4739 Jun, [facility] [place] [facility] [address] [id number] [address]- 2460 Jun, [facility] [place] [facility] [address] [id number] [place] [address]- 8254 Jun, [facility] [place] [facility] [address] [id number] [place] [address]- 9848 May, [facility] [place] [facility] [address] [facility] [id number] [place] [address]- 4472 May, [facility] [place] [facility] [address] [id number] [place] [address]- 7590 May, [facility] [place] [facility] [address] [id number] [place] [address] May, [facility] [place] [facility] [address] [id number] [place] [address] May, [facility] [place] [facility] [address] [id number] [place] [address] May, [facility] [place] [facility] [address] [id number] [place] [address] May, [facility] [place] [facility] [address] [id number] [place] [address] May, [facility] [place] [facility] [address] [facility] [id number] [place] [address] May, [facility] [place] [facility] [address] [id number] [address] May, [facility] [place] [facility] [address] [id number] [address] May, [facility] [place] [facility] [address] [id number] [address] May, [facility] [place] [facility] [address] [id number] [place] [address] May, [facility] [place] [facility] [address] [facility] [id number] [address] May, [facility] [place] [facility] [address] [id number] [place] [address] 14 May, 2014 [facility] [place] [facility] [address] [id number] [place] [address] May, [facility] [place] [facility] [address] [id number] [place] [address] May, [facility] [place] [facility] [address] [id number] [place] [address] Apr, [facility] [place] [facility] [address] [id number] [place] [address] Apr, [facility] [place] [facility] [address] [id number] [place] [address] Apr, [facility] [place] [facility] [address] [id number] [place] [address]- [address] Apr, [facility] [place] [facility] [address] [id number] [place] [address] Apr, [facility] [place] [facility] [address] [id number] [place] [address]- [address] Apr, [facility] [place] [facility] [address] [id number] [place] [address] Apr, [facility] [place] [facility] [address] [facility] [id number] [place] [address]- [address] Apr, [facility] [place] [facility] [address] [id number] [place] [address] Mar, 2013 [facility] [place] [facility] [address] [id number] [place] [address] Mar, 2013 [facility] [place] [facility] [address] [id number] [place] [address] 08 Mar, 2013 [facility] [place] [facility] [address] [id number] [place] [address] 08 Mar, 2013 [facility] [place] [facility] [address] [id number] [place] [address] Mar, [facility] [place] [facility] [address] [id number] [place] [address] Mar, [facility] [place] [facility] [address] [id number] [place] [address] Feb, [facility] [place] [facility] [address] [id number] [place] [address] Feb, [facility] [place] [facility] [address] [id number] [place] [address] Feb, [facility] [place] [facility] [address] [id number] [place] [address] Feb, [facility] [place] [facility] [address] [id number] [place] [address] Feb, [facility] [place] [facility] [address] [id number] [place] [address] Feb, [facility] [place] [facility] [address] [id number] [place] [address] Feb, [facility] [place] [facility] [address] [id number] [place] [address] Feb, [facility] [place] [facility] [address] [id number] [place] [address] Feb, [facility] [place] [facility] [address] [id number] [place] [address] Feb, [facility] [place] [facility] [address] [id number] [place] [address] Jan, [facility] [place] [facility] [address] [id number] [place] [address] 0[address] Jan, [facility] [place] [facility] [address] [id number] [place] [address]25 Jan, [facility] [place] [facility] [address] [id number] [place] [address] 2557 Jan, [facility] [place] [facility] [address] [id number] [place] [address] 9305 Jan, [facility] [place] [facility] [address] [id number] [place] [address] 4995 Jan, [facility] [place] [facility] [address] [id number] [place] [address] 1551 Dec, [facility] [place] [facility] [address] [id number] [place] [address] 3[address] Dec, [facility] [place] [facility] [address] [id number] [place] [address]- 2473 Dec, [facility] [place] [facility] [address] [id number] [place] [address] 1666 Dec, [facility] [place] [facility] [address] [id number] [place] [address]- 1345 November, [facility] [place] [facility] [address] [id number] [place] [address]- 8962 November, [facility] [place] [facility] [address] [id number] [place] [address] 0458 Oct, [facility] [place] [facility] [address] [id number] [place] [address]- 9312 Oct, [facility] [place] [facility] [address] [id number] [place] [address]- 4288 Oct, [facility] [place] [facility] [address] [id number] [place] [address]- 7049 Oct, [facility] [place] [facility] [address] [id number] [place] [address]- 6946 Oct, [facility] [place] [facility] [address] [id number] [place] [address]- 5970 Oct, [facility] [place] [facility] [address] [id number] [place] [address]- 4022 Oct, [facility] [place] [facility] [address] [id number] [place] [address]- 4455 Oct, [facility] [place] [facility] [address] [id number] [place] [address]- 0844 Sep, [facility] [place] [facility] [address] [id number] [place] [address]- 8467 Sep, [facility] [place] [facility] [address] [id number] [place] [address]- 2230 Sep, [facility] [place] [facility] [address] [id number] [place] [address]- 5979 Sep, [facility] [place] [facility] [address] [id number] [place] [address]- 9119 Sep, [facility] [place] [facility] [address] [id number] [place] [address]- 6465 Sep, [facility] [place] [facility] [address] [id number] [place] [address]- 9856 Sep, [facility] [place] [facility] [address] [id number] [place] [address]- 6276 Sep, [facility] [place] [facility] [address] [id number] [place] [address]- 5176 Aug, [facility] [place] [facility] [address] [id number] [place] [address]- 3019 Aug, [facility] [place] [facility] [address] [id number] [place] [address]- 8275 Aug, [facility] [place] [facility] [address] [id number] [place] [address]- 9504 Aug, [facility] [place] [facility] [address] [id number] [place] [address]- 2543 Aug, [facility] [place] [facility] [address] [id number] [place] [address]- 1806 Aug, [facility] [place] [facility] [address] [id number] [place] [address]- 5023 10 Aug, 2013 [facility] [place] [facility] [address] [id number] [place] [address]- 4408 10 Aug, 2013 [facility] [address] [id number] [place] [address]- 7115 Jul, [facility] [place] [facility] [address] [id number] [place] [address]- 4312 Jul, [facility] [address] [id number] [place] [address]- 4197 Jul, [facility] [place] [facility] [address] [id number] [place] [address]- 4851 Jul, [facility] [place] [facility] [address] [id number] [place] [address]- 2213 Jul, [facility] [place] [facility] [address] [id number] [place] [address]- 6080 Jul, [facility] [address] [id number] [place] [address]- 3852 Jul, [facility] [place] [facility] [address] [id number] [place] [address]- 3251 Jun, [facility] [place] [facility] [address] [id number] [place] [address]- 1243 Jun, [facility] [place] [facility] [address] [id number] [place] [address]- 9570 Jun, [facility] [place] [facility] [address] [id number] [place] [address]- 4278 Jun, [facility] [place] [facility] [address] [id number] [place] [address]- 1585 Jun, [facility] [place] [facility] [address] [id number] [place] [address]- 5904 Jun, [facility] [place] [facility] [address] [id number] [place] [address]- 2960 Jun, [facility] [place] [facility] [address] [id number] [place] [address]- 6789 Jun, [facility] [place] [facility] [address] [id number] [place] [address]- 6529 Jun, [facility] [place] [facility] [address] [id number] [place] [address]- 4527 May, [facility] [place] [facility] [address] [id number] [place] [address]- 4873 May, [facility] [place] [facility] [address] [id number] [place] [address]- 5197 May, [facility] [place] [facility] [address] [id number] [place] [address]- 3736 May, [facility] [place] [facility] [address] [id number] [place] [address]- 6146 May, [facility] [place] [facility] [address] [id number] [place] [address]- 5831 May, [facility] [place] [facility] [address] [id number] [place] [address]- 0131 May, [facility] [place] [facility] [address] [id number] [place] [address]- 1132 May, [facility] [place] [facility] [address] [id number] [place] [address]- 4514 May, [facility] [place] [facility] [address] [id number] [place] [address]- 1808 May, [facility] [place] [facility] [address] [id number] [address]- 6798 Apr, [facility] [place] [facility] [address] [id number] [place] [address]- 9536 Apr, [facility] [place] [facility] [address] [id number] [place] [address]- 5586 Apr, [facility] [place] [facility] [address] [id number] [place] [address]- 5930 Apr, [facility] [place] [facility] [address] [id number] [place] [address]- 4166 14 Apr, 2013 [facility] [place] [facility] [address] [id number] [place] [address]- 7927 14 Apr, 2013 [facility] [place] [facility] [address] [id number] [place] [address]- 3849 30 Mar, 2013 [facility] [place] [facility] [address] [id number] [place] [address]- 0047 23 Mar, 2013 [facility] [place] [facility] [address] [id number] [place] [address]- 4715 13 Mar, 2013 [facility] [place] [facility] [address] [id number] [place] [address]- 1107 04 Mar, 2013 [facility] [place] [facility] [address] [id number] [place] [address]- 3358 Feb, [facility] [place] [facility] [address] [id number] [place] [address]- 8097 Feb, [facility] [place] [facility] [address] [id number] [place] [address]- 5171 Jan, [facility] [place] [facility] [address] [id number] [place] [address]- 4200 Jan, [facility] [place] [facility] [address] [id number] [place] [address]- 7933 Jan, [facility] [place] [facility] [address] [id number] [place] [address]- 9199 Jan, [facility] [place] [facility] [address] [id number] [place] [address]- 6718 Jan, [facility] [place] [facility] [address] [id number] [place] [address]- 0680 Jan, [facility] [place] [facility] [address] [id number] [place] [address]- 5379 Jan, [facility] [place] [facility] [address] [id number] [place] [address]- 5067 Jan, [facility] [place] [facility] [address] [id number] [place] [address]- 3206 28 Dec, 2012 [facility] [address] [id number] [place] [address]- 7566 24 Dec, 2012 [facility] [address] [id number] [place] [address]- 9305 14 Dec, 2012 [facility] [address] [id number] [place] [address]- 6469 10 Dec, 2012 [facility] [address] [id number] [place] [address]- 5338 05 Dec, 2012 [facility] [address] [id number] [place] [address]- 5235 Dec, [facility] [address] [id number] [place] [address]- 4327 November, [facility] [address] [id number] [place] [address]- 9862 November, [facility] [address] [id number] [place] [address]- 6306 Oct, [facility] [address] [id number] [place] [address]- 3273 Oct, [facility] [address] [id number] [place] [address]- 2571 Oct, [facility] [address] [id number] [place] [address]- 6595 Oct, [facility] [address] [id number] [place] [address]- 9740 Oct, [facility] [address] [id number] [place] [address]- 8108 Sep, [facility] [address] [id number] [place] [address]- 9729 Sep, [facility] [address] [id number] [place] [address]- 1157 Aug, [facility] [address] [id number] [place] [address]- 2727 18 Aug, 2012 [facility] [place] [facility] [address] [id number] [place] [address]- 2750 14 Aug, 2012 [facility] [address] [id number] [place] [address]- 6911 08 Aug, 2012 [facility] [address] [id number] [place] [address]- 3618 23 Jul, 2012 [facility] [address] [id number] [place] [address]- 7331 Jul, [facility] [address] [id number] [place] [address]- 3807 Jul, [facility] [address] [id number] [place] [address]- 9351 Jul, [facility] [address] [id number] [address]- 9442 11 Jul, 2012 [facility] [address] [id number] [place] [address]- 6832 Jul, [facility] [address] [id number] [place] [address]- 7173 Jun, [facility] [address] [id number] [address]- 1814 19 Jun, 2012 [facility] [place] [facility] [address] [id number] [address]- 1009 17 Jun, 2012 [facility] [place] [facility] [address] [id number] [place] [address]- 2548 17 Jun, 2012 [facility] [place] [facility] [address] [id number] [address]- 8023 11 Jun, 2012 [facility] [place] [facility] [address] [id number] [address]- 6360 11 Jun, 2012 [facility] [place] [facility] [address] [id number] [place] [address]- 4290 10 Jun, 2012 [facility] [place] [facility] [address] [id number] [place] [address]- 8370 Jun, [facility] [place] [facility] [address] [id number] [place] [address]- 5056 Jun, [facility] [place] [facility] [address] [id number] [place] [address]- 8046 Jun, [facility] [place] [facility] [address] [id number] [place] [address]- 6881 05 Jun, 2012 [facility] [place] [facility] [address] [id number] [place] [address]- 0165 05 Jun, 2012 [facility] [place] [facility] [address] [id number] [place] [address]- 5138 May, [facility] [place] [facility] [address] [id number] [place] [address]- 2365 May, [facility] [place] [facility] [address] [id number] [place] [address]- 2650 May, [facility] [place] [facility] [address] [id number] [place] [address]- 4411 May, [facility] [place] [facility] [address] [facility] [id number] [place] [address]- 2794 May, [facility] [place] [facility] [address] [id number] [place] [address]- 3748 18 May, 2012 [facility] [place] [facility] [address] [id number] [place] [address]- 0046 10 May, 2012 [facility] [place] [facility] [address] [id number] [place] [address]- 1833 10 May, 2012 [facility] [place] [facility] [address] [id number] [place] [address]- 7306 May, [facility] [place] [facility] [address] [id number] [address]- 0481 08 May, 2012 [facility] [place] [facility] [address] [id number] [place] [address]- 8658 May, [facility] [place] [facility] [address] [id number] [place] [address]- 8794 May, [facility] [place] [facility] [address] [id number] [place] [address]- 1217 May, [facility] [place] [facility] [address] [id number] [place] [address]- 8900 May, [facility] [place] [facility] [address] [id number] [place] [address]- 4914 May, [facility] [place] [facility] [address] [id number] [place] [address]- 6041 Apr, [facility] [place] [facility] [address] [id number] [place] [address]- 1669 Apr, [facility] [place] [facility] [address] [id number] [place] [address]- 7061 Apr, [facility] [place] [facility] [address] [id number] [place] [address]- 1412 Apr, [facility] [place] [facility] [address] [id number] [place] [address]- 7621 Apr, [facility] [place] [facility] [address] [id number] [place] [address]- 7621 Apr, [facility] [place] [facility] [address] [id number] [place] [address]- 6499 Apr, [facility] [place] [facility] [address] [id number] [place] [address]- 9097 Apr, [facility] [place] [facility] [address] [id number] [place] [address]- 3516 Apr, [facility] [place] [facility] [address] [id number] [place] [address]- 6223 Apr, [facility] [place] [facility] [address] [id number] [place] [address]- 4846 08 Apr, 2012 [facility] [place] [facility] [address] [id number] [place] [address]- 8787 04 Apr, 2012 [facility] [place] [facility] [address] [id number] [place] [address]- 1791 02 Apr, 2012 [facility] [place] [facility] [address] [id number] [place] [address]- 2564 24 Mar, 2012 [facility] [place] [facility] [address] [id number] [place] [address]- 7378 18 Mar, 2012 [facility] [place] [facility] [address] [id number] [place] [address]- 1955 17 Mar, 2012 [facility] [place] [facility] [address] [id number] [place] [address]- 5852 13 Mar, 2012 [facility] [place] [facility] [address] [id number] [place] [address]- 4512 11 Mar, 2012 [facility] [place] [facility] [address] [id number] [place] [address]- 9788 28 Feb, 2012 [facility] [place] [facility] [address] [id number] [place] [address]- 4647 Feb, [facility] [place] [facility] [address] [id number] [place] [address]- 7432 14 Feb, 2012 [facility] [place] [facility] [address] [id number] [place] [address]- 5467 Feb, [facility] [place] [facility] [address] [id number] [place] [address]- 0317 08 Feb, 2012 [facility] [place] [facility] [address] [id number] [place] [address]- 8133 Feb, [facility] [place] [facility] [address] [id number] [place] [address]- 8539 Feb, [facility] [place] [facility] [address] [id number] [place] [address]- 7637 Jan, [facility] [place] [facility] [address] [id number] [place] [address]- 4916 Jan, [facility] [address] [id number] [place] [address]- 9946 Jan, [facility] [address] [id number] [place] [address]- 8744 Jan, [facility] [address] [id number] [place] [address]- 3593 Jan, [facility] [address] [id number] [place] [address]- 5241 Dec, [facility] [address] [id number] [place] [address]- 7570 Dec, [facility] [address] [id number] [place] [address]- 8082 Dec, [facility] [address] [id number] [place] [address]- 8191 Dec, [facility] [address] [id number] [place] [address]- 2523 November, [facility] [address] [id number] [place] [address]- 2576 November, [facility] [address] [id number] [place] [address]- 8212 November, [facility] [address] [id number] [place] [address]- 4553 November, [facility] [address] [id number] [place] [address]- 0079 November, [facility] [place] [facility] [address] [id number] [place] [address]- 1243 November, [facility] [address] [id number] [place] [address]- 1889 Oct, [facility] [address] [id number] [place] [address]- 1118 Oct, [facility] [address] [id number] [place] [address]- 7565 Oct, [facility] [place] [facility] [address] [id number] [place] [address]- 3846 29 Sep, 2011 [facility] [place] [facility] [address] [id number] [place] [address]- 5146 Sep, [facility] [place] [facility] [address] [id number] [place] [address] 2546 Sep, [facility] [place] [facility] [address] [id number] [place] [address]- 4216 Sep, [facility] [place] [facility] [address] [id number] [place] [address]- 6296 24 Aug, 2011 [facility] [place] [facility] [address] [facility] [id number] [place] [address] Aug, [facility] [place] [facility] [address] [id number] [place] [address] Aug, [facility] [place] [facility] [address] [id number] [place] [address] Aug, [facility] [place] [facility] [address] [facility] [id number] [place] [address] Aug, [facility] [place] [facility] [address] [id number] [place] [address] Aug, [facility] [place] [facility] [address] [id number] [place] [address] Aug, [facility] [place] [facility] [address] [id number] [place] [address] Jul, [facility] [place] [facility] [address] [facility] [id number] [place] [address] Jul, [facility] [place] [facility] [address] [id number] [place] [address] Jul, [facility] [place] [facility] [address] [id number] [place] [address] Jun, [facility] [address] [id number] [place] [address] Jun, [facility] [place] [facility] [address] [id number] [place] [address] 15 Jun, 2011 [facility] [address] [id number] [place] [address] Jun, [facility] [place] [facility] [address] [id number] [place] [address] May, [facility] [address] [id number] [place] [address] May, [facility] [place] [facility] [address] [id number] [place] [address] May, [facility] [address] [id number] [place] [address] May, [facility] [address] [id number] [place] [address] May, [facility] [place] [facility] [address] [id number] [place] [address] Apr, [facility] [address] [id number] [place] [address] Apr, [facility] [place] [facility] [address] [id number] [place] [address] 24 Apr, 2011 [facility] [place] [facility] [address] [id number] [place] [address] Apr, [facility] [place] [facility] [address] [id number] [place] [address] Jun, [facility] [place] [facility] [address] [id number] [place] [address]- 2011 Jun, [facility] [place] [facility] [address] [id number] [place] [address] 30 May, 2010 [facility] [place] [facility] [address] [id number] [place] [address] 30 May, 2010 [facility] [place] [facility] [address] [id number] [place] [address] 29 May, 2010 [facility] [place] [facility] [address] [id number] [place] [address] 24 May, 2010 [facility] [place] [facility] [address] [id number] [place] [address] 16 May, 2010 [facility] [place] [facility] [address] [id number] [place] [address] 15 May, 2010 [facility] [place] [facility] [address] [id number] [place] [address] May, [facility] [place] [facility] [address] [id number] [place] [address] Apr, [facility] [place] [facility] [address] [id number] [place] [address] Apr, [facility] [place] [facility] [address] [id number] [place] [address] Apr, [facility] [place] [facility] [address] [id number] [address] Apr, [facility] [place] [facility] [address] [id number] [address] 18 Apr, 2010 [facility] [place] [facility] [address] [id number] [address] 13 Apr, 2010 [facility] [place] [facility] [address] [id number] [place] [address] 11 Apr, 2010 [facility] [place] [facility] [address] [id number] [place] [address] Jan, [facility] [place] [facility] [address] [id number] [address] Jun, [facility] [place] [facility] [address] [id number] [place] Jun, [facility] [address] [id number] Jun, [facility] [address] [id number] [address] Jun, [facility] [address] [id number] [address] Jun, [facility] [address] [id number] [address] Jun, [facility] [address] [id number] [address] Apr, [facility] [id number] [address] November, [facility] [id number] [address] Oct, IMMUNIZATIONS No Known Immunizations SOCIAL HISTORY Never Assessed REASON FOR VISIT Controlled Med Refill PLAN OF CARE VITAL SIGNS MEDICATIONS Medication Instructions Dosage Frequency Start Date End Date Duration Status Lyrica 225 mg Orally Twice a day 1 capsule 12h 28 Active RESULTS No Results PROCEDURES No Known [...] History Right lateral epicondilisis 12/23/2016 Surgical History THEOD Jayson 03/2017 Hospitalization History surgery
--- OUTSIDE RECORDS SUMMARY | 2017-11-06 11:19 | XMS REPORT ---
Author Author ELIZA GO [facility] Address [address] [place] [address] Care Team Providers Care Public Information Director Name Role Phone ELIZA GO Unavailable PROBLEMS Type Condition ICD9-CM Code EOV23-OA Code Onset Dates Condition Status SNOMED Code Problem Restless leg syndrome G25.81 Active 64687963 Problem Hammertoe of left foot M20.42 Active 130655056 Problem Post menopausal syndrome N95.1 Active 525463744 Problem Type 2 diabetes mellitus with diabetic polyneuropathy, without long- term current use of insulin E11.42 Active 05717561 Problem Chronic diarrhea K52.9 Active 064491738 Problem Other hammer toe(s) (acquired), left foot M20.42 Active 04829660 Problem Hammertoe of right foot M20.41 Active 945504688 Problem Dyspepsia R10.13 Active 210589387 Problem Epigastric abdominal pain R10.13 Active 60709296 Problem Essential hypertension I10 Active 16346784 Problem Chronic pain G89.29 Active 96208316 Problem Mixed hyperlipidemia E78.2 Active 908902734 Problem Mild intermittent asthma without complication J45.20 Active 976619749 Problem GERD (gastroesophageal reflux disease) K21.9 Active 101800535 Problem Moderate episode of recurrent major depressive disorder F33.1 Active 332948005 Problem Low back pain M54.5 Active 104349973 Problem Primary insomnia F51.01 Active 2296350 ALLERGIES No Information SOCIAL HISTORY Never Assessed PLAN OF CARE VITAL SIGNS MEDICATIONS Unknown Medications RESULTS No Results PROCEDURES No Known procedures [...]
--- OUTSIDE RECORDS SUMMARY | 2017-11-06 11:21 | XMS REPORT ---
Author Author CASPER RYAN [facility] Address [address] [place] [address] Care Team Providers Care Staffing Account Manager Name Role Phone CONNOR CASPER Unavailable PROBLEMS Type Condition ICD9-CM Code [id number] Code Onset Dates Condition Status SNOMED Code Problem Post menopausal syndrome N95.1 Active 866193297 Problem Hammertoe of right foot M20.41 Active 117003937 Problem Hammertoe of left foot M20.42 Active 074517422 Problem Epigastric abdominal pain R10.13 Active 13380418 Problem Chronic diarrhea K52.9 Active 570048085 Problem Other hammer toe(s) (acquired), right foot M20.41 Active 776664068 Problem Other hammer toe(s) (acquired), left foot M20.42 Active 55221698 Problem Dyspepsia R10.13 Active 513860184 Problem Type 2 diabetes mellitus with peripheral neuropathy E11.42 Active 9800593973963 Problem Chronic pain G89.29 Active 96269750 Problem Mixed hyperlipidemia E78.2 Active 305634788 Problem GERD (gastroesophageal reflux disease) K21.9 Active 275357380 Problem Low back pain M54.5 Active 160538254 Problem Primary insomnia F51.01 Active 6224808 Problem Moderate episode of recurrent major depressive disorder F33.1 Active 373940052 Problem Essential hypertension I10 Active 92958200 Problem Hereditary and idiopathic neuropathy, unspecified G60.9 Active 233977639 Problem Mild intermittent asthma without complication J45.20 Active 092334447 Problem Restless leg syndrome G25.81 Active 75321053 ALLERGIES Substance Reaction Event Type Date Status Travatan Unknown Drug Allergy Aug, Active Morphine Sulfate Unknown Drug Allergy Aug, Active Keflex Unknown Drug Allergy Aug, Active SOCIAL HISTORY Never Assessed PLAN OF CARE Activity Details Follow Up as scheduled Reason:DM VITAL SIGNS Height 63 in 2016-08-24 Weight 332.0 lbs 2016-08-24 Temperature 97.9 degrees Fahrenheit 2016-08-24 Heart Rate 76 bpm 2016-08-24 Respiratory Rate 16 2016-08-24 BMI 58.80 kg/m2 2016-08-24 Blood pressure systolic 122 mmHg 2016-08-24 Blood pressure diastolic 70 mmHg 2016-08-24 MEDICATIONS Medication Instructions Dosage Frequency Start Date End Date Duration Status Flovent HFA 44 mcg/actuation inhale 2 puffs by Inhalation route 2 times per day Active Latanoprost 0.005 % Ophthalmic Once a day 1 drop into affected eye in the evening 24h Active Naproxen 500 orally bid 1 tablet 12h 30 Active Trulicity 0.75 MG/0.5ML Subcutaneous Once weekly 0.5 ml Active Metformin HCl 500 Orally Twice a day 2 12h 90 days Active Lisinopril-Hydrochlorothiazide 10-12.5 Orally Once a day 1 tablet 24h 30 Active Protonix 40 TAKE ONE TABLET BY MOUTH DAILY 30 Active Pravastatin Sodium 40 TAKE ONE TABLET BY MOUTH EVERY NIGHT AT BEDTIME. AVOID GRAPEFRUIT 30 Active meclizine 25 mg take 1 tablet by Oral route 1 hour before exposure to motion 4 times per day PRN or vertigo Active Estradiol 1 MG Orally Once a day 1 tablet 24h Active Cymbalta 60 orally daily 1 capsule 24h 90 Active Lyrica 225 Orally Twice a day 1 capsule 12h Active Albuterol Sulfate 2.5 mg /3 mL (0.083 %) 1 Each by Inhalation route every 4 hours for cough and wheeze PRN for wheezing or cough Active Baclofen 20 TAKE ONE TABLET BY MOUTH EVERY NIGHT AT BEDTIME DIRECTED 30 Active Atenolol 100 TAKE ONE TABLET BY MOUTH DAILY 30 Active Scopolamine Base 1.5 mg apply 1 patch by Transdermal route to the hairless area behind 1 ear at least 4 hr before effect is required; reapply every 3 days as needed PRN Active Belsomra 10 mg Orally Once a day 1 tablet at bedtime as needed 24h 30 days Active Tramadol HCl 50 mg Orally 2 times a day 1 tablet as needed 12h Active Proventil HFA 90 mcg/actuation 1-2 puffs by Inhalation route every 4 hours Active Lasix 20 TAKE ONE TABLET BY MOUTH DAILY NEEDED 30 Active RESULTS Name Result Date Reference Range A1C (IN HOUSE) 2016-08-24 A1C IN HOUSE 6.7 4.3 - 5.6 % Previous A1c 6.6 Lot [id number] Exp date 05/2018 PROCEDURES Procedure Date Ordered Result Body Site GLYCATED HEMOGLOBIN TEST Aug 24, 2016 [facility] VISIT ESTABLISHED PATIENT Aug 24, 2016 IMMUNIZATIONS No Known Immunizations MEDICAL (GENERAL) [...] Surgical History colonoscopy-ext hemorrhoids, no polyps ([facility]) 08/2012 Surgical History arthroscopic knee surgery (Right) Surgical History cataract-lens implants -Left eye- Dr Castro 10/23/2014 Surgical History Left rotator cuff repair 04/2015 Surgical History Right lateral epicondilisis 12/23/2016 Hospitalization History surgery
--- OUTSIDE RECORDS SUMMARY | 2017-11-06 11:21 | XMS REPORT ---
Author Author ELIZA GO [facility] Address [address] [place] [address] Care Team Providers Care Mixer Pigment Name Role Phone ELIZA GO Unavailable PROBLEMS Type Condition ICD9-CM Code XVI54-SC Code Onset Dates Condition Status SNOMED Code Problem Restless leg syndrome G25.81 Active 45645966 Problem Hammertoe of left foot M20.42 Active 652205067 Problem Post menopausal syndrome N95.1 Active 186763000 Problem Type 2 diabetes mellitus with diabetic polyneuropathy, without long- term current use of insulin E11.42 Active 78756951 Problem Central stenosis of spinal canal M48.00 Active 28550975 Problem Chronic diarrhea K52.9 Active 772997631 Problem Paracentral disc prolapse M51.9 Active 43965570 Problem Other hammer toe(s) (acquired), left foot M20.42 Active 84332257 Problem Hammertoe of right foot M20.41 Active 346823724 Problem Dyspepsia R10.13 Active 896950013 Problem Epigastric abdominal pain R10.13 Active 38049591 Problem Essential hypertension I10 Active 62487670 Problem Chronic pain G89.29 Active 28607872 Problem Facet arthropathy, lumbar M12.88 Active 764015130 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
--- OUTSIDE RECORDS SUMMARY | 2017-11-06 11:21 | XMS REPORT ---
Author Author ELIZA GO [facility] Address [address] [place] [address] Care Team Providers Care Measurement And Sensing Technician Name Role Phone ELIZA GO Unavailable PROBLEMS Type Condition ICD9-CM Code LLU53-DD Code Onset Dates Condition Status SNOMED Code Problem Restless leg syndrome G25.81 Active 92652777 Problem Hammertoe of left foot M20.42 Active 282991754 Problem Post menopausal syndrome N95.1 Active 119210170 Problem Type 2 diabetes mellitus with diabetic polyneuropathy, without long- term current use of insulin E11.42 Active 56300955 Problem Chronic diarrhea K52.9 Active 003050776 Problem Other hammer toe(s) (acquired), left foot M20.42 Active 99336658 Problem Hammertoe of right foot M20.41 Active 578629296 Problem Dyspepsia R10.13 Active 994344742 Problem Epigastric abdominal pain R10.13 Active 00907887 Problem Essential hypertension I10 Active 72771187 Problem Chronic pain G89.29 Active 73781596 Problem Mixed hyperlipidemia E78.2 Active 778893948 Problem Mild intermittent asthma without complication J45.20 Active 274695726 Problem GERD (gastroesophageal reflux disease) K21.9 Active 058624557 Problem Moderate episode of recurrent major depressive disorder F33.1 Active 305880975 Problem Low back pain M54.5 Active 028389229 Problem Primary insomnia F51.01 Active 3356135 ALLERGIES Substance Reaction Event Type Date Status Travatan Unknown Drug Allergy November, Active Morphine Sulfate Unknown Drug Allergy November, Active Keflex Unknown Drug Allergy November, Active SOCIAL HISTORY Never Assessed PLAN OF CARE Activity Details Follow Up 4-5 weeks Reason:DM VITAL SIGNS Height 63 in 2016-11-11 Weight 334 lbs 2016-11-11 Temperature 98.2 degrees Fahrenheit 2016-11-11 Heart Rate 80 bpm 2016-11-11 Respiratory Rate 24 2016-11-11 BMI 59.16 kg/m2 2016-11-11 Blood pressure systolic 124 mmHg 2016-11-11 Blood pressure diastolic 80 mmHg 2016-11-11 MEDICATIONS Medication Instructions Dosage Frequency Start Date End Date Duration Status Cymbalta 60 orally daily 1 capsule 24h 90 Active Albuterol Sulfate 2.5 mg /3 mL (0.083 %) 1 Each by Inhalation route every 4 hours for cough and wheeze PRN for wheezing or cough Active Lisinopril-Hydrochlorothiazide 10-12.5 MG Orally Once a day 1 tablet 24h Sep, 30 day(s) Active Baclofen 20 Orally at hs 1 tablet 30 Active Naproxen 500 orally bid 1 tablet 12h 30 Active Pravastatin Sodium 40 mg Orally Once a day 1 tablet 24h Sep, 30 day(s) Active Lunesta 2 MG Orally Once a day 1 tablet immediately before bedtime 24h November, 30 days Active Lasix 20 TAKE ONE TABLET BY MOUTH DAILY NEEDED 30 Active meclizine 25 mg take 1 tablet by Oral route 1 hour before exposure to motion 4 times per day PRN or vertigo Active Atenolol 100 mg Orally Once a day 1 tablet 24h 30 Active Tramadol HCl 50 mg Orally 2 times a day 1 tablet as needed 12h Active Latanoprost 0.005 % Ophthalmic Once a day 1 drop into affected eye in the evening 24h Active Proventil HFA 90 mcg/actuation Inhalation every 4 hrs prn 2 puffs as needed Active Scopolamine Base 1.5 mg apply 1 patch by Transdermal route to the hairless area behind 1 ear at least 4 hr before effect is required; reapply every 3 days as needed PRN Active Lyrica 225 Orally Twice a day 1 capsule 12h Active Trulicity 0.75 MG/0.5ML Subcutaneous Once weekly 0.5 ml Active Pantoprazole Sodium 40 mg Orally Once a day 1 tablet 24h Sep, Active Ranitidine HCl 150 MG Orally Once a day 1 tablet at bedtime 24h November, 30 day(s) Active Metformin HCl 500 Orally Twice a day 2 12h 90 days Active Estradiol 1 MG Orally Once a day 1 tablet 24h Active RESULTS Name Result Date Reference Range Xray : Shoulder, Right 2 view (IN HOUSE) 2016-11-11 PROCEDURES Procedure Date Ordered Result Body Site X-RAY EXAM OF SHOULDER November 11, 2016 [facility] VISIT ESTABLISHED PATIENT November 11, 2016 IMMUNIZATIONS No Known Immunizations MEDICAL (GENERAL) [...]
--- OUTSIDE RECORDS SUMMARY | 2017-11-06 11:21 | XMS REPORT ---
Author Author ELIZA GO [facility] Address [address] [place] [address] Care Team Providers Care Car Rental Clerk Name Role Phone ABBI ELIZA Unavailable PROBLEMS Type Condition ICD9-CM Code EKO84-WS Code Onset Dates Condition Status SNOMED Code Problem Low back pain M54.5 Active 345351916 Problem Mixed hyperlipidemia E78.2 Active 349334136 Problem Mild intermittent asthma without complication J45.20 Active 072980323 Problem Central stenosis of spinal canal M48.00 Active 43633906 Problem Essential hypertension I10 Active 78206562 Problem Chronic pain G89.29 Active 47772621 Problem GERD (gastroesophageal reflux disease) K21.9 Active 396207667 Problem Type 2 diabetes mellitus with diabetic polyneuropathy, without long- term current use of insulin E11.42 Active 96322197 Problem Chronic diarrhea K52.9 Active 421354279 Problem Primary insomnia F51.01 Active 0375051 Problem Moderate episode of recurrent major depressive disorder F33.1 Active 474384628 Problem Post menopausal syndrome N95.1 Active 510307342 Problem Restless leg syndrome G25.81 Active 84054066 ALLERGIES Substance Reaction Event Type Date Status Travatan Unknown Drug Allergy Dec, Active Morphine Sulfate Unknown Drug Allergy Dec, Active Keflex Unknown Drug Allergy Dec, Active ENCOUNTERS Encounter Location Date Diagnosis [facility] [id number] [id number] Aug, Encounter for dental examination Z01.20 [facility] [id number] [place] [address] 37823- 9837 Aug, Type 2 diabetes mellitus with diabetic polyneuropathy, without long-term current use of insulin E11.42 [facility] [address] [address] 14 Feb, 2018 Acute pain of left knee M25.562 ; Type 2 diabetes mellitus with diabetic polyneuropathy, without long-term current use of insulin E11.42 ; Mixed hyperlipidemia E78.2 and BMI 50.0-59.9, adult Z68.43 [facility] [address] [address]- 6088 31 Jul, 2017 Dental examination Z01.20 [facility] [address] [address]83- 5612 Jul, Chronic pain G89.29 [facility] [address] 04713- 3365 Jun, Chronic pain G89.29 [facility] [address] 29198- 8260 Jun, Well woman exam (no gynecological exam) Z00.00 ; Lipoma of right thigh D17.23 ; Cracked lips K13.0 ; Sebaceous cyst L72.3 ; Lesion of skin of breast N64.9 and BMI 50.0-59.9, adult Z68.43 [facility] [address] [address] 18 Jun, 2017 Rash R21 and BMI 50.0-59.9, adult Z68.43 [facility] [address] 22304- 3150 05 Jun, 2017 Chronic pain G89.29 [facility] [address] 19758- 8777 May, Primary insomnia F51.01 [facility] [address] 37318- 5485 May, Chronic pain G89.29 [facility] [address] 35650- 6863 May, Dyspepsia R10.13 ; Chronic pain G89.29 ; Chronic diarrhea K52.9 ; GERD (gastroesophageal reflux disease) K21.9 ; Epigastric abdominal pain R10.13 ; Type 2 diabetes mellitus with diabetic polyneuropathy, without long-term current use of insulin E11.42 and Mixed hyperlipidemia E78.2 [facility] [id number] [place] [address] 41690- 0685 Apr, Chronic pain G89.29 [facility] [id number] [place] [address] 83818- 1382 Apr, Chronic pain G89.29 [facility] [address] 58286- 0597 Apr, [facility] [id number] [place] [address] 60181- 3288 Apr, [facility] [id number] [place] [address] 60259- 9802 Apr, Dyspepsia R10.13 ; Chronic pain G89.29 ; Chronic diarrhea K52.9 ; GERD (gastroesophageal reflux disease) K21.9 ; Epigastric abdominal pain R10.13 ; Type 2 diabetes mellitus with diabetic polyneuropathy, without long-term current use of insulin E11.42 and Mixed hyperlipidemia E78.2 [facility] [id number] [place] [address] 21437- 4550 Mar, Chronic pain G89.29 [facility] [id number] [place] [address] 91772- 3355 Feb, Dyspepsia R10.13 ; Chronic diarrhea K52.9 ; GERD ( gastroesophageal reflux disease) K21.9 and Epigastric abdominal pain R10.13 [facility] [id number] [place] [address] 77626- 1896 Feb, Chronic pain G89.29 [facility] [id number] [place] [address] 03476- 9554 Jan, Chronic pain G89.29 [facility] [id number] [place] [address] 01089- 6498 Jan, [facility] [id number] [place] [address] 90022- 5695 Dec, Type 2 diabetes mellitus with peripheral neuropathy E11.42 ; Primary insomnia F51.01 ; Chronic pain G89.29 ; GERD (gastroesophageal reflux disease) K21.9 ; Essential hypertension I10 and Mixed hyperlipidemia E78.2 [facility] [address] [place] [address] 63575- 7772 Dec, Chronic pain G89.29 [facility] [id number] [place] [address] 29909- 2648 November, Chronic pain G89.29 [facility] [id number] [place] [address] 15132- 2443 November, Chronic pain G89.29 [facility] [id number] [place] [address] 45968- 4584 November, Primary insomnia F51.01 ; Acute pain of right shoulder M25.511 ; Chronic pain G89.29 and GERD (gastroesophageal reflux disease) K21.9 [facility] [id number] [place] [address] 56966- 0045 November, Primary insomnia F51.01 [facility] [id number] [place] [address] 50727- 7437 Sep, Essential hypertension I10 ; Mixed hyperlipidemia E78.2 ; GERD (gastroesophageal reflux disease) K21.9 ; Mild intermittent asthma without complication J45.20 ; Type 2 diabetes mellitus with peripheral neuropathy E11.42 ; Restless leg syndrome G25.81 ; Primary insomnia F51.01 ; Chronic pain G89.29 and Post menopausal syndrome N95.1 [facility] [address] [place] [address] 47415- 3590 Sep, Hereditary and idiopathic neuropathy, unspecified G60.9 [facility] [id number] [place] [address] 47737- 6218 Sep, [facility] [id number] [place] [address] 76095- 4868 Aug, Type 2 diabetes mellitus with peripheral neuropathy E11.42 [facility] [id number] [place] [address] 03157- 1584 06 Aug, 2016 Benign paroxysmal positional vertigo due to bilateral vestibular disorder H81.13 [facility] [id number] [place] [address] 43847- 2078 Jul, Hammertoe of left foot M20.42 ; Hammertoe of right foot M20.41 and DM neuro manif type II E11.49 [facility] [address] 38627- 5053 Jun, Primary insomnia F51.01 and Type 2 diabetes mellitus without complication E11.9 [facility] [address] 37546- 5164 Jun, Asthmatic bronchitis with acute exacerbation J45.901 [facility] [address] 95956- 9556 May, [facility] [address] 14612- 1492 May, [facility] [address] 99470- 6544 May, [facility] [address] 92390- 6740 May, Primary insomnia F51.01 ; Encounter for immunization Z23 ; Type 2 diabetes mellitus without complication E11.9 ; Restless leg syndrome G25.81 ; Hereditary and idiopathic neuropathy, unspecified G60.9 ; Essential hypertension I10 ; Mixed hyperlipidemia E78.2 ; Post menopausal syndrome N95.1 and Right foot ulcer, with unspecified severity L97.519 [facility] [address] 93198- 4674 May, [facility] [id number] [place] [id number] Apr, Dental examination Z01.20 [facility] [place] [address] 69932- 3502 Mar, Vertigo R42 [facility] [address] [place] [address] 89488- 5723 Mar, Screening breast examination Z12.39 and Type 2 diabetes mellitus without complication E11.9 [facility] [id number] [place] [address] 59689- 9617 Feb, [facility] [id number] [place] [address] 72138- 2040 Feb, Primary insomnia F51.01 and Restless leg syndrome G25.81 [facility] [id number] [place] [address] 66380- 9906 Jan, Primary insomnia F51.01 ; Restless leg syndrome G25.81 and Upper respiratory tract infection, unspecified type J06.9 [facility] [id number] [place] [address] 04037- 6060 Dec, [facility] [id number] [place] [address] 59478- 9850 Dec, Moderate episode of recurrent major depressive disorder F33.1 [facility] [id number] [place] [address] 81289- 1801 Dec, Moderate episode of recurrent major depressive disorder F33.1 [facility] [id number] [place] [address] 07540- 3551 Dec, Type 2 diabetes mellitus without complication E11.9 ; Hereditary and idiopathic neuropathy, unspecified G60.9 ; Mild intermittent asthma without complication J45.20 ; Essential hypertension I10 ; Mixed hyperlipidemia E78.2 ; Low back pain M54.5 ; Moderate episode of recurrent major depressive disorder F33.1 and Primary insomnia F51.01 [facility] [id number] [place] [address] 61525- 4522 Dec, [facility] [id number] [place] [address] 91819- 1897 Dec, [facility] [id number] [place] [address] 19690- 5196 Oct, Diarrhea R19.7 [address] [id number] [place] [address] 78897- 3335 Oct, [address] [id number] [place] [address]653 Sep, Type 2 diabetes mellitus without complication E11.9 ; Mild intermittent asthma without complication J45.20 ; Essential hypertension I10 ; Mixed hyperlipidemia E78.2 ; Upper respiratory infection J06.9 and Benign paroxysmal positional vertigo due to bilateral vestibular disorder H81.13 [address] [id number] [place] [address] 98591- 7442 23 Aug, 2015 Benign paroxysmal positional vertigo due to bilateral vestibular disorder H81.13 [place] [address] 44106- 5402 Aug, Hereditary and idiopathic neuropathy, unspecified G60.9 [place] [address] 41942- 6815 Jun, Low back pain M54.5 ; Chronic pain G89.29 and Abnormal drug screen R89.2 [facility] [address] [id number] Jun, Dental examination Z01.20 and Encounter for dental examination Z01.20 [facility] [address] [id number] Jun, Encounter for dental examination Z01.20 ; Dental examination Z01.20 and Dental caries K02.9 [address] [id number] [place] [address] 01986- 8584 Jun, Type 2 diabetes mellitus without complication E11.9 ; Encounter for immunization Z23 ; Essential hypertension I10 ; Low back pain M54.5 ; Chronic pain G89.29 ; Mixed hyperlipidemia E78.2 ; GERD ( gastroesophageal reflux disease) K21.9 ; Mild intermittent asthma without complication J45.20 and Depression F32.9 [address] [address] 40189- 9301 May, [facility] [address] [address]- 0402 Feb, [facility] [id number] [place] [address] 68683- 5316 Feb, Diabetes 250.00 ; Spinal stenosis at L4-L5 level 724.02 ; Lumbar arthropathy 721.3 ; Neuropathy, peripheral 356.9 ; Edema 782.3 ; Hypertension 401.9 ; Left shoulder pain 719.41 and Hyperlipidemia 272.4 [facility] [id number] [place] [address] 22972- 1433 Feb, [facility] [id number] [place] [address] 42608- 3414 Feb, Abnormal mammogram of left breast 793.80 [facility] [id number] [place] [address] 03349- 6249 Jan, [facility] [id number] [place] [address] 77978- 8892 Dec, [facility] [id number] [place] [address] 66425- 9955 Dec, [facility] [id number] [place] [address] 33481- 8282 Dec, [facility] [address] [place] [address] 17528- 9077 November, Diabetes 250.00 ; Spinal stenosis at L4-L5 level 724.02 ; Lumbar arthropathy 721.3 ; Neuropathy, peripheral 356.9 and Edema 782.3 [facility] [id number] [address]- 4983 November, [facility] [id number] [place] [address] 016070- 4613 November, [facility] [id number] [place] [address] 395176- 9434 November, [facility] [place] [facility] [address] [id number] [place] [address]- 1687 November, [facility] [place] [facility] [address] [id number] [place] 4010 November, [facility] [place] [facility] [address] [id number] [place] [address]- 0316 Oct, [facility] [place] [facility] [address] [id number] [place] [address]- 3286 Oct, [facility] [place] [facility] [address] [id number] [place] [address]- 5860 Sep, [facility] [place] [facility] [address] [id number] [place] [address]- 4954 Sep, [facility] [place] [facility] [address] [id number] [place] [address]- 3643 Sep, [facility] [place] [facility] [address] [id number] [place] [address]- 3272 Sep, [facility] [place] [facility] [address] [id number] [place] [address]- 8954 Sep, [facility] [place] [facility] [address] [id number] [place] [address]- 7113 Sep, [facility] [place] [facility] [address] [id number] [place] [address]- 1720 Sep, [facility] [place] [facility] [address] [id number] [place] [address]- 6001 Sep, [facility] [place] [facility] [address] [id number] [place] [address]- 5579 Sep, [facility] [place] [facility] [address] [id number] [place] [address]- 3708 Sep, [facility] [place] [facility] [address] [id number] [place] [address]- 4593 Sep, [facility] [place] [facility] [address] [id number] [place] [address]- 9125 Sep, [facility] [place] [facility] [address] [id number] [place] [address]- 9387 Sep, [facility] [place] [facility] [address] [facility] [id number] [place] [address]- 5016 Sep, [facility] [place] [facility] [address] [facility] [id number] [place] 6456 Sep, [facility] [place] [facility] [address] [facility] [id number] [place] [address]- 2698 Sep, [facility] [place] [facility] [address] [id number] [place] [address]- 2721 Sep, [facility] [place] [facility] [address] [facility] [id number] [place] [address]- 8259 Aug, 2014 [facility] [place] [facility] [address] [facility] [id number] [place] [address]- 5989 Aug, 2014 [facility] [place] [facility] [address] [facility] [id number] [place] [address]- 2906 Aug, 2014 [facility] [place] [facility] [address] [facility] [id number] [place] [address]- 7708 Aug, 2014 [facility] [place] [facility] [address] [facility] [id number] [place] [address]- 1046 Aug, 2014 [facility] [place] [facility] [address] [facility] [id number] [address]- 7165 Aug, 2014 [facility] [place] [facility] [address] [facility] [id number] [address]- 5844 Aug, 2014 [facility] [place] [facility] [address] [facility] [id number] [place] [address]- 6284 Aug, 2014 [facility] [place] [facility] [address] [facility] [id number] [address]- 3033 Aug, 2014 [facility] [place] [facility] [address] [facility] [id number] [address]- 2756 Aug, 2014 [facility] [place] [facility] [address] [id number] [place] [address]- 5089 Aug, 2014 [facility] [place] [facility] [address] [id number] [place] [address]- 0886 Aug, 2014 [facility] [place] [facility] [address] [id number] [place] [address]- 6016 Aug, 2014 [facility] [place] [facility] [address] [id number] [place] [address]- 7515 Aug, 2014 [facility] [place] [facility] [address] [id number] [place] [address]- 4971 Aug, 2014 [facility] [place] [facility] [address] [id number] [place] [address]- 4650 Aug, 2014 [facility] [place] [facility] [address] [facility] [id number] [place] [address]- 0817 Aug, 2014 [facility] [place] [facility] [address] [id number] [place] [address]- 3358 Aug, 2014 [facility] [place] [facility] [address] [facility] [id number] [place] [address]- 3155 Aug, 2014 [facility] [place] [facility] [address] [facility] [id number] [place] [address]- 4239 Aug, 2014 [facility] [place] [facility] [address] [facility] [id number] [place] [address]- 2066 Aug, [facility] [place] [facility] [address] [id number] [place] [address]- 1129 Jul, [facility] [place] [facility] [address] [id number] [place] [address]- 5562 Jul, [facility] [place] [facility] [address] [facility] [id number] [place] [address]- 7994 Jul, [facility] [place] [facility] [address] [facility] [id number] [place] [address]- 3382 Jul, [facility] [place] [facility] [address] [facility] [id number] [place] [address]- 5166 Jul, [facility] [address] [id number] [place] [address]- 7588 Jul, [facility] [address] [id number] [place] [address]- 2983 Jul, [facility] [address] [id number] [place] [address]- 8723 Jul, [facility] [address] [id number] [place] [address]- 0613 Jul, [facility] [address] [id number] [place] [address]- 9682 Jul, [facility] [address] [id number] [place] [address]- 7914 Jul, [facility] [address] [id number] [place] [address]- 8698 Jul, [facility] [address] [id number] [place] [address]- 5590 Jul, [facility] [address] [id number] [place] [address]- 1861 Jul, [facility] [address] [id number] [place] [address]- 9367 Jul, [facility] [address] [id number] [place] [address]- 8704 Jul, [facility] [address] [id number] [place] [address]- 1686 Jun, [facility] [place] [facility] [address] [id number] [place] [address]- 7807 Jun, [facility] [place] [facility] [address] [id number] [place] [address]- 3441 Jun, [facility] [place] [facility] [address] [id number] [place] [address]- 9871 Jun, [facility] [place] [facility] [address] [id number] [place] [address]- 9032 Jun, [facility] [place] [facility] [address] [id number] [place] [address]- 8889 Jun, [facility] [place] [facility] [address] [id number] [place] [address]- 4940 Jun, [facility] [place] [facility] [address] [id number] [place] [address]- 8605 Jun, [facility] [place] [facility] [address] [id number] [place] 9651 Jun, [facility] [place] [facility] [address] [id number] [place] [address]- 3871 Jun, [facility] [place] [facility] [address] [id number] [place] [address]- 3957 Jun, [facility] [place] [facility] [address] [id number] [place] [address]- 9835 Jun, [facility] [place] [facility] [address] [id number] [place] [address]- 7193 Jun, [facility] [place] [facility] [address] [id number] [place] [address]- 6713 Jun, [facility] [place] [facility] [address] [id number] [place] [address]- 0624 Jun, [facility] [place] [facility] [address] [id number] [place] [address]- 6740 Jun, [facility] [place] [facility] [address] [id number] [place] [address]- 7265 Jun, [facility] [place] [facility] [address] [id number] [place] 6156 Jun, [facility] [place] [facility] [address] [id number] [place] [address]- 9156 Jun, [facility] [place] [facility] [address] [id number] [address] Jun, [facility] [place] [facility] [address] [id number] [place] [address] May, [facility] [place] [facility] [address] [id number] [address] May, [facility] [place] [facility] [address] [id number] [place] [address] May, [facility] [place] [facility] [address] [id number] [place] [address] May, [facility] [place] [facility] [address] [id number] [place] [address] May, [facility] [place] [facility] [address] [id number] [place] [address] May, [facility] [place] [facility] [address] [id number] [place] [address] May, [facility] [place] [facility] [address] [id number] [place] [address] May, [facility] [place] [facility] [address] [id number] [place] [address] May, [facility] [place] [facility] [address] [id number] [place] [address] May, [facility] [place] [facility] [address] [id number] [address] May, [facility] [place] [facility] [address] [id number] [place] [address] May, [facility] [place] [facility] [address] [id number] [place] [address] May, [facility] [place] [facility] [address] [id number] [place] [address] May, [facility] [place] [facility] [address] [id number] [place] [address] 14 May, 2014 [facility] [place] [facility] [address] [id number] [place] [address] May, [facility] [place] [facility] [address] [id number] [place] [address] May, [facility] [place] [facility] [address] [id number] [place] [address] Apr, [facility] [place] [facility] [address] [id number] [place] [address] Apr, [facility] [place] [facility] [address] [id number] [place] [address] Apr, [facility] [place] [facility] [address] [id number] [place] [address] Apr, [facility] [place] [facility] [address] [id number] [place] [address] Apr, [facility] [place] [facility] [address] [id number] [place] [address] Apr, [facility] [place] [facility] [address] [id number] [place] [address] Apr, [facility] [place] [facility] [address] [id number] [place] [address] Apr, [facility] [place] [facility] [address] [id number] [place] [address] Mar, [facility] [place] [facility] [address] [id number] [place] [address] Mar, 2013 [facility] [place] [facility] [address] [id number] [place] [address] Sep, 2013 [facility] [place] [facility] [address] [id number] [place] [address] Mar, 2013 [facility] [place] [facility] [address] [id number] [place] [address] Mar, 2013 [facility] [place] [facility] [address] [id number] [place] [address] Mar, [facility] [place] [facility] [address] [id number] [place] [address] Feb, [facility] [place] [facility] [address] [id number] [place] [address] Feb, [facility] [place] [facility] [address] [id number] [place] [address] Feb, [facility] [place] [facility] [address] [id number] [place] [address] Feb, [facility] [place] [facility] [address] [id number] [place] [address] 5818 Feb, [facility] [place] [facility] [address] [id number] [place] [address] 9187 Feb, [facility] [place] [facility] [address] [id number] [place] [address] 4599 Feb, [facility] [place] [facility] [address] [id number] [place] [address] 6926 Feb, [facility] [place] [facility] [address] [id number] [place] [address] 9281 Feb, [facility] [place] [facility] [address] [id number] [place] [address] 4332 Feb, [facility] [place] [facility] [address] [id number] [place] [address] 6372 Jan, [facility] [place] [facility] [address] [id number] [place] [address] 2457 Jan, [facility] [place] [facility] [address] [id number] [place] [address]- 5334 Jan, [facility] [place] [facility] [address] [id number] [place] [address]- 4827 Jan, [facility] [place] [facility] [address] [id number] [place] [address]- 7731 Jan, [facility] [place] [facility] [address] [id number] [place] [address]- 1363 Jan, [facility] [place] [facility] [address] [id number] [place] [address]- 3662 Dec, [facility] [place] [facility] [address] [id number] [place] [address]- 3025 Dec, [facility] [place] [facility] [address] [id number] [place] [address]- 3087 Dec, [facility] [place] [facility] [address] [id number] [place] [address]- 1286 Dec, [facility] [place] [facility] [address] [id number] [place] [address] 1858 November, [facility] [place] [facility] [address] [id number] [place] [address]- 4532 November, [facility] [place] [facility] [address] [id number] [place] [address] 6646 Oct, [facility] [place] [facility] [address] [id number] [place] [address]- 6298 Oct, [facility] [place] [facility] [address] [id number] [place] [address]- 3722 Oct, [facility] [place] [facility] [address] [id number] [place] [address]- 8877 Oct, [facility] [place] [facility] [address] [id number] [place] [address]- 5841 Oct, [facility] [place] [facility] [address] [id number] [place] [address]- 1047 Oct, [facility] [place] [facility] [address] [id number] [place] [address]- 2945 Oct, [facility] [place] [facility] [address] [id number] [place] [address]- 0073 Oct, [facility] [place] [facility] [address] [id number] [place] [address]- 6001 Sep, [facility] [place] [facility] [address] [id number] [place] [address]- 8929 Sep, [facility] [place] [facility] [address] [id number] [place] [address]- 4431 Sep, [facility] [place] [facility] [address] [id number] [place] [address] 1973 Sep, [facility] [place] [facility] [address] [id number] [place] [address] 3443 Sep, [facility] [place] [facility] [address] [id number] [place] [address]- 8269 Sep, [facility] [place] [facility] [address] [id number] [place] [address]- 8566 Sep, [facility] [place] [facility] [address] [facility] [id number] [place] [address]- 4447 Sep, [facility] [place] [facility] [address] [id number] [place] [address]- 1852 Aug, [facility] [place] [facility] [address] [id number] [place] [address]- 2209 Aug, [facility] [place] [facility] [address] [facility] [id number] [place] [address]- 2515 Aug, [facility] [place] [facility] [address] [facility] [id number] [place] [address]- 3435 Aug, [facility] [place] [facility] [address] [id number] [place] [address] 8021 Aug, [facility] [place] [facility] [address] [id number] [place] [address]- 2548 Aug, [facility] [place] [facility] [address] [id number] [place] [address]- 5107 Aug, [facility] [place] [facility] [address] [id number] [place] [address]- 0282 Aug, [facility] [place] [facility] [address] [id number] [place] [address]- 4697 Jul, [facility] [address] [id number] [place] [address] 8911 Jul, [facility] [place] [facility] [address] [id number] [place] [address]- 1672 Jul, [facility] [place] [facility] [address] [id number] [place] [address]- 5644 Jul, [facility] [place] [facility] [address] [id number] [place] [address]- 8104 Jul, [facility] [place] [facility] [address] [id number] [place] [address]- 9408 Jul, [facility] [place] [facility] [address] [id number] [place] [address]- 3265 Jul, [facility] [address] [id number] [place] [address]- 4159 Jun, [facility] [place] [facility] [address] [id number] [place] [address]- 5786 Jun, [facility] [place] [facility] [address] [id number] [place] [address]- 7485 Jun, [facility] [place] [facility] [address] [id number] [place] [address]- 6676 Jun, [facility] [place] [facility] [address] [id number] [place] [address]- 0827 Jun, [facility] [place] [facility] [address] [id number] [place] [address]- 9434 Jun, [facility] [place] [facility] [address] [id number] [place] [address]- 6870 Jun, [facility] [place] [facility] [address] [id number] [place] [address] Jun, [facility] [place] [facility] [address] [id number] [place] [address]- 1004 Jun, [facility] [place] [facility] [address] [id number] [place] [address]- 3173 May, [facility] [place] [facility] [address] [id number] [place] [address]- 8015 May, [facility] [place] [facility] [address] [id number] [place] [address]- 1182 May, [facility] [place] [facility] [address] [id number] [place] [address]- 6402 May, [facility] [place] [facility] [address] [id number] [place] [address]- 9092 May, [facility] [place] [facility] [address] [id number] [place] [address]- 8287 May, [facility] [place] [facility] [address] [id number] [place] [address]- 8118 May, [facility] [place] [facility] [address] [id number] [place] [address]- 5111 May, [facility] [place] [facility] [address] [id number] [place] [address]- 7219 May, [facility] [place] [facility] [address] [id number] [place] [address]- 4121 May, [facility] [place] [facility] [address] [id number] [place] [address]- 9953 Apr, [facility] [place] [facility] [address] [id number] [place] [address]- 3721 29 Apr, 2013 [facility] [place] [facility] [address] [id number] [place] [address]- 4717 Apr, [facility] [place] [facility] [address] [id number] [place] [address]- 7366 Apr, [facility] [place] [facility] [address] [id number] [place] [address]- 2677 14 Apr, 2013 [facility] [place] [facility] [address] [id number] [place] [address]- 6300 14 Apr, 2013 [facility] [place] [facility] [address] [id number] [place] [address]- 1749 30 Mar, 2013 [facility] [place] [facility] [address] [id number] [place] [address]- 2942 23 Mar, 2013 [facility] [place] [facility] [address] [id number] [place] [address]- 2326 Mar, [facility] [place] [facility] [address] [id number] [place] [address]- 9395 04 Mar, 2013 [facility] [place] [facility] [address] [id number] [place] [address]- 1263 Feb, [facility] [place] [facility] [address] [id number] [place] [address]- 6744 Feb, [facility] [place] [facility] [address] [id number] [place] [address]- 9112 Jan, [facility] [place] [facility] [address] [id number] [place] [address]- 0817 Jan, [facility] [place] [facility] [address] [id number] [place] [address]- 6039 Jan, [facility] [place] [facility] [address] [id number] [place] [address]- 2903 Jan, [facility] [place] [facility] [address] [id number] [place] [address]- 2244 Jan, [facility] [place] [facility] [address] [id number] [place] [address]- 7778 Jan, [facility] [place] [facility] [address] [id number] [place] [address]- 2311 Jan, [facility] [place] [facility] [address] [id number] [place] [address]- 6367 Jan, [facility] [place] [facility] [address] [id number] [place] [address]- 6879 Dec, [facility] [place] [facility] [address] [id number] [place] [address]- 0645 24 Dec, 2012 [facility] [address] [id number] [place] [address]- 9156 14 Dec, 2012 [facility] [address] [id number] [place] [address]- 2121 10 Dec, 2012 [facility] [address] [id number] [place] [address]- 1486 05 Dec, 2012 [facility] [address] [id number] [place] [address]- 1006 Dec, [facility] [address] [id number] [place] [address]- 7326 November, [facility] [address] [id number] [place] [address]- 5720 November, [facility] [address] [id number] [place] [address]- 4131 Oct, [facility] [address] [id number] [place] [address]- 0100 Oct, [facility] [address] [id number] [place] [address]- 5530 Oct, [facility] [address] [id number] [place] [address]- 7184 Oct, [facility] [address] [id number] [place] [address]- 0408 Oct, [facility] [address] [id number] [place] [address]- 2201 Sep, [facility] [address] [id number] [place] [address]- 5120 Sep, [facility] [address] [id number] [place] [address]- 2200 Aug, [facility] [address] [id number] [place] [address]- 9562 Aug, [facility] [address] [id number] [place] [address]- 0342 14 Aug, 2012 [facility] [place] [facility] [address] [id number] [place] [address]- 6006 08 Aug, 2012 [facility] [address] [id number] [place] [address]- 2644 23 Jul, 2012 [facility] [address] [id number] [place] [address]- 4958 Jul, [facility] [address] [id number] [place] [address]- 9404 Jul, [facility] [address] [id number] [place] [address]- 9255 Jul, [facility] [address] [id number] [place] [address]- 6424 Jul, [facility] [address] [id number] [place] [address]- 0896 10 Jul, 2012 [facility] [address] [id number] [place] [address]- 5872 Jun, [facility] [address] [id number] [place] [address]- 3407 Jun, [facility] [address] [id number] [place] [address]- 2538 17 Jun, 2012 [facility] [place] [facility] [address] [id number] [address] 3326 17 Jun, 2012 [facility] [place] [facility] [address] [id number] [place] [address]- 6353 Jun, [facility] [place] [facility] [address] [id number] [place] [address]- 8036 Jun, [facility] [place] [facility] [address] [id number] [place] [address]- 9009 10 Jun, 2012 [facility] [place] [facility] [address] [id number] [place] [address]- 2438 07 Jun, 2012 [facility] [place] [facility] [address] [id number] [place] [address]- 4273 06 Jun, 2012 [facility] [place] [facility] [address] [id number] [place] [address]- 9875 06 Jun, 2012 [facility] [place] [facility] [address] [facility] [id number] [place] [address]- 0222 05 Jun, 2012 [facility] [place] [facility] [address] [id number] [place] [address]- 9209 05 Jun, 2012 [facility] [place] [facility] [address] [id number] [place] [address]- 1569 May, [facility] [place] [facility] [address] [id number] [place] [address]- 6163 May, [facility] [place] [facility] [address] [id number] [place] [address]- 7242 May, [facility] [place] [facility] [address] [id number] [place] [address]- 6359 May, [facility] [place] [facility] [address] [id number] [place] [address]- 0688 18 May, 2012 [facility] [place] [facility] [address] [facility] [id number] [place] [address]- 7538 18 May, 2012 [facility] [place] [facility] [address] [id number] [place] [address]- 8786 10 May, 2012 [facility] [place] [facility] [address] [id number] [address]- 2594 10 May, 2012 [facility] [place] [facility] [address] [id number] [place] [address]- 2775 08 May, 2012 [facility] [place] [facility] [address] [facility] [id number] [place] [address]- 5952 08 May, 2012 [facility] [place] [facility] [address] [facility] [id number] [address]- 1469 07 May, 2012 [facility] [place] [facility] [address] [id number] [place] [address]- 5504 May, [facility] [place] [facility] [address] [id number] [place] [address]- 4147 May, [facility] [place] [facility] [address] [id number] [place] [address]- 0154 May, [facility] [place] [facility] [address] [id number] [place] [address]- 8391 May, [facility] [place] [facility] [address] [id number] [place] [address]- 4925 Apr, [facility] [place] [facility] [address] [id number] [place] [address]- 3252 Apr, [facility] [place] [facility] [address] [id number] [place] [address]- 5546 Apr, [facility] [place] [facility] [address] [id number] [place] [address]- 0220 Apr, [facility] [place] [facility] [address] [id number] [place] [address]- 9427 Apr, [facility] [place] [facility] [address] [id number] [place] [address]- 0576 Apr, [facility] [place] [facility] [address] [id number] [place] [address]- 6776 Apr, [facility] [place] [facility] [address] [id number] [place] [address]- 4053 Apr, [facility] [place] [facility] [address] [id number] [place] [address]- 2624 Apr, [facility] [place] [facility] [address] [id number] [place] [address]- 9716 Apr, [facility] [place] [facility] [address] [id number] [place] [address]- 4743 Apr, [facility] [place] [facility] [address] [id number] [place] [address]- 6803 04 Apr, 2012 [facility] [place] [facility] [address] [id number] [place] [address]- 4871 02 Apr, 2012 [facility] [place] [facility] [address] [id number] [place] [address]- 9806 24 Mar, 2012 [facility] [place] [facility] [address] [id number] [place] [address]- 5056 18 Mar, 2012 [facility] [place] [facility] [address] [id number] [place] [address]- 8496 17 Mar, 2012 [facility] [place] [facility] [address] [id number] [place] [address]- 0443 13 Mar, 2012 [facility] [place] [facility] [address] [id number] [place] [address]- 2816 11 Mar, 2012 [facility] [place] [facility] [address] [id number] [place] [address]- 7695 28 Feb, 2012 [facility] [place] [facility] [address] [id number] [place] [address]- 6874 Feb, [facility] [place] [facility] [address] [id number] [place] [address]- 7536 14 Feb, 2012 [facility] [place] [facility] [address] [id number] [place] [address]- 1938 Feb, [facility] [place] [facility] [address] [id number] [place] [address]- 3443 Feb, [facility] [place] [facility] [address] [id number] [place] [address]- 2954 Feb, [facility] [place] [facility] [address] [id number] [place] [address]- 7047 Feb, [facility] [place] [facility] [address] [id number] [place] [address]- 0574 Jan, [facility] [place] [facility] [address] [id number] [place] [address]- 8305 Jan, [facility] [place] [facility] [address] [id number] [place] [address]- 4748 Jan, [facility] [address] [id number] [place] [address]- 0501 Jan, [facility] [address] [id number] [place] [address]- 3011 Jan, [facility] [address] [id number] [place] [address]- 1689 Dec, [facility] [address] [id number] [place] [address]- 9048 Dec, [facility] [address] [id number] [place] [address]- 4740 Dec, [facility] [address] [id number] [place] [address]- 8574 Dec, [facility] [address] [id number] [place] [address]- 5833 November, [facility] [address] [id number] [place] [address]- 3927 November, [facility] [address] [id number] [place] [address]- 6739 November, [facility] [address] [id number] [place] [address]- 3434 November, [facility] [address] [id number] [place] [address]- 2129 November, [facility] [address] [id number] [place] [address]- 8595 November, [facility] [place] [facility] [address] [id number] [place] [address]- 0836 Oct, [facility] [place] [facility] [address] [id number] [place] [address]- 1697 Oct, [facility] [address] [id number] [place] [address]- 3302 Oct, [facility] [place] [facility] [address] [id number] [place] [address]- 8551 Sep, [facility] [place] [facility] [address] [id number] [place] [address]- 5436 Sep, [facility] [place] [facility] [address] [id number] [place] [address] Sep, [facility] [place] [facility] [address] [id number] [place] [address] Sep, [facility] [address] [id number] [place] [address] Aug, [facility] [place] [facility] [address] [id number] [place] [address] Aug, [facility] [place] [facility] [address] [id number] [place] [address] Aug, [facility] [place] [facility] [address] [id number] [place] [address] Aug, [facility] [place] [facility] [address] [id number] [place] [address] Aug, [facility] [place] [facility] [address] [id number] [place] [address] Aug, [facility] [place] [facility] [address] [id number] [place] [address] Aug, [facility] [place] [facility] [address] [id number] [address] Jul, [facility] [place] [facility] [address] [id number] [place] [address] Jul, [facility] [place] [facility] [address] [id number] [place] [address] Jul, [facility] [place] [facility] [address] [id number] [place] [address] Jun, [facility] [place] [facility] [address] [id number] [place] [address] Jun, [facility] [place] [facility] [address] [id number] [place] [address] Jun, [facility] [place] [facility] [address] [id number] [place] [address] Jun, [facility] [place] [facility] [address] [id number] [place] [address] May, [facility] [place] [facility] [address] [id number] [place] [address] May, [facility] [place] [facility] [address] [id number] [place] [address] May, [facility] [place] [facility] [address] [id number] [place] [address] May, [facility] [place] [facility] [address] [id number] [place] [address] May, [facility] [place] [facility] [address] [id number] [place] [address] Apr, [facility] [place] [facility] [address] [id number] [place] [address] Apr, [facility] [place] [facility] [address] [id number] [place] [address] Apr, [facility] [place] [facility] [address] [id number] [place] [address] Apr, [facility] [place] [facility] [address] [id number] [place] [address] Jun, [facility] [place] [facility] [address] [id number] [place] [address] Jun, [facility] [place] [facility] [address] [id number] [place] [address] May, [facility] [place] [facility] [address] [id number] [place] [address] May, [facility] [place] [facility] [address] [id number] [place] [address] 29 May, 2010 [facility] [place] [facility] [address] [id number] [place] [address] 24 May, 2010 [facility] [place] [facility] [address] [id number] [place] [address] 16 May, 2010 [facility] [place] [facility] [address] [id number] [place] [address] 15 May, 2010 [facility] [place] [facility] [address] [id number] [place] [address] May, [facility] [place] [facility] [address] [id number] [place] [address] Apr, [facility] [place] [facility] [address] [id number] [place] [address] Apr, [facility] [place] [facility] [address] [id number] [place] [address] Apr, [facility] [place] [facility] [address] [id number] [place] [address] Apr, [facility] [place] [facility] [address] [id number] [place] [address] Apr, [facility] [place] [facility] [address] [id number] [place] [address] 13 Apr, 2010 [facility] [place] [facility] [address] [id number] [address] Apr, [facility] [place] [facility] [address] [id number] [place] [address] Jan, [facility] [place] [facility] [address] [id number] [place] [address] Jun, [facility] [place] [facility] [address] [id number] [place] [address] Jun, [facility] [place] [facility] [address] [id number] [address] Jun, [facility] [address] [facility] [id number] [address] Jun, [facility] [address] [facility] [id number] [place] [address] Jun, [facility] [address] [facility] [id number] [place] [address] Jun, [facility] [address] [facility] [id number] [address] Apr, [facility] [address] [facility] [id number] [address] November, [facility] [address] [facility] [id number] [place] [address] Oct, IMMUNIZATIONS No Known Immunizations SOCIAL HISTORY Never Assessed REASON FOR VISIT Diabetes f/u [facility] PLAN OF CARE Activity Details Follow Up 3 Months Reason:DM VITAL SIGNS Height 63 in 2016-12-29 Weight 313.6 lbs 2016-12-29 Temperature 98.4 degrees Fahrenheit 2016-12-29 Heart Rate 72 bpm 2016-12-29 Respiratory Rate 24 2016-12-29 BMI 55.55 kg/m2 2016-12-29 Blood pressure systolic 120 mmHg 2016-12-29 Blood pressure diastolic 76 mmHg 2016-12-29 MEDICATIONS Medication Instructions Dosage Frequency Start Date End Date Duration Status Albuterol Sulfate 2.5 mg /3 mL (0.083 %) 1 Each by Inhalation route every 4 hours for cough and wheeze PRN for wheezing or cough Active Trulicity 1.5 MG/0.5ML Subcutaneous once weekly 0.5 ml Dec, Mar, 30 day(s) Active Cymbalta 60 mg orally daily 1 capsule 24h 90 Active Lisinopril-Hydrochlorothiazide 10-12.5 MG Orally Once a day 1 tablet 24h Sep, 90 day(s) Active Hydrocodone-Acetaminophen 7.5-325 MG Orally every 4 hrs 1-2 tablets as needed 4h Active Atenolol 100 mg Orally Once a day 1 tablet 24h 90 Active Baclofen 20 mg Orally at hs 1 tablet 30 Active Metformin HCl 500 mg Orally Twice a day 2 12h 90 days Active meclizine 25 mg take 1 tablet by Oral route 1 hour before exposure to motion 4 times per day PRN or vertigo Active Tramadol HCl 50 mg Orally 2 times a day 1 tablet as needed 12h Active Naproxen 500 mg orally twice a day 1 tablet 12h 30 Active Proventil HFA 90 mcg/actuation Inhalation every 4 hrs prn 2 puffs as needed Active Lyrica 225 mg Orally Twice a day 1 capsule 12h 28 Active Pantoprazole Sodium 40 mg Orally Once a day 1 tablet 24h 90 days Active Latanoprost 0.005 % Ophthalmic Once a day 1 drop into affected eye in the evening 24h Active Ranitidine HCl 150 MG Orally Once a day 1 tablet at bedtime 24h 90 day(s) Active Pravastatin Sodium 40 mg Orally Once a day 1 tablet 24h Sep, 90 day(s) Active Estradiol 1 MG Orally Once a day 1 tablet 24h Active Lasix 20 TAKE ONE TABLET BY MOUTH DAILY NEEDED 30 Active Lunesta 2 MG Orally Once a day 1 tablet immediately before bedtime 24h 30 days Active Scopolamine Base 1.5 mg apply 1 patch by Transdermal route to the hairless area behind 1 ear at least 4 hr before effect is required; reapply every 3 days as needed PRN Active RESULTS Name Result Date Reference Range A1C (IN HOUSE) 2016-12-29 A1C IN HOUSE 6.9 4.3 - 5.6 % Previous A1c 6.7 Lot [id number] Exp date 09/2018 MICROALBUMIN, URINE (IN HOUSE) 2016-12-29 MICROALBUMIN Normal Lot # [id number] Exp date 11/01/2017 Clarity clear Color inge ALB 10 mg/L CRE 200 mgdL A:C (IN HOUSE) <30 mg/g Control Control Lot # Exp date PROCEDURES Procedure Date Ordered Result Body Site GLYCATED HEMOGLOBIN TEST December 29, 2016 MICROALBUMIN, SEMIQUANT December 29, 2016 [facility] VISIT ESTABLISHED PATIENT December 29, 2016 INSTRUCTIONS MEDICATIONS ADMINISTERED No Known Medications MEDICAL [...]
--- OUTSIDE RECORDS SUMMARY | 2017-11-06 11:22 | XMS REPORT ---
Author Author ELIZA GO [facility] Address [address] [place] [address] Care Team Providers Care Conservation Agent Name Role Phone ELIZA GO Unavailable PROBLEMS Type Condition ICD9-CM Code [id number] Code Onset Dates Condition Status SNOMED Code Problem Restless leg syndrome G25.81 Active 02187366 Problem Hammertoe of left foot M20.42 Active 594606978 Problem Post menopausal syndrome N95.1 Active 479026939 Problem Type 2 diabetes mellitus with diabetic polyneuropathy, without long- term current use of insulin E11.42 Active 76713254 Problem Chronic diarrhea K52.9 Active 874426127 Problem Other hammer toe(s) (acquired), left foot M20.42 Active 20429636 Problem Hammertoe of right foot M20.41 Active 886743428 Problem Dyspepsia R10.13 Active 644911237 Problem Epigastric abdominal pain R10.13 Active 04272146 Problem Essential hypertension I10 Active 54286238 Problem Chronic pain G89.29 Active 23186361 Problem Mixed hyperlipidemia E78.2 Active 844187332 Problem Mild intermittent asthma without complication J45.20 Active 339303400 Problem GERD (gastroesophageal reflux disease) K21.9 Active 203327157 Problem Moderate episode of recurrent major depressive disorder F33.1 Active 055034478 Problem Low back pain M54.5 Active 006675289 Problem Primary insomnia F51.01 Active 4897379 ALLERGIES Substance Reaction Event Type Date Status Travatan Unknown Drug Allergy Sep, Active Morphine Sulfate Unknown Drug Allergy Sep, Active Keflex Unknown Drug Allergy Sep, Active SOCIAL HISTORY Never Assessed PLAN OF CARE Activity Details Follow Up 3 Months Reason:DM/HTN VITAL SIGNS Height 63 in 2016-09-22 Weight 335.4 lbs 2016-09-22 Temperature 97.9 degrees Fahrenheit 2016-09-22 Heart Rate 86 bpm 2016-09-22 Respiratory Rate 22 2016-09-22 BMI 59.41 kg/m2 2016-09-22 Blood pressure systolic 134 mmHg 2016-09-22 Blood pressure diastolic 80 mmHg 2016-09-22 MEDICATIONS Medication Instructions Dosage Frequency Start Date End Date Duration Status Albuterol Sulfate 2.5 mg /3 mL (0.083 %) 1 Each by Inhalation route every 4 hours for cough and wheeze PRN for wheezing or cough Active Lisinopril-Hydrochlorothiazide 10-12.5 MG Orally Once a day 1 tablet 24h Sep, 30 day(s) Active Pravastatin Sodium 40 mg Orally Once a day 1 tablet 24h Sep, 30 day(s) Active Metformin HCl 500 Orally Twice a day 2 12h 90 days Active Latanoprost 0.005 % Ophthalmic Once a day 1 drop into affected eye in the evening 24h Active Trulicity 0.75 MG/0.5ML Subcutaneous Once weekly 0.5 ml Active Fish Oil 1000 MG Orally Once a day 1 capsule 24h Active Scopolamine Base 1.5 mg apply 1 patch by Transdermal route to the hairless area behind 1 ear at least 4 hr before effect is required; reapply every 3 days as needed PRN Active Naproxen 500 orally bid 1 tablet 12h 30 Active Lyrica 225 Orally Twice a day 1 capsule 12h Active meclizine 25 mg take 1 tablet by Oral route 1 hour before exposure to motion 4 times per day PRN or vertigo Active Cymbalta 60 orally daily 1 capsule 24h 90 Active Pantoprazole Sodium 40 mg Orally Once a day 1 tablet 24h Sep, 30 day(s) Active Flovent HFA 44 mcg/actuation inhale 2 puffs by Inhalation route 2 times per day Active Estradiol 1 MG Orally Once a day 1 tablet 24h Active Lasix 20 TAKE ONE TABLET BY MOUTH DAILY NEEDED 30 Active Proventil HFA 90 mcg/actuation Inhalation every 4 hrs prn 2 puffs as needed Active Baclofen 20 Orally at hs 1 tablet 30 Active Belsomra 10 mg Orally Once a day 1 tablet at bedtime as needed 24h 30 days Active Atenolol 100 mg Orally Once a day 1 tablet 24h 30 Active Tramadol HCl 50 mg Orally 2 times a day 1 tablet as needed 12h Active RESULTS No Results PROCEDURES Procedure Date Ordered Result Body Site [facility] VISIT ESTABLISHED PATIENT September 22, 2016 IMMUNIZATIONS No Known Immunizations MEDICAL (GENERAL) [...]
--- OUTSIDE RECORDS SUMMARY | 2017-11-06 11:23 | XMS REPORT ---
Author Author ELIZA GO [facility] Address [address] [place] [address] Care Team Providers Care Enrober Name Role Phone ELIZA GO Unavailable PROBLEMS Type Condition ICD9-CM Code [id number] Code Onset Dates Condition Status SNOMED Code Problem Post menopausal syndrome N95.1 Active 857403652 Problem Hammertoe of right foot M20.41 Active 450288471 Problem Hammertoe of left foot M20.42 Active 729081128 Problem Epigastric abdominal pain R10.13 Active 28122199 Problem Chronic diarrhea K52.9 Active 565594171 Problem Other hammer toe(s) (acquired), right foot M20.41 Active 370052001 Problem Other hammer toe(s) (acquired), left foot M20.42 Active 12688616 Problem Dyspepsia R10.13 Active 147214129 Problem Type 2 diabetes mellitus with peripheral neuropathy E11.42 Active 8084957843318 Problem Chronic pain G89.29 Active 18637847 Problem Mixed hyperlipidemia E78.2 Active 010360774 Problem GERD (gastroesophageal reflux disease) K21.9 Active 047797440 Problem Low back pain M54.5 Active 199820811 Problem Primary insomnia F51.01 Active 6789531 Problem Moderate episode of recurrent major depressive disorder F33.1 Active 657224061 Problem Essential hypertension I10 Active 08073937 Problem Hereditary and idiopathic neuropathy, unspecified G60.9 Active 873604003 Problem Mild intermittent asthma without complication J45.20 Active 411219095 Problem Restless leg syndrome G25.81 Active 13171295 ALLERGIES No Information SOCIAL HISTORY Never Assessed PLAN OF CARE VITAL SIGNS MEDICATIONS Medication Instructions Dosage Frequency Start Date End Date Duration Status Scopolamine 1 MG/3DAYS Transdermal every 3 days 1 patch to skin as needed Sep, Active RESULTS No Results PROCEDURES No Known [...]
--- OUTSIDE RECORDS SUMMARY | 2017-11-06 11:27 | XMS REPORT | Continuity of Care Document ---
Author Author [facility] Address Unknown Phone Unavailable Allergies Active Description Code Type Severity Reaction Onset Reported/Identified Relationship to Patient Clinical Status Yes Keflex Drug Allergy N/A N/A 08/13/2008 Yes Keflex Drug Allergy 08/13/2008 Yes Travatan Drug Allergy N/A N/A 06/03/2010 Yes Travatan Drug Allergy 06/03/2010 Yes cephalexin [id number] Drug Allergy Severe SWELLING, RASH 08/31/2010 Yes morphine 15 mg tablet Drug Allergy N/A N/A 08/14/2013 Yes benzalkonium chloride [id number] Drug Allergy Unknown eye irritation Yes morphine [id number] Drug Allergy Unknown vomiting 04/25/2015 Yes travoprost [id number] Drug Allergy Unknown eye irritation 04/25/2015 Yes morphine [id number] Drug Allergy Mild vomiting 05/01/2015 Medications There is no data. Problems Date Dx Coded Attending Type Code [...] And Paronychia Of Finger 04/24/2008 RYAN DO CASPRE K 250.60 DIABETES MELLITUS DIABETIC PERIPHERAL NEUROPATHY [...] 250.60 DIABETES MELLITUS DIABETIC PERIPHERAL NEUROPATHY 04/24/2008 MANUEL GILLETTE CICI Myles 681.02 Onychia And Paronychia Of Finger 04/24/2008 WHITE DDS, EVELINA J 250.60 DIABETES MELLITUS DIABETIC PERIPHERAL NEUROPATHY 04/24/2008 WHITE DDS, EVELINA J 681.02 Onychia And Paronychia Of Finger 04/24/2008 MADL [employer]ATER SET PRODUCTION DESIGNER, ELIZA L 250.60 DIABETES MELLITUS DIABETIC PERIPHERAL NEUROPATHY 04/24/2008 MADL THEATER SET PRODUCTION DESIGNER, ELIZA L 681.02 Onychia And Paronychia Of Finger 04/24/2008 CONNOR TORREZ CASPER K 250.60 DIABETES MELLITUS DIABETIC PERIPHERAL NEUROPATHY 04/24/2008 CONNOR TORREZ CASPER K 681.02 Onychia And Paronychia Of Finger 04/24/2008 MADL THEATER SET PRODUCTION DESIGNER, ELIZA L 250.60 DIABETES MELLITUS DIABETIC PERIPHERAL NEUROPATHY 04/24/2008 MADL THEATER SET PRODUCTION DESIGNER, ELIZA L 681.02 Onychia And Paronychia Of Finger 04/24/2008 CONNOR TORREZ CASPER K 250.60 DIABETES MELLITUS DIABETIC PERIPHERAL NEUROPATHY 04/24/2008 CONNOR TORREZ CASPER K 681.02 Onychia And Paronychia Of Finger 04/24/2008 MADPat THEATER SET PRODUCTION DESIGNER, ELIZA L 250.60 DIABETES MELLITUS DIABETIC PERIPHERAL NEUROPATHY 04/24/2008 MADL THEATER SET PRODUCTION DESIGNER, ELIZA L 681.02 Onychia And Paronychia Of Finger 04/24/2008 CONNOR TORREZ CASPER K 250.60 DIABETES MELLITUS DIABETIC PERIPHERAL NEUROPATHY 04/24/2008 CONNOR TORREZ CASPER K 681.02 Onychia And Paronychia Of Finger 04/24/2008 MADL THEATER SET PRODUCTION DESIGNER, ELIZA L 250.60 DIABETES MELLITUS DIABETIC PERIPHERAL NEUROPATHY 04/24/2008 MADL THEATER SET PRODUCTION DESIGNER, ELIZA L 681.02 Onychia And Paronychia Of Finger 04/24/2008 MADPat THEATER SET PRODUCTION DESIGNER, ELIZA L 250.60 DIABETES MELLITUS DIABETIC PERIPHERAL NEUROPATHY 04/24/2008 MADL THEATER SET PRODUCTION DESIGNER, ELIZA L 681.02 Onychia And Paronychia Of Finger 04/24/2008 BRISEIDA HUMPHREYS MD 250.60 DIABETES MELLITUS DIABETIC PERIPHERAL NEUROPATHY 04/24/2008 JULIANN MD, BRISEIDA N 681.02 Onychia And Paronychia Of Finger 04/24/2008 RYAN DO CASPER K 250.60 DIABETES MELLITUS DIABETIC PERIPHERAL NEUROPATHY 04/24/2008 CONNOR DO, CASPER K 681.02 Onychia And Paronychia Of Finger 04/24/2008 KATIE THEATER SET PRODUCTION DESIGNER, TYRESE R 250.60 DIABETES MELLITUS DIABETIC PERIPHERAL NEUROPATHY 04/24/2008 KATIE THEATER SET PRODUCTION DESIGNER, TYRESE R 681.02 Onychia And Paronychia Of Finger 04/24/2008 MADL THEATER SET PRODUCTION DESIGNER, ELIZA L 250.60 DIABETES MELLITUS DIABETIC PERIPHERAL NEUROPATHY 04/24/2008 MADL THEATER SET PRODUCTION DESIGNER, ELIZA L 681.02 Onychia And Paronychia Of Finger 04/24/2008 MADL THEATER SET PRODUCTION DESIGNER, ELIZA L 250.60 DIABETES MELLITUS DIABETIC PERIPHERAL NEUROPATHY 04/24/2008 MADL THEATER SET PRODUCTION DESIGNER, ELIZA L 681.02 Onychia And Paronychia Of Finger 04/24/2008 MADL THEATER SET PRODUCTION DESIGNER, ELIZA L 250.60 DIABETES MELLITUS DIABETIC PERIPHERAL NEUROPATHY 04/24/2008 MADL THEATER SET PRODUCTION DESIGNER, ELIZA L 681.02 Onychia And Paronychia Of Finger 04/24/2008 CONNOR TORREZ CASPER K 250.60 DIABETES MELLITUS DIABETIC PERIPHERAL NEUROPATHY 04/24/2008 CONNOR TORREZ CASPER K 681.02 Onychia And Paronychia Of Finger 04/24/2008 MADL THEATER SET PRODUCTION DESIGNER, ELIZA L 250.60 DIABETES MELLITUS DIABETIC PERIPHERAL NEUROPATHY 04/24/2008 MADL THEATER SET PRODUCTION DESIGNER, ELIZA L 681.02 Onychia And Paronychia Of Finger 04/24/2008 CONNOR TORREZ CASPER K 250.60 DIABETES MELLITUS DIABETIC PERIPHERAL NEUROPATHY 04/24/2008 CONNOR TORREZ CASPER K 681.02 Onychia And Paronychia Of Finger 08/13/2008 NATI GOODE APRN 250.00 DIABETES MELLITUS TYPE 2 08/13/2008 NATI GOODE APRN 250.62 DIABETIC PERIPHERAL NEUROPATHY TYPE II UNCONTROLLED 08/13/2008 MONO RYAN DOA K 250.00 DIABETES MELLITUS TYPE 2 08/13/2008 [...] PERIPHERAL NEUROPATHY TYPE II UNCONTROLLED 08/13/2008 STACY GILLETTE, MARILU A 250.00 DIABETES MELLITUS TYPE 2 08/13/2008 STACYIY GILLETTE MARILU A 250.62 DIABETIC PERIPHERAL NEUROPATHY [...] PERIPHERAL NEUROPATHY TYPE II UNCONTROLLED 08/13/2008 MADL THEATER SET PRODUCTION DESIGNER, ELIZA L 250.00 DIABETES MELLITUS TYPE 2 08/13/2008 MADL THEATER SET PRODUCTION DESIGNER, ELIZA L 250.62 DIABETIC PERIPHERAL NEUROPATHY TYPE II UNCONTROLLED 08/13/2008 RYAN DO, CASPER K 250.00 DIABETES MELLITUS TYPE 2 08/13/2008 RYAN DO, CASPER K 250.62 DIABETIC PERIPHERAL NEUROPATHY TYPE II UNCONTROLLED 08/13/2008 MADL THEATER SET PRODUCTION DESIGNER, ELIZA L 250.00 DIABETES MELLITUS TYPE 2 08/13/2008 MADL THEATER SET PRODUCTION DESIGNER, ELIZA L 250.62 DIABETIC PERIPHERAL NEUROPATHY TYPE II UNCONTROLLED 08/13/2008 RYAN DO, CASPER K 250.00 DIABETES MELLITUS TYPE 2 08/13/2008 RYAN DO, CASPER K 250.62 DIABETIC PERIPHERAL NEUROPATHY TYPE II UNCONTROLLED 08/13/2008 MADL THEATER SET PRODUCTION DESIGNER, ELIZA L 250.00 DIABETES MELLITUS TYPE 2 08/13/2008 MAD THEATER SET PRODUCTION DESIGNER, ELIZA L 250.62 DIABETIC PERIPHERAL NEUROPATHY TYPE II UNCONTROLLED 08/13/2008 RYAN DO, CASPER K 250.00 DIABETES MELLITUS TYPE 2 08/13/2008 RYAN DO, CASPER K 250.62 DIABETIC PERIPHERAL NEUROPATHY TYPE II UNCONTROLLED 08/13/2008 MADL THEATER SET PRODUCTION DESIGNER, ELIZA L 250.00 DIABETES MELLITUS TYPE 2 08/13/2008 MADL THEATER SET PRODUCTION DESIGNER, ELIZA L 250.62 DIABETIC PERIPHERAL NEUROPATHY TYPE II UNCONTROLLED 08/13/2008 [facility] THEATER SET PRODUCTION DESIGNER, ELIZA L 250.00 DIABETES MELLITUS TYPE 2 08/13/2008 [facility] THEATER SET PRODUCTION DESIGNER, ELIZA L 250.62 DIABETIC PERIPHERAL NEUROPATHY TYPE II UNCONTROLLED 08/13/2008 BRISEIDA HUMPHREYS MD N 250.00 DIABETES MELLITUS TYPE 2 08/13/2008 BRISEIDA HUMPHREYS MD N 250.62 DIABETIC PERIPHERAL NEUROPATHY TYPE II UNCONTROLLED 08/13/2008 RYAN DO, CASPER K 250.00 DIABETES MELLITUS TYPE 2 08/13/2008 RYAN DO, CASPER K 250.62 DIABETIC PERIPHERAL NEUROPATHY TYPE II UNCONTROLLED 08/13/2008 KATIE GILLETTE, TYRESE R 250.00 DIABETES MELLITUS TYPE 2 08/13/2008 KATIE GILLETTE TYRESE R 250.62 DIABETIC PERIPHERAL NEUROPATHY TYPE II UNCONTROLLED 08/13/2008 MADL THEATER SET PRODUCTION DESIGNER, ELIZA L 250.00 DIABETES MELLITUS TYPE 2 08/13/2008 MADL THEATER SET PRODUCTION DESIGNER, ELIZA L 250.62 DIABETIC PERIPHERAL NEUROPATHY TYPE II UNCONTROLLED 08/13/2008 MADL THEATER SET PRODUCTION DESIGNER, ELIZA L 250.00 DIABETES MELLITUS TYPE 2 08/13/2008 MADL THEATER SET PRODUCTION DESIGNER, ELIZA L 250.62 DIABETIC PERIPHERAL NEUROPATHY TYPE II UNCONTROLLED 08/13/2008 MADL THEATER SET PRODUCTION DESIGNER, ELIZA L 250.00 DIABETES MELLITUS TYPE 2 08/13/2008 MADL THEATER SET PRODUCTION DESIGNER, ELIZA L 250.62 DIABETIC PERIPHERAL NEUROPATHY TYPE II UNCONTROLLED 08/13/2008 RYAN DO, CASPER K 250.00 DIABETES MELLITUS TYPE 2 08/13/2008 RYAN DO, CASPER K 250.62 DIABETIC PERIPHERAL NEUROPATHY TYPE II UNCONTROLLED 08/13/2008 MADL THEATER SET PRODUCTION DESIGNER, ELIZA L 250.00 DIABETES MELLITUS TYPE 2 08/13/2008 MADL THEATER SET PRODUCTION DESIGNER, ELIZA L 250.62 DIABETIC PERIPHERAL NEUROPATHY TYPE [...] CICI JACKSON APRN 466.0 Acute Bronchitis 10/10/2008 WILLY DDS, EVELINA J 466.0 Acute Bronchitis 10/10/2008 MADL THEATER SET PRODUCTION DESIGNER, ELIZA L 466.0 Acute Bronchitis 10/10/2008 RYAN DO, CASPER K 466.0 Acute Bronchitis 10/10/2008 MADL THEATER SET PRODUCTION DESIGNER, ELIZA L 466.0 Acute Bronchitis 10/10/2008 RYAN DO, CASPER K 466.0 Acute Bronchitis 10/10/2008 MADL THEATER SET PRODUCTION DESIGNER, ELIZA L 466.0 Acute Bronchitis 10/10/2008 RYAN DO, CASPER K 466.0 Acute Bronchitis 10/10/2008 MADL THEATER SET PRODUCTION DESIGNER, ELIZA L 466.0 Acute Bronchitis 10/10/2008 MADL THEATER SET PRODUCTION DESIGNER, ELIZA L 466.0 Acute Bronchitis 10/10/2008 JULIANN JOHN, BRISEIDA Jimenez 466.0 Acute Bronchitis 10/10/2008 RYAN DO, CASPER K 466.0 Acute Bronchitis 10/10/2008 KATIE THEATER SET PRODUCTION DESIGNER, TYRESE R 466.0 Acute Bronchitis 10/10/2008 MADL THEATER SET PRODUCTION DESIGNER, ELIZA L 466.0 Acute Bronchitis 10/10/2008 MADL THEATER SET PRODUCTION DESIGNER, ELIZA L 466.0 Acute Bronchitis 10/10/2008 MADL THEATER SET PRODUCTION DESIGNER, ELIZA L 466.0 Acute Bronchitis 10/10/2008 RYAN DO, CASPER K 466.0 Acute Bronchitis 10/10/2008 MADL THEATER SET PRODUCTION DESIGNER, ELIZA L 466.0 Acute Bronchitis 10/10/2008 RYAN DO, CASPER K 466.0 Acute Bronchitis 01/28/2009 NATI GOODE APRN 681.10 Unspecified Cellulitis And Abscess Of Toe 01/28/2009 RYAN DO, CASPER K 681.10 Unspecified Cellulitis And Abscess Of Toe 01/28/2009 RYAN , CASPER K 681.10 Unspecified Cellulitis And Abscess Of Toe 01/28/2009 681.10 Unspecified Cellulitis And Abscess Of Toe 01/28/2009 CONNOR TORREZ CASPER K 681.10 Unspecified Cellulitis And Abscess Of Toe 01/28/2009 681.10 Unspecified Cellulitis And Abscess Of Toe 01/28/2009 681.10 Unspecified Cellulitis And Abscess Of Toe 01/28/2009 CONNOR TORREZ CASPER K 681.10 Unspecified Cellulitis And Abscess Of Toe 01/28/2009 CASPER RYAN DO K 681.10 Unspecified Cellulitis And Abscess Of Toe 01/28/2009 MONO RYAN DOA K 681.10 Unspecified Cellulitis And Abscess Of Toe 01/28/2009 MARILU KUMAR APRN 681.10 Unspecified Cellulitis And Abscess Of Toe 01/28/2009 RYAN MONO TORREZA K 681.10 Unspecified Cellulitis And Abscess Of Toe 01/28/2009 MONO RYAN DOA K 681.10 Unspecified Cellulitis And Abscess Of Toe 01/28/2009 GERALDINE JOELS, MAURA 681.10 Unspecified Cellulitis And Abscess Of Toe 01/28/2009 GERALDINE JOELS, MAURA 681.10 Unspecified Cellulitis And Abscess Of Toe 01/28/2009 ICCI JACKSON APRN 681.10 Unspecified Cellulitis And Abscess Of Toe 01/28/2009 WILLY JOELS, EVELINA Torres 681.10 Unspecified Cellulitis And Abscess Of Toe 01/28/2009 ELIZA GO APRN L 681.10 Unspecified Cellulitis And Abscess Of Toe 01/28/2009 MONO RYAN DOA K 681.10 Unspecified Cellulitis And Abscess Of Toe 01/28/2009 ELIZA GO APRN L 681.10 Unspecified Cellulitis And Abscess Of Toe 01/28/2009 MONO RYAN DOA K 681.10 Unspecified Cellulitis And Abscess Of Toe 01/28/2009 JHONNY GO APRNA L 681.10 Unspecified Cellulitis And Abscess Of Toe 01/28/2009 MONO RYAN DOA K 681.10 Unspecified Cellulitis And Abscess Of Toe 01/28/2009 ABBI GILLETTE ELIZA L 681.10 Unspecified Cellulitis And Abscess Of Toe 01/28/2009 JHONNY GO APRNA L 681.10 Unspecified Cellulitis And Abscess Of Toe 01/28/2009 JULIANN JOHN, BRISEIDA Jimenez 681.10 Unspecified Cellulitis And Abscess Of Toe 01/28/2009 CASPER RYAN DO K 681.10 Unspecified Cellulitis And Abscess Of Toe 01/28/2009 TYRESE WILSON APRN 681.10 Unspecified Cellulitis And Abscess Of Toe 01/28/2009 MADL THEATER SET PRODUCTION DESIGNER, ELIZA L 681.10 Unspecified Cellulitis And Abscess Of Toe 01/28/2009 MADL THEATER SET PRODUCTION DESIGNER, ELIZA L 681.10 Unspecified Cellulitis And Abscess Of Toe 01/28/2009 MADL THEATER SET PRODUCTION DESIGNER, ELIZA L 681.10 Unspecified Cellulitis And Abscess Of Toe 01/28/2009 RYAN DO CASPER K 681.10 Unspecified Cellulitis And Abscess Of Toe 01/28/2009 MADL THEATER SET PRODUCTION DESIGNER, ELIZA L 681.10 Unspecified Cellulitis And Abscess Of Toe 01/28/2009 RYAN DO CASPER K 681.10 Unspecified Cellulitis And Abscess Of Toe 02/27/2009 NATI GOODE APRN 716.90 ARTHRITIS 02/27/2009 RYAN DO CASPER K 716.90 ARTHRITIS 02/27/2009 RYAN DO CASPER K 716.90 ARTHRITIS 02/27/2009 716.90 ARTHRITIS 02/27/2009 RYAN DO CASPER K 716.90 ARTHRITIS 02/27/2009 716.90 ARTHRITIS 02/27/2009 716.90 ARTHRITIS 02/27/2009 RYAN DO, CASPER K 716.90 ARTHRITIS 02/27/2009 RYAN DO, CASPER K 716.90 ARTHRITIS 02/27/2009 RYAN DO, CASPER K 716.90 ARTHRITIS 02/27/2009 MARILU KUMAR APRN 716.90 ARTHRITIS 02/27/2009 RYAN DO CASPER K 716.90 ARTHRITIS 02/27/2009 RYAN DO CASPER K 716.90 ARTHRITIS 02/27/2009 MAURA CHANDLER DDS 716.90 ARTHRITIS 02/27/2009 MAURA CHANDLER DDS 716.90 ARTHRITIS 02/27/2009 CICI JACKSON APRN 716.90 ARTHRITIS 02/27/2009 EVELINA AGUILERA DDS 716.90 ARTHRITIS 02/27/2009 MADL THEATER SET PRODUCTION DESIGNER, ELIZA L 716.90 ARTHRITIS 02/27/2009 RYAN DO CASPER K 716.90 ARTHRITIS 02/27/2009 MADL THEATER SET PRODUCTION DESIGNER, ELIZA L 716.90 ARTHRITIS 02/27/2009 RYAN DO CASPER K 716.90 ARTHRITIS 02/27/2009 MADL THEATER SET PRODUCTION DESIGNER, ELIZA L 716.90 ARTHRITIS 02/27/2009 RYAN DO, CASPER K 716.90 ARTHRITIS 02/27/2009 MADL THEATER SET PRODUCTION DESIGNER, ELIZA L 716.90 ARTHRITIS 02/27/2009 MADL THEATER SET PRODUCTION DESIGNER, ELIZA L 716.90 ARTHRITIS 02/27/2009 BRISEIDA HUMPHREYS MD 716.90 ARTHRITIS 02/27/2009 RYAN DO, CASPER K 716.90 ARTHRITIS 02/27/2009 KATIE THEATER SET PRODUCTION DESIGNER, TYRESE R 716.90 ARTHRITIS 02/27/2009 MADL THEATER SET PRODUCTION DESIGNER, ELIZA L 716.90 ARTHRITIS 02/27/2009 MADL THEATER SET PRODUCTION DESIGNER, ELIZA L 716.90 ARTHRITIS 02/27/2009 MADL THEATER SET PRODUCTION DESIGNER, ELIZA L 716.90 ARTHRITIS 02/27/2009 RYAN DO, CASPER K 716.90 ARTHRITIS 02/27/2009 MADL THEATER SET PRODUCTION DESIGNER, ELIZA L 716.90 ARTHRITIS 02/27/2009 RYAN DO, [...] K 780.4 Dizziness 03/13/2009 729.5 Foot Pain ( soft Tissue) 03/13/2009 780.4 Dizziness 03/13/2009 RYAN DO, CASPER K 729.5 Foot Pain (soft Tissue) 03/13/2009 RYAN DO, CASPER K 780.4 Dizziness 03/13/2009 729.5 Foot Pain ( soft Tissue) 03/13/2009 780.4 Dizziness 03/13/2009 729.5 Foot Pain ( soft Tissue) 03/13/2009 780.4 Dizziness 03/13/2009 RYAN DO, CASPER K 729.5 Foot Pain (soft Tissue) 03/13/2009 RYAN DO, CASPER K 780.4 Dizziness 03/13/2009 RYAN DO, CASPER K 729.5 Foot Pain (soft Tissue) 03/13/2009 RYAN DO, CASPER K 780.4 Dizziness 03/13/2009 RYAN DO, CASPER K 729.5 Foot Pain (soft Tissue) 03/13/2009 RYAN DO, CASPER K 780.4 Dizziness 03/13/2009 STACY THEATER SET PRODUCTION DESIGNER, MARILU A 729.5 Foot Pain (soft Tissue) 03/13/2009 STACY THEATER SET PRODUCTION DESIGNER, MARILU A 780.4 Dizziness 03/13/2009 RYAN DO, [...] 03/13/2009 CHANDLER DDS, MAURA 780.4 Dizziness 03/13/2009 CICI JACKSON APRN 729.5 Foot Pain (soft Tissue) 03/13/2009 CICI JACKSON APRN 780.4 Dizziness 03/13/2009 WHITE DDSEVELINA 729.5 Foot Pain (soft Tissue) 03/13/2009 WHITE DDS, EVELINA J 780.4 Dizziness 03/13/2009 MADL THEATER SET PRODUCTION DESIGNER, ELIZA L 729.5 Foot Pain (soft Tissue) 03/13/2009 MADL THEATER SET PRODUCTION DESIGNER, ELIZA L 780.4 Dizziness 03/13/2009 RYAN DO, CASPER K 729.5 Foot Pain (soft Tissue) 03/13/2009 RYAN DO, CASPER K 780.4 Dizziness 03/13/2009 MADL THEATER SET PRODUCTION DESIGNER, ELIZA L 729.5 Foot Pain (soft Tissue) 03/13/2009 MADL THEATER SET PRODUCTION DESIGNER, ELIZA L 780.4 Dizziness 03/13/2009 RYAN DO, CASPER K 729.5 Foot Pain (soft Tissue) 03/13/2009 RYAN DO, CASPER K 780.4 Dizziness 03/13/2009 MADL THEATER SET PRODUCTION DESIGNER, ELIZA L 729.5 Foot Pain (soft Tissue) 03/13/2009 MADL THEATER SET PRODUCTION DESIGNER, ELIZA L 780.4 Dizziness 03/13/2009 RYAN DO, CASPER K 729.5 Foot Pain (soft Tissue) 03/13/2009 RYAN DO, CASPER K 780.4 Dizziness 03/13/2009 MADL THEATER SET PRODUCTION DESIGNER, ELIZA L 729.5 Foot Pain (soft Tissue) 03/13/2009 MADL THEATER SET PRODUCTION DESIGNER, ELIZA L 780.4 Dizziness 03/13/2009 MADL THEATER SET PRODUCTION DESIGNER, ELIZA L 729.5 Foot Pain (soft Tissue) 03/13/2009 MADL THEATER SET PRODUCTION DESIGNER, ELIZA L 780.4 Dizziness 03/13/2009 BRISEIDA HUMPHREYS MD N 729.5 Foot Pain (soft Tissue) 03/13/2009 BRISEIDA HUMPHREYS MD N 780.4 Dizziness 03/13/2009 RYAN DO, CASPER K 729.5 Foot Pain (soft Tissue) 03/13/2009 RYAN DO, CASPER K 780.4 Dizziness 03/13/2009 KATIE THEATER SET PRODUCTION DESIGNER, TYRESE R 729.5 Foot Pain (soft Tissue) 03/13/2009 KATIE THEATER SET PRODUCTION DESIGNER, TYRESE R 780.4 Dizziness 03/13/2009 MADL THEATER SET PRODUCTION DESIGNER, ELIZA L 729.5 Foot Pain (soft Tissue) 03/13/2009 MADL THEATER SET PRODUCTION DESIGNER, ELIZA L 780.4 Dizziness 03/13/2009 MADL THEATER SET PRODUCTION DESIGNER, ELIZA L 729.5 Foot Pain (soft Tissue) 03/13/2009 MADL THEATER SET PRODUCTION DESIGNER, ELIZA L 780.4 Dizziness 03/13/2009 MADL THEATER SET PRODUCTION DESIGNER, ELIZA L 729.5 Foot Pain (soft Tissue) 03/13/2009 MADL THEATER SET PRODUCTION DESIGNER, ELIZA L 780.4 Dizziness 03/13/2009 RYAN DO, CASPER K 729.5 Foot Pain (soft Tissue) 03/13/2009 RYAN DO, CASPER K 780.4 Dizziness 03/13/2009 MADL THEATER SET PRODUCTION DESIGNER, ELIZA L 729.5 Foot Pain (soft Tissue) 03/13/2009 MADL THEATER SET PRODUCTION DESIGNER, ELIZA L 780.4 Dizziness 03/13/2009 RYAN DO, CASPER K 729.5 Foot Pain (soft Tissue) 03/13/2009 RYAN DO, CASPER K 780.4 Dizziness 04/01/2009 NATI GOODE APRN 401.1 ESSENTIAL HYPERTENSION BENIGN 04/01/2009 NATI GOODE APRN 578.1 Red Blood In Bowel Movement (hematochezia) 04/01/2009 NATI GOODE APRN V72.31 Pelvic Exam [...] Bowel Movement (hematochezia) 04/01/2009 V72.31 Pelvic Exam ( internal) 04/01/2009 RYAN DO, CASPER K 401.1 ESSENTIAL HYPERTENSION BENIGN 04/01/2009 RYAN DO, CASPER K 578.1 Red Blood In Bowel Movement (hematochezia) 04/01/2009 RYAN DO, CASPER K V72.31 Pelvic Exam (internal) 04/01/2009 401.1 ESSENTIAL HYPERTENSION BENIGN 04/01/2009 578.1 Red Blood In Bowel Movement (hematochezia) 04/01/2009 V72.31 Pelvic Exam ( internal) 04/01/2009 401.1 ESSENTIAL HYPERTENSION BENIGN 04/01/2009 578.1 Red Blood In Bowel Movement (hematochezia) 04/01/2009 V72.31 Pelvic Exam ( internal) 04/01/2009 RYAN DO, CASPER K 401.1 ESSENTIAL [...] A 401.1 ESSENTIAL HYPERTENSION BENIGN 04/01/2009 STACY THEATER SET PRODUCTION DESIGNER, MARILU A 578.1 Red Blood In Bowel Movement (hematochezia) 04/01/2009 STACY THEATER SET PRODUCTION DESIGNER, MARILU A V72.31 Pelvic Exam (internal) 04/01/2009 RYAN DO, [...] CASPER K V72.31 Pelvic Exam (internal) 04/01/2009 GERALDINE JOELSMAURA 401.1 ESSENTIAL HYPERTENSION BENIGN 04/01/2009 CHANDLER MARYCRUZSMAURA 578.1 Red Blood In Bowel Movement (hematochezia) 04/01/2009 MAURA CHANDLER DDS V72.31 Pelvic Exam (internal) 04/01/2009 CHANDLER DDSMAURA 401.1 ESSENTIAL HYPERTENSION BENIGN 04/01/2009 CHANDLER MARYCRUZS, MAURA 578.1 Red Blood In Bowel Movement (hematochezia) 04/01/2009 MAURA CHANDLER DDS V72.31 Pelvic Exam (internal) 04/01/2009 CICI JACKSON APRN 401.1 ESSENTIAL HYPERTENSION BENIGN 04/01/2009 CICI JACKSON APRN 578.1 Red Blood In Bowel Movement (hematochezia) 04/01/2009 CICI JACKSON APRN V72.31 Pelvic Exam (internal) 04/01/2009 WHITE DDS, EVELINA J 401.1 ESSENTIAL HYPERTENSION BENIGN 04/01/2009 WHITE DDS, EVELINA J 578.1 Red Blood In Bowel Movement (hematochezia) 04/01/2009 WHITE DDS, EVELINA J V72.31 Pelvic Exam (internal) 04/01/2009 MADL THEATER SET PRODUCTION DESIGNER, ELIZA L 401.1 ESSENTIAL HYPERTENSION BENIGN 04/01/2009 MADL THEATER SET PRODUCTION DESIGNER, ELIZA L 578.1 Red Blood In Bowel Movement (hematochezia) 04/01/2009 MADL THEATER SET PRODUCTION DESIGNER, ELIZA L V72.31 Pelvic Exam (internal) 04/01/2009 RYAN DO, CASPER K 401.1 ESSENTIAL HYPERTENSION BENIGN 04/01/2009 RYAN DO, CASPER K 578.1 Red Blood In Bowel Movement (hematochezia) 04/01/2009 RYAN DO, CASPER K V72.31 Pelvic Exam (internal) 04/01/2009 MADL THEATER SET PRODUCTION DESIGNER, ELIZA L 401.1 ESSENTIAL HYPERTENSION BENIGN 04/01/2009 MADL THEATER SET PRODUCTION DESIGNER, ELZIA L 578.1 Red Blood In Bowel Movement (hematochezia) 04/01/2009 MADL THEATER SET PRODUCTION DESIGNER, ELIZA L V72.31 Pelvic Exam (internal) 04/01/2009 RYAN DO, CASPER K 401.1 ESSENTIAL HYPERTENSION BENIGN 04/01/2009 RYAN DO, CASPER K 578.1 Red Blood In Bowel Movement (hematochezia) 04/01/2009 RYAN DO, CASPER K V72.31 Pelvic Exam (internal) 04/01/2009 MADL THEATER SET PRODUCTION DESIGNER, ELIZA L 401.1 ESSENTIAL HYPERTENSION BENIGN 04/01/2009 MADL THEATER SET PRODUCTION DESIGNER, ELIZA L 578.1 Red Blood In Bowel Movement (hematochezia) 04/01/2009 MADL THEATER SET PRODUCTION DESIGNER, ELIZA L V72.31 Pelvic Exam (internal) 04/01/2009 RYAN DO, CASPER K 401.1 ESSENTIAL HYPERTENSION BENIGN 04/01/2009 RYAN DO, CASPER K 578.1 Red Blood In Bowel Movement (hematochezia) 04/01/2009 RYAN DO, CASPER K V72.31 Pelvic Exam (internal) 04/01/2009 MADL THEATER SET PRODUCTION DESIGNER, ELIZA L 401.1 ESSENTIAL HYPERTENSION BENIGN 04/01/2009 MADL THEATER SET PRODUCTION DESIGNER, ELIZA L 578.1 Red Blood In Bowel Movement (hematochezia) 04/01/2009 MADL THEATER SET PRODUCTION DESIGNER, ELIZA L V72.31 Pelvic Exam (internal) 04/01/2009 MADL THEATER SET PRODUCTION DESIGNER, ELIZA L 401.1 ESSENTIAL HYPERTENSION BENIGN 04/01/2009 MADL THEATER SET PRODUCTION DESIGNER, ELIZA L 578.1 Red Blood In Bowel Movement (hematochezia) 04/01/2009 MADL THEATER SET PRODUCTION DESIGNER, ELIZA L V72.31 Pelvic Exam (internal) 04/01/2009 [...] K V72.31 Pelvic Exam (internal) 04/01/2009 KATIE THEATER SET PRODUCTION DESIGNER, TYRESE R 401.1 ESSENTIAL HYPERTENSION BENIGN 04/01/2009 KATIE THEATER SET PRODUCTION DESIGNER, TYRESE R 578.1 Red Blood In Bowel Movement (hematochezia) 04/01/2009 KATIE THEATER SET PRODUCTION DESIGNER, TYRESE R V72.31 Pelvic Exam (internal) 04/01/2009 MADL THEATER SET PRODUCTION DESIGNER, ELIZA L 401.1 ESSENTIAL HYPERTENSION BENIGN 04/01/2009 MADL THEATER SET PRODUCTION DESIGNER, ELIZA L 578.1 Red Blood In Bowel Movement (hematochezia) 04/01/2009 MADL THEATER SET PRODUCTION DESIGNER, ELIZA L V72.31 Pelvic Exam (internal) 04/01/2009 MADL THEATER SET PRODUCTION DESIGNER, ELIZA L 401.1 ESSENTIAL HYPERTENSION BENIGN 04/01/2009 MADL THEATER SET PRODUCTION DESIGNER, ELIZA L 578.1 Red Blood In Bowel Movement (hematochezia) 04/01/2009 MADL THEATER SET PRODUCTION DESIGNER, ELIZA L V72.31 Pelvic Exam (internal) 04/01/2009 MADL THEATER SET PRODUCTION DESIGNER, ELIZA L 401.1 ESSENTIAL HYPERTENSION BENIGN 04/01/2009 MADL THEATER SET PRODUCTION DESIGNER, ELIZA L 578.1 Red Blood In Bowel Movement (hematochezia) 04/01/2009 MADL THEATER SET PRODUCTION DESIGNER, ELIZA L V72.31 Pelvic Exam (internal) 04/01/2009 RYAN DO, CASPER K 401.1 ESSENTIAL HYPERTENSION BENIGN 04/01/2009 RYAN DO, CASPER K 578.1 Red Blood In Bowel Movement (hematochezia) 04/01/2009 RYAN DO, CASPER K V72.31 Pelvic Exam (internal) 04/01/2009 MADL THEATER SET PRODUCTION DESIGNER, ELIZA L 401.1 ESSENTIAL HYPERTENSION BENIGN 04/01/2009 MADL THEATER SET PRODUCTION DESIGNER, ELIZA L 578.1 Red Blood In Bowel Movement (hematochezia) 04/01/2009 MADL THEATER SET PRODUCTION DESIGNER, ELIZA L V72.31 Pelvic Exam (internal) 04/01/2009 [...] CASPER K 826.0 Fx Toe(s) 04/05/2009 STACY THEATER SET PRODUCTION DESIGNER, MARILU A 733.99 Sesamoiditis 04/05/2009 STACY THEATER SET PRODUCTION DESIGNER, MARILU A 826.0 Fx Toe(s) 04/05/2009 RYAN [...] EVELINA J 826.0 Fx Toe(s) 04/05/2009 MADL THEATER SET PRODUCTION DESIGNER, ELIZA L 733.99 Sesamoiditis 04/05/2009 MADL THEATER SET PRODUCTION DESIGNER, ELIZA L 826.0 Fx Toe(s) 04/05/2009 RYAN DO, CASPER K 733.99 Sesamoiditis 04/05/2009 RYAN DO, CASPER K 826.0 Fx Toe(s) 04/05/2009 MADL THEATER SET PRODUCTION DESIGNER, ELIZA L 733.99 Sesamoiditis 04/05/2009 MADL THEATER SET PRODUCTION DESIGNER, ELIZA L 826.0 Fx Toe(s) 04/05/2009 RYAN DO, CASPER K 733.99 Sesamoiditis 04/05/2009 RYAN DO, CASPER K 826.0 Fx Toe(s) 04/05/2009 MADL THEATER SET PRODUCTION DESIGNER, ELIZA L 733.99 Sesamoiditis 04/05/2009 MADL THEATER SET PRODUCTION DESIGNER, ELIZA L 826.0 Fx Toe(s) 04/05/2009 RYAN DO, CASPER K 733.99 Sesamoiditis 04/05/2009 RYAN DO, CASPER K 826.0 Fx Toe(s) 04/05/2009 MADL THEATER SET PRODUCTION DESIGNER, ELIZA L 733.99 Sesamoiditis 04/05/2009 MADL THEATER SET PRODUCTION DESIGNER, ELIZA L 826.0 Fx Toe(s) 04/05/2009 MADL THEATER SET PRODUCTION DESIGNER, ELIZA L 733.99 Sesamoiditis 04/05/2009 MADL THEATER SET PRODUCTION DESIGNER, ELIZA L 826.0 Fx Toe(s) 04/05/2009 BRISEIDA HUMPHREYS MD N 733.99 Sesamoiditis 04/05/2009 BRISEIDA HUMPHREYS MD N 826.0 Fx Toe(s) 04/05/2009 RYAN DO, CASPER K 733.99 Sesamoiditis 04/05/2009 RYAN DO, CASPER K 826.0 Fx Toe(s) 04/05/2009 KATIE THEATER SET PRODUCTION DESIGNER, TYRESE R 733.99 Sesamoiditis 04/05/2009 KATIE THEATER SET PRODUCTION DESIGNER, TYRESE R 826.0 Fx Toe(s) 04/05/2009 MADL THEATER SET PRODUCTION DESIGNER, ELIZA L 733.99 Sesamoiditis 04/05/2009 MADL THEATER SET PRODUCTION DESIGNER, ELIZA L 826.0 Fx Toe(s) 04/05/2009 MADL THEATER SET PRODUCTION DESIGNER, ELIZA L 733.99 Sesamoiditis 04/05/2009 MADL THEATER SET PRODUCTION DESIGNER, ELIZA L 826.0 Fx Toe(s) 04/05/2009 MADL THEATER SET PRODUCTION DESIGNER, ELIZA L 733.99 Sesamoiditis 04/05/2009 MADL THEATER SET PRODUCTION DESIGNER, ELIZA L 826.0 Fx Toe(s) 04/05/2009 RYAN DO, CASPER K 733.99 Sesamoiditis 04/05/2009 RYAN DO, CASPER K 826.0 Fx Toe(s) 04/05/2009 MADL THEATER SET PRODUCTION DESIGNER, ELIZA L 733.99 Sesamoiditis 04/05/2009 MADL THEATER SET PRODUCTION DESIGNER, ELIZA L 826.0 Fx Toe(s) 04/05/2009 RYAN [...] 04/26/2009 CICI JACKSON APRN 703.8 Onychocryptosis 04/26/2009 EVELINA AGUILERA DDS 703.8 Onychocryptosis 04/26/2009 ABBI THEATER SET PRODUCTION DESIGNER, ELIZA L 703.8 Onychocryptosis 04/26/2009 RYAN DO, CASPER K 703.8 Onychocryptosis 04/26/2009 MADL THEATER SET PRODUCTION DESIGNER, ELIZA L 703.8 Onychocryptosis 04/26/2009 RYAN DO, CASPER K 703.8 Onychocryptosis 04/26/2009 MADL THEATER SET PRODUCTION DESIGNER, ELIZA L 703.8 Onychocryptosis 04/26/2009 RYAN DO, CASPER K 703.8 Onychocryptosis 04/26/2009 MADL THEATER SET PRODUCTION DESIGNER, ELIZA L 703.8 Onychocryptosis 04/26/2009 MADL THEATER SET PRODUCTION DESIGNER, ELIZA L 703.8 Onychocryptosis 04/26/2009 JULIANN JOHN, BRISEIDA N 703.8 Onychocryptosis 04/26/2009 RYAN DO, CASPER K 703.8 Onychocryptosis 04/26/2009 KATIE THEATER SET PRODUCTION DESIGNER, TYRESE R 703.8 Onychocryptosis 04/26/2009 MADL THEATER SET PRODUCTION DESIGNER, ELIZA L 703.8 Onychocryptosis 04/26/2009 MADL THEATER SET PRODUCTION DESIGNER, ELIZA L 703.8 Onychocryptosis 04/26/2009 MADL THEATER SET PRODUCTION DESIGNER, ELIZA L 703.8 Onychocryptosis 04/26/2009 RYAN DO, CASPER K 703.8 Onychocryptosis 04/26/2009 MADL THEATER SET PRODUCTION DESIGNER, ELIZA L 703.8 Onychocryptosis 04/26/2009 RYAN DO, CASPER K 703.8 Onychocryptosis 06/07/2009 NATI GOODE APRN 250.6 DIABETES w/ NEURO 06/07/2009 RYAN DO, CASPER K 250.6 DIABETES w/ NEURO 06/07/2009 RYAN DO, CASPER K 250.6 DIABETES w/ NEURO 06/07/2009 250.6 DIABETES w/ NEURO 06/07/2009 RYAN DO, CASPRE K 250.6 DIABETES w/ NEURO 06/07/2009 250.6 DIABETES w/ NEURO 06/07/2009 250.6 DIABETES w/ NEURO 06/07/2009 RYAN DO, CASPER K 250.6 DIABETES w/ NEURO 06/07/2009 RYAN DO, CASPER K 250.6 DIABETES w/ NEURO 06/07/2009 RYAN DO, CASPER K 250.6 DIABETES w/ NEURO 06/07/2009 STACY THEATER SET PRODUCTION DESIGNER, MARILU A 250.6 DIABETES w/ NEURO 06/07/2009 RYAN DO, CASPER K 250.6 DIABETES w/ NEURO 06/07/2009 RYAN DO, CASPER K 250.6 DIABETES w/ NEURO 06/07/2009 CHANDLER DDS, MAURA 250.6 DIABETES w/ NEURO 06/07/2009 CHANDLER DDS, MAURA 250.6 DIABETES w/ NEURO 06/07/2009 MANUEL THEATER SET PRODUCTION DESIGNER, CICI Bueno 250.6 DIABETES w/ NEURO 06/07/2009 WILLY DDS, EVELINA J 250.6 DIABETES w/ NEURO 06/07/2009 MADL THEATER SET PRODUCTION DESIGNER, ELIZA L 250.6 DIABETES w/ NEURO 06/07/2009 RYAN DO, CASPER K 250.6 DIABETES w/ NEURO 06/07/2009 MADL THEATER SET PRODUCTION DESIGNER, ELIZA L 250.6 DIABETES w/ NEURO 06/07/2009 RYAN DO, CASPER K 250.6 DIABETES w/ NEURO 06/07/2009 MADL THEATER SET PRODUCTION DESIGNER, ELIZA L 250.6 DIABETES w/ NEURO 06/07/2009 RYAN DO, CASPER K 250.6 DIABETES W/ NEURO 06/07/2009 MADL THEATER SET PRODUCTION DESIGNER, ELIZA L 250.6 DIABETES W/ NEURO 06/07/2009 MADL THEATER SET PRODUCTION DESIGNER, ELIZA L 250.6 DIABETES W/ NEURO 06/07/2009 JULIANN JOHN, BRISEIDA N 250.6 DIABETES W/ NEURO 06/07/2009 RYAN DO, CASPER K 250.6 DIABETES W/ NEURO 06/07/2009 KTAIE THEATER SET PRODUCTION DESIGNER, TYRESE R 250.6 DIABETES W/ NEURO 06/07/2009 MADL THEATER SET PRODUCTION DESIGNER, ELIZA L 250.6 DIABETES W/ NEURO 06/07/2009 MADL THEATER SET PRODUCTION DESIGNER, ELIZA L 250.6 DIABETES W/ NEURO 06/07/2009 MADL THEATER SET PRODUCTION DESIGNER, ELIZA L 250.6 DIABETES W/ NEURO 06/07/2009 RYAN DO, CASPER K 250.6 DIABETES W/ NEURO 06/07/2009 MADL THEATER SET PRODUCTION DESIGNER, ELIZA L 250.6 DIABETES W/ NEURO 06/07/2009 RYAN DO, CASPER K 250.6 DIABETES w/ NEURO 08/16/2009 [...] DO, CASPER K 726.90 Capsulitis 08/16/2009 GERALDINE JOELSMAURA 726.90 Capsulitis 08/16/2009 GERALDINE JOELSMAURA 726.90 Capsulitis 08/16/2009 CICI JACKSON APRN 726.90 Capsulitis 08/16/2009 EVELINA AGUILERA DDS 726.90 Capsulitis 08/16/2009 ABBI GILLETTE, ELIZA L 726.90 Capsulitis 08/16/2009 RYAN DO CASPER K 726.90 Capsulitis 08/16/2009 ABBI THEATER SET PRODUCTION DESIGNER, ELIZA L 726.90 Capsulitis 08/16/2009 RYAN DO CASPER K 726.90 Capsulitis 08/16/2009 ABBI THEATER SET PRODUCTION DESIGNER, ELIZA L 726.90 Capsulitis 08/16/2009 RYAN DO, CASPER K 726.90 Capsulitis 08/16/2009 MADL THEATER SET PRODUCTION DESIGNER, ELIZA L 726.90 Capsulitis 08/16/2009 ABBI THEATER SET PRODUCTION DESIGNER, ELIZA L 726.90 Capsulitis 08/16/2009 BRISEIDA HUMPHREYS MD 726.90 Capsulitis 08/16/2009 RYAN DO, CASPER K 726.90 Capsulitis 08/16/2009 TYRESE WILSON APRN 726.90 Capsulitis 08/16/2009 MADPat THEATER SET PRODUCTION DESIGNER, ELIZA L 726.90 Capsulitis 08/16/2009 MADL THEATER SET PRODUCTION DESIGNER, ELIZA L 726.90 Capsulitis 08/16/2009 MADL THEATER SET PRODUCTION DESIGNER, ELIZA L 726.90 Capsulitis 08/16/2009 RYAN DO, CASPER K 726.90 Capsulitis 08/16/2009 MADL THEATER SET PRODUCTION DESIGNER, ELIZA L 726.90 Capsulitis 08/16/2009 RYAN DO, [...] DO, CASPER K 278.00 OBESITY 09/23/2009 STACY THEATER SET PRODUCTION DESIGNER, MARILU A 272.4 DYSLIPIDEMIA 09/23/2009 STACY THEATER SET PRODUCTION DESIGNER, MARILU A 278.00 OBESITY 09/23/2009 RYAN DO, CASPER K 272.4 DYSLIPIDEMIA 09/23/2009 RYAN DO, CASPER K 278.00 OBESITY 09/23/2009 RYAN DO, CASPER K 272.4 DYSLIPIDEMIA 09/23/2009 RYAN DO, CASPER K 278.00 OBESITY 09/23/2009 CHANDLER DDS, MAURA 272.4 DYSLIPIDEMIA 09/23/2009 CHANDLER DDS, MAURA 278.00 OBESITY 09/23/2009 CHANDLER DDS, MAURA 272.4 DYSLIPIDEMIA 09/23/2009 CHANDLER DDS, MAURA 278.00 OBESITY 09/23/2009 MANUEL THEATER SET PRODUCTION DESIGNER, CICI T 272.4 DYSLIPIDEMIA 09/23/2009 MANUEL THEATER SET PRODUCTION DESIGNER, CICI T 278.00 OBESITY 09/23/2009 WHITE DDS, EVELINA J 272.4 DYSLIPIDEMIA 09/23/2009 WHITE DDS, EVELINA J 278.00 OBESITY 09/23/2009 MADL THEATER SET PRODUCTION DESIGNER, ELIZA L 272.4 DYSLIPIDEMIA 09/23/2009 MADL THEATER SET PRODUCTION DESIGNER, ELIZA L 278.00 OBESITY 09/23/2009 RYAN DO, CASPER K 272.4 DYSLIPIDEMIA 09/23/2009 RYAN DO, CASPER K 278.00 OBESITY 09/23/2009 MADL THEATER SET PRODUCTION DESIGNER, ELIZA L 272.4 DYSLIPIDEMIA 09/23/2009 MADL THEATER SET PRODUCTION DESIGNER, EILZA L 278.00 OBESITY 09/23/2009 RYAN DO, CASPER K 272.4 DYSLIPIDEMIA 09/23/2009 RYAN DO, CASPER K 278.00 OBESITY 09/23/2009 MADL THEATER SET PRODUCTION DESIGNER, ELIZA L 272.4 DYSLIPIDEMIA 09/23/2009 MADL THEATER SET PRODUCTION DESIGNER, ELIZA L 278.00 OBESITY 09/23/2009 RYAN DO, CASPER K 272.4 DYSLIPIDEMIA 09/23/2009 RYAN DO, CASPER K 278.00 OBESITY 09/23/2009 MADL THEATER SET PRODUCTION DESIGNER, ELIZA L 272.4 DYSLIPIDEMIA 09/23/2009 MADL THEATER SET PRODUCTION DESIGNER, ELIZA L 278.00 OBESITY 09/23/2009 MADL THEATER SET PRODUCTION DESIGNER, ELIZA L 272.4 DYSLIPIDEMIA 09/23/2009 MADL THEATER SET PRODUCTION DESIGNER, ELIZA L 278.00 OBESITY 09/23/2009 BRISEIDA HUMPHREYS MD N 272.4 DYSLIPIDEMIA 09/23/2009 BRISEIDA HUMPHREYS MD N 278.00 OBESITY 09/23/2009 RYAN DO, CASPER K 272.4 DYSLIPIDEMIA 09/23/2009 RYAN DO, CASPER K 278.00 OBESITY 09/23/2009 KATIE THEATER SET PRODUCTION DESIGNER, TYRESE R 272.4 DYSLIPIDEMIA 09/23/2009 KATIE THEATER SET PRODUCTION DESIGNER, TYRESE R 278.00 OBESITY 09/23/2009 MADL THEATER SET PRODUCTION DESIGNER, ELIZA L 272.4 DYSLIPIDEMIA 09/23/2009 MADL THEATER SET PRODUCTION DESIGNER, ELIZA L 278.00 OBESITY 09/23/2009 MADL THEATER SET PRODUCTION DESIGNER, ELIZA L 272.4 DYSLIPIDEMIA 09/23/2009 MADL THEATER SET PRODUCTION DESIGNER, ELIZA L 278.00 OBESITY 09/23/2009 MADL THEATER SET PRODUCTION DESIGNER, ELIZA L 272.4 DYSLIPIDEMIA 09/23/2009 MADL THEATER SET PRODUCTION DESIGNER, ELIZA L 278.00 OBESITY 09/23/2009 RYAN DO, CASPER K 272.4 DYSLIPIDEMIA 09/23/2009 RYAN DO, CASPER K 278.00 OBESITY 09/23/2009 MADL THEATER SET PRODUCTION DESIGNER, ELIZA L 272.4 DYSLIPIDEMIA 09/23/2009 MADL THEATER SET PRODUCTION DESIGNER, ELIZA L 278.00 OBESITY 09/23/2009 RYAN DO, [...] For: Screening Exam Malignant Neoplasm Breast 04/24/2010 MADPat THEATER SET PRODUCTION DESIGNER, ELIZA L V76.10 Visit For: Screening Exam Malignant Neoplasm Breast 04/24/2010 CASPER RYAN DO K V76.10 Visit For: Screening Exam Malignant Neoplasm Breast 04/24/2010 TEREZAL THEATER SET PRODUCTION DESIGNER, ELIZA L V76.10 Visit For: Screening Exam Malignant Neoplasm Breast 04/24/2010 MONO RYAN DOA K V76.10 Visit For: Screening Exam Malignant Neoplasm Breast 04/24/2010 MADPat THEATER SET PRODUCTION DESIGNER, ELIZA L V76.10 Visit For: Screening Exam Malignant Neoplasm Breast 04/24/2010 MONO RYAN DOA K V76.10 Visit For: Screening Exam Malignant Neoplasm Breast 04/24/2010 ABBI THEATER SET PRODUCTION DESIGNER, ELIZA L V76.10 Visit For: Screening Exam Malignant Neoplasm Breast 04/24/2010 ABBI THEATER SET PRODUCTION DESIGNER, ELIZA L V76.10 Visit For: Screening Exam Malignant Neoplasm Breast 04/24/2010 JULIANN JOHN, BRISEIDA Jimenez V76.10 Visit For: Screening Exam Malignant Neoplasm Breast 04/24/2010 CASPER RYAN DO K V76.10 Visit For: Screening Exam Malignant Neoplasm Breast 04/24/2010 TYRESE WILSON APRN V76.10 Visit For: Screening Exam Malignant Neoplasm Breast 04/24/2010 ABBI THEATER SET PRODUCTION DESIGNER, ELIZA L V76.10 Visit For: Screening Exam Malignant Neoplasm Breast 04/24/2010 ABBI THEATER SET PRODUCTION DESIGNER, ELIZA L V76.10 Visit For: Screening Exam Malignant Neoplasm Breast 04/24/2010 ABBI THEATER SET PRODUCTION DESIGNER, ELIZA L V76.10 Visit For: Screening Exam Malignant Neoplasm Breast 04/24/2010 MONO RYAN DOA K V76.10 Visit For: Screening Exam Malignant Neoplasm Breast 04/24/2010 MADPat THEATER SET PRODUCTION DESIGNER, ELIZA L V76.10 Visit For: Screening Exam Malignant Neoplasm Breast 04/24/2010 CASPER RYAN DO K V76.10 Visit For: Screening Exam Malignant Neoplasm Breast 06/02/2010 RUPA GILLETTE, NATI M 466.0 Bronchitis, Acute 06/02/2010 RYAN [...] CASPER K 466.0 Bronchitis, Acute 06/02/2010 STACY GILLETTE, MARILU A 466.0 Bronchitis, Acute 06/02/2010 RYAN DO, CASPER K 466.0 Bronchitis, Acute 06/02/2010 RYAN DO, CASPER K 466.0 Bronchitis, Acute 06/02/2010 CHANDLER DDS, MAURA 466.0 Bronchitis, Acute 06/02/2010 CHANDLER DDS, MAURA 466.0 Bronchitis, Acute 06/02/2010 MANUEL THEATER SET PRODUCTION DESIGNER, CICI Bueno 466.0 Bronchitis, Acute 06/02/2010 WILLY DDS, EVELINA Torres 466.0 Bronchitis, Acute 06/02/2010 MADL THEATER SET PRODUCTION DESIGNER, ELIZA L 466.0 Bronchitis, Acute 06/02/2010 RYAN DO, CASPER K 466.0 Bronchitis, Acute 06/02/2010 MADL THEATER SET PRODUCTION DESIGNER, ELIZA L 466.0 Bronchitis, Acute 06/02/2010 RYAN DO, CASPER K 466.0 Bronchitis, Acute 06/02/2010 MADL THEATER SET PRODUCTION DESIGNER, ELIZA L 466.0 Bronchitis, Acute 06/02/2010 RYAN DO, CASPER K 466.0 Bronchitis, Acute 06/02/2010 MADL THEATER SET PRODUCTION DESIGNER, ELIZA L 466.0 Bronchitis, Acute 06/02/2010 MADL THEATER SET PRODUCTION DESIGNER, ELIZA L 466.0 Bronchitis, Acute 06/02/2010 BRISEIDA HUMPHREYS MD 466.0 Bronchitis, Acute 06/02/2010 RYAN DO, CASPER K 466.0 Bronchitis, Acute 06/02/2010 TYRESE WILSON APRN R 466.0 Bronchitis, Acute 06/02/2010 MADL THEATER SET PRODUCTION DESIGNER, ELIZA L 466.0 Bronchitis, Acute 06/02/2010 MADL THEATER SET PRODUCTION DESIGNER, ELIZA L 466.0 Bronchitis, Acute 06/02/2010 MADL THEATER SET PRODUCTION DESIGNER, ELIZA L 466.0 Bronchitis, Acute 06/02/2010 RYAN DO, CASPER K 466.0 Bronchitis, Acute 06/02/2010 MADL THEATER SET PRODUCTION DESIGNER, ELIZA L 466.0 Bronchitis, Acute 06/02/2010 RYAN [...] MAURA 386.11 Benign Paroxysmal Positional Vertigo 09/04/2010 CHANDLERNATALIYA JOELSMAURA 386.11 Benign Paroxysmal Positional Vertigo 09/04/2010 CICI JACKSON APRN 386.11 Benign Paroxysmal Positional Vertigo 09/04/2010 EVELINA AGUILERA DDS 386.11 Benign Paroxysmal Positional Vertigo 09/04/2010 ELIZA GO APRN L 386.11 Benign Paroxysmal Positional Vertigo 09/04/2010 RYAN DO CASPER K 386.11 Benign Paroxysmal Positional Vertigo 09/04/2010 MADL THEATER SET PRODUCTION DESIGNER, ELIZA L 386.11 Benign Paroxysmal Positional Vertigo 09/04/2010 RYAN DO, CASPER K 386.11 Benign Paroxysmal Positional Vertigo 09/04/2010 MADL THEATER SET PRODUCTION DESIGNER, ELIZA L 386.11 Benign Paroxysmal Positional Vertigo 09/04/2010 RYAN DO, CASPER K 386.11 Benign Paroxysmal Positional Vertigo 09/04/2010 MADL THEATER SET PRODUCTION DESIGNER, ELIZA L 386.11 Benign Paroxysmal Positional Vertigo 09/04/2010 MADL THEATER SET PRODUCTION DESIGNER, ELIZA L 386.11 Benign Paroxysmal Positional Vertigo 09/04/2010 JULIANN JOHN, BRISEIDA Jimenez 386.11 Benign Paroxysmal Positional Vertigo 09/04/2010 RYAN DO, CASPER K 386.11 Benign Paroxysmal Positional Vertigo 09/04/2010 KATIE MACKN, TYRESE R 386.11 Benign Paroxysmal Positional Vertigo 09/04/2010 MADL THEATER SET PRODUCTION DESIGNER, ELIZA L 386.11 Benign Paroxysmal Positional Vertigo 09/04/2010 MADL THEATER SET PRODUCTION DESIGNER, ELIZA L 386.11 Benign Paroxysmal Positional Vertigo 09/04/2010 MADL THEATER SET PRODUCTION DESIGNER, ELIZA L 386.11 Benign Paroxysmal Positional Vertigo 09/04/2010 RYAN DO, CASPER K 386.11 Benign Paroxysmal Positional Vertigo 09/04/2010 MADL THEATER SET PRODUCTION DESIGNER, ELIZA L 386.11 Benign Paroxysmal Positional Vertigo [...] DDS, MAURA 356.9 PERIPHERAL NEUROPATHY 10/06/2010 MANUEL THEATER SET PRODUCTION DESIGNER, CICI Bueno 356.9 PERIPHERAL NEUROPATHY 10/06/2010 WILLY DDS, EVELINA J 356.9 PERIPHERAL NEUROPATHY 10/06/2010 MADL THEATER SET PRODUCTION DESIGNER, ELIZA L 356.9 PERIPHERAL NEUROPATHY 10/06/2010 RYAN DO, CASPER K 356.9 PERIPHERAL NEUROPATHY 10/06/2010 MADL THEATER SET PRODUCTION DESIGNER, ELIZA L 356.9 PERIPHERAL NEUROPATHY 10/06/2010 RYAN DO, CASPER K 356.9 PERIPHERAL NEUROPATHY 10/06/2010 MADL THEATER SET PRODUCTION DESIGNER, ELIZA L 356.9 PERIPHERAL NEUROPATHY 10/06/2010 RYAN DO, CASPER K 356.9 PERIPHERAL NEUROPATHY 10/06/2010 MADL THEATER SET PRODUCTION DESIGNER, ELIZA L 356.9 PERIPHERAL NEUROPATHY 10/06/2010 MADL THEATER SET PRODUCTION DESIGNER, ELIZA L 356.9 PERIPHERAL NEUROPATHY 10/06/2010 JULIANN JOHN, BRISEIDA Jimenez 356.9 PERIPHERAL NEUROPATHY 10/06/2010 RYAN DO, CASPER K 356.9 PERIPHERAL NEUROPATHY 10/06/2010 KATIE THEATER SET PRODUCTION DESIGNER, TYRESE R 356.9 PERIPHERAL NEUROPATHY 10/06/2010 MADL THEATER SET PRODUCTION DESIGNER, ELIZA L 356.9 PERIPHERAL NEUROPATHY 10/06/2010 MADL THEATER SET PRODUCTION DESIGNER, ELIZA L 356.9 PERIPHERAL NEUROPATHY 10/06/2010 MADL THEATER SET PRODUCTION DESIGNER, ELIZA L 356.9 PERIPHERAL NEUROPATHY 10/06/2010 RYAN DO, CASPER K 356.9 PERIPHERAL NEUROPATHY 10/06/2010 MADL THEATER SET PRODUCTION DESIGNER, ELIZA L 356.9 PERIPHERAL NEUROPATHY 10/06/2010 RYAN [...] DO, CASPER K 709.9 Skin Lesions 11/01/2010 STACYYI MACKN, MARILU A 682.6 Cellulitis And Abscess Of Leg Except Foot 11/01/2010 STACY THEATER SET PRODUCTION DESIGNER, MARILU A 709.9 Skin Lesions 11/01/2010 RYAN [...] Leg Except Foot 11/01/2010 CICI JACKSON APRN T 709.9 Skin Lesions 11/01/2010 WHITE DDS, EVELINA J 682.6 Cellulitis And Abscess Of Leg Except Foot 11/01/2010 WHITE DDS, EVELINA J 709.9 Skin Lesions 11/01/2010 MADL THEATER SET PRODUCTION DESIGNER, ELIZA L 682.6 Cellulitis And Abscess Of Leg Except Foot 11/01/2010 MADL THEATER SET PRODUCTION DESIGNER, ELIZA L 709.9 Skin Lesions 11/01/2010 RYAN DO, CASPER K 682.6 Cellulitis And Abscess Of Leg Except Foot 11/01/2010 RYAN DO, CASPER K 709.9 Skin Lesions 11/01/2010 MADL THEATER SET PRODUCTION DESIGNER, ELIZA L 682.6 Cellulitis And Abscess Of Leg Except Foot 11/01/2010 MADL THEATER SET PRODUCTION DESIGNER, ELIZA L 709.9 Skin Lesions 11/01/2010 RYAN DO, CASPER K 682.6 Cellulitis And Abscess Of Leg Except Foot 11/01/2010 RYAN DO, CASPER K 709.9 Skin Lesions 11/01/2010 MADL THEATER SET PRODUCTION DESIGNER, ELIZA L 682.6 Cellulitis And Abscess Of Leg Except Foot 11/01/2010 MADL THEATER SET PRODUCTION DESIGNER, ELIZA L 709.9 Skin Lesions 11/01/2010 RYAN DO, CASPER K 682.6 Cellulitis And Abscess Of Leg Except Foot 11/01/2010 RYAN DO, CASPER K 709.9 Skin Lesions 11/01/2010 MADL THEATER SET PRODUCTION DESIGNER, ELIZA L 682.6 Cellulitis And Abscess Of Leg Except Foot 11/01/2010 MADL THEATER SET PRODUCTION DESIGNER, ELIZA L 709.9 Skin Lesions 11/01/2010 MADL THEATER SET PRODUCTION DESIGNER, ELIZA L 682.6 Cellulitis And Abscess Of Leg Except Foot 11/01/2010 MADL THEATER SET PRODUCTION DESIGNER, ELIZA L 709.9 Skin Lesions 11/01/2010 BRISEIDA HUMPHREYS MD N 682.6 Cellulitis And Abscess Of Leg Except Foot 11/01/2010 BRISEIDA HUMPHREYS MD N 709.9 Skin Lesions 11/01/2010 RYAN DO, CASPER K 682.6 Cellulitis And Abscess Of Leg Except Foot 11/01/2010 RYAN DO, CASPER K 709.9 Skin Lesions 11/01/2010 KATIE THEATER SET PRODUCTION DESIGNER, TYRESE R 682.6 Cellulitis And Abscess Of Leg Except Foot 11/01/2010 KATIE THEATER SET PRODUCTION DESIGNER, TYRESE R 709.9 Skin Lesions 11/01/2010 MADL THEATER SET PRODUCTION DESIGNER, ELIZA L 682.6 Cellulitis And Abscess Of Leg Except Foot 11/01/2010 MADL THEATER SET PRODUCTION DESIGNER, ELIZA L 709.9 Skin Lesions 11/01/2010 MADL THEATER SET PRODUCTION DESIGNER, ELIZA L 682.6 Cellulitis And Abscess Of Leg Except Foot 11/01/2010 MADL THEATER SET PRODUCTION DESIGNER, ELIZA L 709.9 Skin Lesions 11/01/2010 MADL THEATER SET PRODUCTION DESIGNER, ELIZA L 682.6 Cellulitis And Abscess Of Leg Except Foot 11/01/2010 MADL THEATER SET PRODUCTION DESIGNER, ELIZA L 709.9 Skin Lesions 11/01/2010 RYAN DO, CASPER K 682.6 Cellulitis And Abscess Of Leg Except Foot 11/01/2010 RYAN DO, CASPER K 709.9 Skin Lesions 11/01/2010 MADL THEATER SET PRODUCTION DESIGNER, ELIZA L 682.6 Cellulitis And Abscess Of Leg Except Foot 11/01/2010 MADL THEATER SET PRODUCTION DESIGNER, ELIZA L 709.9 Skin Lesions 11/01/2010 RYAN [...] Cellulitis Of The Right Buttock 11/03/2010 STACY THEATER SET PRODUCTION DESIGNER, MARILU A 682.5 Cellulitis Of The Right Buttock 11/03/2010 RYAN DO, CASPER K 682.5 Cellulitis Of The Right Buttock 11/03/2010 RYAN DO, CASPER K 682.5 Cellulitis Of The Right Buttock 11/03/2010 CHANDLER DDS, MAURA 682.5 Cellulitis Of The Right Buttock 11/03/2010 CHANDLER DDS, MAURA 682.5 Cellulitis Of The Right Buttock 11/03/2010 MANUEL THEATER SET PRODUCTION DESIGNER, CICI Bueno 682.5 Cellulitis Of The Right Buttock 11/03/2010 WILLY DDS, EVELINA Torres 682.5 Cellulitis Of The Right Buttock 11/03/2010 MADL THEATER SET PRODUCTION DESIGNER, ELIZA L 682.5 Cellulitis Of The Right Buttock 11/03/2010 RYAN DO, CASPER K 682.5 Cellulitis Of The Right Buttock 11/03/2010 MADL THEATER SET PRODUCTION DESIGNER, ELIZA L 682.5 Cellulitis Of The Right Buttock 11/03/2010 RYAN DO, CASPER K 682.5 Cellulitis Of The Right Buttock 11/03/2010 MADL THEATER SET PRODUCTION DESIGNER, ELIZA L 682.5 Cellulitis Of The Right Buttock 11/03/2010 RYAN DO, CASPER K 682.5 Cellulitis Of The Right Buttock 11/03/2010 MADL THEATER SET PRODUCTION DESIGNER, ELIZA L 682.5 Cellulitis Of The Right Buttock 11/03/2010 MADL THEATER SET PRODUCTION DESIGNER, ELIZA L 682.5 Cellulitis Of The Right Buttock 11/03/2010 JULIANN JOHN, BRISEIDA Jimenez 682.5 Cellulitis Of The Right Buttock 11/03/2010 RYAN DO, CASPER K 682.5 Cellulitis Of The Right Buttock 11/03/2010 KATIE THEATER SET PRODUCTION DESIGNERTYRESE 682.5 Cellulitis Of The Right Buttock 11/03/2010 MADL THEATER SET PRODUCTION DESIGNER, ELIZA L 682.5 Cellulitis Of The Right Buttock 11/03/2010 MADL THEATER SET PRODUCTION DESIGNER, ELIZA L 682.5 Cellulitis Of The Right Buttock 11/03/2010 MADL THEATER SET PRODUCTION DESIGNER, ELIZA L 682.5 Cellulitis Of The Right Buttock 11/03/2010 RYAN DO, CASPER K 682.5 Cellulitis Of The Right Buttock 11/03/2010 MADL THEATER SET PRODUCTION DESIGNER, ELIZA L 682.5 Cellulitis Of The Right [...] Urinary Tract Infection Site Not Specified 01/03/2011 CHANDLER DDSMAURA 599.0 Urinary Tract Infection Site Not Specified 01/03/2011 CICI JACKSON APRN 599.0 Urinary Tract Infection Site Not Specified 01/03/2011 EVELINA AGUILERA DDS 599.0 Urinary Tract Infection Site Not Specified 01/03/2011 ABBI THEATER SET PRODUCTION DESIGNER, ELIZA L 599.0 Urinary Tract Infection Site Not Specified 01/03/2011 RYAN DO, CASPER K 599.0 Urinary Tract Infection Site Not Specified 01/03/2011 MADL THEATER SET PRODUCTION DESIGNER, ELIZA L 599.0 Urinary Tract Infection Site Not Specified 01/03/2011 RYAN DO, CASPER K 599.0 Urinary Tract Infection Site Not Specified 01/03/2011 MADL THEATER SET PRODUCTION DESIGNER, ELIZA L 599.0 Urinary Tract Infection Site Not Specified 01/03/2011 RYAN DO, CASPER K 599.0 Urinary Tract Infection Site Not Specified 01/03/2011 MADL THEATER SET PRODUCTION DESIGNER, ELIZA L 599.0 Urinary Tract Infection Site Not Specified 01/03/2011 MADL THEATER SET PRODUCTION DESIGNER, ELIZA L 599.0 Urinary Tract Infection Site Not Specified 01/03/2011 JULIANN JOHN, BRISEIDA N 599.0 Urinary Tract Infection Site Not Specified 01/03/2011 RYAN DO, CASPER K 599.0 Urinary Tract Infection Site Not Specified 01/03/2011 KATIE THEATER SET PRODUCTION DESIGNER, TYRESE R 599.0 Urinary Tract Infection Site Not Specified 01/03/2011 MADL THEATER SET PRODUCTION DESIGNER, ELIZA L 599.0 Urinary Tract Infection Site Not Specified 01/03/2011 MADL THEATER [employer] PRODUCTION DESIGNER, ELIZA L 599.0 Urinary Tract Infection Site Not Specified 01/03/2011 MADL THEATER [employer] PRODUCTION DESIGNER, ELIZA L 599.0 Urinary Tract Infection Site Not Specified 01/03/2011 RYAN DO, CASPER K 599.0 Urinary Tract Infection Site Not Specified 01/03/2011 MADL THEATER [employer] PRODUCTION DESIGNER, ELIZA L 599.0 Urinary Tract Infection Site [...] pain, localized in the hip 03/24/2011 STACY THEATER [employer]ODUCTION DESIGNER, MARILU A 719.45 joint pain, localized in the hip 03/24/2011 RYAN DO, CASPER K 719.45 joint pain, localized in the hip 03/24/2011 RYAN DO, CASPER K 719.45 joint pain, localized in the hip 03/24/2011 CHANDLER DDS, MAURA 719.45 joint pain, localized in the hip 03/24/2011 CHANDLER DDS, MAURA 719.45 joint pain, localized in the hip 03/24/2011 MANUEL THEATER [employer] PRODUCTION DESIGNER, CICI Bueno 719.45 joint pain, localized in the hip 03/24/2011 WILLY DDS, EVELINA Torres 719.45 joint pain, localized in the hip 03/24/2011 MADL THEATER [employer]ODUCTION DESIGNER, ELIZA L 719.45 joint pain, localized in the hip 03/24/2011 RYAN DO, CASPER K 719.45 joint pain, localized in the hip 03/24/2011 MADL THEATER [employer] PRODUCTION DESIGNER, ELIZA L 719.45 joint pain, localized in the hip 03/24/2011 RYAN DO, CASPER K 719.45 joint pain, localized in the hip 03/24/2011 MADL THEATER [employer]ODUCTION DESIGNER, ELIZA L 719.45 joint pain, localized in the hip 03/24/2011 RYAN DO, CASPER K 719.45 joint pain, localized in the hip 03/24/2011 MADL THEATER [employer]ODUCTION DESIGNER, ELIZA L 719.45 joint pain, localized in the hip 03/24/2011 MADL THEATER [employer] PRODUCTION DESIGNER, ELIZA L 719.45 joint pain, localized in the hip 03/24/2011 JULIANN JOHN, BRISEIDA Jimenez 719.45 joint pain, localized in the hip 03/24/2011 RYAN DO, CASPER K 719.45 joint pain, localized in the hip 03/24/2011 KATIE THEATER [employer] PRODUCTION DESIGNER, TYRESE R 719.45 joint pain, localized in the hip 03/24/2011 MADL THEATER [employer] PRODUCTION DESIGNER, ELIZA L 719.45 joint pain, localized in the hip 03/24/2011 MADL THEATER [employer] PRODUCTION DESIGNER, ELIZA L 719.45 joint pain, localized in the hip 03/24/2011 MADL THEATER [employer] PRODUCTION DESIGNER, ELIZA L 719.45 joint pain, localized in the hip 03/24/2011 RYAN DO, CASPER K 719.45 joint pain, localized in the hip 03/24/2011 MADL THEATER SET PRODUCTION DESIGNER, ELIZA L 719.45 joint pain, localized in [...] GOODE APRN V76.2 Cervical Pap Smear 04/28/2011 CONNOR TORREZ [...] Breast 04/28/2011 V76.2 Cervical Pap Smear 04/28/2011 RYAN DO CASPER K 386.11 Benign Paroxysmal Positional Vertigo 04/28/2011 RYAN DO CASPER K V73.81 Visit For: Screening Exam For Human Papillomavirus (hpv) 04/28/2011 CASPER RYAN DO V76.10 Visit For: Screening Exam Malignant Neoplasm Breast 04/28/2011 MONO RYAN DOA K V76.2 Cervical Pap Smear 04/28/2011 386.11 [...] Cervical Pap Smear 04/28/2011 CASPER RYAN DO 386.11 Benign Paroxysmal Positional Vertigo 04/28/2011 CASPER RYAN DO K V73.81 Visit For: Screening Exam For [...] K 386.11 Benign Paroxysmal Positional Vertigo 04/28/2011 CASPER RYAN DO K V73.81 Visit For: Screening Exam For Human Papillomavirus (hpv) 04/28/2011 MONO RYAN DOA K V76.10 Visit For: Screening Exam Malignant Neoplasm Breast 04/28/2011 MONO RYAN DOA K V76.2 Cervical Pap Smear 04/28/2011 STACY THEATER SET PRODUCTION DESIGNER, MARILU A 386.11 Benign Paroxysmal Positional Vertigo 04/28/2011 STACY THEATER SET PRODUCTION DESIGNER, MARILU A V73.81 Visit For: Screening Exam For Human Papillomavirus (hpv) 04/28/2011 STACY THEATER SET PRODUCTION DESIGNER, MARILU A V76.10 Visit For: Screening Exam Malignant Neoplasm Breast 04/28/2011 MARILU KUMAR APRN V76.2 Cervical Pap Smear 04/28/2011 CONNOR TORREZ CASPER K 386.11 Benign Paroxysmal Positional Vertigo 04/28/2011 CONNOR TORREZMONOA K V73.81 Visit For: Screening Exam For Human Papillomavirus (hpv) 04/28/2011 CONNOR TORREZ CASPER K V76.10 Visit For: Screening Exam Malignant Neoplasm Breast 04/28/2011 CONNOR TORREZMONOA K V76.2 Cervical Pap Smear 04/28/2011 CONNOR TORREZMONOA K 386.11 Benign Paroxysmal Positional Vertigo 04/28/2011 CONNOR TORREZMONOA K V73.81 Visit For: Screening Exam For Human Papillomavirus (hpv) 04/28/2011 CONNOR TORREZMONOA K V76.10 Visit For: Screening Exam Malignant Neoplasm Breast 04/28/2011 CONNOR TORREZMONOA K V76.2 Cervical Pap Smear 04/28/2011 CHANDLER DDSMAURA 386.11 Benign Paroxysmal Positional Vertigo 04/28/2011 CHANDLER DDSMAURA V73.81 Visit For: Screening Exam For Human Papillomavirus (hpv) 04/28/2011 CHANDLERMAURA NAVARRO DDS V76.10 Visit For: Screening Exam Malignant Neoplasm Breast 04/28/2011 CHANDLER DDSMAURA V76.2 Cervical Pap Smear 04/28/2011 MAURA CHANDLER DDS 386.11 Benign Paroxysmal Positional Vertigo 04/28/2011 GERALDINE JOELSMAURA V73.81 Visit For: Screening Exam For Human Papillomavirus (hpv) 04/28/2011 GERALDINE JOELSMAURA V76.10 Visit For: Screening Exam Malignant Neoplasm [...] DDSEVELINA 386.11 Benign Paroxysmal Positional Vertigo 04/28/2011 WHITE DDS, EVELINA J V73.81 Visit For: Screening Exam For Human Papillomavirus (hpv) 04/28/2011 WHITE DDS, EVELINA J V76.10 Visit For: Screening Exam Malignant Neoplasm Breast 04/28/2011 WHITE DDS, EVELINA J V76.2 Cervical Pap Smear 04/28/2011 MADL THEATER SET PRODUCTION DESIGNER, ELIZA L 386.11 Benign Paroxysmal Positional Vertigo 04/28/2011 MADL THEATER SET PRODUCTION DESIGNER, ELIZA L V73.81 Visit For: Screening Exam For Human Papillomavirus (hpv) 04/28/2011 MADL THEATER SET PRODUCTION DESIGNER, ELIZA L V76.10 Visit For: Screening Exam Malignant Neoplasm Breast 04/28/2011 MADL THEATER SET PRODUCTION DESIGNER, ELIZA L V76.2 Cervical Pap Smear 04/28/2011 RYAN DO CASPER K 386.11 Benign Paroxysmal Positional Vertigo 04/28/2011 RYAN DO CASPER K V73.81 Visit For: Screening Exam For Human Papillomavirus (hpv) 04/28/2011 CONNOR TORREZ CASPER K V76.10 Visit For: Screening Exam Malignant Neoplasm Breast 04/28/2011 CONNOR TORREZ CASPER K V76.2 Cervical Pap Smear 04/28/2011 MADL THEATER SET PRODUCTION DESIGNER, ELIZA L 386.11 Benign Paroxysmal Positional Vertigo 04/28/2011 MADL THEATER SET PRODUCTION DESIGNER, ELIZA L V73.81 Visit For: Screening Exam For Human Papillomavirus (hpv) 04/28/2011 MADL THEATER SET PRODUCTION DESIGNER, ELIZA L V76.10 Visit For: Screening Exam Malignant Neoplasm Breast 04/28/2011 MADL THEATER SET PRODUCTION DESIGNER, ELIZA L V76.2 Cervical Pap Smear 04/28/2011 CONNOR DO CASPER K 386.11 Benign Paroxysmal Positional Vertigo 04/28/2011 RYAN DO CASPER K V73.81 Visit For: Screening Exam For Human Papillomavirus (hpv) 04/28/2011 RYAN DO CASPER K V76.10 Visit For: Screening Exam Malignant Neoplasm Breast 04/28/2011 RYAN DO CASPER K V76.2 Cervical Pap Smear 04/28/2011 MADL THEATER SET PRODUCTION DESIGNER, ELIZA L 386.11 Benign Paroxysmal Positional Vertigo 04/28/2011 MADL THEATER SET PRODUCTION DESIGNER, ELIZA L V73.81 Visit For: Screening Exam For Human Papillomavirus (hpv) 04/28/2011 MADL THEATER SET PRODUCTION DESIGNER, ELIZA L V76.10 Visit For: Screening Exam Malignant Neoplasm Breast 04/28/2011 MADL THEATER SET PRODUCTION DESIGNER, ELIZA L V76.2 Cervical Pap Smear 04/28/2011 RYAN DO, CASPER K 386.11 Benign Paroxysmal Positional Vertigo 04/28/2011 RYAN DO, CASPER K V73.81 Visit For: Screening Exam For Human Papillomavirus (hpv) 04/28/2011 RYAN DO CASPER K V76.10 Visit For: Screening Exam Malignant Neoplasm Breast 04/28/2011 RYAN DO, CASPER K V76.2 Cervical Pap Smear 04/28/2011 MADL THEATER SET PRODUCTION DESIGNER, ELIZA L 386.11 Benign Paroxysmal Positional Vertigo 04/28/2011 MADL THEATER SET PRODUCTION DESIGNER, ELIZA L V73.81 Visit For: Screening Exam For Human Papillomavirus (hpv) 04/28/2011 MADL THEATER SET PRODUCTION DESIGNER, ELIZA L V76.10 Visit For: Screening Exam Malignant Neoplasm Breast 04/28/2011 MADL THEATER SET PRODUCTION DESIGNER, ELIZA L V76.2 Cervical Pap Smear 04/28/2011 MADL THEATER SET PRODUCTION DESIGNER, ELIZA L 386.11 Benign Paroxysmal Positional Vertigo 04/28/2011 MADL THEATER SET PRODUCTION DESIGNER, ELIZA L V73.81 Visit For: Screening Exam For Human Papillomavirus (hpv) 04/28/2011 MADL THEATER SET PRODUCTION DESIGNER, ELIZA L V76.10 Visit For: Screening Exam Malignant Neoplasm Breast 04/28/2011 MADL THEATER SET PRODUCTION DESIGNER, ELIZA L V76.2 Cervical Pap Smear 04/28/2011 BRISEIDA HUMPHREYS MD N 386.11 Benign Paroxysmal Positional Vertigo 04/28/2011 BRISEIDA HUMPRHEYS MD V73.81 Visit For: Screening Exam For Human Papillomavirus (hpv) 04/28/2011 BRISEIDA HUMPHREYS MD N V76.10 Visit For: Screening Exam Malignant Neoplasm Breast 04/28/2011 BRISEIDA HUMPHREYS MD V76.2 Cervical Pap Smear 04/28/2011 RYAN DO CASPER K 386.11 Benign Paroxysmal Positional Vertigo 04/28/2011 RYAN DO, CASPER K V73.81 Visit For: Screening Exam For Human Papillomavirus (hpv) 04/28/2011 RYAN DO CASPER K V76.10 Visit For: Screening Exam Malignant Neoplasm Breast 04/28/2011 RYAN DO, CASPER K V76.2 Cervical Pap Smear 04/28/2011 KATIE THEATER SET PRODUCTION DESIGNER, TYRESE R 386.11 Benign Paroxysmal Positional Vertigo 04/28/2011 KATIE THEATER SET PRODUCTION DESIGNER, TYRESE R V73.81 Visit For: Screening Exam For Human Papillomavirus (hpv) 04/28/2011 KATIE THEATER SET PRODUCTION DESIGNER, TYRESE R V76.10 Visit For: Screening Exam Malignant Neoplasm Breast 04/28/2011 KATIE THEATER SET PRODUCTION DESIGNER, TYRESE R V76.2 Cervical Pap Smear 04/28/2011 MADL THEATER SET PRODUCTION DESIGNER, ELIZA L 386.11 Benign Paroxysmal Positional Vertigo 04/28/2011 MADL THEATER SET PRODUCTION DESIGNER, ELIZA L V73.81 Visit For: Screening Exam For Human Papillomavirus (hpv) 04/28/2011 MADL THEATER SET PRODUCTION DESIGNER, ELIZA L V76.10 Visit For: Screening Exam Malignant Neoplasm Breast 04/28/2011 MADL THEATER SET PRODUCTION DESIGNER, ELIZA L V76.2 Cervical Pap Smear 04/28/2011 MADL THEATER SET PRODUCTION DESIGNER, ELIZA L 386.11 Benign Paroxysmal Positional Vertigo 04/28/2011 MADL THEATER SET PRODUCTION DESIGNER, ELIZA L V73.81 Visit For: Screening Exam For Human Papillomavirus (hpv) 04/28/2011 MADL THEATER SET PRODUCTION DESIGNER, ELIZA L V76.10 Visit For: Screening Exam Malignant Neoplasm Breast 04/28/2011 MADL THEATER SET PRODUCTION DESIGNER, ELIZA L V76.2 Cervical Pap Smear 04/28/2011 MADL THEATER SET PRODUCTION DESIGNER, ELIZA L 386.11 Benign Paroxysmal Positional Vertigo 04/28/2011 MADL THEATER SET PRODUCTION DESIGNER, ELIZA L V73.81 Visit For: Screening Exam For Human Papillomavirus (hpv) 04/28/2011 MADL THEATER SET PRODUCTION DESIGNER, ELIZA L V76.10 Visit For: Screening Exam Malignant Neoplasm Breast 04/28/2011 MADL THEATER SET PRODUCTION DESIGNER, ELIZA L V76.2 Cervical Pap Smear 04/28/2011 RYAN DO, CASPER K 386.11 Benign Paroxysmal Positional Vertigo 04/28/2011 RYAN DO, CASPER K V73.81 Visit For: Screening Exam For Human Papillomavirus (hpv) 04/28/2011 RYAN DO, CASPER K V76.10 Visit For: Screening Exam Malignant Neoplasm Breast 04/28/2011 RYAN DO, CASPER K V76.2 Cervical Pap Smear 04/28/2011 MADL THEATER SET PRODUCTION DESIGNER, ELIZA L 386.11 Benign Paroxysmal Positional Vertigo 04/28/2011 ABBI THEATER SET PRODUCTION DESIGNER, ELIZA L V73.81 Visit For: Screening Exam For Human Papillomavirus (hpv) 04/28/2011 MADL THEATER SET PRODUCTION DESIGNER, ELIZA L V76.10 Visit For: Screening Exam Malignant Neoplasm Breast 04/28/2011 MADL THEATER SET PRODUCTION DESIGNER, ELIZA L V76.2 Cervical Pap Smear 04/28/2011 RYAN DOMONOA K 386.11 Benign Paroxysmal Positional Vertigo 04/28/2011 RYAN DO CASPER K V73.81 Visit For: Screening Exam For Human Papillomavirus (hpv) 04/28/2011 RYAN DO CASPER K V76.10 Visit For: Screening Exam Malignant Neoplasm Breast 04/28/2011 CONNOR TORREZ CASPER K V76.2 Cervical Pap Smear 08/19/2011 NATI GOODE APRN 054.9 HERPES SIMPLEX 08/19/2011 RYAN DO CASPER K 054.9 HERPES SIMPLEX 08/19/2011 CONNOR TORREZ CASPER K 054.9 HERPES SIMPLEX 08/19/2011 054.9 HERPES SIMPLEX 08/19/2011 RYAN DO, CASPER K 054.9 HERPES SIMPLEX 08/19/2011 054.9 HERPES SIMPLEX 08/19/2011 054.9 HERPES SIMPLEX 08/19/2011 RYAN , CASPER K 054.9 HERPES SIMPLEX 08/19/2011 RYAN DO, CASPER K 054.9 HERPES SIMPLEX 08/19/2011 RYAN DO, CASPER K 054.9 HERPES SIMPLEX 08/19/2011 MARILU KUMAR APRN 054.9 HERPES SIMPLEX 08/19/2011 RYAN DO CASPER K 054.9 HERPES SIMPLEX 08/19/2011 RYAN DO, CASPER K 054.9 HERPES SIMPLEX 08/19/2011 CHANDLER DDSMAURA 054.9 HERPES SIMPLEX 08/19/2011 CHANDLERNATALIYA JOELS, MAURA 054.9 HERPES SIMPLEX 08/19/2011 CICI JACKSON APRN 054.9 HERPES SIMPLEX 08/19/2011 EVELINA AGUILERA DDS 054.9 HERPES SIMPLEX 08/19/2011 ELIZA GO APRN 054.9 HERPES SIMPLEX 08/19/2011 RYAN DO CASPER K 054.9 HERPES SIMPLEX 08/19/2011 MADL THEATER SET PRODUCTION DESIGNER, ELIZA L 054.9 HERPES SIMPLEX 08/19/2011 RYAN DO, CASPER K 054.9 HERPES SIMPLEX 08/19/2011 MADL THEATER SET PRODUCTION DESIGNER, ELIZA L 054.9 HERPES SIMPLEX 08/19/2011 RYAN DO, CASPER K 054.9 HERPES SIMPLEX 08/19/2011 MADL THEATER SET PRODUCTION DESIGNER, ELIZA L 054.9 HERPES SIMPLEX 08/19/2011 MADL THEATER SET PRODUCTION DESIGNER, ELIZA L 054.9 HERPES SIMPLEX 08/19/2011 JULIANN JOHN, BRISEIDA N 054.9 HERPES SIMPLEX 08/19/2011 RYAN DO, CASPER K 054.9 HERPES SIMPLEX 08/19/2011 KATIE THEATER SET PRODUCTION DESIGNER, TYRESE R 054.9 HERPES SIMPLEX 08/19/2011 MADL THEATER SET PRODUCTION DESIGNER, ELIZA L 054.9 HERPES SIMPLEX 08/19/2011 MADL THEATER SET PRODUCTION DESIGNER, ELIZA L 054.9 HERPES SIMPLEX 08/19/2011 MADL THEATER SET PRODUCTION DESIGNER, ELIZA L 054.9 HERPES SIMPLEX 08/19/2011 RYAN DO, CASPER K 054.9 HERPES SIMPLEX 08/19/2011 MADL THEATER SET PRODUCTION DESIGNER, ELIZA L 054.9 HERPES SIMPLEX 08/19/2011 RYAN DO, CASPER K 054.9 HERPES SIMPLEX 08/28/2011 NATI GOODE APRN 461.9 Sinusitis Acute 08/28/2011 RYAN DO, CASPER K 461.9 Sinusitis Acute 08/28/2011 RYAN DO CASPER K 461.9 Sinusitis Acute 08/28/2011 461.9 [...] EVELINA Torres 461.9 Sinusitis Acute 08/28/2011 MADL THEATER SET PRODUCTION DESIGNER, ELIZA L 461.9 Sinusitis Acute 08/28/2011 RYAN DO, CASPER K 461.9 Sinusitis Acute 08/28/2011 MADL THEATER SET PRODUCTION DESIGNER, ELIZA L 461.9 Sinusitis Acute 08/28/2011 RYAN DO, CASPER K 461.9 Sinusitis Acute 08/28/2011 MADL THEATER SET PRODUCTION DESIGNER, ELIZA L 461.9 Sinusitis Acute 08/28/2011 RYAN DO CASPER K 461.9 Sinusitis Acute 08/28/2011 MADL THEATER SET PRODUCTION DESIGNER, ELIZA L 461.9 Sinusitis Acute 08/28/2011 MADL THEATER SET PRODUCTION DESIGNER, ELIZA L 461.9 Sinusitis Acute 08/28/2011 JULIANN JOHN, BRISEIDA Jimenez 461.9 Sinusitis Acute 08/28/2011 RYAN DO CASPER K 461.9 Sinusitis Acute 08/28/2011 TYRESE WILSON APRN 461.9 Sinusitis Acute 08/28/2011 MADL THEATER SET PRODUCTION DESIGNER, ELIZA L 461.9 Sinusitis Acute 08/28/2011 MADL THEATER SET PRODUCTION DESIGNER, ELIZA L 461.9 Sinusitis Acute 08/28/2011 MADL THEATER SET PRODUCTION DESIGNER, ELIZA L 461.9 Sinusitis Acute 08/28/2011 RYAN DO CASPER K 461.9 Sinusitis Acute 08/28/2011 MADL THEATER SET PRODUCTION DESIGNER, ELIZA L 461.9 Sinusitis Acute 08/28/2011 RYAN DO CASPER K 461.9 Sinusitis Acute 10/20/2011 NATI GOODE APRN 724.3 SCIATICA 10/20/2011 RYAN DO CASPER K 724.3 SCIATICA 10/20/2011 RYAN DO CASPER K 724.3 SCIATICA 10/20/2011 724.3 SCIATICA [...] CHANDLER DDS, MAURA 724.3 SCIATICA 10/20/2011 MANUEL THEATER SET PRODUCTION DESIGNERCICI Jimenez 724.3 SCIATICA 10/20/2011 WILLY DDS, EVELINA Torres 724.3 SCIATICA 10/20/2011 MADL THEATER SET PRODUCTION DESIGNER, ELIZA L 724.3 SCIATICA 10/20/2011 RYAN DO, CASPER K 724.3 SCIATICA 10/20/2011 MADL THEATER SET PRODUCTION DESIGNER, ELIZA L 724.3 SCIATICA 10/20/2011 RYAN DO, CASPER K 724.3 SCIATICA 10/20/2011 MADL THEATER SET PRODUCTION DESIGNER, ELIZA L 724.3 SCIATICA 10/20/2011 RYNA DO, CASPER K 724.3 SCIATICA 10/20/2011 MADL THEATER SET PRODUCTION DESIGNER, ELIZA L 724.3 SCIATICA 10/20/2011 MADL THEATER SET PRODUCTION DESIGNER, ELIZA L 724.3 SCIATICA 10/20/2011 BRISEIDA HUMPHREYS MD 724.3 SCIATICA 10/20/2011 RYAN DO, CASPER K 724.3 SCIATICA 10/20/2011 TYRESE WILSON APRN 724.3 SCIATICA 10/20/2011 MADL THEATER SET PRODUCTION DESIGNER, ELIZA L 724.3 SCIATICA 10/20/2011 MADL THEATER SET PRODUCTION DESIGNER, ELIZA L 724.3 SCIATICA 10/20/2011 MADL THEATER SET PRODUCTION DESIGNER, ELIZA L 724.3 SCIATICA 10/20/2011 RYAN DO, CASPER K 724.3 SCIATICA 10/20/2011 MADL THEATER SET PRODUCTION DESIGNER, ELIZA L 724.3 SCIATICA 10/20/2011 RYAN DO, CASPER K 724.3 SCIATICA 11/17/2011 NATI GODOE APRN V58.69 MEDICATION HIGH RISK 11/17/2011 RYAN [...] JACKSON APRN V58.69 MEDICATION HIGH RISK 11/17/2011 WHITE DDS, EVELINA Torres V58.69 MEDICATION HIGH RISK 11/17/2011 MADL THEATER SET PRODUCTION DESIGNER, ELIZA L V58.69 MEDICATION HIGH RISK 11/17/2011 RYAN DO, CASPER K V58.69 MEDICATION HIGH RISK 11/17/2011 MADL THEATER SET PRODUCTION DESIGNER, ELIZA L V58.69 MEDICATION HIGH RISK 11/17/2011 RYAN DO, CASPER K V58.69 MEDICATION HIGH RISK 11/17/2011 MADL THEATER SET PRODUCTION DESIGNER, ELIZA L V58.69 MEDICATION HIGH RISK 11/17/2011 RYAN DO, CASPER K V58.69 MEDICATION HIGH RISK 11/17/2011 MADL THEATER SET PRODUCTION DESIGNER, ELIZA L V58.69 MEDICATION HIGH RISK 11/17/2011 MADL THEATER SET PRODUCTION DESIGNER, ELIZA L V58.69 MEDICATION HIGH RISK 11/17/2011 JULIANN JOHN, BRISEIDA N V58.69 MEDICATION HIGH RISK 11/17/2011 RYAN DO, CASPER K V58.69 MEDICATION HIGH RISK 11/17/2011 KATIE THEATER SET PRODUCTION DESIGNER, TYRESE R V58.69 MEDICATION HIGH RISK 11/17/2011 MADL THEATER SET PRODUCTION DESIGNER, ELIZA L V58.69 MEDICATION HIGH RISK 11/17/2011 MADL THEATER SET PRODUCTION DESIGNER, ELIZA L V58.69 MEDICATION HIGH RISK 11/17/2011 MADL THEATER SET PRODUCTION DESIGNER, ELIZA L V58.69 MEDICATION HIGH RISK 11/17/2011 RYAN DO, CASPER K V58.69 MEDICATION HIGH RISK 11/17/2011 MADL THEATER SET PRODUCTION DESIGNER, ELIZA L V58.69 MEDICATION HIGH RISK 11/17/2011 [...] K 724.2 BACK PAIN, LOWER 01/13/2012 STACY THEATER SET PRODUCTION DESIGNER MARILU A 278.01 OBESITY, MORBID (BMI >40) 01/13/2012 STACY THEATER SET PRODUCTION DESIGNER, MARILU A 724.2 BACK PAIN, LOWER 01/13/2012 [...] JACKSON APRN 724.2 BACK PAIN, LOWER 01/13/2012 WHITE DDSEVELINA 278.01 OBESITY, MORBID (BMI >40) 01/13/2012 WHITE DDSEVELINA 724.2 BACK PAIN, LOWER 01/13/2012 MADL THEATER SET PRODUCTION DESIGNER, ELZIA L 278.01 OBESITY, MORBID (BMI >40) 01/13/2012 MADL THEATER SET PRODUCTION DESIGNER, ELIZA L 724.2 BACK PAIN, LOWER 01/13/2012 RYAN DO, CASPER K 278.01 OBESITY, MORBID (BMI >40) 01/13/2012 RYAN DO, CASPER K 724.2 BACK PAIN, LOWER 01/13/2012 MADL THEATER SET PRODUCTION DESIGNER, ELIZA L 278.01 OBESITY, MORBID (BMI >40) 01/13/2012 MADL THEATER SET PRODUCTION DESIGNER, ELIZA L 724.2 BACK PAIN, LOWER 01/13/2012 RYAN DO, CASPER K 278.01 OBESITY, MORBID (BMI >40) 01/13/2012 RYAN DO, CASPER K 724.2 BACK PAIN, LOWER 01/13/2012 MADL THEATER SET PRODUCTION DESIGNER, ELIZA L 278.01 OBESITY, MORBID (BMI >40) 01/13/2012 MADL THEATER SET PRODUCTION DESIGNER, ELIZA L 724.2 BACK PAIN, LOWER 01/13/2012 RYAN DO, CASPER K 278.01 OBESITY, MORBID (BMI >40) 01/13/2012 RYAN DO, CASPER K 724.2 BACK PAIN, LOWER 01/13/2012 MADL THEATER SET PRODUCTION DESIGNER, ELIZA L 278.01 OBESITY, MORBID (BMI >40) 01/13/2012 MADL THEATER SET PRODUCTION DESIGNER, ELIZA L 724.2 BACK PAIN, LOWER 01/13/2012 MADL THEATER SET PRODUCTION DESIGNER, ELIZA L 278.01 OBESITY, MORBID (BMI >40) 01/13/2012 MADL THEATER SET PRODUCTION DESIGNER, ELIZA L 724.2 BACK PAIN, LOWER 01/13/2012 JULIANN JOHN, BRISEIDA N 278.01 OBESITY, MORBID (BMI >40) 01/13/2012 JULIANN JOHN, BRISEIDA N 724.2 BACK PAIN, LOWER 01/13/2012 CONNOR DO, CASPER K 278.01 OBESITY, MORBID (BMI >40) 01/13/2012 RYAN DO, CASPER K 724.2 BACK PAIN, LOWER 01/13/2012 KATIE THEATER SET PRODUCTION DESIGNER, TYRESE R 278.01 OBESITY, MORBID (BMI >40) 01/13/2012 KATIE THEATER SET PRODUCTION DESIGNER, TYRESE R 724.2 BACK PAIN, LOWER 01/13/2012 MADL THEATER SET PRODUCTION DESIGNER, ELIZA L 278.01 OBESITY, MORBID (BMI >40) 01/13/2012 MADL THEATER SET PRODUCTION DESIGNER, ELIZA L 724.2 BACK PAIN, LOWER 01/13/2012 MADL THEATER SET PRODUCTION DESIGNER, ELIZA L 278.01 OBESITY, MORBID (BMI >40) 01/13/2012 MADL THEATER SET PRODUCTION DESIGNER, ELIZA L 724.2 BACK PAIN, LOWER 01/13/2012 MADL THEATER SET PRODUCTION DESIGNER, ELIZA L 278.01 OBESITY, MORBID (BMI >40) 01/13/2012 MADL THEATER SET PRODUCTION DESIGNER, ELIZA L 724.2 BACK PAIN, LOWER 01/13/2012 RYAN MONO TORREZA K 278.01 OBESITY, MORBID (BMI >40) 01/13/2012 RYAN MONO TORREZA K 724.2 BACK PAIN, LOWER 01/13/2012 ELIZA GO APRN Pat 278.01 OBESITY, MORBID (BMI >40) 01/13/2012 ABBI THEATER SET PRODUCTION DESIGNERJHONNYA L 724.2 BACK PAIN, LOWER 01/13/2012 RYAN [...] RYAN DOA K 558.9 Gastroenteritis Noninfectious 04/07/2012 MONO RYAN DOA K 558.9 Gastroenteritis Noninfectious 04/07/2012 MONO RYAN DOA K 558.9 Gastroenteritis Noninfectious 04/07/2012 MARILU KUMAR APRN 558.9 Gastroenteritis Noninfectious 04/07/2012 RYAN CASPER TORREZ K 558.9 Gastroenteritis Noninfectious 04/07/2012 RYAN MONO TORREZA K 558.9 Gastroenteritis Noninfectious 04/07/2012 CHANDLER DDS, MAURA 558.9 Gastroenteritis Noninfectious 04/07/2012 GERALDINE DDS, MAURA 558.9 Gastroenteritis Noninfectious 04/07/2012 CICI JACKSON APRN 558.9 Gastroenteritis Noninfectious 04/07/2012 WILLY JOELS, EVELINA Torres 558.9 Gastroenteritis Noninfectious 04/07/2012 MADL THEATER SET PRODUCTION DESIGNER, ELIZA L 558.9 Gastroenteritis Noninfectious 04/07/2012 RYAN DO CASPER K 558.9 Gastroenteritis Noninfectious 04/07/2012 MADL THEATER SET PRODUCTION DESIGNER, ELIZA L 558.9 Gastroenteritis Noninfectious 04/07/2012 RYAN DO CASPER K 558.9 Gastroenteritis Noninfectious 04/07/2012 MADL THEATER SET PRODUCTION DESIGNER, ELIZA L 558.9 Gastroenteritis Noninfectious 04/07/2012 RYAN DO CASPER K 558.9 Gastroenteritis Noninfectious 04/07/2012 MADPat THEATER SET PRODUCTION DESIGNER, ELIZA L 558.9 Gastroenteritis Noninfectious 04/07/2012 MADL THEATER SET PRODUCTION DESIGNER, ELIZA L 558.9 Gastroenteritis Noninfectious 04/07/2012 BRISEIDA HUMPHREYS MD 558.9 Gastroenteritis Noninfectious 04/07/2012 RYAN DO CASPER K 558.9 Gastroenteritis Noninfectious 04/07/2012 TYRESE WILSON APRN 558.9 Gastroenteritis Noninfectious 04/07/2012 MADL THEATER SET PRODUCTION DESIGNER, ELIZA L 558.9 Gastroenteritis Noninfectious 04/07/2012 ABBI THEATER SET PRODUCTION DESIGNER, ELIZA L 558.9 Gastroenteritis Noninfectious 04/07/2012 MADL THEATER SET PRODUCTION DESIGNER, ELIZA L 558.9 Gastroenteritis Noninfectious 04/07/2012 RYAN DO CASPER K 558.9 Gastroenteritis Noninfectious 04/07/2012 MADL THEATER SET PRODUCTION DESIGNER, ELIZA L 558.9 Gastroenteritis Noninfectious 04/07/2012 RYAN DO CASPER K 558.9 GASTROENTERITIS NONINFECTIOUS 04/11/2012 NATI GOODE APRN 311 DEPRESSION 04/11/2012 CASPER RYAN DO K 311 DEPRESSION 04/11/2012 CASPER RYAN DO K 311 DEPRESSION 04/11/2012 311 DEPRESSION 04/11/2012 RYAN DO, CASPER K 311 DEPRESSION 04/11/2012 311 DEPRESSION 04/11/2012 311 DEPRESSION 04/11/2012 RYAN DO, CASPER K 311 DEPRESSION 04/11/2012 RYAN DO, CASPER K 311 DEPRESSION 04/11/2012 RYAN DO, CASPER K 311 DEPRESSION 04/11/2012 STACY THEATER SET PRODUCTION DESIGNER, MARILU A 311 DEPRESSION 04/11/2012 RYAN DO, CASPER K 311 DEPRESSION 04/11/2012 RYAN DO, CASPER K 311 DEPRESSION 04/11/2012 CHANDLER DDS, MAURA 311 DEPRESSION 04/11/2012 CHANDLER DDS, MAURA 311 DEPRESSION 04/11/2012 MANULE THEATER SET PRODUCTION DESIGNER, CICI T 311 DEPRESSION 04/11/2012 WHITE DDS, EVELINA Melissa 311 DEPRESSION 04/11/2012 MADL THEATER SET PRODUCTION DESIGNER, ELIZA L 311 DEPRESSION 04/11/2012 RYAN DO, CASPER K 311 DEPRESSION 04/11/2012 MADL THEATER SET PRODUCTION DESIGNER, ELIZA L 311 DEPRESSION 04/11/2012 RYAN DO, CASPER K 311 DEPRESSION 04/11/2012 MADL THEATER SET PRODUCTION DESIGNER, ELIZA L 311 DEPRESSION 04/11/2012 RYAN DO, CASPER K 311 DEPRESSION 04/11/2012 MADL THEATER SET PRODUCTION DESIGNER, ELIZA L 311 DEPRESSION 04/11/2012 MADL THEATER SET PRODUCTION DESIGNER, ELIZA L 311 DEPRESSION 04/11/2012 BRISEIDA HUMPHREYS MD 311 DEPRESSION 04/11/2012 RYAN DO, CASPER K 311 DEPRESSION 04/11/2012 KATIE THEATER SET PRODUCTION DESIGNER, TYRESE R 311 DEPRESSION 04/11/2012 MADL THEATER SET PRODUCTION DESIGNER, ELIZA L 311 DEPRESSION 04/11/2012 MAD[employer] THEATER SET PRODUCTION DESIGNER, ELIZA L 311 DEPRESSION 04/11/2012 MAD[employer] THEATER SET PRODUCTION DESIGNER, ELIZA L 311 DEPRESSION 04/11/2012 RYAN DO, CASPER K 311 DEPRESSION 04/11/2012 MADL THE[employer] PRODUCTION DESIGNER, ELIZA L 311 DEPRESSION 04/11/2012 RYAN DO, [...] 05/02/2012 V76.10 BREAST CANCER SCREENING 05/02/2012 RYAN DO, CASPER K 465.9 Upper [...] 05/02/2012 V76.10 Breast Cancer Screening 05/02/2012 RYAN DO, [...] K V76.10 Breast Cancer Screening 05/02/2012 STACY [employer] PRODUCTION DESIGNER, MARILU A 465.9 Upper Respiratory Infection 05/02/2012 STACY THE[employer] PRODUCTION DESIGNER, MARILU A 682.7 Cellulitis - Foot 05/02/2012 STACY THE[employer] PRODUCTION DESIGNER, MARILU A 786.2 Cough 05/02/2012 STACY THE[employer] PRODUCTION DESIGNER, MARILU A V76.10 Breast Cancer Screening 05/02/2012 [...] J V76.10 Breast Cancer Screening 05/02/2012 MAD[employer] PRODUCTION DESIGNER, ELIZA L 465.9 Upper Respiratory Infection 05/02/2012 MAD[employer] THE[employer] PRODUCTION DESIGNER, ELIZA L 682.7 Cellulitis - Foot 05/02/2012 MAD[employer] THE[employer] PRODUCTION DESIGNER, ELIZA L 786.2 Cough 05/02/2012 MAD[employer] THE[employer] PRODUCTION DESIGNER, ELIZA L V76.10 Breast Cancer Screening 05/02/2012 RYAN DO, CASPER K 465.9 Upper Respiratory Infection 05/02/2012 RYAN DO, CASPER K 682.7 Cellulitis - Foot 05/02/2012 RYAN DO, CASPER K 786.2 Cough 05/02/2012 RYAN DO, CASPER K V76.10 Breast Cancer Screening 05/02/2012 MAD[employer] PRODUCTION DESIGNER, ELIZA L 465.9 Upper Respiratory Infection 05/02/2012 MAD[employer] THE[employer] PRODUCTION DESIGNER, ELIZA L 682.7 Cellulitis - Foot 05/02/2012 MAD[employer] THE[employer] PRODUCTION DESIGNER, ELIZA L 786.2 Cough 05/02/2012 MAD[employer] THE[employer] PRODUCTION DESIGNER, ELIZA L V76.10 Breast Cancer Screening 05/02/2012 RYAN DO, CASPER K 465.9 Upper Respiratory Infection 05/02/2012 RYAN DO, CASPER K 682.7 Cellulitis - Foot 05/02/2012 RYAN DO, CASPER K 786.2 Cough 05/02/2012 RYAN DO, CASPER K V76.10 Breast Cancer Screening 05/02/2012 MAD[employer] PRODUCTION DESIGNER, ELIZA L 465.9 Upper Respiratory Infection 05/02/2012 MAD[employer] PRODUCTION DESIGNER, ELIZA L 682.7 Cellulitis - Foot 05/02/2012 MAD[employer] THE[employer] PRODUCTION DESIGNER, ELIZA L 786.2 Cough 05/02/2012 MAD[employer] THE[employer] PRODUCTION DESIGNER, ELIZA L V76.10 Breast Cancer Screening 05/02/2012 RYAN DO, CASPER K 465.9 Upper Respiratory Infection 05/02/2012 RYAN DO, CASPER K 682.7 Cellulitis - Foot 05/02/2012 RYAN DO, CASPER K 786.2 Cough 05/02/2012 RYAN DO, CASPER K V76.10 Breast Cancer Screening 05/02/2012 MADL THEATER SET PRODUCTION DESIGNER, ELIZA L 465.9 Upper Respiratory Infection 05/02/2012 MADL THEATER SET PRODUCTION DESIGNER, ELIZA L 682.7 Cellulitis - Foot 05/02/2012 MADL THEATER SET PRODUCTION DESIGNER, ELIZA L 786.2 Cough 05/02/2012 MADL THEATER SET PRODUCTION DESIGNER, ELIZA L V76.10 Breast Cancer Screening 05/02/2012 MADL THEATER SET PRODUCTION DESIGNER, ELIZA L 465.9 Upper Respiratory Infection 05/02/2012 MADL THEATER SET PRODUCTION DESIGNER, ELIZA L 682.7 Cellulitis - Foot 05/02/2012 MADL THEATER SET PRODUCTION DESIGNER, ELIZA L 786.2 Cough 05/02/2012 MADL THEATER SET PRODUCTION DESIGNER, ELIZA L V76.10 Breast Cancer Screening 05/02/2012 BRISEIDA HUMPHREYS MD N 465.9 Upper Respiratory Infection 05/02/2012 BRISEIDA HUMPHREYS MD N 682.7 Cellulitis - Foot 05/02/2012 BRISEIDA HUMPHREYS MD N 786.2 Cough 05/02/2012 BRISEIDA HUMPHREYS MD N V76.10 Breast Cancer Screening 05/02/2012 RYAN DO, CASPER K 465.9 Upper Respiratory Infection 05/02/2012 RYAN DO, CASPER K 682.7 Cellulitis - Foot 05/02/2012 RYAN DO, CASPER K 786.2 Cough 05/02/2012 RYAN DO, CASPER K V76.10 Breast Cancer Screening 05/02/2012 KATIE THEATER SET PRODUCTION DESIGNER, TYRESE R 465.9 Upper Respiratory Infection 05/02/2012 KATIE THEATER SET PRODUCTION DESIGNER, TYRESE R 682.7 Cellulitis - Foot 05/02/2012 KATIE THEATER SET PRODUCTION DESIGNER, TYRESE R 786.2 Cough 05/02/2012 KATIE THEATER SET PRODUCTION DESIGNER, TYRESE R V76.10 Breast Cancer Screening 05/02/2012 MADL THEATER SET PRODUCTION DESIGNER, ELIZA L 465.9 Upper Respiratory Infection 05/02/2012 MADL THEATER SET PRODUCTION DESIGNER, ELIZA L 682.7 Cellulitis - Foot 05/02/2012 MADL THEATER SET PRODUCTION DESIGNER, ELIZA L 786.2 Cough 05/02/2012 MADL THEATER SET PRODUCTION DESIGNER, ELIZA L V76.10 Breast Cancer Screening 05/02/2012 MADL THEATER SET PRODUCTION DESIGNER, ELIZA L 465.9 Upper Respiratory Infection 05/02/2012 MADL THEATER SET PRODUCTION DESIGNER, ELIZA L 682.7 Cellulitis - Foot 05/02/2012 MADL THEATER SET PRODUCTION DESIGNER, ELIZA L 786.2 Cough 05/02/2012 MADL THEATER SET PRODUCTION DESIGNER, ELIZA L V76.10 Breast Cancer Screening 05/02/2012 MADL THEATER SET PRODUCTION DESIGNER, ELIZA L 465.9 Upper Respiratory Infection 05/02/2012 MADL THEATER SET PRODUCTION DESIGNER, ELIZA L 682.7 Cellulitis - Foot 05/02/2012 MADL THEATER SET PRODUCTION DESIGNER, ELIZA L 786.2 Cough 05/02/2012 MADL THEATER SET PRODUCTION DESIGNER, ELIZA L V76.10 Breast Cancer Screening 05/02/2012 RYAN DO, CASPER K 465.9 Upper Respiratory Infection 05/02/2012 RYAN DO, CASPER K 682.7 Cellulitis - Foot 05/02/2012 RYAN DO, CASPER K 786.2 Cough 05/02/2012 RYAN DO, CASPER K V76.10 Breast Cancer Screening 05/02/2012 MADL THEATER SET PRODUCTION DESIGNER, ELIZA L 465.9 Upper Respiratory Infection 05/02/2012 MADL THEATER SET PRODUCTION DESIGNER, ELIZA L 682.7 Cellulitis - Foot 05/02/2012 MADL THEATER SET PRODUCTION DESIGNER, ELIZA L 786.2 Cough 05/02/2012 MADL THEATER SET PRODUCTION DESIGNER, ELIZA L V76.10 Breast Cancer Screening 05/02/2012 RYAN DO, CASPER K 465.9 UPPER RESPIRATORY INFECTION 05/02/2012 RYAN DO, CASPER K 682.7 CELLULITIS - FOOT 05/02/2012 RYAN DO, CASPER K 786.2 COUGH 05/02/2012 RYAN DO, CASPER K V76.10 BREAST CANCER SCREENING 06/08/2012 NATI GOODE APRN 787.91 DIARRHEA 06/08/2012 RYAN DO, CASPER K 787.91 DIARRHEA 06/08/2012 RYAN DO, CASPER K 787.91 DIARRHEA 06/08/2012 787.91 DIARRHEA 06/08/2012 RYAN DO, CASPER K 787.91 DIARRHEA 06/08/2012 787.91 DIARRHEA 06/08/2012 787.91 DIARRHEA 06/08/2012 RYAN DO, CASPER K 787.91 DIARRHEA 06/08/2012 RYAN DO, CASPER K 787.91 DIARRHEA 06/08/2012 RYAN DO, CASPER K 787.91 DIARRHEA 06/08/2012 STACY THEATER SET PRODUCTION DESIGNER MARILU A 787.91 DIARRHEA 06/08/2012 RYAN DO, CASPER K 787.91 DIARRHEA 06/08/2012 RYAN DO, CASPER K 787.91 DIARRHEA 06/08/2012 CHANDLER DDS, MAURA 787.91 DIARRHEA 06/08/2012 CHANDLER DDS, MAURA 787.91 DIARRHEA 06/08/2012 MANUEL THEATER SET PRODUCTION DESIGNER, CICI Bueno 787.91 DIARRHEA 06/08/2012 WILLY DDS, EVELINA Torres 787.91 DIARRHEA 06/08/2012 MADL THEATER SET PRODUCTION DESIGNER, ELIZA L 787.91 DIARRHEA 06/08/2012 RYAN DO, CASPER K 787.91 DIARRHEA 06/08/2012 MADL THEATER SET PRODUCTION DESIGNER, ELIZA L 787.91 DIARRHEA 06/08/2012 RYAN DO, CASPER K 787.91 DIARRHEA 06/08/2012 MADL THEATER SET PRODUCTION DESIGNER, ELIZA L 787.91 DIARRHEA 06/08/2012 RYAN DO, CASPER K 787.91 DIARRHEA 06/08/2012 MADL THEATER SET PRODUCTION DESIGNER, ELIZA L 787.91 DIARRHEA 06/08/2012 MADL THEATER SET PRODUCTION DESIGNER, ELIZA L 787.91 DIARRHEA 06/08/2012 BRISEIDA HUMPHREYS MD 787.91 DIARRHEA 06/08/2012 RYAN DO, CASPER K 787.91 DIARRHEA 06/08/2012 TYRESE WILSON APRN R 787.91 DIARRHEA 06/08/2012 MADL THEATER SET PRODUCTION DESIGNER, ELIZA L 787.91 DIARRHEA 06/08/2012 MADL THEATER SET PRODUCTION DESIGNER, ELIZA L 787.91 DIARRHEA 06/08/2012 MADL THEATER SET PRODUCTION DESIGNER, ELIZA L 787.91 DIARRHEA 06/08/2012 RYAN DO, CASPER K 787.91 DIARRHEA 06/08/2012 MADL THEATER SET PRODUCTION DESIGNER, ELIZA L 787.91 DIARRHEA 06/08/2012 RYAN DO, [...] DO, CASPER K 455.6 HEMORRHOIDS NOS 06/22/2012 MAURA CHANDLER DDS 455.6 HEMORRHOIDS NOS 06/22/2012 CHANDLER DDSMAURA 455.6 HEMORRHOIDS NOS 06/22/2012 CICI JACKSON APRN 455.6 HEMORRHOIDS NOS 06/22/2012 EVELINA AGUILERA DDS 455.6 HEMORRHOIDS NOS 06/22/2012 MADL THEATER SET PRODUCTION DESIGNER, ELIZA L 455.6 HEMORRHOIDS NOS 06/22/2012 RYAN DO, CASPER K 455.6 HEMORRHOIDS NOS 06/22/2012 MADL THEATER SET PRODUCTION DESIGNER, ELIZA L 455.6 HEMORRHOIDS NOS 06/22/2012 RYAN DO, CASPER K 455.6 HEMORRHOIDS NOS 06/22/2012 MADL THEATER SET PRODUCTION DESIGNER, ELIZA L 455.6 HEMORRHOIDS NOS 06/22/2012 RYAN DO, CASPER K 455.6 HEMORRHOIDS NOS 06/22/2012 MADL THEATER SET PRODUCTION DESIGNER, ELIZA L 455.6 HEMORRHOIDS NOS 06/22/2012 MADL THEATER SET PRODUCTION DESIGNER, ELIZA L 455.6 HEMORRHOIDS NOS 06/22/2012 BRISEIDA HUMPHREYS MD 455.6 HEMORRHOIDS NOS 06/22/2012 RYAN DO, CASPER K 455.6 HEMORRHOIDS NOS 06/22/2012 TYRESE WILSON APRN 455.6 HEMORRHOIDS NOS 06/22/2012 MADL THEATER SET PRODUCTION DESIGNER, ELIZA L 455.6 HEMORRHOIDS NOS 06/22/2012 MADL THEATER SET PRODUCTION DESIGNER, ELIZA L 455.6 HEMORRHOIDS NOS 06/22/2012 MADL THEATER SET PRODUCTION DESIGNER, ELIZA L 455.6 HEMORRHOIDS NOS 06/22/2012 RYAN DO, CASPER K 455.6 HEMORRHOIDS NOS 06/22/2012 MADL THEATER SET PRODUCTION DESIGNER, ELIZA L 455.6 HEMORRHOIDS NOS 07/18/2012 RAYN DO, CASPER K 569.3 RECTAL BLEEDING 07/18/2012 [...] DO, CASPER K 569.3 Rectal Bleeding 07/18/2012 GERALDINE DDSAMURA 569.3 Rectal Bleeding 07/18/2012 GERALDINE DDS, MAURA 569.3 Rectal Bleeding 07/18/2012 CICI JACKSON APRN 569.3 Rectal Bleeding 07/18/2012 EVELINA AGUILERA DDS 569.3 Rectal Bleeding 07/18/2012 MADL THEATER SET PRODUCTION DESIGNER, ELIZA L 569.3 Rectal Bleeding 07/18/2012 RYAN DO, CASPER K 569.3 Rectal Bleeding 07/18/2012 MADL THEATER SET PRODUCTION DESIGNER, ELIZA L 569.3 Rectal Bleeding 07/18/2012 RYAN DO, CASPER K 569.3 Rectal Bleeding 07/18/2012 MADL THEATER SET PRODUCTION DESIGNER, ELIZA L 569.3 Rectal Bleeding 07/18/2012 RYAN DO, CASPER K 569.3 Rectal Bleeding 07/18/2012 MADL THEATER SET PRODUCTION DESIGNER, ELIZA L 569.3 Rectal Bleeding 07/18/2012 MADL THEATER SET PRODUCTION DESIGNER, ELIZA L 569.3 Rectal Bleeding 07/18/2012 BRISEIDA HUMPHREYS MD 569.3 Rectal Bleeding 07/18/2012 RYAN DO, CASPER K 569.3 Rectal Bleeding 07/18/2012 TYRESE WILSON APRN 569.3 Rectal Bleeding 07/18/2012 MADL THEATER SET PRODUCTION DESIGNER, ELIZA L 569.3 Rectal Bleeding 07/18/2012 MADL THEATER SET PRODUCTION DESIGNER, ELIZA L 569.3 Rectal Bleeding 07/18/2012 MADL THEATER SET PRODUCTION DESIGNER, ELIZA L 569.3 Rectal Bleeding 07/18/2012 RYAN DO, CASPER K 569.3 Rectal Bleeding 07/18/2012 MADL THEATER SET PRODUCTION DESIGNER, ELIZA L 569.3 Rectal Bleeding 08/22/2012 Ot [...] CASPER K 702.0 ACTINIC KERATOSIS 10/05/2012 STACY THEATER SET PRODUCTION DESIGNER, MARILU A 493.90 ASTHMA UNSPECIFIED 10/05/2012 STACY THEATER SET PRODUCTION DESIGNER, MARILU A 702.0 ACTINIC KERATOSIS 10/05/2012 RYAN DO, CASPER K 493.90 ASTHMA UNSPECIFIED 10/05/2012 RYAN DO, CASPER K 702.0 ACTINIC KERATOSIS 10/05/2012 RYAN DO, CASPER K 493.90 ASTHMA UNSPECIFIED 10/05/2012 RYAN DO, CASPER K 702.0 ACTINIC KERATOSIS 10/05/2012 CHANDLER DDSMAURA 493.90 ASTHMA UNSPECIFIED 10/05/2012 CHANDLER DDS, MAURA 702.0 ACTINIC KERATOSIS 10/05/2012 CHANDLER DDS, MAURA 493.90 ASTHMA UNSPECIFIED 10/05/2012 CHANDLER DDS, MAURA 702.0 ACTINIC KERATOSIS 10/05/2012 MANUEL THEATER SET PRODUCTION DESIGNER, CICI T 493.90 ASTHMA UNSPECIFIED 10/05/2012 MANUEL THEATER SET PRODUCTION DESIGNER, CICI T 702.0 ACTINIC KERATOSIS 10/05/2012 WHITE DDS, EVELINA J 493.90 ASTHMA UNSPECIFIED 10/05/2012 WHITE DDS, EVELINA J 702.0 ACTINIC KERATOSIS 10/05/2012 MADL THEATER SET PRODUCTION DESIGNER, ELIZA L 493.90 ASTHMA UNSPECIFIED 10/05/2012 MADL THEATER SET PRODUCTION DESIGNER, ELIZA L 702.0 ACTINIC KERATOSIS 10/05/2012 RYAN DO, CASPER K 493.90 ASTHMA UNSPECIFIED 10/05/2012 RYAN DO, CASPER K 702.0 ACTINIC KERATOSIS 10/05/2012 MADL THEATER SET PRODUCTION DESIGNER, ELIZA L 493.90 ASTHMA UNSPECIFIED 10/05/2012 MADL THEATER SET PRODUCTION DESIGNER, ELIZA L 702.0 ACTINIC KERATOSIS 10/05/2012 RYAN DO, CASPER K 493.90 ASTHMA UNSPECIFIED 10/05/2012 RYAN DO, CASPER K 702.0 ACTINIC KERATOSIS 10/05/2012 MADL THEATER SET PRODUCTION DESIGNER, ELIZA L 493.90 ASTHMA UNSPECIFIED 10/05/2012 MADL THEATER SET PRODUCTION DESIGNER, ELIZA L 702.0 ACTINIC KERATOSIS 10/05/2012 RYAN DO, CASPER K 493.90 ASTHMA UNSPECIFIED 10/05/2012 RYAN DO, CASPER K 702.0 ACTINIC KERATOSIS 10/05/2012 MADL THEATER SET PRODUCTION DESIGNER, ELIZA L 493.90 ASTHMA UNSPECIFIED 10/05/2012 MADL THEATER SET PRODUCTION DESIGNER, ELIZA L 702.0 ACTINIC KERATOSIS 10/05/2012 MADL THEATER SET PRODUCTION DESIGNER, ELIZA L 493.90 ASTHMA UNSPECIFIED 10/05/2012 MADL THEATER SET PRODUCTION DESIGNER, ELIZA L 702.0 ACTINIC KERATOSIS 10/05/2012 BRISEIDA HUMPHREYS MD 493.90 ASTHMA UNSPECIFIED 10/05/2012 BRISEIDA HUMPHREYS MD 702.0 ACTINIC KERATOSIS 10/05/2012 RYAN DO CASPER K 493.90 ASTHMA UNSPECIFIED 10/05/2012 RYAN DO, CASPER K 702.0 ACTINIC KERATOSIS 10/05/2012 KATIE THEATER SET PRODUCTION DESIGNER, TYRESE R 493.90 ASTHMA UNSPECIFIED 10/05/2012 KATIE THEATER SET PRODUCTION DESIGNER, TYRESE R 702.0 ACTINIC KERATOSIS 10/05/2012 MADL THEATER SET PRODUCTION DESIGNER, ELIZA L 493.90 ASTHMA UNSPECIFIED 10/05/2012 MADL THEATER SET PRODUCTION DESIGNER, ELIZA L 702.0 ACTINIC KERATOSIS 10/05/2012 MADL THEATER SET PRODUCTION DESIGNER, ELIZA L 493.90 ASTHMA UNSPECIFIED 10/05/2012 MADL THEATER SET PRODUCTION DESIGNER, ELIZA L 702.0 ACTINIC KERATOSIS 10/05/2012 MADL THEATER SET PRODUCTION DESIGNER, ELIZA L 493.90 ASTHMA UNSPECIFIED 10/05/2012 MADL THEATER SET PRODUCTION DESIGNER, ELIZA L 702.0 ACTINIC KERATOSIS 10/05/2012 RYAN DO, CASPER K 493.90 ASTHMA UNSPECIFIED 10/05/2012 RYAN DO, CASPER K 702.0 ACTINIC KERATOSIS 10/05/2012 MADL THEATER SET PRODUCTION DESIGNER, ELIZA L 493.90 ASTHMA UNSPECIFIED 10/05/2012 MADL THEATER SET PRODUCTION DESIGNER, ELIZA L 702.0 ACTINIC KERATOSIS 03/17/2013 RYAN DO, CASPER K 338.19 ACUTE PAIN 03/17/2013 RYAN DO, CASPER K 338.19 ACUTE PAIN 03/17/2013 RYAN DO, CASPER K 338.19 ACUTE PAIN 03/17/2013 MARILU KUMAR APRN 338.19 ACUTE PAIN 03/17/2013 RYAN DO CASPER K 338.19 ACUTE PAIN 03/17/2013 RYAN DO, CASPER K 338.19 ACUTE PAIN 03/17/2013 MAURA CHANDLER DDS 338.19 ACUTE PAIN 03/17/2013 CAHNDLER MARYCRUZS, MAURA 338.19 ACUTE PAIN 03/17/2013 CICI JACKSON APRN 338.19 ACUTE PAIN 03/17/2013 EVELINA AGUILERA DDS 338.19 ACUTE PAIN 03/17/2013 MADL THEATER SET PRODUCTION DESIGNER, ELIZA L 338.19 ACUTE PAIN 03/17/2013 RYAN DO CASPER K 338.19 ACUTE PAIN 03/17/2013 MADL THEATER SET PRODUCTION DESIGNER, ELIZA L 338.19 ACUTE PAIN 03/17/2013 RYAN DO, CASPER K 338.19 ACUTE PAIN 03/17/2013 MADL THEATER SET PRODUCTION DESIGNER, ELIZA L 338.19 ACUTE PAIN 03/17/2013 RYAN DO, CASPER K 338.19 ACUTE PAIN 03/17/2013 MADL THEATER SET PRODUCTION DESIGNER, ELIZA L 338.19 ACUTE PAIN 03/17/2013 MADL THEATER SET PRODUCTION DESIGNER, ELIZA L 338.19 ACUTE PAIN 03/17/2013 JULIANN JOHN, BRISEIDA Jimenez 338.19 ACUTE PAIN 03/17/2013 RYAN DO, CASPER K 338.19 ACUTE PAIN 03/17/2013 KATIE THEATER SET PRODUCTION DESIGNER, TYRESE R 338.19 ACUTE PAIN 03/17/2013 MADL THEATER SET PRODUCTION DESIGNER, ELIZA L 338.19 ACUTE PAIN 03/17/2013 MADL THEATER SET PRODUCTION DESIGNER, ELIZA L 338.19 ACUTE PAIN 03/17/2013 MADL THEATER SET PRODUCTION DESIGNER, ELIZA L 338.19 ACUTE PAIN 03/17/2013 RYAN DO, CASPER K 338.19 ACUTE PAIN 03/17/2013 MADL THEATER SET PRODUCTION DESIGNER, ELIZA L 338.19 ACUTE PAIN 04/26/2013 RYAN DOMONOA K V04.81 FLU SHOT 04/26/2013 RYAN DO, CASPER K V04.81 FLU SHOT 04/26/2013 MARILU KUMAR APRN V04.81 FLU SHOT 04/26/2013 RYAN DOMONOA K V04.81 FLU SHOT 04/26/2013 RYAN DO, CASPER K V04.81 FLU SHOT 04/26/2013 MAURA CHANDLER DDS V04.81 FLU SHOT 04/26/2013 GERALDINE JOELSMAURA V04.81 FLU SHOT 04/26/2013 CICI JACKSON APRN V04.81 FLU SHOT 04/26/2013 WILLY JOELS, EVELINA Torres V04.81 FLU SHOT 04/26/2013 MADL THEATER SET PRODUCTION DESIGNER, ELIZA L V04.81 FLU SHOT 04/26/2013 RYNA DO, CASPER K V04.81 FLU SHOT 04/26/2013 MADL THEATER SET PRODUCTION DESIGNER, ELIZA L V04.81 FLU SHOT 04/26/2013 RYAN DO, CASPER K V04.81 FLU SHOT 04/26/2013 MADL THEATER SET PRODUCTION DESIGNER, ELIZA L V04.81 FLU SHOT 04/26/2013 RYAN DO, CASPER K V04.81 FLU SHOT 04/26/2013 MADL THEATER SET PRODUCTION DESIGNER, ELIZA L V04.81 FLU SHOT 04/26/2013 MADL THEATER SET PRODUCTION DESIGNER, ELIZA L V04.81 FLU SHOT 04/26/2013 BRISEIDA HUMPHREYS MD V04.81 FLU SHOT 04/26/2013 RYAN DOCASPER K V04.81 FLU SHOT 04/26/2013 TYRESE WILSON APRN R V04.81 FLU SHOT 04/26/2013 MADL THEATER SET PRODUCTION DESIGNER, ELIZA L V04.81 FLU SHOT 04/26/2013 MADL THEATER SET PRODUCTION DESIGNER, ELIZA L V04.81 FLU SHOT 04/26/2013 MADL THEATER SET PRODUCTION DESIGNER, ELIZA L V04.81 FLU SHOT 04/26/2013 RYAN DOMONOA K V04.81 FLU SHOT 04/26/2013 MADL THEATER SET PRODUCTION DESIGNER, ELIZA L V04.81 FLU SHOT 06/05/2013 MARILU KUMAR APRN V76.47 VAGINAL PAP SMEAR SCREENING 06/05/2013 RYAN CASPER TORREZ V76.47 VAGINAL PAP SMEAR SCREENING 06/05/2013 CASPER RYAN DO V76.47 VAGINAL PAP SMEAR SCREENING 06/05/2013 GERALDINE DDSMAURA V76.47 VAGINAL PAP SMEAR SCREENING 06/05/2013 MAURA CHANDLER DDS V76.47 VAGINAL PAP SMEAR SCREENING 06/05/2013 CICI JACKSON APRN V76.47 VAGINAL PAP SMEAR SCREENING 06/05/2013 EVELINA AGUILERA DDS V76.47 VAGINAL PAP SMEAR SCREENING 06/05/2013 MADL THEATER SET PRODUCTION DESIGNER, ELIZA L V76.47 VAGINAL PAP SMEAR SCREENING 06/05/2013 RYAN CASPER TORREZ V76.47 VAGINAL PAP SMEAR SCREENING 06/05/2013 MADL THEATER SET PRODUCTION DESIGNER, ELIZA L V76.47 VAGINAL PAP SMEAR SCREENING 06/05/2013 RYAN CASPER TORREZ K V76.47 VAGINAL PAP SMEAR SCREENING 06/05/2013 MADL THEATER SET PRODUCTION DESIGNER, ELIZA L V76.47 VAGINAL PAP SMEAR SCREENING 06/05/2013 RYAN CASPER TORREZ K V76.47 VAGINAL PAP SMEAR SCREENING 06/05/2013 MADL THEATER SET PRODUCTION DESIGNER, ELIZA L V76.47 VAGINAL PAP SMEAR SCREENING 06/05/2013 MADL THEATER SET PRODUCTION DESIGNER, ELIZA L V76.47 VAGINAL PAP SMEAR SCREENING 06/05/2013 BRISEIDA HUMPHREYS MD V76.47 VAGINAL PAP SMEAR SCREENING 06/05/2013 RYAN DO, CASPER K V76.47 VAGINAL PAP SMEAR SCREENING 06/05/2013 KATIE THEATER SET PRODUCTION DESIGNER, TYRESE R V76.47 VAGINAL PAP SMEAR SCREENING 06/05/2013 MADL THEATER SET PRODUCTION DESIGNER, ELIZA L V76.47 VAGINAL PAP SMEAR SCREENING 06/05/2013 MADL THEATER SET PRODUCTION DESIGNER, ELIZA L V76.47 VAGINAL PAP SMEAR SCREENING 06/05/2013 MADL THEATER SET PRODUCTION DESIGNER, ELIZA L V76.47 VAGINAL PAP SMEAR SCREENING 06/05/2013 RYAN DO, CASPER K V76.47 VAGINAL PAP SMEAR SCREENING 06/05/2013 MADL THEATER SET PRODUCTION DESIGNER, ELIZA L V76.47 VAGINAL PAP SMEAR SCREENING 10/13/2013 MANUEL GILLETTE, CICI Bueno 465.9 UPPER RESPIRATORY INFECTION 10/13/2013 WILLY HENRIQUEZ, EVELINA Torres 465.9 UPPER RESPIRATORY INFECTION 10/13/2013 MADL THEATER SET PRODUCTION DESIGNER, ELIZA L 465.9 UPPER RESPIRATORY INFECTION 10/13/2013 RYAN DO, CASPER K 465.9 UPPER RESPIRATORY INFECTION 10/13/2013 MADL THEATER SET PRODUCTION DESIGNER, ELIZA L 465.9 UPPER RESPIRATORY INFECTION 10/13/2013 RYAN DO, CASPER K 465.9 UPPER RESPIRATORY INFECTION 10/13/2013 MADL THEATER SET PRODUCTION DESIGNER, ELIZA L 465.9 UPPER RESPIRATORY INFECTION 10/13/2013 RYAN DO, CASPER K 465.9 UPPER RESPIRATORY INFECTION 10/13/2013 MADL THEATER SET PRODUCTION DESIGNER, ELIZA L 465.9 UPPER RESPIRATORY INFECTION 10/13/2013 MADL THEATER SET PRODUCTION DESIGNER, ELIZA L 465.9 UPPER RESPIRATORY INFECTION 10/13/2013 BRISEIDA HUMPHREYS MD 465.9 UPPER RESPIRATORY INFECTION 10/13/2013 RYAN DO, CASPER K 465.9 UPPER RESPIRATORY INFECTION 10/13/2013 KATIE THEATER SET PRODUCTION DESIGNER, TYRESE R 465.9 UPPER RESPIRATORY INFECTION 10/13/2013 MADL THEATER SET PRODUCTION DESIGNER, ELIZA L 465.9 UPPER RESPIRATORY INFECTION 10/13/2013 MADL THEATER SET PRODUCTION DESIGNER, ELIZA L 465.9 UPPER RESPIRATORY INFECTION 10/13/2013 MADL THEATER SET PRODUCTION DESIGNER, EILZA L 465.9 UPPER RESPIRATORY INFECTION 10/13/2013 RYAN DO, CASPER K 465.9 UPPER RESPIRATORY INFECTION 10/13/2013 MADL THEATER SET PRODUCTION DESIGNER, ELIZA L 465.9 UPPER RESPIRATORY INFECTION 01/29/2014 MADL THEATER SET PRODUCTION DESIGNER, ELIZA L 959.7 OTHER AND UNSPECIFIED INJURY TO KNEE LEG ANKLE AND FOOT 01/29/2014 RYAN DO CASPER K 959.7 OTHER AND UNSPECIFIED INJURY TO KNEE LEG ANKLE AND FOOT 01/29/2014 MADL THEATER SET PRODUCTION DESIGNER, ELIZA L 959.7 OTHER AND UNSPECIFIED INJURY TO KNEE LEG ANKLE AND FOOT 01/29/2014 RYAN DO CASPER K 959.7 OTHER AND UNSPECIFIED INJURY TO KNEE LEG ANKLE AND FOOT 01/29/2014 MADL THEATER SET PRODUCTION DESIGNER, ELIZA L 959.7 OTHER AND UNSPECIFIED INJURY TO KNEE LEG ANKLE AND FOOT 01/29/2014 RYAN DO CASPER K 959.7 OTHER AND UNSPECIFIED INJURY TO KNEE LEG ANKLE AND FOOT 01/29/2014 MADL THEATER SET PRODUCTION DESIGNER, ELIZA L 959.7 OTHER AND UNSPECIFIED INJURY TO KNEE LEG ANKLE AND FOOT 01/29/2014 MADL THEATER SET PRODUCTION DESIGNER, ELIZA L 959.7 OTHER AND UNSPECIFIED INJURY TO KNEE LEG ANKLE AND FOOT 01/29/2014 BRISEIDA HUMPHREYS MD 959.7 OTHER AND UNSPECIFIED INJURY TO KNEE LEG ANKLE AND FOOT 01/29/2014 RYAN DOMONOA K 959.7 OTHER AND UNSPECIFIED INJURY TO KNEE LEG ANKLE AND FOOT 01/29/2014 TYRESE WILSON APRN R 959.7 OTHER AND UNSPECIFIED INJURY TO KNEE LEG ANKLE AND FOOT 01/29/2014 MADL THEATER SET PRODUCTION DESIGNER, ELIZA L 959.7 OTHER AND UNSPECIFIED INJURY TO KNEE LEG ANKLE AND FOOT 01/29/2014 MADL THEATER SET PRODUCTION DESIGNER, ELIZA L 959.7 OTHER AND UNSPECIFIED INJURY TO KNEE LEG ANKLE AND FOOT 01/29/2014 MADL THEATER SET PRODUCTION DESIGNER, ELIZA L 959.7 OTHER AND UNSPECIFIED INJURY TO KNEE LEG ANKLE AND FOOT 01/29/2014 RYAN DO CASPER K 959.7 OTHER AND UNSPECIFIED INJURY TO KNEE LEG ANKLE AND FOOT 01/29/2014 MADL THEATER SET PRODUCTION DESIGNER, ELIZA L 959.7 OTHER AND UNSPECIFIED INJURY TO KNEE LEG ANKLE AND FOOT 02/08/2014 MADL THEATER SET PRODUCTION DESIGNER, ELIZA L 110.1 DERMATOPHYTOSIS OF NAIL 02/08/2014 MADL THEATER SET PRODUCTION DESIGNER, ELIZA L 719.41 PAIN IN JOINT INVOLVING SHOULDER REGION 02/08/2014 RYAN DO CASPER K 110.1 DERMATOPHYTOSIS OF NAIL 02/08/2014 RYAN DO CASPER K 719.41 PAIN IN JOINT INVOLVING SHOULDER REGION 02/08/2014 MADL THEATER SET PRODUCTION DESIGNER, ELIZA L 110.1 DERMATOPHYTOSIS OF NAIL 02/08/2014 MADL THEATER SET PRODUCTION DESIGNER ELIZA L 719.41 PAIN IN JOINT INVOLVING SHOULDER REGION 02/08/2014 RYAN DO CASPER K 110.1 DERMATOPHYTOSIS OF NAIL 02/08/2014 RYAN DO CASPER K 719.41 PAIN IN JOINT INVOLVING SHOULDER REGION 02/08/2014 MADL THEATER SET PRODUCTION DESIGNER, ELIZA L 110.1 DERMATOPHYTOSIS OF NAIL 02/08/2014 MADL THEATER SET PRODUCTION DESIGNER, ELIZA L 719.41 PAIN IN JOINT INVOLVING SHOULDER REGION 02/08/2014 MADL JENNIFER GILLETTEWNYA L 110.1 DERMATOPHYTOSIS OF NAIL 02/08/2014 MADL THEATER SET PRODUCTION DESIGNER, ELIZA L 719.41 PAIN IN JOINT INVOLVING SHOULDER REGION 02/08/2014 BRISEIDA HUMPHREYS MD N 110.1 DERMATOPHYTOSIS OF NAIL 02/08/2014 BRISEIDA HUMPHREYS MD N 719.41 PAIN IN JOINT INVOLVING SHOULDER REGION 02/08/2014 MONO RYAN DOA K 110.1 DERMATOPHYTOSIS OF NAIL 02/08/2014 MONO RYAN DOA K 719.41 PAIN IN JOINT INVOLVING SHOULDER REGION 02/08/2014 SAMIRA WILSON APRNINA R 110.1 DERMATOPHYTOSIS OF NAIL 02/08/2014 KATIE GILLETTE TYRESE R 719.41 PAIN IN JOINT INVOLVING SHOULDER REGION 02/08/2014 ABBI THEATER SET PRODUCTION DESIGNERJENNIFER JimenezELIZA L 110.1 DERMATOPHYTOSIS OF NAIL 02/08/2014 MADL THEATER SET PRODUCTION DESIGNER, ELIZA L 719.41 PAIN IN JOINT INVOLVING SHOULDER REGION 02/08/2014 MADL LETA ELIZA L 110.1 DERMATOPHYTOSIS OF NAIL 02/08/2014 MADL THEATER SET PRODUCTION DESIGNER, ELIZA L 719.41 PAIN IN JOINT INVOLVING SHOULDER REGION 02/08/2014 MADL THEATER SET PRODUCTION DESIGNER, ELIZA L 110.1 DERMATOPHYTOSIS OF NAIL 02/08/2014 MADL THEATER SET PRODUCTION DESIGNER, ELIZA L 719.41 PAIN IN JOINT INVOLVING SHOULDER REGION 02/08/2014 MONO RYAN DOA K 110.1 DERMATOPHYTOSIS OF NAIL 02/08/2014 CONNOR TORREZ CASPER K 719.41 PAIN IN JOINT INVOLVING SHOULDER REGION 02/08/2014 MADL THEATER SET PRODUCTION DESIGNER, ELIZA L 110.1 DERMATOPHYTOSIS OF NAIL 02/08/2014 MADL THEATER SET PRODUCTION DESIGNER, ELIZA L 719.41 PAIN IN JOINT INVOLVING SHOULDER REGION 05/17/2014 MADL THEATER SET PRODUCTION DESIGNER, ELIZA L 466.0 BRONCHITIS, ACUTE 05/17/2014 MADL THEATER SET PRODUCTION DESIGNER, ELIZA L 466.0 BRONCHITIS, ACUTE 05/17/2014 JULIANN JOHN, BRISEIDA N 466.0 BRONCHITIS, ACUTE 05/17/2014 MONO RYAN DOA K 466.0 BRONCHITIS, ACUTE 05/17/2014 KATIE GILLETTE TYRESE R 466.0 BRONCHITIS, ACUTE 05/17/2014 MADL THEATER SET PRODUCTION DESIGNER, ELIZA L 466.0 BRONCHITIS, ACUTE 05/17/2014 MADL THEATER SET PRODUCTION DESIGNER, ELIZA L 466.0 BRONCHITIS, ACUTE 05/17/2014 MADL THEATER SET PRODUCTION DESIGNER, ELIZA L 466.0 BRONCHITIS, ACUTE 05/17/2014 CONNOR TORREZ CASPER K 466.0 BRONCHITIS, ACUTE 05/17/2014 MADL THEATER SET PRODUCTION DESIGNER, ELIZA L 466.0 BRONCHITIS, ACUTE 06/08/2014 CASPER RYAN DO K V03.82 PPV23 (PNEUMOVAX) DX 06/08/2014 SAMIRA WILSON APRNINA R V03.82 PPV23 (PNEUMOVAX) DX 06/08/2014 MADL THEATER SET PRODUCTION DESIGNER, ELIZA L V03.82 PPV23 (PNEUMOVAX) DX 06/08/2014 MADL THEATER SET PRODUCTION DESIGNER, ELIZA L V03.82 PPV23 (PNEUMOVAX) DX 06/08/2014 MADL THEATER SET PRODUCTION DESIGNER, ELIZA L V03.82 PPV23 (PNEUMOVAX) DX 06/08/2014 CASPER RYAN DO K V03.82 PPV23 (PNEUMOVAX) DX 06/08/2014 MADL THEATER SET PRODUCTION DESIGNER, ELIZA L V03.82 PPV23 (PNEUMOVAX) DX 06/26/2014 KATIE THEATER SET PRODUCTION DESIGNER, TYRESE R 786.2 COUGH 06/26/2014 MADL THEATER SET PRODUCTION DESIGNER, ELIZA L 786.2 COUGH 06/26/2014 MADL THEATER SET PRODUCTION DESIGNER, ELIZA L 786.2 COUGH 06/26/2014 MADL THEATER SET PRODUCTION DESIGNER, ELIZA L 786.2 COUGH 06/26/2014 RYAN DOCASPER K 786.2 COUGH 06/26/2014 MADL THEATER SET PRODUCTION DESIGNER, ELIZA L 786.2 COUGH 07/20/2014 MADL THEATER SET PRODUCTION DESIGNER, ELIZA L 703.0 INGROWING NAIL 07/20/2014 MADL THEATER SET PRODUCTION DESIGNER, ELIZA L 703.0 INGROWING NAIL 07/20/2014 MADL THEATER SET PRODUCTION DESIGNER, ELIZA L 703.0 INGROWING NAIL 07/20/2014 CASPER RYAN DO 703.0 INGROWING NAIL 07/20/2014 MADL THEATER SET PRODUCTION DESIGNER, ELIZA L 703.0 INGROWING NAIL 07/31/2014 MADL THEATER SET PRODUCTION DESIGNER, ELIZA L V76.10 BREAST CANCER SCREENING 07/31/2014 MADL THEATER SET PRODUCTION DESIGNER, ELIZA L V76.10 BREAST CANCER SCREENING 07/31/2014 CASPER RYAN DO K V76.10 BREAST CANCER SCREENING 07/31/2014 MADL THEATER SET PRODUCTION DESIGNER, ELIZA L V76.10 BREAST CANCER SCREENING 08/09/2014 MADL THEATER SET PRODUCTION DESIGNER, ELIZA L 780.79 OTHER MALAISE AND FATIGUE 08/09/2014 MADL THEATER SET PRODUCTION DESIGNER, ELIZA L 780.79 OTHER MALAISE AND FATIGUE 08/09/2014 CASPER RYAN DO K 780.79 OTHER MALAISE AND FATIGUE 08/09/2014 MADL THEATER SET PRODUCTION DESIGNER, ELIZA L 780.79 OTHER MALAISE AND FATIGUE 08/15/2014 Ot V76.12 08/15/2014 Ot V76.12 08/15/2014 Ot V76.12 08/15/2014 Ot 724.3 08/15/2014 Ot V76.12 08/15/2014 Ot V72.84 08/20/2014 MADL THEATER SET PRODUCTION DESIGNER, ELIZA L 793.80 ABNORMAL MAMMOGRAM 08/20/2014 RYAN DO, CASPER K 793.80 ABNORMAL MAMMOGRAM 08/20/2014 ABBI GILLETTE, ELIZA L 793.80 ABNORMAL MAMMOGRAM 08/23/2014 ABBI GILLETTE, ELIZA L 386.11 BENIGN PAROXYSMAL POSITIONAL VERTIGO 08/23/2014 CASPER RYAN DO K 386.11 BENIGN PAROXYSMAL POSITIONAL VERTIGO 08/23/2014 TEREZAL THEATER SET PRODUCTION DESIGNER, ELIZA L 386.11 BENIGN PAROXYSMAL POSITIONAL VERTIGO 10/02/2014 Ot 793.89 10/22/2014 MAD THEATER SET PRODUCTION DESIGNER, ELIZA L 724.02 SPINAL STENOSIS OF LUMBAR REGION WITHOUT NEUROGENIC CLAUDICATION 04/03/2015 MARILU KUMAR THEATER SET PRODUCTION DESIGNER Ot 793.80 04/17/2015 MARILU KUMAR THEATER SET PRODUCTION DESIGNER Ot 793.80 05/01/2015 NITA JOHN, ARELI Landaverde Ot E11.9 TYPE 2 DIABETES MELLITUS WITHOUT COMPLIC 05/01/2015 NITA JOHN, ARELI Landaverde Ot I10 ESSENTIAL (PRIMARY) HYPERTENSION 05/01/2015 NITA JOHN, ARELI Landaverde Ot M75.102 UNSP ROTATR-CUFF TEAR/RUPTR OF LEFT SHOU 05/01/2015 ARELI MOYA MD Ot S43.432A SUPERIOR GLENOID LABRUM LESION OF LEFT S 05/01/2015 NITA JOHN, ARELI Landaverde Ot Z79.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 BUS 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 05/02/2015 NITA JOHN, ARELI Landaverde Ot M75.102 05/02/2015 NITA JOHN, ARELI Landaverde Ot Z01.812 05/02/2015 NITA JOHN, ARELI Landaverde Ot Z11.2 05/21/2015 NITA JOHN, ARELI P Ot M75.102 05/21/2015 NITA JOHN, ARELI P Ot Z01.812 05/21/2015 NITA JOHN, ARELI Landaverde Ot Z11.2 05/28/2015 ARELI MOYA MD Ot M75.102 05/28/2015 NITA JOHN, ARELI Landaverde [...] 09/09/2015 MAURA AGUILERA MD, Ot Z79.899 OTHER LONG-TERM (CURRENT) DRUG THERAPY 09/20/2015 MAURA AGUILERA MD, Ot M47.816 09/20/2015 MAURA AGUILERA MD, Ot M51.16 09/20/2015 MAURA AGUILERA MD, Ot Z79.899 10/20/2015 JANNY MAZARIEGOS APRN Ot K52.9 NONINFECTIVE GASTROENTERITIS AND COLITIS 10/22/2015 JANNY MAZARIEGOS THEATER SET PRODUCTION DESIGNER Ot K52.9 NONINFECTIVE GASTROENTERITIS AND COLITIS 11/05/2015 JANNY MAZARIEGOS THEATER SET PRODUCTION DESIGNER Ot K52.9 NONINFECTIVE GASTROENTERITIS AND COLITIS 01/27/2016 MAURA AGUILERA MD Ot E66.01 MORBID (SEVERE) OBESITY DUE TO EXCESS CA 01/27/2016 MAURA AGUILERA MD Ot G89.4 CHRONIC PAIN SYNDROME 01/27/2016 MAURA AGUILERA MD, Ot M47.816 SPONDYLOSIS W/O MYELOPATHY OR RADICULOPA 01/27/2016 MAURA AGUILERA MD, Ot M51.16 INTERVERTEBRAL DISC DISORDERS W RADICULO 01/27/2016 MAURA AGUILERA MD Ot M53.3 SACROCOCCYGEAL DISORDERS, NOT ELSEWHERE 01/27/2016 MAURA AGUILERA MD Ot Z68.43 BODY MASS INDEX (BMI) 50-59.9 , ADULT 02/11/2016 MAURA AGUILERA MD Ot E66.01 MORBID (SEVERE) OBESITY DUE TO EXCESS CA 02/11/2016 MAURA AGUILERA MD Ot G89.4 CHRONIC PAIN SYNDROME 02/11/2016 MAURA AGUILERA MD, Ot M47.816 SPONDYLOSIS W/O MYELOPATHY OR RADICULOPA 02/11/2016 MAURA AGUILERA MD, Ot M51.16 INTERVERTEBRAL DISC DISORDERS W RADICULO 02/11/2016 MAURA AGUILERA MD, Ot M53.3 SACROCOCCYGEAL DISORDERS, NOT ELSEWHERE 02/11/2016 MAURA AGUILERA MD Ot Z68.43 BODY MASS INDEX (BMI) 50-59.9 , ADULT 04/06/2016 Ot V76.12 OTH SCREEN MAMMO-MALIGN NEOPLASM OF ERNESTO 04/06/2016 Ot 724.3 SCIATICA 04/06/2016 Ot V76.12 OTH SCREEN MAMMO-MALIGN NEOPLASM OF ERNESTO 04/06/2016 Ot V72.84 EXAM PRE- OPERATIVE NOS 04/06/2016 MARILU KUMAR THEATER SET PRODUCTION DESIGNER Ot V76.12 OTH SCREEN MAMMO-MALIGN NEOPLASM OF ERNESTO 04/06/2016 Ot 793.89 OTH (ABN) FINDINGS ON RADIOLOGICAL EXAMI 04/06/2016 Ot 724.2 LUMBAGO 04/06/2016 ELIZA GO PRIMER POWDER BLENDER WET Ot 724.2 LUMBAGO 04/06/2016 MARILU KUMAR THEATER SET PRODUCTION DESIGNER Ot 793.80 UNSPEC ABNORMAL MAMMOGRAM 04/06/2016 ARELI MOYA MD Ot M75.102 UNSP ROTATR-CUFF TEAR/RUPTR OF LEFT SHOU 04/06/2016 ARELI MOYA MD Ot Z01.812 ENCOUNTER FOR PREPROCEDURAL LABORATORY E 04/06/2016 ARELI MOYA MD Ot Z11.2 ENCOUNTER FOR SCREENING FOR OTHER BACTER 04/06/2016 MAURA AGUILERA MD, Ot M47.816 SPONDYLOSIS W/O MYELOPATHY OR RADICULOPA 04/06/2016 MAURA AGUILERA MD, Ot M51.16 INTERVERTEBRAL DISC DISORDERS W RADICULO 04/06/2016 MAURA AGUILERA MD Ot Z79.899 OTHER LONG-TERM (CURRENT) DRUG THERAPY 04/07/2016 MAURA AGUILERA MD, Ot M47.816 SPONDYLOSIS W/O MYELOPATHY OR RADICULOPA 04/30/2016 MAURA AGUILERA MD Ot E66.01 MORBID (SEVERE) OBESITY DUE TO EXCESS CA 04/30/2016 MAURA AGUILERA MD Ot G89.4 CHRONIC PAIN SYNDROME 04/30/2016 MAURA AGUILERA MD, Ot M47.816 SPONDYLOSIS W/O MYELOPATHY OR RADICULOPA 04/30/2016 MAURA AGUILERA MD, Ot M51.16 INTERVERTEBRAL DISC DISORDERS W RADICULO 04/30/2016 MAURA AGUILERA MD Ot M53.3 SACROCOCCYGEAL DISORDERS, NOT ELSEWHERE 04/30/2016 MAURA AGUILERA MD Ot Z68.43 BODY MASS INDEX (BMI) 50-59.9 , ADULT 04/30/2016 MAURA AGUILERA MD Ot Z79.899 OTHER LONG-TERM (CURRENT) DRUG THERAPY 05/08/2016 MADL, ELIZA L PRIMER POWDER BLENDER WET Ot Z12.31 ENCNTR SCREEN MAMMOGRAM FOR MALIGNANT NE 05/08/2016 MADL, ELIZA L PRIMER POWDER BLENDER WET Ot Z12.31 ENCNTR SCREEN MAMMOGRAM FOR MALIGNANT NE 05/18/2016 MADL, ELIZA L PRIMER POWDER BLENDER WET Ot Z12.31 ENCNTR SCREEN MAMMOGRAM FOR MALIGNANT NE 05/19/2016 MAURA AGIULERA MD Ot E66.01 MORBID (SEVERE) OBESITY DUE TO EXCESS CA 05/19/2016 MAURA AGUILERA MD Ot G89.4 CHRONIC PAIN SYNDROME 05/19/2016 MAURA AGUILERA MD, Ot M47.816 SPONDYLOSIS W/O MYELOPATHY OR RADICULOPA 05/19/2016 MAURA AGUILERA MD, Ot M51.16 INTERVERTEBRAL DISC DISORDERS W RADICULO 05/19/2016 MAURA AGUILERA MD, Ot M53.3 SACROCOCCYGEAL DISORDERS, NOT ELSEWHERE 05/19/2016 MAURA AGUILERA MD, Ot Z68.43 BODY MASS INDEX (BMI) 50-59.9 , ADULT 05/19/2016 MAURA AGUILERA MD, Ot Z79.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 BUS 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 06/01/2016 MAURA AGUILERA MD Ot E66.01 MORBID (SEVERE) OBESITY DUE TO EXCESS CA 06/01/2016 MAURA AGUILERA MD Ot G89.4 CHRONIC PAIN SYNDROME 06/01/2016 MAURA AGUILERA MD Ot M47.816 SPONDYLOSIS W/O MYELOPATHY OR RADICULOPA 06/01/2016 MAURA AGUILERA MD Ot M51.16 INTERVERTEBRAL DISC DISORDERS W RADICULO 06/01/2016 MAURA AGUILERA MD, Ot M53.3 SACROCOCCYGEAL DISORDERS, NOT ELSEWHERE 06/01/2016 MAURA AGUILERA MD, Ot Z68.43 BODY MASS INDEX (BMI) 50-59.9 , ADULT 06/01/2016 MAURA AGUILERA MD, Ot Z79.899 OTHER LONG-TERM (CURRENT) DRUG THERAPY 06/05/2016 SHEKHAR MCGUIRE APRN Ot E11.621 TYPE 2 DIABETES MELLITUS WITH FOOT ULCER 06/05/2016 SHEKHAR MCGUIRE APRN Ot L97.411 NON-PRS CHR ULCER OF RIGHT HEEL AND MIDF 07/03/2016 MAURA AGUILERA MD, Ot E11.9 TYPE 2 DIABETES MELLITUS WITHOUT COMPLIC 07/03/2016 MAURA AGUILERA MD, Ot M47.816 SPONDYLOSIS W/O MYELOPATHY OR RADICULOPA 07/03/2016 MAURA AGUILERA MD, Ot Z79.84 LONG-TERM (CURRENT) USE OF ORAL HYPOGLYC 07/08/2016 MAURA AGUILERA MD, Ot E11.9 TYPE 2 DIABETES MELLITUS WITHOUT COMPLIC 07/08/2016 MAURA AGUILERA MD, Ot M47.816 SPONDYLOSIS W/O MYELOPATHY OR RADICULOPA 07/08/2016 MAURA AGUILERA MD, Ot Z79.84 LONG-TERM (CURRENT) USE OF ORAL HYPOGLYC 07/10/2016 MAURA AGUILERA MD, Ot M47.816 SPONDYLOSIS W/O MYELOPATHY OR RADICULOPA 07/10/2016 ELIZA GO Ot Z12.31 ENCNTR SCREEN MAMMOGRAM FOR MALIGNANT NE 07/15/2016 MAURA AGUILERA MD, Ot M47.816 SPONDYLOSIS W/O MYELOPATHY OR RADICULOPA 12/16/2016 ARELI MOYA MD, Ot M77.11 LATERAL EPICONDYLITIS, RIGHT ELBOW 12/16/2016 ARELI MOYA MD, Ot Z01.812 ENCOUNTER FOR PREPROCEDURAL LABORATORY E 12/16/2016 ARELI MOYA MD, Ot Z11.2 ENCOUNTER FOR SCREENING FOR OTHER BACTER 12/23/2016 ARELI MOYA MD, Ot E11.9 TYPE 2 DIABETES MELLITUS WITHOUT COMPLIC 12/23/2016 ARELI MOYA MD, Ot E66.01 MORBID (SEVERE) OBESITY DUE TO EXCESS CA 12/23/2016 ARELI MOYA MD, Ot E78.5 HYPERLIPIDEMIA, UNSPECIFIED 12/23/2016 ARELI MOYA MD, Ot F32.9 MAJOR DEPRESSIVE DISORDER, SINGLE EPISOD 12/23/2016 ARELI MOYA MD, Ot I10 ESSENTIAL (PRIMARY) HYPERTENSION 12/23/2016 ARELI MOYA MD, Ot J45.909 UNSPECIFIED ASTHMA, UNCOMPLICATED 12/23/2016 ARELI MOYA MD, Ot K21.9 GASTRO-ESOPHAGEAL REFLUX DISEASE WITHOUT 12/23/2016 ARELI MOYA MD, Ot M77.11 LATERAL EPICONDYLITIS, RIGHT ELBOW 12/23/2016 ARELI MOYA MD, Ot Z68.43 BODY MASS INDEX (BMI) 50-59.9 , ADULT 12/23/2016 ARELI MOYA MD, Ot Z79.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 BUS 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 12/23/2016 ARELI MOYA MD, Ot Z87.891 PERSONAL HISTORY OF NICOTINE DEPENDENCE 12/24/2016 ARELI MOYA MD, Ot E11.9 TYPE 2 DIABETES MELLITUS WITHOUT COMPLIC 12/24/2016 ARELI MOYA MD, Ot E66.01 MORBID (SEVERE) OBESITY DUE TO EXCESS CA 12/24/2016 ARELI MOYA MD, Ot E78.5 HYPERLIPIDEMIA, UNSPECIFIED 12/24/2016 ARELI MOYA MD, Ot F32.9 MAJOR DEPRESSIVE DISORDER, SINGLE EPISOD 12/24/2016 ARELI MOYA MD, Ot I10 ESSENTIAL (PRIMARY) HYPERTENSION 12/24/2016 ARELI MOYA MD, Ot J45.909 UNSPECIFIED ASTHMA, UNCOMPLICATED 12/24/2016 ARELI MOYA MD, Ot K21.9 GASTRO-ESOPHAGEAL REFLUX DISEASE WITHOUT 12/24/2016 ARELI MOYA MD, Ot M77.11 LATERAL EPICONDYLITIS, RIGHT ELBOW 12/24/2016 ARELI MOYA MD, Ot Z68.43 BODY MASS INDEX (BMI) 50-59.9 , ADULT 12/24/2016 ARELI MOYA MD, Ot Z79.899 OTHER LONG-TERM (CURRENT) DRUG THERAPY 12/24/2016 ARELI MOYA MD, Ot Z87.891 PERSONAL HISTORY OF NICOTINE DEPENDENCE 03/19/2017 LANI COLE MD, Ot K21.9 GASTRO-ESOPHAGEAL REFLUX DISEASE WITHOUT 03/19/2017 LANI COLE MD, Ot R10.13 EPIGASTRIC PAIN 03/19/2017 LANI COLE MD, Ot Z01.818 ENCOUNTER FOR OTHER PREPROCEDURAL EXAMIN 03/22/2017 LANI COLE MD, Ot E11.9 TYPE 2 DIABETES MELLITUS WITHOUT COMPLIC 03/22/2017 DOUGLAS JOHN, LANI Tirado Ot F32.9 MAJOR DEPRESSIVE DISORDER, SINGLE EPISOD 03/22/2017 DOUGLAS JOHN, LANI Tirado Ot I10 ESSENTIAL (PRIMARY) HYPERTENSION 03/22/2017 LANI COLE MD Ot K20.9 ESOPHAGITIS, UNSPECIFIED 03/22/2017 LANI COLE MD Ot K29.70 GASTRITIS, UNSPECIFIED, WITHOUT BLEEDING 03/22/2017 LANI COLE MD Ot K57.30 DVRTCLOS OF LG INT W/O PERFORATION OR AB 03/22/2017 LANI COLE MD Ot Z87.891 PERSONAL HISTORY OF NICOTINE DEPENDENCE 03/28/2017 LANI COLE MD Ot E11.9 TYPE 2 DIABETES MELLITUS WITHOUT COMPLIC 03/28/2017 LANI COLE MD Ot F32.9 MAJOR DEPRESSIVE DISORDER, SINGLE EPISOD 03/28/2017 LANI COLE MD Ot I10 ESSENTIAL (PRIMARY) HYPERTENSION 03/28/2017 LANI COLE MD Ot K20.9 ESOPHAGITIS, UNSPECIFIED 03/28/2017 LANI COLE MD Ot K29.70 GASTRITIS, UNSPECIFIED, WITHOUT BLEEDING 03/28/2017 LANI COLE MD Ot K57.30 DVRTCLOS OF LG INT W/O PERFORATION OR AB 03/28/2017 LANI COLE MD Ot Z87.891 PERSONAL HISTORY OF NICOTINE DEPENDENCE 07/06/2017 ANA LUISA CASTANO Ot Z12.31 ENCNTR SCREEN MAMMOGRAM FOR MALIGNANT NE 07/07/2017 ANA LUISA CASTANO Ot Z12.31 ENCNTR SCREEN MAMMOGRAM FOR MALIGNANT NE 07/14/2017 ANA LUISA CASTANO Ot Z12.31 ENCNTR SCREEN MAMMOGRAM FOR MALIGNANT NE 08/03/2017 ANA LUISA CASTANO Ot Z12.31 ENCNTR SCREEN MAMMOGRAM FOR MALIGNANT NE 08/13/2017 ANA LUISA CASTANO Ot Z12.31 ENCNTR SCREEN MAMMOGRAM FOR MALIGNANT NE Procedures Code [place] [address] HEMOCCULT 06/09/2012 18876 HEMOCCULT 06/09/2012 35634 FATS/LIPIDS FECES, QUAL 06/09/2012 73141 STOOL FOR O & P 06/09/2012 56387 CLOSTRIDIUM (C-DIFF) 06/09/2012 84863 STOOL FOR POLYS & LEUKOCYTES 06/09/2012 LANI FELIZ 06/22/2012 G0121 COLONOSCOPY, SCREENING 08/22/2012 02403 ROUTINE VENIPUNCTURE 10/05/2012 99995 MICRO ALBUMIN-IN HOUSE 10/05/2012 81421 A1C (IN-HOUSE) 10/05/2012 42435 CMP 10/05/2012 84146 LIPID PANEL 10/05/2012 8819464 GFR CALC (RESULT ONLY) 10/05/2012 60891 MICROALBUMIN 10/06/2012 71211 LESION DESTRUCTION 1-14 ( BENIGN) 10/06/2012 08435 MICRO ALBUMIN-IN HOUSE 04/26/2013 36681 A1C (IN-HOUSE) 04/26/2013 10967 MAMMOGRAM, SCREENING 06/05/2013 96904 PAP SMEAR 06/05/2013 Q0091 PAP SMEAR OBTAIN SMEAR 06/05/2013 56413 MICRO ALBUMIN-IN HOUSE 08/14/2013 83909 A1C (IN-HOUSE) 08/14/2013 78397 XRAY FOOT RIGHT 2 VIEWS 01/29/2014 84110 ROUTINE VENIPUNCTURE 02/06/2014 32915 A1C (IN-HOUSE) 02/06/2014 26821 MICRO ALBUMIN-IN HOUSE 02/06/2014 9321808 GFR CALC (RESULT ONLY) 02/06/2014 19939 CMP 02/06/2014 78668 LIPID PANEL 02/06/2014 54466 XRAY SHOULDER LEFT COMP 2 VIEWS 02/08/2014 07646 ROUTINE VENIPUNCTURE 03/12/2014 01365 CMP 03/12/2014 02818 ROUTINE VENIPUNCTURE 05/17/2014 88412 A1C (IN-HOUSE) 05/17/2014 74224 CBC 05/17/2014 12739 MYCOPLASMA ANTIBODY 05/18/2014 24487 OXIMETRY 05/23/2014 58148 ROUTINE VENIPUNCTURE 05/23/2014 00591 OXIMETRY 05/23/2014 42855 CBC 05/23/2014 57857 OXIMETRY 06/26/2014 95378 ROUTINE VENIPUNCTURE 08/09/2014 19964 OXIMETRY 08/09/2014 63399 CBC 08/09/2014 4705385 GFR CALC (RESULT ONLY) 08/09/2014 48835 CMP 08/09/2014 95048 TSH 08/09/2014 28509 OXIMETRY 10/15/2014 50715 AMERIT[employer] 10/22/2014 Results Test Result Range Capillary blood glucose measurement by glucometer (mass/volume) - 04/06/16 13: 33 Capillary blood glucose measurement by glucometer (mass/volume) 102 mg/dL 70-110 Comp. Metabolic Panel (14) - 05/21/16 09:10 Glucose, Serum 173 mg/dL 65-99 BUN 14 mg/dL 6-24 Creatinine, Serum 0.89 mg/dL 0.57-1.00 eGFR If NonAfricn Am 75 mL/min/1.73 >59 eGFR If Africn Am 87 mL/min/1.73 >59 BUN/Creatinine Ratio 16 9-23 Sodium, Serum 143 mmol/L 136-144 Potassium, Serum 4.1 mmol/L 3.5-5.2 Chloride, Serum 97 mmol/L 97-106 Carbon Dioxide, Total 28 mmol/L 18-29 Calcium, Serum 9.5 mg/dL 8.7-10.2 Protein, Total, Serum 6.8 g/dL 6.0-8.5 Albumin, Serum 4.3 g/dL 3.5-5.5 Globulin, Total 2.5 g/dL 1.5-4.5 A/G Ratio 1.7 1.1-2.5 Bilirubin, Total 0.4 mg/dL 0.0-1.2 Alkaline Phosphatase, S 67 IU/L 39-117 AST (SGOT) 13 IU/L 0-40 ALT (SGPT) 13 IU/L 0-32 TSH - 05/21/16 09:10 TSH 2.100 uIU/mL 0.450-4.500 Vitamin B12 - 05/21/16 09:10 Vitamin B12 225 pg/mL 211-946 Microalb/Creat Ratio, Randm Ur - 05/21/16 09:10 Creatinine, Urine 213.1 mg/dL Not Estab. Microalbumin, Urine 15.2 ug/mL Not Estab. Microalb/Creat Ratio 7.1 mg/g creat 0.0-30.0 CBC With Differential/Platelet - 06/12/16 10:55 WBC 12.8 x10E3/uL 3.4-10.8 RBC 4.72 x10E6/uL 3.77-5.28 Hemoglobin 13.4 g/dL 11.1-15.9 Hematocrit 40.5 % 34.0-46.6 MCV 86 fL 79-97 MCH 28.4 pg 26.6-33.0 MCHC 33.1 g/dL 31.5-35.7 RDW 15.5 % 12.3-15.4 Platelets 348 x10E3/uL 150-379 Neutrophils 54 % Lymphs 36 % Monocytes 7 % Eos 3 % Basos 0 % Neutrophils (Absolute) 6.8 x10E3/uL 1.4-7.0 Lymphs (Absolute) 4.7 x10E3/uL 0.7-3.1 Monocytes(Absolute) 0.9 x10E3/uL 0.1-0.9 Eos (Absolute) 0.4 x10E3/uL 0.0-0.4 Baso (Absolute) 0.1 x10E3/uL 0.0-0.2 Immature Granulocytes 0 % Immature Grans (Abs) 0.0 x10E3/uL 0.0-0.1 Lipid Panel - 06/12/16 10:55 Cholesterol, Total 159 mg/dL 100-199 Triglycerides 122 mg/dL 0-149 HDL Cholesterol 61 mg/dL >39 VLDL Cholesterol Ministerio 24 mg/dL 5-40 LDL Cholesterol Calc 74 mg/dL 0-99 Capillary blood glucose measurement by glucometer (mass/volume) - 07/03/16 09: 22 Capillary blood glucose measurement by glucometer (mass/volume) 145 mg/dL 70-110 Methicillin resistant Staphylococcus aureus (MRSA) screening culture - 11:01 Methicillin resistant Staphylococcus aureus (MRSA) screening culture NEG NRG Whole blood basic metabolic panel - 12/16/16 11:03 Serum or plasma sodium measurement (moles/volume) 142 mmol/L 135-145 Serum or plasma potassium measurement (moles/volume) 3.9 mmol/L 3.6-5.0 Serum or plasma chloride measurement (moles/volume) 103 mmol/L 98-107 Carbon dioxide 27 mmol/L 21-32 Serum or plasma anion gap determination (moles/volume) 12 mmol/L 5-14 Serum or plasma urea nitrogen measurement (mass/volume) 10 mg/dL 7-18 Serum or plasma creatinine measurement (mass/volume) 0.70 mg/dL 0.60-1.30 Serum or plasma urea nitrogen/creatinine mass ratio 14 0 -20 Serum or plasma creatinine measurement with calculation of estimated glomerular filtration rate > NRG Serum or plasma glucose measurement (mass/volume) 131 mg/dL 70-105 Serum or plasma calcium measurement (mass/volume) 9.2 mg/dL 8.5-10.1 Capillary blood glucose measurement by glucometer (mass/volume) - 12/23/16 09: 44 Capillary blood glucose measurement by glucometer (mass/volume) 123 mg/dL 70-110 LIPID PANEL - 04/06/17 09:05 Cholesterol, Total 166 mg/dL 100-199 Triglycerides 220 mg/dL 0-149 HDL Cholesterol 54 mg/dL >39 VLDL Cholesterol Ministerio 44 mg/dL 5-40 LDL Cholesterol Calc 68 mg/dL 0-99 Comment: [facility] Comp. Metabolic Panel (14) - 04/06/17 09:05 Glucose, Serum 103 mg/dL 65-99 BUN 7 mg/dL 6-24 Creatinine, Serum 0.70 mg/dL 0.57-1.00 eGFR If NonAfricn Am 100 mL/min/1.73 >59 eGFR If Africn Am 115 mL/min/1.73 >59 BUN/Creatinine Ratio 10 9-23 Sodium, Serum 143 mmol/L 134-144 Potassium, Serum 4.3 mmol/L 3.5-5.2 Chloride, Serum 98 mmol/L 96-106 Carbon Dioxide, Total 29 mmol/L 18-29 Calcium, Serum 9.2 mg/dL 8.7-10.2 Protein, Total, Serum 6.5 g/dL 6.0-8.5 Albumin, Serum 4.0 g/dL 3.5-5.5 Globulin, Total 2.5 g/dL 1.5-4.5 A/G Ratio 1.6 1.2-2.2 Bilirubin, Total 0.3 mg/dL 0.0-1.2 Alkaline Phosphatase, S 72 IU/L 39-117 AST (SGOT) 10 IU/L 0-40 ALT (SGPT) 8 IU/L 0-32 Lipid Panel - 04/06/17 09:05 Cholesterol, Total 166 mg/dL 100-199 Triglycerides 220 mg/dL 0-149 HDL Cholesterol 54 mg/dL >39 VLDL Cholesterol Ministerio 44 mg/dL 5-40 LDL Cholesterol Calc 68 mg/dL 0-99 Encounters ACCT No. Visit Date/Time Discharge Status Pt. Type Provider Facility Loc./Unit Complaint [id number] 10/22/2014 12:20:00 10/22/2014 23:59:59 CLS Outpatient MADL THEATER SET PRODUCTION DESIGNER, ELIZA L [id number] 10/15/2014 09:28:00 10/15/2014 23:59:59 CLS Outpatient RYAN DOMONOGeorge Llanes [id number] 09/20/2014 08:30:00 09/20/2014 23:59:59 CLS Outpatient MADL THEATER SET PRODUCTION DESIGNER, ELIZA L [id number] 08/09/2014 09:53:00 08/09/2014 23:59:59 CLS Outpatient MADL THEATER SET PRODUCTION DESIGNER, ELIZA L [id number] 07/20/2014 13:39:00 07/20/2014 23:59:59 CLS Outpatient MADL THEATER SET PRODUCTION DESIGNER, ELIZA L [id number] 06/26/2014 17:44:00 06/26/2014 23:59:59 CLS Outpatient KATIE THEATER SET PRODUCTION DESIGNERTYRESE R [id number] 05/23/2014 14:50:00 05/23/2014 23:59:59 CLS Outpatient MADL THEATER SET PRODUCTION DESIGNER, ELIZA L [id number] 05/23/2014 14:15:00 05/23/2014 23:59:59 CLS Outpatient BRISEIDA HUMPHREYS MD [id number] 05/17/2014 11:01:00 05/17/2014 23:59:59 CLS Outpatient MADL THEATER SET PRODUCTION DESIGNER, ELIZA L [id number] 05/17/2014 11:01:00 05/17/2014 23:59:59 CLS Outpatient RYAN DOCASPER Shraddha [id number] 03/12/2014 10:27:00 03/12/2014 23:59:59 CLS Outpatient RYAN DO CASPER Llanes [id number] 02/08/2014 08:37:00 02/08/2014 23:59:59 CLS Outpatient MADL THEATER SET PRODUCTION DESIGNER, ELIZA L [id number] 02/08/2014 08:37:00 02/08/2014 23:59:59 CLS Outpatient MADL THEATER SET PRODUCTION DESIGNER, ELIZA L [id number] 02/06/2014 08:16:00 02/06/2014 23:59:59 CLS Outpatient RYAN DO CASPER Llanes [id number] 01/29/2014 10:49:00 01/29/2014 23:59:59 CLS Outpatient MADL THEATER SET PRODUCTION DESIGNER, ELIZA L [id number] 01/29/2014 10:49:00 01/29/2014 23:59:59 CLS Outpatient RYAN DOCASPER Shraddha [id number] 11/20/2013 13:50:00 11/20/2013 23:59:59 CLS Outpatient WILLY DDSEVELINA [id number] 10/13/2013 16:27:00 10/13/2013 23:59:59 CLS Outpatient CICI JACKSON APRN [id number] 09/27/2013 00:00:00 09/27/2013 23:59:59 CLS Outpatient CHANDLER DDSMAURA [id number] 09/25/2013 08:54:00 09/25/2013 23:59:59 CLS Outpatient CHANDLER DDSMAURA [id number] 08/14/2013 10:10:00 08/14/2013 23:59:59 CLS Outpatient RYAN DOCASPER Shrdadha [id number] 08/14/2013 10:10:00 08/14/2013 23:59:59 CLS Outpatient RYAN DOCASPER Shraddha [id number] 06/05/2013 09:43:00 06/05/2013 23:59:59 CLS Outpatient ROBERT KUMAR APRNPATTI Vazquez [id number] 04/26/2013 10:27:00 04/26/2013 23:59:59 CLS Outpatient RYAN DOMONOGeorge Llanes [id number] 04/26/2013 10:27:00 04/26/2013 23:59:59 CLS Outpatient RYAN DOCASPER Shraddha [id number] 03/17/2013 15:51:00 03/17/2013 23:59:59 CLS Outpatient RYAN DOCASPER Shraddha [id number] 10/05/2012 09:54:00 10/05/2012 23:59:59 CLS Outpatient RYAN DOMONOGeoreg Llanes [id number] 10/03/2012 07:27:00 10/03/2012 23:59:59 CLS Outpatient [id number] 07/18/2012 15:34:00 07/18/2012 23:59:59 CLS Outpatient RYAN DO CASPER Llanes [id number] 06/22/2012 08:56:00 06/22/2012 23:59:59 CLS Outpatient RYAN DO CASPER Llanes [id number] 06/09/2012 16:01:00 06/09/2012 23:59:59 CLS Outpatient NATI GOODE APRN [id number] 05/02/2012 10:09:00 05/02/2012 23:59:59 CLS Outpatient CASPER RYAN DO [id number] 01/09/2013 08:47:00 Document Registration [id number] 10/05/2012 09:54:00 Document Registration [id number] 06/13/2016 08:35:00 Document Registration [id number] 10/13/2017 15:30:00 10/13/2017 23:59:59 CLS Outpatient MADL ELIZA GILLETTE [facility] [id number] 04/06/2017 08:00:00 Document Registration [id number] 07/06/2017 10:17:00 07/06/2017 23:59:59 CLS Outpatient ANA LUISA CASTANO [facility] RAD WELL WOMAN EXAM [id number] 03/22/2017 08:41:00 03/22/2017 12:10:00 DIS Outpatient LANI COLE MD [facility] ENDO CHRONIC DIARRHEA/ REFLUX [id number] 03/18/2017 05:41:00 03/18/2017 10:45:00 DIS Outpatient LANI COLE MD [facility] PREOP COLO/EGD [id number] 12/23/2016 09:32:00 12/23/2016 14:00:00 DIS Outpatient ARELI MOYA MD [facility] RIGHT LATERAL EPICONDILISIS [id number] 12/16/2016 10:39:00 12/16/2016 11:07:00 DIS Outpatient ARELI MOYA MD [facility] PREOP RIGHT LATERAL EPICONDILISIS [id number] 07/10/2016 08:43:00 07/10/2016 09:48:00 DIS Outpatient MAURA AGUILERA MD [facility] CARD [id number] 07/03/2016 08:47:00 07/03/2016 10:06:00 DIS Outpatient MAURA AGUILERA MD 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 RAD SCREENING [id number] 04/06/2016 13:07:00 04/06/2016 23:59:59 CLS Outpatient MAURA AGUILERA MD [facility] CARD SPONDYLOSIS [id number] 01/27/2016 12:44:00 01/27/2016 14:06:00 DIS Outpatient MAURA AGUILERA MD 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 ER VOMITING [id number] 09/09/2015 12:02:00 09/09/2015 13:04:00 DIS Outpatient MAURA AGUILERA MD [facility] CARD DISC DISORDER [id number] 07/12/2015 10:50:00 07/12/2015 23:59:59 CLS Outpatient MAURA AGUILERA MD [facility] CARD DISC DISORDER W/ RADICULOPATHY LUMBAR [id number] 05/01/2015 06:33:00 05/01/2015 11:50:00 DIS Outpatient ARELI MOYA MD [facility] SDC LEFT SHOULDER TORN ROTATOR CUFF [id number] 04/25/2015 08:51:00 04/25/2015 23:59:59 CLS Outpatient ARELI MOYA MD [facility] PREOP LEFT SHOULDER TORN ROTATOR CUFF [id number] 03/14/2015 07:54:00 03/14/2015 23:59:59 CLS Outpatient MARILU KUMAR APRN [facility] RAD 6 MONTH FOLLOW UP [id number] 09/27/2014 14:33:00 09/27/2014 23:59:59 CLS Outpatient ELIZA GO [employer] POWDER BLENDER WET [facility] RAD LBP [id number] 08/15/2014 14:45:00 08/15/2014 23:59:59 CLS Outpatient MARILU KUMAR APRN [facility] RAD SCREENING [id number] 11/06/2017 11:10:00 ACT Emergency TEMITOPE JORDAN MD [facility] ER FALL/L FOOT INJ [id number] 08/27/2014 08:57:00 Document Registration [id number] 08/27/2014 08:47:00 Document Registration [id number] 08/15/2014 14:45:00 Document Registration [id number] 08/15/2014 14:45:00 Document Registration [id number] 08/22/2012 08:45:00 Document Registration [id number] 08/18/2012 07:53:00 Document Registration [id number] 05/09/2012 10:41:00 Document Registration [id number] 03/30/2012 22:30:00 Document Registration [id number] 10/27/2011 13:38:00 Document Registration [id number] 05/04/2011 08:32:00 Document Registration [id number] 08/31/2010 19:06:00 Document Registration [id number] 05/02/2010 10:30:00 Document Registration [id number] 04/22/2009 07:36:00 Document Registration [id number] 05/22/2016 10:05:00 Document Registration [id number] 04/07/2017 08:41:00 Document Registration [id number] 03/14/2015 10:14:09 ACT Document Registration [id number] 05/22/2016 10:05:00 Document Registration
[2017-11-06] MEDS ORDERED: HYDROcodone/APAP 7.5 MG/325 MG (LORTAB, LORCET PLUS) TABLET PO STA (12:01)
--- NOTE | 2017-11-06 12:10 | ED Lower Extremity ---
General Chief Complaint: Lower Extremity Stated Complaint: FALL/L FOOT INJ Source: patient Exam Limitations: no limitations History of Present Illness Date Seen by Provider: November 06, 2017 Time Seen by Provider: 11:50 Initial Comments Here with complaint of left foot pain lateral aspect that has been going on since call earlier this morning. States that she was standing on the step box and it tipped and her foot hit the ground and turned. Complains of swelling to the lateral aspect of the left foot near the proximal fifth metatarsal area. Denies other injury. She did go to ground completely but does not complain of any significant worsening of her back or hip or any other concerns. Denies loss of consciousness and denies hitting her head. Occurred approximately 2 hours ago. Onset: this morning Severity: moderate Pain/Injury Location: left foot Method of Injury: fell, twisted Modifying Factors: Improves With Immobilization; Worse With Movement Allergies and Home Medications Allergies Coded Allergies: cephalexin (Unverified Allergy, Severe, SWELLING, RASH, 08/31/10) benzalkonium chloride (Verified Allergy, Unknown, eye irritation, 04/25/15 ) travoprost (Verified Allergy, Unknown, eye irritation, 04/25/15) morphine (Verified Adverse Reaction, Mild, vomiting, 05/01/15) Home Medications Atenolol 100 Mg Tablet, 100 MG PO DAILY, (Reported) Baclofen 20 Mg Tablet, 20 MG PO HS, (Reported) Dulaglutide 0.75 Mg/0.5 Ml Pen.injctr, 0.75 MG SQ WEEK, (Reported) Duloxetine HCl 60 Mg Capsule.dr, 60 MG PO DAILY, (Reported) Estradiol 1 Mg Tablet, 1 MG PO DAILY, (Reported) Fluticasone Propionate 1 Ea Aero, 2 PUFF IH Q4H PRN for SHORTNESS OF BREATH, ( Reported) Furosemide 20 Mg Tablet, 20 MG PO DAILY, (Reported) Hydrocodone Bit/Acetaminophen 1 Tab Tab, 1-2 EACH PO Q6H PRN for PAIN-MODERATE Prescribed by: TEMITOPE JORDAN on 11/06/17 1212 Lisinopril/Hydrochlorothiazide 1 Each Tablet, 1 EACH PO DAILY, (Reported) Meclizine HCl 25 Mg Tablet, 25-50 MG PO q4-6hrs PRN for DIZZINESS, (Reported) take 1-2 (25mg) tabs Metformin HCl 500 Mg Tablet, 500 MG PO BID, (Reported) Pantoprazole Sodium 40 Mg Tablet.dr, 40 MG PO DAILY, (Reported) Pravastatin Sodium 40 Mg Tablet, 40 MG PO HS, (Reported) Pregabalin 225 Mg Capsule, 225 MG PO BID, (Reported) Tramadol HCl 50 Mg Tablet, 50 MG PO BID, (Reported) Patient Home Medication List Home Medication List Reviewed: Yes Constitutional: see HPI; No chills, No fever Respiratory: no symptoms reported Cardiovascular: no symptoms reported Musculoskeletal: see HPI, joint pain, joint swelling Skin: change in color; No lesions Psychiatric/Neurological: No Symptoms Reported Past Grubcue-Srvdlt-Diiwcb Hx Past Med/Social Hx: Reviewed Nursing Past Med/Soc Hx Patient Social History Alcohol Use: Denies Use Smoking Status: Former Smoker Former Smoker, Quit: Dec 16, 2004 Recent Foreign Travel: No Contact w/Someone Who Travel: No Recent Hopitalizations: No Immunizations Up To Date Date of Pneumonia Vaccine: Jul 05, 2013 Date of Influenza Vaccine: Apr 04, 2012 Seasonal Allergies Seasonal Allergies: Yes Past Medical History Surgeries: Yes Hysterectomy Respiratory: No Asthma, Sleep Apnea Cardiac: Yes Hypertension Neurological: Yes 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 /Migraines, 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 Genitourinary: No Gastrointestinal: Yes Gastroesophageal Reflux Musculoskeletal: Yes Arthritis, Chronic Back Pain Endocrine: Yes Diabetes, Non-Insulin dep HEENT: Yes Cataract Cancer: Yes Cervical Psychosocial: Yes Depression Integumentary: No Family Medical History Reviewed Nursing Family Hx No Pertinent Family Hx Physical Exam Vital Signs Vital Signs - First Documented 11/06/17 11:53 Temp 98.2 Pulse 70 Resp 18 B/P (MAP) 123/63 (83) Pulse Ox 98 O2 Delivery Room Air Capillary Refill : General Appearance: WD/WN, no apparent distress Cardiovascular: regular rate, rhythm, no murmur Respiratory: chest non-tender, normal breath sounds Back: normal inspection, no CVA tenderness, no vertebral tenderness Feet: left foot ecchymosis (lateral aspect in the face or proximal aspect of the fifth metatarsal), left foot pain, left foot soft tissue tenderness, left foot swelling Neurologic/Tendon: normal sensation, normal motor functions Neurologic/Psychiatric: alert, normal mood/affect Skin: warm/dry, ecchymosis (to the fetus described above.), other (no other lesions noted to the foot) Progress/Results/Core Measures Results/Orders My Orders Orders - TEMITOPE JORDAN MD Foot, Left, 3 Views (11/06/17 11:22) Hydrocodone/Apap 7.5/325 Tab (Lortab 7. (11/06/17 12:01) Crutches (11/06/17 12:01) Steplite (11/06/17 12:01) Vital Signs/I&O 11/06/17 11/06/17 11:53 12:13 Temp 98.2 98.2 Pulse 70 Resp 18 B/P (MAP) 123/63 (83) Pulse Ox 98 O2 Delivery Room Air Progress Progress Note : Progress Note Seen and evaluated. X-ray left foot. Proximal fifth metatarsal fracture noted. Walking boot applied and crutches given. Patient instructed to minimize weightbearing. She has established care with Dr. Frausto and will call him on Wednesday for appointment. Given hydrocodone 7.5 one tab by mouth times one now for the pain. Discharged home with return precautions. Patient verbalize understanding instructions and agreement with plan. Diagnostic Imaging Diagonstic Imaging: Xray Plain Films/CT/US/NM/MRI: other Comments Left foot 3 view. Proximal fifth metatarsal fracture NAME: PERCY ALLEN MED REC#: [id number] PT STATUS: REG ER : 1965 PHYSICIAN: TEMITOPE JORDAN MD ADMIT DATE: 11/06/17/ER Signed Date of Exam: 11/06/17 FOOT, LEFT, 3 VIEWS INDICATION: Injury to the left foot. TECHNIQUE: 3 views of the left foot. COMPARISON: None FINDINGS: There is a minimally distracted fracture at the base of the left fifth metatarsal, with extension to the tarsometatarsal joint. No additional fractures are seen. There is a bipartite medial hallux sesamoid. A small plantar calcaneal enthesophyte is seen. Alignment otherwise appears normal. IMPRESSION: Minimally distracted fracture at the base of the left fifth metatarsal. Dictated by: Dictated on workstation # [id number] Dict: 11/06/17 1205 Trans: 11/06/17 1239 Interpreted by: TIFFANY GALLAGHER MD Electronically signed by: TIFFANY GALLAGHER MD 11/06/17 1239 Departure Impression Primary Impression: Fracture of fifth metatarsal bone of left foot Qualified Codes: S92.355A - Nondisplaced fracture of fifth metatarsal bone, left foot, initial encounter for closed fracture Disposition: HOME, SELF-CARE Condition: Stable Departure-Patient Inst. Decision time for Depature: 12:10 Referrals: CASPER RYAN DO (PCP) Primary Care Physician ELIZA OG (Family) Primary Care Physician ARELI FRAUSTO MD Patient Instructions: Foot Fracture (DC) Add. Discharge Instructions: All discharge instructions reviewed with patient and/or family. Voiced understanding. Minimize weightbearing to the foot. Use boot and crutches when moving about. Call Dr. Frausto on Wednesday morning for recheck and further evaluation and care. See him this week. Take medications as directed. Return for worse pain, fever , vomiting, weakness, breathing problems or other concerns as needed. Scripts Hydrocodone Bit/Acetaminophen (Hydrocodone/Acetaminophen 5/325mg Tablet) 1 Tab Tab 1-2 EACH PO Q6H PRN for PAIN-MODERATE, #15 TAB 0 Refills Prov: TEMITOPE JORDAN MD 11/06/17 Copy Copies To 1: ARELI FRAUSTO MD, TIMOTHY D MD November 06, 2017 12:10
[2017-11-06] MEDS ORDERED: ACHD5005 PO (12:12)
[2017-11-06 12:45] VITALS: BP 125/68
== END 2017-11-06 12:45 | disposition home or self-care (01) ==
LOC: EDUNIT# 11:09 → ER 11:10
DX: S92.355A Nondisplaced fracture of fifth metatarsal bone, left foot, initial encounter for closed fracture (principal); G47.30 Sleep apnea, unspecified; J45.909 Unspecified asthma, uncomplicated; I10 Essential (primary) hypertension; G43.909 Migraine, unspecified, not intractable, without status migrainosus; K21.9 Gastro-esophageal reflux disease without esophagitis; E11.40 Type 2 diabetes mellitus with diabetic neuropathy, unspecified; F32.9 Major depressive disorder, single episode, unspecified; Z85.41 Personal history of malignant neoplasm of cervix uteri; Z88.1 Allergy status to other antibiotic agents; Z88.5 Allergy status to narcotic agent; Z88.8 Allergy status to other drugs, medicaments and biological substances; Z79.84 Long term (current) use of oral hypoglycemic drugs; Z87.891 Personal history of nicotine dependence; Z90.710 Acquired absence of both cervix and uterus; W01.0XXA Fall on same level from slipping, tripping and stumbling without subsequent striking against object, initial encounter; X50.0XXA Overexertion from strenuous movement or load, initial encounter
CPT/HCPCS: 73630

== ENCOUNTER → 2018-04-19 | Outpatient (CLI) | payer MEDICARE, MEDICAID ==
[~2018-04-19] MED LIST changes: +ACHD5005 PO; +METF-397 PO; -METF500T5 PO; -OXYC-197 PO; +OXYC1TAB87 PO
== END | disposition home or self-care (01) ==
LOC: RAD 12:08
PROVIDERS: ATTEND Internal Medicine Cardiovascular Disease
DX: I70.213 Atherosclerosis of native arteries of extremities with intermittent claudication, bilateral legs (principal); E11.9 Type 2 diabetes mellitus without complications; I10 Essential (primary) hypertension; E66.8 Other obesity; E78.2 Mixed hyperlipidemia
CPT/HCPCS: 93923

== ENCOUNTER → 2018-04-22 | Outpatient (CLI) | payer MEDICARE, MEDICAID ==
[~2018-04-22] MED LIST changes: +REGADENOSON 0.4 MG/5 ML SYR (LEXISCAN) IV ONE
[2018-04-22] MEDS: CATHETER FLUSH 10 ML SYR IV PRN ×2 (07:27→08:51)
[2018-04-22 08:49] VITALS: BP 133/97
--- NOTE | 2018-04-23 00:43 | STRESS TEST ---
DATE OF SERVICE: 04/22/2018 RESTING AND POST REGADENOSON TECHNETIUM-99M TETROFOSMIN SPECT CT IMAGING ORDERING PHYSICIAN: Dr. Carter. PRIMARY CARE PHYSICIAN: [facility]. CLINICAL DIAGNOSIS: Shortness of breath. Baseline images were carried out after injection of 10.21 mCi of technetium-99m Tetrofosmin. This was followed by 0.4 mg of regadenoson and 30 mCi technetium-99m Tetrofosmin for stress imaging. The electrocardiogram showed sinus rhythm at baseline. It did not change significantly with the regadenoson infusion. The patient did not report any significant symptoms except mild shortness of breath following regadenoson infusion, which resolved in a few minutes. Review of images at rest and following stress does not indicate any significant perfusion defects consistent with significant myocardial ischemia or infarction. Gated images show normal global left ventricular systolic function with normal regional wall motion. Left ventricular ejection fraction is calculated to be 71%. Left ventricular end diastolic volume is 85 mL. TID is absent (1.11). CONCLUSIONS: 1. No evidence of any significant myocardial ischemia or infarction on this study. 2. Normal regional wall motion. 3. Normal global left ventricular systolic function with a calculated ejection fraction of 71%. Job ID: [id number] DocumentID: [id number] Dictated Date: 04/22/2018 20:50:31 Resistor Inspector Date: 04/23/2018 00:42:48 Dictated By: TIMOTHY CARTER MD, MA, FACP, FACC,
== END ==
LOC: CARD 07:00
PROVIDERS: ATTEND Internal Medicine Cardiovascular Disease
DX: R06.02 Shortness of breath (principal); E11.9 Type 2 diabetes mellitus without complications; I10 Essential (primary) hypertension; E66.8 Other obesity; I73.9 Peripheral vascular disease, unspecified; E78.5 Hyperlipidemia, unspecified
CPT/HCPCS: 78452; 93017

== ENCOUNTER → 2018-05-02 | Outpatient (CLI) | payer MEDICARE, MEDICAID ==
[~2018-05-02] MED LIST changes: -REGADENOSON 0.4 MG/5 ML SYR (LEXISCAN) IV ONE
--- NOTE | 2018-05-02 10:38 | Diagnostic Imaging Report ---
INDICATION: Heart murmur. EXAMINATION: PA and lateral chest. FINDINGS: The heart size and pulmonary vascularity are normal. The lungs are clear. There are no effusions or pneumothoraces. IMPRESSION: Negative chest. Dictated by: Dictated on workstation # [id number]
== END ==
LOC: RAD 09:57
PROVIDERS: ATTEND Nurse Practitioner Family
DX: J45.909 Unspecified asthma, uncomplicated (principal); E66.01 Morbid (severe) obesity due to excess calories; G47.10 Hypersomnia, unspecified; G47.50 Parasomnia, unspecified
CPT/HCPCS: 71046

== ENCOUNTER → 2018-05-11 | Outpatient (CLI) | payer MEDICARE, MEDICAID ==
[~2018-05-11] MED LIST changes: +RT-ALBUTEROL SULF 2.5 MG/3 ML PRE-MIX VIAL INH ONE; +RT-ALBUTEROL SULF 2.5 MG/3 ML PRE-MIX VIAL ONE
== END ==
LOC: RT 11:32
PROVIDERS: ATTEND Nurse Practitioner Family
DX: J45.909 Unspecified asthma, uncomplicated (principal); R06.02 Shortness of breath; E66.01 Morbid (severe) obesity due to excess calories; Z68.43 Body mass index [BMI] 50.0-59.9, adult
CPT/HCPCS: 94060; 94726; 94729

== ENCOUNTER → 2018-05-13 | Outpatient (CLI) | payer MEDICARE, MEDICAID ==
[~2018-05-13] MED LIST changes: -RT-ALBUTEROL SULF 2.5 MG/3 ML PRE-MIX VIAL INH ONE; -RT-ALBUTEROL SULF 2.5 MG/3 ML PRE-MIX VIAL ONE
== END ==
LOC: CARD 09:00
PROVIDERS: ATTEND Internal Medicine Cardiovascular Disease
DX: R06.02 Shortness of breath (principal); E11.9 Type 2 diabetes mellitus without complications; I10 Essential (primary) hypertension; E66.8 Other obesity; I70.213 Atherosclerosis of native arteries of extremities with intermittent claudication, bilateral legs; E78.2 Mixed hyperlipidemia; I51.7 Cardiomegaly
CPT/HCPCS: 93306

== ENCOUNTER 2018-06-02 21:00 | Outpatient (CLI) | payer MEDICARE, MEDICAID | END 2018-06-03 06:48 | disposition home or self-care (01) | LOC: SLEEP 21:00 | PROVIDERS: ATTEND Nurse Practitioner Family | DX: G47.50 Parasomnia, unspecified (principal); G47.10 Hypersomnia, unspecified; E66.01 Morbid (severe) obesity due to excess calories; R06.02 Shortness of breath | CPT/HCPCS: 95811 ==

== ENCOUNTER → 2018-09-23 | Outpatient (CLI) | payer MEDICARE, MEDICAID ==
--- NOTE | 2018-09-23 19:37 | Diagnostic Imaging Report ---
INDICATION: Routine screening. Comparison is made with prior mammograms from 07/06/2017 and 05/07/2016. 2-D and 3-D bilateral screening mammography was performed with Computer-Aided Detection (CAD) system. FINDINGS: Scattered fibroglandular densities are identified bilaterally. Nodular densities in the right breast appear stable and most likely are intramammary lymph nodes. No spiculated mass or malignant-appearing microcalcifications are seen. The axillae are unremarkable. IMPRESSION: No mammographic features suspicious for malignancy are identified. ACR BI-RADS Category 2: Benign findings. Result letter will be mailed to the patient. Note: At least 10% of breast cancer is not imaged by mammography. Dictated by: Dictated on workstation # [id number]
== END ==
LOC: RAD 10:32
PROVIDERS: ATTEND Nurse Practitioner
DX: Z12.31 Encounter for screening mammogram for malignant neoplasm of breast (principal)
CPT/HCPCS: 77067

== ENCOUNTER → 2019-11-07 | Outpatient (CLI) | payer MEDICARE, MEDICAID ==
[~2019-11-07] MED LIST changes: -DULO60CA58 PO; +DULO60CA59 PO; +LISI1TAB29 PO; -MECL-106 PO; +MECL-149 PO; +TRM50T PO
--- NOTE | 2019-11-07 11:21 | Diagnostic Imaging Report ---
INDICATION: Screening for osteoporosis. COMPARISON: There are no prior studies for comparison. FINDINGS: The bone mineral density of the hips and spine was measured. The T score for the spine is 1.9. This value is within normal limits. The total T score for the left hip is 0.8 and for the right hip 0.6. The T score for the left femoral neck is -1.0. This is at the lowest end of normal. The T score for the right femoral neck is -0.8. AP Spine L1-L4: [BMD (g/cm2): 1.427] [T-Score: 1.9] [Z-Score: 1.5] [BMD Previous: NA] [BMD % Change: NA] LT Hip Neck: [BMD (g/cm2): 0.905] [T-Score: -1.0] [Z-Score: -0.7] LT Hip Total: [BMD (g/cm2):1.1.09] [T-Score:0.8] [Z-Score: 0.6] [BMD Previous: NA] [BMD % Change: NA] RT Hip Neck: [BMD (g/cm2):0.923] [T-Score:-0.8] [Z-Score:-0.6] RT Hip Total: [BMD (g/cm2):1.085] [T-score:0.6] [Z-Score:0.4] [BMD Previous:NA] [BMD % Change:NA] *Indicates significant change from prior examination based on 95% confidence level. World Health Organization criteria for BMD interpretation classify patients as Normal (T-score at or above -1.0), Osteopenic (T-score between -1.0 and -2.5) or Osteoporotic (T-score at or below -2.5). LIMITATIONS AND MODIFICATION: None. FRACTURE RISK (FRAX SCORE): The ten year probability of (%): Major Osteoporotic Fracture: [NA] Hip Fracture: [NA] IMPRESSION: 1. The bone mineral density of the hips and spine and femoral necks is within normal limits. The T score for the left femoral neck is at the lowest end of normal, however. 2. See below National Osteoporosis Foundation guidelines on when to potentially initiate pharmacologic therapy. Based on the National Osteoporosis Foundation Guidelines, pharmacologic treatment should be initiated in any of the following, unless clinical conditions suggest otherwise: * Any patient with prior fragility fracture of the hip or vertebrae. A spine fracture indicates 5X risk for subsequent spine fracture and 2X risk for subsequent hip fracture. * Osteoporosis (T-score <-2.5). * Postmenopausal women and men age 50 and older with low bone mass/osteopenia (T-score between -1.0 and -2.5) by DXA and 10-year major osteoporotic fracture greater than 20% or a 10-year probability of hip fracture greater than 3%. These fracture risks are supplied above in the FRAX score, if applicable. * Clinician judgement and/or patient preferences may indicate treatment for people with 10-year fracture probabilities above or below these levels. Dictated by: Dictated on workstation # [id number]
--- NOTE | 2019-11-07 16:54 | Diagnostic Imaging Report ---
EXAMINATION: Digital mammogram bilateral screening with CAD. INDICATION: Screening. COMPARISON: This study is compared to the prior exams of 09/23/2018, 07/06/2017, and 05/07/2016. PERSONAL HISTORY: At this time, there are no current complaints. FINDINGS: The fibroglandular tissue in both breasts is heterogeneously dense. This does limit the sensitivity of this exam. Overall, there does not appear to have been any significant change when compared to the prior study. No primary or secondary sign of malignancy is noted. IMPRESSION: There is no radiographic evidence for malignancy. ACR BI-RADS Category 1: Negative. Result letter will be mailed to the patient. Note: At least 10% of breast cancer is not imaged by mammography. Dictated by: Dictated on workstation # [id number]
== END ==
LOC: RAD 09:48
PROVIDERS: ATTEND Nurse Practitioner Family
DX: Z12.31 Encounter for screening mammogram for malignant neoplasm of breast (principal); Z13.820 Encounter for screening for osteoporosis; E28.319 Asymptomatic premature menopause
CPT/HCPCS: 77063; 77067; 77080

== ENCOUNTER → 2020-03-21 | Outpatient (CLI) | payer MEDICARE, MEDICAID ==
[~2020-03-21] MED LIST changes: -PANT40TA3 PO; +PANT40TA52 PO; +RT-ALBUTEROL SULF 2.5 MG/3 ML PRE-MIX VIAL INH ONE
== END ==
LOC: RT 08:00
PROVIDERS: ATTEND Nurse Practitioner Family
DX: J45.909 Unspecified asthma, uncomplicated (principal); G47.33 Obstructive sleep apnea (adult) (pediatric); G47.36 Sleep related hypoventilation in conditions classified elsewhere
CPT/HCPCS: 94060; 94726; 94729

== ENCOUNTER 2020-09-13 13:56 | Outpatient (CLI) | payer MEDICARE, MEDICAID ==
[~2020-09-13] VITALS: Ht 165 cm; Wt 122.7 kg
[~2020-09-13 13:56] MED LIST changes: -RT-ALBUTEROL SULF 2.5 MG/3 ML PRE-MIX VIAL INH ONE
[2020-09-13] MEDS ORDERED: EPINEPHrine INJECTION 1 MG/ML AMP IM PRN (14:15)
[2020-09-13] MEDS ORDERED: diphenhydrAMINE 50 MG/ML INJ (BENADRYL) IV PRN (14:15)
[2020-09-13] MEDS ORDERED: BAMLANIVIMAB (NON FORM) 700 MG in NS (IVPB) 100 ML IV ONE (14:15)
[2020-09-13 14:19] VITALS: BP 144/81
[2020-09-13 15:33] VITALS: BP 133/80
== END 2020-09-13 15:43 | disposition home or self-care (01) ==
LOC: INFUSION 13:56
PROVIDERS: ATTEND Nurse Practitioner Family

== ENCOUNTER → 2020-11-08 | Outpatient (CLI) | payer MEDICARE, MEDICAID ==
--- NOTE | 2020-11-08 18:38 | Diagnostic Imaging Report ---
INDICATION: Routine screening. COMPARISON is made prior mammograms from 11/07/2019 and 09/23/2018. 2-D and 3-D bilateral screening mammography was performed with CAD. Scattered fibroglandular densities are identified bilaterally. The parenchymal pattern is stable. Intraparenchymal lymph nodes in the upper and outer aspects of both breasts appear stable. No spiculated mass or malignant appearing microcalcifications are seen. Axillae are unremarkable. IMPRESSION: BI-RADS Category 2 No mammographic features suspicious for malignancy are identified. ACR BI-RADS Category 2: Benign findings. Result letter will be mailed to the patient. Note: At least 10% of breast cancer is not imaged by mammography. Dictated by: Dictated on workstation # [id number]
== END ==
LOC: RAD 08:01
PROVIDERS: ATTEND Nurse Practitioner Family
DX: Z12.31 Encounter for screening mammogram for malignant neoplasm of breast (principal)
CPT/HCPCS: 77063; 77067

== ENCOUNTER 2021-07-02 05:29 | Outpatient (CLI) | payer MEDICARE, MEDICAID ==
[~2021-07-02] VITALS: Ht 165.1 cm; Wt 132.3 kg
[~2021-07-02 05:29] MED LIST changes: -LISI1TAB29 PO; +LISI1TAB44 PO
[2021-07-02] MEDS ORDERED: MELO15TA39 PO (14:07)
[2021-07-02] MEDS ORDERED: SIMV40TA25 PO (14:07)
[2021-07-02] MEDS ORDERED: ATEN50TA PO (14:07)
[2021-07-02] MEDS ORDERED: TRZ50T PO (14:07)
[2021-07-02] MEDS ORDERED: METF-865 PO (14:07)
== END 2021-07-02 14:28 | disposition home or self-care (01) ==
LOC: PREOP 05:29
PROVIDERS: ATTEND Orthopaedic Surgery
DX: Z01.818 Encounter for other preprocedural examination (principal)

== ENCOUNTER 2021-07-09 08:53 | Day surgery (SDC) | payer MEDICARE, MEDICAID ==
--- NOTE | 2021-07-01 18:33 | HISTORY AND PHYSICAL ---
DATE OF SERVICE: This will be for outpatient surgery on 07/09/2021 for left shoulder arthroscopy. HISTORY OF PRESENT ILLNESS: The patient is a 56-year-old right hand dominant female with complaints of progressively worsening left shoulder pain. She has undergone treatment with injections and anti-inflammatories without relief. She underwent an MRI, which showed a split tear of the long head of the biceps tendon with superior labral tear, rotator cuff was intact. She responded well to initial subacromial injection, but had return of pain with activity limitations and because of this, it was elected to proceed with surgical intervention. REVIEW OF SYSTEMS: No chest pain, no shortness of breath. No dysuria. PAST MEDICAL HISTORY: Significant for diabetes, diastolic dysfunction, herniated disk, spinal stenosis, peripheral neuropathy, edema, hypertension, hyperlipidemia, asthma, reflux, nephrolithiasis, back pain, depression, tension headaches, restless leg syndrome, cervical cancer, history of MRSA. PAST SURGICAL HISTORY: Hysterectomy, right shoulder, left shoulder, colonoscopy, right knee arthroscopy, left rotator cuff repair. FAMILY HISTORY: Significant for cardiovascular disease, colon cancer, diabetes, Alzheimer's. PRIMARY CARE PROVIDER: [facility]. MEDICATIONS: Lyrica, meclizine, Lunesta, tramadol, meloxicam, albuterol, atenolol, simvastatin, Cymbalta, latanoprost, Proventil, pantoprazole. ALLERGIES: KEFLEX, MORPHINE, and TRAVATAN. SOCIAL HISTORY: The patient denies alcohol and tobacco use. PHYSICAL EXAMINATION: GENERAL: The patient is well-developed, well-nourished, in no acute distress. HEENT: Normocephalic, atraumatic. Pupils are equal, round, reactive to light. Oropharynx is clear. NECK: Supple, no lymphadenopathy. LUNGS: Clear to auscultation bilaterally. HEART: Regular rate and rhythm. ABDOMEN: Soft, nontender, nondistended. EXTREMITIES: Left shoulder demonstrates no atrophy. Her incisions are well healed. She is tender over the greater tuberosity. She is nontender at acromioclavicular joint. She has a positive Burlington's maneuver pain with apprehension, mildly positive Neer's and Hawkin sign. No gross weakness to abduction, external or internal rotation. ASSESSMENT: Left shoulder biceps tendinosis with superior labral tear. PLAN: Left shoulder arthroscopy with labral debridement, biceps tenotomy. The risks, benefits, options, ramifications and recovery have been discussed at length with the patient. She understands and wishes to proceed. Job ID: [id number] DocumentID: [id number] Dictated Date: 06/23/2021 10:00:09 Millinery Designer Date: 06/23/2021 10:31:00 Dictated By: ARELI MOYA MD
[~2021-07-09] VITALS: Ht 165.1 cm; Wt 132.3 kg
[2021-07-09] VITALS (11 sets, daily range): BP systolic 127–163; BP diastolic 69–78
[~2021-07-09 08:53] MED LIST changes: +ATEN50TA PO; +MELO15TA39 PO; +METF-865 PO; +SIMV40TA25 PO; +TRZ50T PO; +oxyCODONE/APAP 5/325MG (PERCOCET 5) TABLET PO PRN
[2021-07-09] MEDS ORDERED: CLINDAMYCIN 600 MG/50 ML IVPB 50 ML IV ONE ×2 (09:15→10:45)
--- NOTE | 2021-07-09 09:17 | Progress Note-Pre Operative ---
Pre-Operative Progress Note H&P Reviewed The H&P was reviewed, patient examined and no changes noted. Date Seen by Provider: Jul 09, 2021 Time Seen by Provider: 09:07 Date H&P Reviewed: Jul 09, 2021 Time H&P Reviewed: 07:11 Pre-Operative Diagnosis: left shoulder labral tear ARELI MOYA MD Jul 09, 2021 09:17
--- NOTE | 2021-07-09 09:18 | Progress Note-Post Operative ---
Post-Operative Progess Note Surgeon (s)/Test Engineering Technician (s) Surgeon ARELI MOYA MD Test Engineering Technician: Gato Huitron Pre-Operative Diagnosis left shoulder labral tear Post-Operative Diagnosis left shoulder labral tear and glenoid chondromalacia Procedure & Operative Findings Date of Procedure 07/09/21 Procedure Performed/Findings left shoulder arthroscopic labral debridement and glenoid chondroplasty Anesthesia Type GETA Estimated Blood Loss Estimated blood loss (mL): minimal Specimens/Packing Specimens Removed none Packing: none ARELI MOYA MD Jul 09, 2021 09:18
[2021-07-09] MEDS ORDERED: NEOSTIGMINE 3 MG/3 ML VIAL ONE (09:43)
[2021-07-09] MEDS ORDERED: LIDOCAINE PF 2% 5 ML (XYLOCAINE) VIAL ONE (09:43)
[2021-07-09] MEDS ORDERED: GLYCOPYRROLATE 0.2 MG/ML (ROBINUL) 2 ML VIAL ONE (09:43)
[2021-07-09] MEDS ORDERED: ONDANSETRON 4 MG/2 ML (SDV) Z0FRAN ONE (09:43)
[2021-07-09] MEDS ORDERED: MIDAZOLAM 2 MG/2 ML (VERSED) VIAL ONE (09:43)
[2021-07-09] MEDS ORDERED: proPOfol 200 MG/20 ML (DIPRIVAN) VIAL IV ONE (09:43)
[2021-07-09] MEDS ORDERED: fentaNYL INJ 100 MCG/2 ML AMP ONE (09:43)
[2021-07-09] MEDS: LACTATED RINGERS 1,000 ML IV PRN ×2 (09:56→12:15)
[2021-07-09] MEDS ORDERED: BUPIVACAINE 0.25% 30 ML (SENSORCAINE) VIAL ONE (10:15)
[2021-07-09] MEDS ORDERED: SEVOFLURANE (ULTANE) 15 ML INHAL SOLN ONE (11:18)
[2021-07-09] MEDS ORDERED: ROCURONIUM 10 MG/ML 5 ML SYRINGE IV ONE (11:44)
[2021-07-09] MEDS ORDERED: HYDROmorphone 2 MG/ML VIAL (DILAUDID) IV ONE (12:15)
[2021-07-09] MEDS ORDERED: ONDANSETRON 4 MG/2 ML (SDV) Z0FRAN IVP PRN (12:15)
[2021-07-09] MEDS ORDERED: fentaNYL INJ 100 MCG/2 ML AMP IVP ONE (12:15)
--- NOTE | 2021-07-09 14:49 | Anesthesia-General Post-Op ---
General Patient Condition Mental Status/LOC: Same as Preop Cardiovascular: Satisfactory Nausea/Vomiting: Absent Respiratory: Satisfactory Pain: Controlled Complications: Absent Post Op Complications Complications None Follow Up Care/Instructions Patient Instructions None needed. Anesthesia/Patient Condition Patient Condition Patient was doing well after the procedure with no complaints, stable vital signs, no apparent adverse anesthesia problems. MARJAN HARMAN DO Jul 09, 2021 14:49
--- NOTE | 2021-07-09 16:23 | OPERATIVE REPORT ---
DATE OF SERVICE: 07/09/2021 PREOPERATIVE DIAGNOSIS: Left shoulder labral tear. POSTOPERATIVE DIAGNOSES: 1. Left shoulder labral tear. 2. Left shoulder chondromalacia of the glenoid. PROCEDURES: 1. Left shoulder arthroscopic labral debridement. 2. Left shoulder arthroscopic chondroplasty of the glenoid. SURGEON: Tigre Moya MD ENGINEER GAS PUMPING STATION: Gato Huitron, who assisted throughout the procedure and closed the incisions. ANESTHESIA: General endotracheal by Dr. Swartz. ESTIMATED BLOOD LOSS: Minimal. DRAINS: None. COMPLICATIONS: None. POSTOPERATIVE PLAN: Sling wear for comfort with progressive activities as symptoms allow. The patient was transferred to the recovery room awake and stable condition. STATEMENT OF MEDICAL NECESSITY: The patient is a 56-year-old female with complaints of left shoulder pain, popping and catching. An MRI revealed a tear in the anterior labrum. She had previously undergone a rotator cuff repair, which appeared to be intact, but due to functional impairment and failure to improve with conservative measures, the patient elected to proceed with surgical intervention. Examination under anesthesia revealed forward elevation of 170 degrees, external rotation of 80 degrees and internal rotation of 70 degrees. Arthroscopic findings, the rotator cuff was intact throughout. There was a degenerative tear of the anterior labrum from the 9 to 12 o'clock positions. In addition, there were grade II to III chondral flaps of the anterior rim of the glenoid at the equator in a 10 x 10 area. The humeral head demonstrated grade I chondral softening with no unstable flaps. DESCRIPTION OF PROCEDURE: After risks and benefits of procedure were discussed and questions were answered, informed consent was signed and placed on chart, the operative site was confirmed in the preoperative holding area initialed by the surgeon. The patient was then transferred to the operating room and after adequate levels of general endotracheal anesthetic were obtained, a timeout was called, confirming the operative site. Examination under anesthesia was performed with above findings noted. Left shoulder was prepped and draped in the usual sterile fashion. The shoulder joint was injected with 20 mL fluid. Standard posterior portal was placed under direct visualization. Anterior portal was created in the interval between the humeral head, glenoid and subscapularis. The labral tear was debrided with a shaver back to a stable edge and the unstable chondral flaps were debrided with a shaver back to a stable edge. Shoulder joint was copiously irrigated. The port sites were closed with 4-0 nylon in a simple interrupted fashion. The port sites were infiltrated with plain Marcaine and soft dressing and sling were applied. The patient was transferred to the recovery room awake and in stable condition. Job ID: [id number] DocumentID: [id number] Dictated Date: 07/09/2021 11:24:36 Senior Cost Accountant Date: 07/09/2021 16:22:03 Dictated By: TIGRE MOYA MD
== END 2021-07-09 14:15 | disposition home or self-care (01) ==
LOC: SDC 08:53
PROVIDERS: ATTEND Orthopaedic Surgery
DX: S43.492A Other sprain of left shoulder joint, initial encounter (principal); M94.212 Chondromalacia, left shoulder; I10 Essential (primary) hypertension; E78.5 Hyperlipidemia, unspecified; K21.9 Gastro-esophageal reflux disease without esophagitis; E11.9 Type 2 diabetes mellitus without complications; E11.42 Type 2 diabetes mellitus with diabetic polyneuropathy; G43.909 Migraine, unspecified, not intractable, without status migrainosus; G47.33 Obstructive sleep apnea (adult) (pediatric); G25.81 Restless legs syndrome; J45.909 Unspecified asthma, uncomplicated; F32.A Depression, unspecified; Z79.84 Long term (current) use of oral hypoglycemic drugs; Z79.899 Other long term (current) drug therapy; Z87.891 Personal history of nicotine dependence; Z85.41 Personal history of malignant neoplasm of cervix uteri; Z90.710 Acquired absence of both cervix and uterus; Z80.0 Family history of malignant neoplasm of digestive organs; Z83.3 Family history of diabetes mellitus
CPT/HCPCS: 82947; 87081

== ENCOUNTER → 2021-09-03 | Outpatient (CLI) | payer MEDICARE, MEDICAID ==
[~2021-09-03] MED LIST changes: +GADOTERATE 0.5 MMOL/ML (CLARISCAN) 20 ML VIAL IV ONE; -oxyCODONE/APAP 5/325MG (PERCOCET 5) TABLET PO PRN
== END ==
LOC: RAD 12:30
PROVIDERS: ATTEND Nurse Practitioner Family
DX: R22.41 Localized swelling, mass and lump, right lower limb (principal)

== ENCOUNTER 2023-06-09 08:17 | Outpatient (CLI) | payer MEDICARE, MEDICAID ==
[~2023-06-09] VITALS: Ht 162.6 cm; Wt 125.8 kg
[~2023-06-09 08:17] MED LIST changes: -GADOTERATE 0.5 MMOL/ML (CLARISCAN) 20 ML VIAL IV ONE; -MECL-149 PO; +MECL-291 PO
[2023-06-09] MEDS ORDERED: MECL-291 PO (09:25)
[2023-06-09] MEDS ORDERED: ASPI-999 PO (09:25)
[2023-06-09] MEDS ORDERED: SEMA0.258 SQ (09:25)
[2023-06-09] MEDS ORDERED: DICL100G60 TP (09:25)
[2023-06-09 09:29] VITALS: BP 128/85
[2023-06-09 10:20] LABS: BASOPHILS # (AUTO) 0.1 10^3/uL (0.0-0.1); BASOPHILS % (AUTO) 1 % (0-10); EOSINOPHILS # (AUTO) 0.2 10^3/uL (0.0-0.3); EOSINOPHILS % (AUTO) 3 % (0-10); HEMATOCRIT 46 % (35-52); HEMOGLOBIN 14.4 g/dL (11.5-16.0); LYMPHOCYTES # (AUTO) 1.4 10^3/uL (1.0-4.0); LYMPHOCYTES % (AUTO) 20 % (12-44); MEAN CORPUSCULAR HEMOGLOBIN 28 pg (25-34); MEAN CORPUSCULAR HGB CONC 31 g/dL (32-36); MEAN CORPUSCULAR VOLUME 91 fL (80-99); MEAN PLATELET VOLUME 11.1 fL (9.0-12.2); MONOCYTES # (AUTO) 0.8 10^3/uL (0.0-1.0); MONOCYTES % (AUTO) 11 % (0-12); NEUTROPHILS # (AUTO) 4.7 10^3/uL (1.8-7.8); NEUTROPHILS % (AUTO) 66 % (42-75); PLATELET COUNT 200 10^3/uL (130-400); WHITE BLOOD COUNT 7.2 10^3/uL (4.3-11.0)
[2023-06-09] MEDS ORDERED: GABA300C PO (10:23)
[2023-06-09] MEDS ORDERED: CELE400C PO (10:23)
[2023-06-09] MEDS ORDERED: ACET-168 PO (10:23)
[2023-06-09 10:33] LABS: ALBUMIN 3.9 GM/DL (3.2-4.5); POTASSIUM 4.5 MMOL/L (3.6-5.0)
[2023-06-09 10:34] LABS: CALCIUM 9.1 MG/DL (8.5-10.1); PROTHROMBIN TIME PATIENT 13.1 SEC (12.2-14.7)
[2023-06-09 10:35] LABS: TOTAL PROTEIN 6.6 GM/DL (6.4-8.2)
[2023-06-09 10:37] LABS: BILIRUBIN,TOTAL 0.6 MG/DL (0.1-1.0)
[2023-06-09 10:39] LABS: CREATININE SERUM 0.73 MG/DL (0.60-1.30)
[2023-06-09 10:43] LABS: CLARITY,URINE CLEAR; COLOR,URINE YELLOW; GLUCOSE, URINE (UA) NEGATIVE (NEGATIVE); KETONES,URINE TRACE (NEGATIVE); NITRITE,URINE NEGATIVE (NEGATIVE); PROTEIN,URINE 1+ (NEGATIVE)
[2023-06-09 10:44] LABS: BILIRUBIN,URINE 1+ (NEGATIVE); LEUKOCYTE ESTERASE ,URINE TRACE (NEGATIVE)
[2023-06-09 10:45] LABS: BACTERIA,URINE FEW /HPF
--- NOTE | 2023-06-09 13:06 | Diagnostic Imaging Report ---
INDICATION: Preoperative evaluation prior to knee surgery. COMPARISON: 05/02/2018. FINDINGS: Frontal and lateral views of the chest demonstrate normal heart size and pulmonary vascularity. The lungs are clear. There are no signs of infiltrate, pleural effusions or pneumothoraces. The visualized osseous structures show no acute abnormalities. IMPRESSION: 1. No acute process. No signs of infiltrates, effusions or pneumothoraces. Dictated by: Dictated on workstation # [id number]
== END 2023-06-09 15:09 ==
LOC: PREOP 08:17
PROVIDERS: ATTEND Orthopaedic Surgery
DX: Z01.818 Encounter for other preprocedural examination (principal); M17.11 Unilateral primary osteoarthritis, right knee
CPT/HCPCS: 36415; 71046; 80053; 81000; 85025; 85610; 86850; 86900; 86901; 87081; 87088